=== PATIENT | male | born 1950 | race Caucasian/White ===

== ENCOUNTER → 2017-08-23 09:01 | Outpatient (CLI) | payer OTHER, SELFPAY ==
[2017-08-23 11:31] LABS: Absolute Lymphocyte Count 3.19 X10^3/ul (0.83-4.51); Absolute Neutrophil Count 4.1 X10^3/uL (2.0-7.7); Basophil# 0.03 X10^3/uL; Basophil% 0.4 % (0-1); Eosinophil# 0.15 X10^3/uL; Eosinophils% 1.8 % (0-5); Hematocrit 46.3 % (40-54); Hemoglobin 15.5 g/dl (13.0-16.5); Lymphocyte # 3.19 X10^3/ul (4.0); Lymphocyte % 37.7 % (19-41); Mean Corp Hgb Conc 33.5 g/gl (32-36); Mean Corpuscular Hgb 32.4 pg (27.0-32.0); Mean Corpuscular Volume 96.7 fL (80-94); Mean Platelet Vol. 9.8 fl (6.2-12.0); Monocyte# 1.01 X10^3/uL; Monocyte% 11.9 % (0-10); Neutrophil # 4.07 X10^3/uL (2.7-7.7); Platelet Count 387 K/mm3 (150-450); RBC Distribution Width CV 14.4 % (11.6-14.6); RBC Distribution Width SD 49.4 fl (35.1-43.9); Red Blood Count 4.79 M/mm3 (4.6-6.2); White Blood Count 8.5 K/mm3 (4.4-11.0)
[2017-08-23 11:33] LABS: POSITIVE COUNT NO; POSITIVE DIFFERENTIAL NO; POSITIVE MORPHOLOGY NO
[2017-08-23 12:03] LABS: AST(SGOT) 24 U/L (15-37); Alanine Aminotransfer ALT/SGPT 32 U/L (16-61); Albumin, Serum 3.8 g/dL (3.2-5.0); Alkaline Phosphatase 117 U/L (45-117); Anion Gap 9 (5-15); BUN 25 mg/dL (7-18); BUN/Creat Ratio 27.6 RATIO (10-20); Calcium,Total 8.6 mg/dL (8.5-10.1); Chloride 100 mmol/L (98-107); Creatinine, Serum 0.91 mg/dL (0.70-1.30); EST Glomerular Filtration Rate 89 mL/min (>60); Est Glom Filt Rate - Afr Amer 108 mL/min (>60); Globulin 3.7 g/dL (2.2-4.2); Glucose 111 mg/dL (74-106); Potassium 4.4 mmol/L (3.5-5.1); Protein, Total 7.5 g/dL (6.4-8.2); Sodium Level 138 mmol/L (136-145); Thyroid Stim Hormone (TSH) 1.63 uIU/mL (0.358-3.74)
== END ==
PROVIDERS: Family Provider Family Medicine Geriatric Medicine; PCP Family Medicine Geriatric Medicine; Visit Provider Family Medicine Geriatric Medicine
DX: I10 Essential (primary) hypertension (principal)
CPT/HCPCS: 36415; 80053; 84443; 85025

== ENCOUNTER → 2017-08-30 09:00 | Outpatient (CLI) | payer OTHER, SELFPAY | PROVIDERS: Family Provider Family Medicine Geriatric Medicine; PCP Family Medicine Geriatric Medicine; Visit Provider Internal Medicine Critical Care Medicine | DX: G47.33 Obstructive sleep apnea (adult) (pediatric) (principal) | CPT/HCPCS: 98960; G0463 ==

== ENCOUNTER → 2018-03-07 09:07 | Outpatient (CLI) | payer OTHER, SELFPAY ==
[2018-03-07 12:38] LABS: Absolute Lymphocyte Count 2.58 X10^3/ul (0.83-4.51); Absolute Neutrophil Count 4.9 X10^3/uL (2.0-7.7); Basophil# 0.04 X10^3/uL; Basophil% 0.5 % (0-1); Eosinophil# 0.14 X10^3/uL; Eosinophils% 1.6 % (0-5); Hematocrit 48.7 % (40-54); Hemoglobin 16.1 g/dl (13.0-16.5); Lymphocyte # 2.58 X10^3/ul (4.0); Lymphocyte % 29.7 % (19-41); Mean Corp Hgb Conc 33.1 g/gl (32-36); Mean Corpuscular Hgb 31.9 pg (27.0-32.0); Mean Corpuscular Volume 96.6 fL (80-94); Mean Platelet Vol. 9.8 fl (6.2-12.0); Monocyte# 0.99 X10^3/uL; Monocyte% 11.4 % (0-10); Neutrophil # 4.91 X10^3/uL (2.7-7.7); Neutrophil % 56.6 % (47-70); Platelet Count 336 K/mm3 (150-450); RBC Distribution Width CV 13.7 % (11.6-14.6); RBC Distribution Width SD 48.1 fl (35.1-43.9); Red Blood Count 5.04 M/mm3 (4.6-6.2); White Blood Count 8.7 K/mm3 (4.4-11.0)
[2018-03-07 12:39] LABS: POSITIVE COUNT NO; POSITIVE DIFFERENTIAL NO; POSITIVE MORPHOLOGY NO
[2018-03-07 12:52] LABS: Vitamin D,25 Hydroxy 7.7 ng/mL (29.95-100.01)
[2018-03-07 12:59] LABS: ALB/GLOB Ratio 0.9 RATIO (0.9-2.4); AST(SGOT) 23 U/L (15-37); Alanine Aminotransfer ALT/SGPT 34 U/L (16-61); Albumin, Serum 3.6 g/dL (3.2-5.0); Alkaline Phosphatase 114 U/L (45-117); Anion Gap 7 (5-15); BUN 19 mg/dL (7-18); BUN/Creat Ratio 21.8 RATIO (10-20); Calcium,Total 8.7 mg/dL (8.5-10.1); Chloride 100 mmol/L (98-107); Creatinine, Serum 0.87 mg/dL (0.70-1.30); EST Glomerular Filtration Rate 93 mL/min (>60); Est Glom Filt Rate - Afr Amer 113 mL/min (>60); Globulin 3.8 g/dL (2.2-4.2); Glucose 115 mg/dL (74-106); PSA,Total - Annual Screen 0.95 ng/mL (0.00-4.00); Potassium 4.7 mmol/L (3.5-5.1); Protein, Total 7.4 g/dL (6.4-8.2); Sodium Level 139 mmol/L (136-145); Thyroid Stim Hormone (TSH) 1.31 uIU/mL (0.358-3.74)
[2018-03-10 13:13] LABS: Hep C Antibodies 0.1 s/co ratio (0.0-0.9)
== END ==
PROVIDERS: Family Provider Family Medicine Geriatric Medicine; PCP Family Medicine Geriatric Medicine; Visit Provider Family Medicine Geriatric Medicine
DX: I10 Essential (primary) hypertension (principal); E55.9 Vitamin D deficiency, unspecified; Z12.5 Encounter for screening for malignant neoplasm of prostate; Z13.89 Encounter for screening for other disorder
CPT/HCPCS: 36415; 80053; 82306; 84153; 84443; 85025; 86803; G0103

== ENCOUNTER → 2019-04-17 08:36 | Outpatient (CLI) | payer OTHER, SELFPAY ==
[2018-08-29 09:01] VITALS: BMI 39.6
[2019-04-17 12:00] LABS: Absolute Lymphocyte Count 3.57 X10^3/uL (0.83-4.51); Absolute Neutrophil Count 5.5 X10^3/uL (2.0-7.7); Basophil# 0.05 X10^3/uL; Basophil% 0.5 % (0-1); Eosinophil# 0.13 X10^3/uL; Eosinophils% 1.3 % (0-5); Hematocrit 53.9 % (40-54); Hemoglobin 17.1 g/dL (13.0-16.5); Lymphocyte # 3.57 X10^3/ul (4.0); Lymphocyte % 34.6 % (19-41); Mean Corp Hgb Conc 31.7 g/dL (32-36); Mean Corpuscular Hgb 31.7 pg (27.0-32.0); Mean Corpuscular Volume 99.8 fL (80-94); Mean Platelet Vol. 10.2 fl (6.2-12.0); Monocyte# 1.03 X10^3/uL; NRBC Flagged by Analyzer 0 % (0-5); Neutrophil # 5.47 X10^3/uL (2.7-7.7); Neutrophil % 52.8 % (47-70); Platelet Count 309 K/mm3 (150-450); RBC Distribution Width CV 13.5 % (11.6-14.6); RBC Distribution Width SD 49.2 fl (35.1-43.9); White Blood Count 10.3 K/mm3 (4.4-11.0)
[2019-04-17 12:18] LABS: Vitamin D,25 Hydroxy 27.2 ng/mL (29.95-100.01)
[2019-04-17 12:22] LABS: ALB/GLOB Ratio 0.9 RATIO (0.9-2.4); AST(SGOT) 22 U/L (15-37); Alanine Aminotransfer ALT/SGPT 36 U/L (16-61); Albumin, Serum 3.7 g/dL (3.2-5.0); Alkaline Phosphatase 111 U/L (45-117); Anion Gap 4 (5-15); BUN 27 mg/dL (7-18); BUN/Creat Ratio 30.8 RATIO (10-20); Calcium,Total 8.7 mg/dL (8.5-10.1); Chloride 101 mmol/L (98-107); Creatinine, Serum 0.88 mg/dL (0.70-1.30); EST Glomerular Filtration Rate 92 mL/min (>60); Est Glom Filt Rate - Afr Amer 111 mL/min (>60); Globulin 3.9 g/dL (2.2-4.2); Glucose 124 mg/dL (74-106); PSA,Total - Annual Screen 0.89 ng/mL (0.00-4.00); Potassium 4.5 mmol/L (3.5-5.1); Protein, Total 7.6 g/dL (6.4-8.2); Sodium Level 138 mmol/L (136-145); Thyroid Stim Hormone (TSH) 1.54 uIU/mL (0.358-3.74)
== END ==
PROVIDERS: Family Provider Family Medicine Geriatric Medicine; PCP Family Medicine Geriatric Medicine; Visit Provider Family Medicine Geriatric Medicine
DX: I10 Essential (primary) hypertension (principal); E55.9 Vitamin D deficiency, unspecified; Z12.5 Encounter for screening for malignant neoplasm of prostate
CPT/HCPCS: 36415; 80053; 82306; 84153; 84443; 85025; G0103

== ENCOUNTER → 2019-10-09 11:30 | Outpatient (CLI) | payer OTHER, SELFPAY ==
[2019-08-14 07:33] VITALS: BMI 39.6
[2019-10-09 12:23] LABS: Absolute Lymphocyte Count 2.81 X10^3/uL (0.83-4.51); Absolute Neutrophil Count 5.8 X10^3/uL (2.0-7.7); Basophil# 0.06 X10^3/uL; Basophil% 0.6 % (0-1); Eosinophil# 0.22 X10^3/uL; Eosinophils% 2.2 % (0-5); Hemoglobin 15.9 g/dL (13.0-16.5); Lymphocyte # 2.81 X10^3/ul (4.0); Lymphocyte % 28.6 % (19-41); Mean Corp Hgb Conc 32.4 g/dL (32-36); Mean Corpuscular Hgb 32.3 pg (27.0-32.0); Mean Corpuscular Volume 99.6 fL (80-94); Monocyte# 0.94 X10^3/uL; Monocyte% 9.6 % (0-10); NRBC Flagged by Analyzer 0 % (0-5); Neutrophil # 5.75 X10^3/uL (2.7-7.7); Neutrophil % 58.7 % (47-70); Platelet Count 344 K/mm3 (150-450); RBC Distribution Width CV 13.6 % (11.6-14.6); RBC Distribution Width SD 49.7 fl (35.1-43.9); Red Blood Count 4.92 M/mm3 (4.6-6.2); White Blood Count 9.8 K/mm3 (4.4-11.0)
[2019-10-09 12:45] LABS: Vitamin D,25 Hydroxy 27.5 ng/mL
[2019-10-09 12:59] LABS: AST(SGOT) 23 U/L (15-37); Alanine Aminotransfer ALT/SGPT 33 U/L (16-61); Albumin, Serum 3.5 g/dL (3.2-5.0); Alkaline Phosphatase 115 U/L (45-117); Anion Gap 3 (5-15); BUN 27 mg/dL (7-18); BUN/Creat Ratio 27.1 RATIO (10-20); Calcium,Total 8.8 mg/dL (8.5-10.1); Chloride 103 mmol/L (98-107); EST Glomerular Filtration Rate 79 mL/min (>60); Est Glom Filt Rate - Afr Amer 96 mL/min (>60); Globulin 3.5 g/dL (2.2-4.2); Glucose 151 mg/dL (74-106); Potassium 4.3 mmol/L (3.5-5.1); Sodium Level 139 mmol/L (136-145); Thyroid Stim Hormone (TSH) 1.22 uIU/mL (0.358-3.74)
[2019-10-12 10:18] LABS: Hemoglobin A1c 7.5 % (4.2-6.3)
== END ==
PROVIDERS: PCP Family Medicine Geriatric Medicine; Visit Provider Family Medicine Geriatric Medicine
DX: E11.9 Type 2 diabetes mellitus without complications (principal); I10 Essential (primary) hypertension; E55.9 Vitamin D deficiency, unspecified
CPT/HCPCS: 36415; 80053; 82306; 83036; 84443; 85025

== ENCOUNTER 2019-11-16 08:45 | Outpatient (RCR) | payer OTHER, SELFPAY ==
[2019-08-14 07:33] VITALS: BMI 39.6
== END 2019-11-16 23:59 | disposition home or self-care (01) ==
LOC: DC 08:45
PROVIDERS: PCP Family Medicine Geriatric Medicine; Visit Provider Family Medicine Geriatric Medicine
DX: Z71.3 Dietary counseling and surveillance (principal); E11.9 Type 2 diabetes mellitus without complications
CPT/HCPCS: 97802

== ENCOUNTER → 2020-02-10 11:14 | Outpatient (CLI) | payer OTHER, SELFPAY ==
[2019-08-14 07:33] VITALS: BMI 39.6
[2020-02-10 12:19] LABS: Absolute Lymphocyte Count 3.49 X10^3/uL (0.83-4.51); Absolute Neutrophil Count 5.5 X10^3/uL (2.0-7.7); Basophil# 0.06 X10^3/uL; Basophil% 0.6 % (0-1); Eosinophil# 0.13 X10^3/uL; Eosinophils% 1.3 % (0-5); Hematocrit 48.5 % (40-54); Lymphocyte # 3.49 X10^3/ul (4.0); Lymphocyte % 34.4 % (19-41); Mean Corpuscular Hgb 32.3 pg (27.0-32.0); Mean Platelet Vol. 9.7 fl (6.2-12.0); Monocyte# 0.96 X10^3/uL; Monocyte% 9.4 % (0-10); NRBC Flagged by Analyzer 0 % (0-5); Neutrophil % 54.1 % (47-70); Platelet Count 376 K/mm3 (150-450); RBC Distribution Width CV 13.9 % (11.6-14.6); RBC Distribution Width SD 50.2 fl (35.1-43.9); Red Blood Count 4.95 M/mm3 (4.6-6.2); White Blood Count 10.2 K/mm3 (4.4-11.0)
[2020-02-10 12:43] LABS: AST(SGOT) 21 U/L (15-37); Alanine Aminotransfer ALT/SGPT 31 U/L (16-61); Albumin, Serum 3.8 g/dL (3.2-5.0); Alkaline Phosphatase 102 U/L (45-117); Anion Gap 2 (5-15); BUN 23 mg/dL (7-18); BUN/Creat Ratio 28.7 RATIO (10-20); Calcium,Total 9.1 mg/dL (8.5-10.1); Chloride 102 mmol/L (98-107); EST Glomerular Filtration Rate 102 mL/min (>60); Est Glom Filt Rate - Afr Amer 123 mL/min (>60); Globulin 3.9 g/dL (2.2-4.2); Glucose 116 mg/dL (74-106); Potassium 5.4 mmol/L (3.5-5.1); Protein, Total 7.7 g/dL (6.4-8.2); Sodium Level 137 mmol/L (136-145); Thyroid Stim Hormone (TSH) 1.61 uIU/mL (0.358-3.74)
== END ==
PROVIDERS: PCP Family Medicine Geriatric Medicine; Visit Provider Family Medicine Geriatric Medicine
DX: E11.65 Type 2 diabetes mellitus with hyperglycemia (principal); I10 Essential (primary) hypertension; E55.9 Vitamin D deficiency, unspecified
CPT/HCPCS: 36415; 80053; 82306; 84443; 85025

== ENCOUNTER → 2020-02-20 15:05 | Outpatient (CLI) | payer OTHER, SELFPAY ==
[2019-08-14 07:33] VITALS: BMI 39.6
[2020-02-20 15:59] LABS: Anion Gap 5 (5-15); BUN 21 mg/dL (7-18); BUN/Creat Ratio 27.4 RATIO (10-20); Calcium,Total 8.7 mg/dL (8.5-10.1); Chloride 105 mmol/L (98-107); Creatinine, Serum 0.77 mg/dL (0.70-1.30); EST Glomerular Filtration Rate 107 mL/min (>60); Est Glom Filt Rate - Afr Amer 130 mL/min (>60); Glucose 89 mg/dL (74-106); Sodium Level 139 mmol/L (136-145)
== END ==
LOC: LAB.FUTURE 15:09 → LAB 15:18
PROVIDERS: PCP Family Medicine Geriatric Medicine; Visit Provider Family Medicine Geriatric Medicine
DX: E87.5 Hyperkalemia (principal)
CPT/HCPCS: 36415; 80048

== ENCOUNTER → 2020-04-11 12:42 | Outpatient (CLI) | payer OTHER, SELFPAY ==
[2020-04-06 15:11] VITALS: BMI 35.9
--- NOTE | 2020-04-11 12:45 | ECHOCS_ITS ---
Reason For Study: CAD Procedure This was a 2D Doppler, Color Flow transthoracic echocardiogram. The study was technically difficult. Contrast injection was performed. Exam performed in department. Left Ventricle Normal LV size. Mild concentric left ventricular hypertrophy. Left ventricular systolic function is normal. The estimated ejection fraction is 55 %. Stage 2 diastolic dysfunction. Infero-Basal: Severely Hypokinetic. Posterior-Basal: Hypokinetic. Mid-Inferior: Hypokinetic. There are regional wall motion abnormalities as specified. Right Ventricle Normal RV size. Normal systolic function. Atria The left atrium is moderately enlarged. The right atrium is mildly enlarged. Tricuspid Valve Normal tricuspid valve. Mild (1+) tricuspid valve insufficiency. Pulmonary artery systolic pressure is 34 mmHg. Aortic Valve The aortic valve is not well visualized. Pulmonic Valve The pulmonic valve is not well visualized. Great Vessels Normal aortic root. The pulmonary artery is normal size. Normal inferior vena cava. Pericardium/Pleural No pericardial effusion. Medication 22 gauge I.V. with prn adaptor inserted into right arm. Diluted definity 4.0ml given slow IV push to enhance endocardial definition. MMode/2D Measurements & Calculations LVIDd: 4.9 cm IVSd: 1.2 cm Ao root diam: 3.9 cm LVIDs: 3.4 cm LVPWd: 1.4 cm RVDd: 4.1 cm FS: 30.9 % LAV(MOD-bp): 81.5 ml LVAd ap4: 40.8 cm2 SV(MOD-sp4): 106.1 ml LAV(MOD-bp) Indexed: 35.1 ml/m2 EDV(MOD-sp4): 166.3 ml LAV(MOD-sp2): 64.0 ml EDV(sp4-el): 172.0 ml LAV(MOD-sp4): 92.1 ml LVAs ap4: 22.4 cm2 ESV(MOD-sp4): 60.1 ml ESV(sp4-el): 61.2 ml EF(MOD-sp4): 63.8 % EF(sp4-el): 64.4 % SV(sp4-el): 110.8 ml LA A4 area: 27.6 cm2 LA dimension(2D): 5.3 cm RA A4 area: 22.3 cm2 Time Measurements MV dec time: 0.21 sec Doppler Measurements & Calculations MV E max scott: 61.7 cm/sec Lat Peak E' Scott: 8.7 cm/sec Med Peak E' Scott: 3.8 cm/sec MV A max scott: 39.9 cm/sec E/E' lat: 7.1 E/E' med: 16.2 MV E/A: 1.5 Ao V2 max: 122.8 cm/sec LV V1 max: 94.5 cm/sec TR max scott: 273.7 cm/sec Ao max P.0 mmHg LV V1 max P.6 mmHg TR max P.0 mmHg Interpretation Summary Normal LV size. Mild concentric left ventricular hypertrophy. Left ventricular systolic function is normal. The estimated ejection fraction is 55 %. Stage 2 diastolic dysfunction. The left atrium is moderately enlarged. Contrast injection was performed. Ordering Physician: Marvin Elliott Referring Physician: HILDA KO Performed By: Loyda Mercado RDCS, RVT
== END ==
PROVIDERS: PCP Family Medicine Geriatric Medicine; Referring Provider Internal Medicine Cardiovascular Disease; Visit Provider Internal Medicine Cardiovascular Disease
DX: I25.10 Atherosclerotic heart disease of native coronary artery without angina pectoris (principal); I10 Essential (primary) hypertension
CPT/HCPCS: 93306; Q9957; A4216; C8929

== ENCOUNTER → 2020-04-14 05:20 | Outpatient (CLI) | payer OTHER, SELFPAY ==
[2020-04-06 15:11] VITALS: BMI 35.9
--- NOTE | 2020-04-14 16:58 | STRESSREP ---
Stress Test Report Pharmacologic myocardial perfusion stress test. 69-year-old man with a history of chest pain. Stress protocol: Resting EKG demonstrates sinus bradycardia with a rate of 50 bpm normal intervals are noted resting blood pressure is 120/72 mmHg. 0.4 mg of regadenoson was infused per usual protocol followed by rapid intravenous saline flush injection continuous EKG monitoring was performed. The maximum heart rate attained was 88 bpm which was sinus rhythm. There were no ST or T wave changes noted to suggest ischemia. The resting blood pressure was 120/72 final blood pressure was 112/70. Myocardial perfusion protocol. 15.0 mCi of technetium 99m sestamibi was injected at rest. 0.4 mg of regadenoson was infused per usual protocol. At peak infusion 45.0 mCi of technetium 99m sestamibi was injected stress images were obtained stress and rest images were reconstructed and compared in the short axis vertical long horizontal long axis. Gated images were also obtained Perfusion SPECT analysis: Review of the stress images demonstrate normal uptake of tracer noted in all areas of the myocardium. There is a very small portion of the inferior and inferior basal wall which demonstrates reduced perfusion. This is present on the stress and rest images to a similar extent. No reversibility is noted suggest ischemia the above is suggestive of a previous inferior infarct. Gated SPECT analysis: The gated ejection fraction is 55%. Conclusion: Myocardial perfusion stress test with evidence of previous inferior infarct. Preserved ejection fraction.
== END ==
PROVIDERS: PCP Family Medicine Geriatric Medicine; Referring Provider Internal Medicine Cardiovascular Disease; Visit Provider Internal Medicine Cardiovascular Disease
DX: I10 Essential (primary) hypertension (principal); I25.10 Atherosclerotic heart disease of native coronary artery without angina pectoris
CPT/HCPCS: 78452; 93017; A9500; A4216; J2785

== ENCOUNTER → 2020-10-21 11:03 | Outpatient (CLI) | payer OTHER, SELFPAY ==
[2020-08-26 12:45] VITALS: BMI 39.0
[2020-10-21 12:54] LABS: Absolute Lymphocyte Count 3.97 X10^3/uL (0.83-4.51); Absolute Neutrophil Count 4.8 X10^3/uL (2.0-7.7); Basophil# 0.07 X10^3/uL; Basophil% 0.7 % (0-1); Hematocrit 47.3 % (40-54); Hemoglobin 15.2 g/dL (13.0-16.5); Lymphocyte # 3.97 X10^3/ul (0.83-4.51); Lymphocyte % 39.6 % (19-41); Mean Corp Hgb Conc 32.1 g/dL (32-36); Mean Corpuscular Hgb 31.8 pg (27.0-32.0); Monocyte# 0.95 X10^3/uL; Monocyte% 9.5 % (0-10); NRBC Flagged by Analyzer 0 % (0-5); Neutrophil # 4.81 X10^3/uL (2.7-7.7); Neutrophil % 47.9 % (47-70); Platelet Count 353 K/mm3 (150-450); RBC Distribution Width CV 13.7 % (11.6-14.6); RBC Distribution Width SD 50.3 fl (35.1-43.9); Red Blood Count 4.78 M/mm3 (4.6-6.2)
[2020-10-21 13:21] LABS: AST(SGOT) 27 U/L (15-37); Alanine Aminotransfer ALT/SGPT 41 U/L (16-61); Albumin, Serum 3.8 g/dL (3.2-5.0); Alkaline Phosphatase 97 U/L (45-117); Anion Gap 3 (5-15); BUN 27 mg/dL (7-18); BUN/Creat Ratio 31.6 RATIO (10-20); Chloride 103 mmol/L (98-107); Creatinine, Serum 0.85 mg/dL (0.70-1.30); EST Glomerular Filtration Rate 95 mL/min (>60); Est Glom Filt Rate - Afr Amer 114 mL/min (>60); Globulin 3.9 g/dL (2.2-4.2); Glucose 106 mg/dL (74-106); Potassium 4.3 mmol/L (3.5-5.1); Protein, Total 7.7 g/dL (6.4-8.2); Sodium Level 135 mmol/L (136-145); Thyroid Stim Hormone (TSH) 1.84 uIU/mL (0.358-3.74)
== END ==
PROVIDERS: PCP Family Medicine Geriatric Medicine; Visit Provider Family Medicine Geriatric Medicine
DX: E11.65 Type 2 diabetes mellitus with hyperglycemia (principal); I10 Essential (primary) hypertension; E55.9 Vitamin D deficiency, unspecified
CPT/HCPCS: 36415; 80053; 82306; 84443; 85025

== ENCOUNTER → 2021-07-05 12:55 | Outpatient (CLI) | payer OTHER, SELFPAY ==
--- NOTE | 2021-07-05 13:10 | RAD_ITS ---
INDICATION: COUGH EXAMINATION/TECHNIQUE: X-RAY - XR Chest 2 Views COMPARISON: 01/12/2016. FINDINGS: LINES/DEVICES: None. LUNGS: Peribronchial cuffing bilateral hilar prominence is seen, prominence of the bronchovascular interstitial lung markings is visualized bilaterally. Linear subsegmental atelectatic streaks are visualized in the lower lung vera more prominent in the lateral aspect of the left lower lung field, no evidence of focal consolidation or infiltrate is seen. Biapical prominence is seen. No evidence of pleural effusion, no evidence of pneumothorax. MEDIASTINUM AND CARDIOVASCULAR STRUCTURES: Cardiac silhouette not enlarged. BONES AND SOFT TISSUES: Degenerative bone changes are seen. RAD/Chest PA and Lateral IMPRESSION: Peribronchial cuffing bilateral hilar prominence, recommend clinical correlation for acute bronchitis or airway disease Electronically Signed: Yang Lunsford MD at 16:38 EST Tel , Service support ,
== END ==
PROVIDERS: PCP Family Medicine Geriatric Medicine; Visit Provider Family Medicine Geriatric Medicine
DX: R68.83 Chills (without fever) (principal); R05.9 Cough, unspecified
CPT/HCPCS: 71046; 87635; 87804; 87807; U0005; U0003

== ENCOUNTER → 2021-07-05 13:33 | Outpatient (CLI) | payer OTHER, SELFPAY ==
[2021-07-05 15:03] LABS: Absolute Lymphocyte Count 1.77 X10^3/uL (0.83-4.51); Absolute Neutrophil Count 5.7 X10^3/uL (2.0-7.7); Basophil# 0.04 X10^3/uL; Basophil% 0.5 % (0-1); Eosinophil# 0.15 X10^3/uL; Eosinophils% 1.8 % (0-5); Hematocrit 50.6 % (40-54); Hemoglobin 16.7 g/dL (13.0-16.5); Lymphocyte # 1.77 X10^3/ul (0.83-4.51); Lymphocyte % 20.7 % (19-41); Mean Corpuscular Hgb 31.8 pg (27.0-32.0); Mean Corpuscular Volume 96.4 fL (80-94); Mean Platelet Vol. 9.7 fl (6.2-12.0); Monocyte# 0.84 X10^3/uL; Monocyte% 9.8 % (0-10); NRBC Flagged by Analyzer 0 % (0-5); Neutrophil # 5.73 X10^3/uL (2.7-7.7); Platelet Count 355 K/mm3 (150-450); RBC Distribution Width CV 13.3 % (11.6-14.6); RBC Distribution Width SD 47.5 fl (35.1-43.9); Red Blood Count 5.25 M/mm3 (4.6-6.2); White Blood Count 8.6 K/mm3 (4.4-11.0)
[2021-07-05 15:21] LABS: Anion Gap 7 (5-15); BUN 24 mg/dL (7-18); BUN/Creat Ratio 31.4 RATIO (10-20); Calcium,Total 8.5 mg/dL (8.5-10.1); Chloride 95 mmol/L (98-107); Creatinine, Serum 0.76 mg/dL (0.70-1.30); EST Glomerular Filtration Rate 107 mL/min (>60); Est Glom Filt Rate - Afr Amer 130 mL/min (>60); Glucose 157 mg/dL (74-106); Potassium 3.9 mmol/L (3.5-5.1); Sodium Level 135 mmol/L (136-145)
== END ==
PROVIDERS: PCP Family Medicine Geriatric Medicine; Visit Provider Family Medicine Geriatric Medicine
DX: J18.9 Pneumonia, unspecified organism (principal); E11.65 Type 2 diabetes mellitus with hyperglycemia; I10 Essential (primary) hypertension; E55.9 Vitamin D deficiency, unspecified; Z12.5 Encounter for screening for malignant neoplasm of prostate
CPT/HCPCS: 36415; 80048; 85025

== ENCOUNTER 2021-07-09 06:11 | Inpatient (IN) | payer OTHER, MEDICARE, SELFPAY ==
[2021-07-09] VITALS (15 sets, daily range): BP systolic 150–196; BP diastolic 71–115; PULSE 68–102; RESP 20–28; TEMP 36.3–36.8; O2SAT 78–97; BMI 40.6; BMI 40.1
--- NOTE | 2021-07-09 06:36 | EKG12_ITS ---
Test Reason : SOB Blood Pressure : / mmHG Vent. Rate : 079 BPM Atrial Rate : 079 BPM P-R Int : 130 ms QRS Dur : 106 ms QT Int : 404 ms P-R-T Axes : 055 -08 062 degrees QTc Int : 463 ms Sinus rhythm with Premature supraventricular complexes Otherwise normal ECG Low voltage QRS (LIMB LEADS) Confirmed by PORTIA BARBOSA, TREVOR ([id number]), health editor FRANCISCO EDWARDS ([id number]) on 07/12/2021 10:21:27 AM Referred By: ASHOK Confirmed By:TREVOR PEARCE MD
--- NOTE | 2021-07-09 06:36 | CT_ITS ---
STUDY: CTA CHEST REASON FOR EXAM: Male, 70 years old. hypoxia RADIATION DOSAGE (If Supplied By Facility): CTDIvol = ( 15.04 ) mGy, DLP = ( 464.16 ) mGycm TECHNIQUE: The examination was performed with the intravenous administration of IV 100mL Isovue-370. Post-processing of the angiographic images was performed, with multiplanar reformation and 3D reconstruction. Individualized dose optimization techniques were used for this CT. COMPARISON: 03/06/2016, FINDINGS: Normal enhancement of the main pulmonary artery and right and left pulmonary arteries. Normal enhancement of the bilateral peripheral pulmonary arteries. There is no demonstrated pulmonary embolism. Normal thoracic aorta and visualized great vessels. There is no demonstrated aortic dissection. Normal heart and pericardium. Normal mediastinum. Normal hilar regions. Normal visualized trachea and bronchi. The lungs are well expanded. Normal pulmonary parenchyma. Normal pleura. Normal chest wall structures. Normal osseous structures. Normal visualized upper abdomen. CT/CTA Chest W/WO Contrast IMPRESSION: Normal CTA chest examination, without a demonstrated pulmonary embolism or arterial dissection. Electronically Signed: Deshawn Faust MD at 8:31 EST Tel , Service support ,
--- NOTE | 2021-07-09 06:53 | EDS_ITS ---
HPI History of Present Illness Chief Complaint: Dizziness Informant: patient and spouse/S.O. Narrative Narrative: Patient reports feeling ill with URI symptoms for the past week or so. He was seen by his PCP on July 06. Lab work, chest x-ray, Covid PCR test obtained and negative. Patient reportedly was 87% on room air when he arrived to the office. He was given breathing treatments and discharged with prescriptions for cefdinir, azithromycin, and prednisone. Patient woke this morning feeling lightheaded and dizzy. On arrival to the emergency room his O2 sat is 78% on room air. The time of my exam O2 sat is in the high 90s on 4 L nasal cannula. He denies having fever. He denies chest pain. [facility] Medical History (Updated 07/09/21 @ 08:[address] Lisandra Hamm MD) Allergic rhinitis Arthritis Atherosclerotic heart disease of [place] coronary artery without angina pectoris Body mass index (BMI) of 37.0-37.9 in adult Essential (primary) hypertension History of left heart catheterization (01/23/16) Hyperlipidemia Nicotine abuse Obesity Obstructive sleep apnea Tobacco dependence in remission Home Medications atenolol 25 mg PO DAILY 01/18/16 [History Last Taken 01/23/16] triamterene-hydrochlorothiazid 0.5 tab PO DAILY 01/18/16 [History Last Taken 01/23/16] aspirin 81 mg tablet,delayed release 81 mg PO QDAY 07/11/17 [History Last Taken Unknown] atorvastatin 10 mg tablet 40 mg PO QHS tab 04/06/20 [History Last Taken Unknown] metformin 500 mg tablet 500 mg PO BID tab 04/06/20 [History Last Taken Unknown] albuterol 2 mcg INHALATION Q4H PRN PRN 07/09/21 [History Last Taken Unknown] azithromycin [Zithromax] 250 mg PO DAILY 07/09/21 [History Last Taken Unknown] cefdinir 300 mg PO BID 07/09/21 [History Last Taken Unknown] lisinopril 2.5 mg PO DAILY 07/09/21 [History Last Taken Unknown] prednisone 10 mg PO DAILY 07/09/21 [History Last Taken Unknown] Allergy/AdvReac Type Severity Reaction Status Date / Time adhesive tape AdvReac Mild red/itchy Verified 07/09/21 06:15 Family History Unknown No problems noted. Surgical History H/O resection of rib History of appendectomy History of arthroplasty of right knee History of cataract extraction History of partial splenectomy History of splenectomy History of tonsillectomy History of tracheostomy Social History Smoking Status: Former smoker quit date: 07/08/16 pack-years: 50 second hand exposure: No alcohol intake: never substance use type: does not use caffeine: Yes Type: coffee Number of servings: 8 what type of physical activity do you participate in: none ROS ROS ED Constitutional Constitutional ED: Denies chills or fever(s) Eyes Eyes: Denies change in vision ENT ENT ED: Denies sore throat Cardiovascular Cardiovascular: Denies chest pain Respiratory/Chest Respiratory/Chest: Reports cough and dyspnea Gastrointestinal Gastrointestinal: Denies abdominal pain, diarrhea, nausea or vomiting Genitourinary Genitourinary ED: Denies dysuria Musculoskeletal Musculoskeletal: Denies back pain Integumentary Denies rash Neurologic Neurologic: Denies headache(s) or weakness Allergic/Immunologic Allergic/Immunologic ED: Denies urticaria EXAM Physical Exam Const Vital Signs: 07/09/21 06:12 07/09/21 06:15 07/09/21 06:18 Temperature 97.6 F L 97.6 F L Temperature Source Temporal Temporal Pulse Rate 82 82 Respiratory Rate 24 H 24 H Respiratory Pattern Normal Blood Pressure 186/102 H 186/102 H Blood Pressure Mean 130 130 Pulse Ox 78 78 Oxygen Delivery Method Room Air Room Air Oxygen Flow Rate (L/min) 07/09/21 07:12 Temperature Temperature Source Pulse Rate 86 Respiratory Rate 25 H Respiratory Pattern Blood Pressure 186/106 H Blood Pressure Mean 132 Pulse Ox 96 Oxygen Delivery Method Nasal Cannula Oxygen Flow Rate (L/min) 4 Positive well nourished and well developed General Appearance ED: well developed HEENT Reports normocephalic and head/scalp atraumatic Eyes PERRL and EOMs intact bilaterally Neck supple Chest Wall inspection of chest normal and palpation of chest normal Resp normal respiratory effort and clear to auscultation bilaterally Cardio regular rate and regular rhythm GI normal to inspection, nondistended, normoactive bowel sounds Palpation: soft Back/Spine no CVA tenderness Extremity normal to inspection Neuro oriented x3 and no sensory deficits noted Sensorium / Orientation: alert Motor Exam: strength 5/5 throughout Psych mental status grossly normal Skin no rashes or lesions noted MDM MDM MDM Narrative Medical decision making narrative: Patient's prior work-up was reviewed and did confirm negative Covid PCR the . Repeat lab work and CTA of the chest was obtained. Lab Data Attestation: I reviewed the patient's lab results. Labs: Laboratory Results - last 24 hr 07/09/21 07/09/21 07/09/21 07:09 07:09 07:09 WBC 16.2 H RBC 5.19 Hgb 16.3 Hct 51.4 MCV 99.0 H MCH 31.4 MCHC 31.7 L RDW Std Deviation 51.6 H RDW Coeff of Tate 13.9 Plt Count 341 MPV 9.7 Immature Gran % (Auto) 0.500 Neut % (Auto) 76.9 H Lymph % (Auto) 14.[address] [place] % (Auto) 7.5 Eos % (Auto) 0.1 Baso % (Auto) 0.2 Absolute Neuts (auto) 12.5 H Absolute Lymphs (auto) 2.40 Nucleated RBC % 0.1 Sodium 139 Potassium 4.6 Chloride 102 Carbon Dioxide 33.0 H Anion Gap 4 L BUN 27 H Creatinine 0.86 Estim Creat Clear Calc 86.34 Est GFR (MDRD) Af Amer 113 Est GFR (MDRD) Non-Af 93 BUN/Creatinine Ratio 31.2 H Glucose 222 H Calcium 8.6 Troponin I High Sens 62 B-Natriuretic Peptide 55.2 Radiography Diagnostic Testing: Clinical Impression(s) from Imaging Studies Chest CTA 07/09/21 06:36 IMPRESSION: Normal CTA chest examination, without a demonstrated pulmonary embolism or arterial dissection. Electronically Signed: Deshawn Faust MD at 8:31 EST Tel , Service support , EKG Initial EKG: Attestation: I personally reviewed and interpreted this EKG as follows: Interpretation: Sinus Rhythm (Sinus at 79 with no acute ischemia.) Treatment and Re-Evaluation Comments:: Repeat evaluation patient resting comfortably. O2 sat is 95% on 4 L nasal cannula. Test results discussed with patient and at bedside. White count is elevated at 16.2, however patient has been on prednisone. Chemistry studies largely unremarkable. Troponin 62 and BNP 55. CTA of the chest reveals no acute abnormalities. With patient requiring oxygen at this time he will be admitted for further treatment. Discharge Plan Triage Chief Complaint: Dizziness ED Provider: Lisandra Hamm Dx/Rx/DC Orders Clinical Impression: URI (upper respiratory infection), Hypoxia Prescriptions: No Action aspirin [Adult Aspirin Regimen] 81 mg tablet,delayed release (DR/EC) 81 mg PO QDAY RF: 0 metformin 500 mg tablet 500 mg PO BID RF: 0 atorvastatin 10 mg tablet 40 mg PO QHS RF: 0 triamterene-hydrochlorothiazid 1 TABLET tablet 0.5 tab PO DAILY RF: 0 atenolol 50 MG tablet 25 mg PO DAILY RF: 0 prednisone 10 mg Tablet 10 mg PO DAILY RF: 0 azithromycin [Zithromax] 250 mg Tablet 250 mg PO DAILY RF: 0 albuterol 90 mcg/actuation Aerosol 2 mcg INHALATION Q4H PRN PRN (Reason: SOB) RF: 0 cefdinir 300 mg Capsule 300 mg PO BID RF: 0 lisinopril 2.5 mg Tablet 2.5 mg PO DAILY RF: 0 Primary Care Provider: Massimo Epperson Chi Referrals: Massimo Epperson Chi, MD [Primary Care Provider] - Disposition Disposition: Acute Care Hospital [facility]
[2021-07-09 07:26] LABS: Absolute Neutrophil Count 12.5 X10^3/uL (2.0-7.7); Basophil# 0.03 X10^3/uL; Basophil% 0.2 % (0-1); Eosinophil# 0.01 X10^3/uL; Eosinophils% 0.1 % (0-5); Hematocrit 51.4 % (40-54); Hemoglobin 16.3 g/dL (13.0-16.5); Lymphocyte % 14.8 % (19-41); Mean Corp Hgb Conc 31.7 g/dL (32-36); Mean Corpuscular Hgb 31.4 pg (27.0-32.0); Mean Platelet Vol. 9.7 fl (6.2-12.0); Monocyte# 1.21 X10^3/uL; Monocyte% 7.5 % (0-10); NRBC Flagged by Analyzer 0.1 % (0-5); Neutrophil # 12.45 X10^3/uL (2.7-7.7); Neutrophil % 76.9 % (47-70); Platelet Count 341 K/mm3 (150-450); RBC Distribution Width CV 13.9 % (11.6-14.6); RBC Distribution Width SD 51.6 fl (35.1-43.9); Red Blood Count 5.19 M/mm3 (4.6-6.2); White Blood Count 16.2 K/mm3 (4.4-11.0)
[2021-07-09 07:38] LABS: Anion Gap 4 (5-15); BUN 27 mg/dL (7-18); BUN/Creat Ratio 31.2 RATIO (10-20); Calcium,Total 8.6 mg/dL (8.5-10.1); Chloride 102 mmol/L (98-107); Creatinine, Serum 0.86 mg/dL (0.70-1.30); EST Glomerular Filtration Rate 93 mL/min (>60); Est Glom Filt Rate - Afr Amer 113 mL/min (>60); Estimated Creatinine Clearance 86.34 ml/min; Glucose 222 mg/dL (74-106); Potassium 4.6 mmol/L (3.5-5.1); Sodium Level 139 mmol/L (136-145); Troponin-I HS 62 pg/mL (3.0-78.0)
[2021-07-09 07:56] LABS: BNP,B-Type NATRIURETIC PEPTIDE 55.2 pg/mL (0-100)
--- NOTE | 2021-07-09 09:16 | PCM.HP.STD ---
HPI - General General Date of Admission: 07/09/21 HPI Narrative VICKI MAST, is a 70 M with multiple comorbidities as listed below came to ER for shortness of breath, cough and URI symptoms since 07/02. Patient had PCI done on past July 05 and was negative. As per , he was given parenteral antibiotic as an outpatient and patient is on cefdinir and azithromycin since then. Patient denies having fever or chills but has cough. History of smoking since teenage and recently quit about 1/2 years ago. He also has obstructive sleep apnea on CPAP Chest CTA done in the ED is negative for pneumonia or PE and reported normal parenchyma, hilar and mediastinal lesion. In ED patient tachypneic, pulse ox 88% on room air, required 4 to 5 L of oxygen therefore admitted [facility] Medical History Allergic rhinitis Arthritis Atherosclerotic heart disease of [place] coronary artery without angina pectoris Body mass index (BMI) of 37.0-37.9 in adult COPD (chronic obstructive pulmonary disease) CPAP (continuous positive airway pressure) dependence Essential (primary) hypertension History of left heart catheterization (01/23/16) Hyperlipidemia Nicotine abuse Obesity Obstructive sleep apnea Tobacco dependence in remission Home Medications atenolol 25 mg PO DAILY 01/18/16 [History Last Taken 01/23/16] aspirin 81 mg tablet,delayed release 81 mg PO QDAY 07/11/17 [History Last Taken Unknown] atorvastatin 10 mg tablet 40 mg PO QHS tab 04/06/20 [History Last Taken Unknown] metformin 500 mg tablet 500 mg PO BID tab 04/06/20 [History Last Taken Unknown] albuterol 2 mcg INHALATION Q4H PRN PRN 07/09/21 [History Last Taken Unknown] azithromycin [Zithromax] 250 mg PO DAILY 07/09/21 [History Last Taken Unknown] cefdinir 300 mg PO BID 07/09/21 [History Last Taken Unknown] lisinopril 2.5 mg PO DAILY 07/09/21 [History Last Taken Unknown] prednisone 10 mg PO DAILY 07/09/21 [History Last Taken Unknown] triamterene-hydrochlorothiazid 0.5 tab PO DAILY 07/09/21 [History Last Taken Unknown] Allergy/AdvReac Type Severity Reaction Status Date / Time adhesive tape AdvReac Mild red/itchy Verified 07/09/21 06:15 Family History Unknown No problems noted. Surgical History H/O resection of rib History of appendectomy History of arthroplasty of right knee History of cataract extraction History of partial splenectomy History of splenectomy History of tonsillectomy History of tracheostomy Social History Smoking Status: Former smoker quit date: 07/08/16 pack-years: 50 second hand exposure: No alcohol intake: never substance use type: does not use caffeine: Yes Type: coffee Number of servings: 8 what type of physical activity do you participate in: none ROS ROS Narrative Constitutional: Reports fatigue and weakness HEENT: Reports systems reviewed and no addt'l complaints, except as documented Respiratory/Chest: Cough mainly dry. Denies chest pain/tightness or congestion Gastrointestinal: Moved bowel in the morning. Denies coffee ground emesis, hematemesis or vomiting Genitourinary: Denies burning urination or new urinary tract symptoms Musculoskeletal: Mild chronic pedal edema reports joint pain and limited range of motion Neurologic: Denies seizure-like activity skin: No ulcer. No rash Endocrinology: Reports systems reviewed and no addt'l complaints, except as documented Hematologic/Lymphatic: Reports systems reviewed and no addt'l complaints, except as documented Rest 12 ROS are negative except as mentioned in HPI Vital Signs Vital Signs Vital Signs: 07/09/21 06:12 07/09/21 06:15 07/09/21 06:18 Temperature 97.6 F L 97.6 F L Temperature Source Temporal Temporal Pulse Rate 82 82 Respiratory Rate 24 H 24 H Respiratory Pattern Normal Blood Pressure 186/102 H 186/102 H Blood Pressure Mean 130 130 Pulse Ox 78 78 Oxygen Delivery Method Room Air Room Air Oxygen Flow Rate (L/min) 07/09/21 07:12 Temperature Temperature Source Pulse Rate 86 Respiratory Rate 25 H Respiratory Pattern Blood Pressure 186/106 H Blood Pressure Mean 132 Pulse Ox 96 Oxygen Delivery Method Nasal Cannula Oxygen Flow Rate (L/min) 4 Weight Weight: 291 lb 10.745 oz Body Mass Index (BMI) 40.6 Physical Exam Narrative General: Alert, Oriented x3, Cooperative, morbid obese BMI 40.2 kg/m? HEENT: Atraumatic, PERRLA, EOMI, Normocephalic Oral: No Gingival or Mucosal Lesions/ Ulcerations Neck: Supple, No JVD, Negative Carotid Bruits Lungs: Air entry diminished in bilateral lungs. Bilateral expiratory rhonchi and wheezing. Cardiovascular: Regular rate, Regular Rhythm, Normal S1, Normal S2, No murmurs Abdomen: Soft, mild abdominal gassiness distention. Nontender bowel Sounds Present. : No renal angle tenderness. No suprapubic tenderness. Extremities: Chronic nonpitting ankle edema, Capillary Refill Less than 3 Seconds Skin: Stasis dermatitis, chronic varicose vein/venous hypertension Musculoskeletal: No Tenderness to Palpation of Joints or Extremities Neurological: Cranial nerves II-XII grossly intact, DTR 2+/4 and Symmetrical, Neuro grossly intact Psych/Mental Status: Normal Affect, Appropriate. Results Lab / Micro Data Result Diagrams: 07/09/21 07:09 07/09/21 07:09 Labs: Laboratory Results - last 24 hr 07/09/21 07:09: WBC 16.2 H, RBC 5.19, Hgb 16.3, Hct 51.4, MCV 99.0 H, MCH 31.4, MCHC 31.7 L, RDW Std Deviation 51.6 H, RDW Coeff of [place] 13.9, Plt Count 341, MPV 9.7, Immature Gran % (Auto) 0.500, Neut % (Auto) 76.9 H, Lymph % (Auto) 14.8 L, [place] % (Auto) 7.5, Eos % (Auto) 0.1, Baso % (Auto) 0.2, Absolute Neuts (auto) 12.5 H, Absolute Lymphs (auto) 2.40, Nucleated RBC % 0.1 07/09/21 07:09: Sodium 139, Potassium 4.6, Chloride 102, Carbon Dioxide 33.0 H, Anion Gap 4 L, BUN 27 H, Creatinine 0.86, Estim Creat Clear Calc 86.34, Est GFR (MDRD) Af Amer 113, Est GFR (MDRD) Non-Af 93, BUN/Creatinine Ratio 31.2 H, Glucose 222 H, Calcium 8.6, Troponin I High Sens 62 07/09/21 07:09: B-Natriuretic Peptide 55.2 Radiology Impression Chest CTA 07/09/21 06:36 IMPRESSION: Normal CTA chest examination, without a demonstrated pulmonary embolism or arterial dissection. Electronically Signed: Deshawn Faust MD at 8:31 EST Tel , Service support , Assessment & Plan Assessment/Plan (1) Hypoxia: PLAN: VT prophylaxis: Lovenox 40 mils subcu daily1. Acute hypoxic respiratory failure probably due to COPD exacerbation with chronic [place] on BiPAP: Patient is being admitted on MedSurg floor. Scheduled DuoNeb, IV Solu-Medrol, incentive spirometry, Mucinex ordered. BiPAP at night. Mild leukocytosis probably from prednisone recently started. Patient follows Dr. Schmitt. As per last pulmonary visit on 08/14/2019 patient is on BiPAP 18/12 cm of water. 2. Mild prerenal azotemia, BUN 27, bicarb 33 possible chronic CO2 retainer with a history of COPD: ABG ordered. 1 L normal saline. May be from volume contraction/hypovolemia. 3. Atherosclerotic heart disease without angina: Patient had cardiac catheter as an preop evaluation for knee replacement. Cardiac cath in 2015 showed 50% mid LAD, RCA which is chronically totally occluded. Denies any recent anginal symptoms. Last echo in April 2020 shows EF 55%, stage II diastolic dysfunction LA moderately enlarged history of chronic diastolic heart failure. Last stress in April 2019 shows evidence of previous inferior infarct. On baseline baby aspirin continued 4. Hypertension: Blood pressure is high 189/115. Home blood pressure medications regimen. Patient on HCTZ, triamterene and lisinopril and atenolol. Lisinopril dose increased. Hydralazine 10 mg IV every 4 hours as needed. Blood pressure more than 180 mmHg. 5. Diabetes mellitus type 2 with hyperglycemia, uncontrolled: Glucose is 222 in BMP. Started on glargine insulin 8 units subcutaneous daily. Accu-Cheks before meals and at bedtime and coverage Humalog sliding scale. Dyslipidemia, morbid obesity: On atorvastatin 40 mg daily VTE prophylaxis: Enoxaparin 40 mg daily Living will/advanced directive/end of life care: Patient does have living will or advanced directive. After discussion of benefits/risks procedures involved with full code, DNR CC arrest and DNR CC, the patient opted for DNRCC arrest with no intubation Patient doesn't want artificial life support including intubation, tube feed, ventilator and/chest compression, central venous catheter, vasopressor and DC shock if needed Total time spent in [id number] encounter in discussion of advanced directive 16 minutes. Charges/Coding Visit Charges Inpatient E&M: 49933 Init Hosp L3 Procedures Hospitalists Procedures: 17189 Advncd Care Plan 30 Min
[2021-07-09 10:44] LABS: Magnesium 2.3 mg/dL (1.6-2.6)
[2021-07-09] MEDS: Lisinopril 5 MG Tablet PO (11:21)
[2021-07-09] MEDS: Insulin Lispro 100 UNIT/ML INSULN.PEN SC ×2 (11:21→23:28)
[2021-07-09] MEDS: 0.9% Normal Saline 1,000 ML 100 ML IV (11:25)
[2021-07-09] MEDS: Aspirin E.C. 81 MG Tablet PO (11:25)
[2021-07-09 11:35] LABS: Bedside Glucose 233 mg/dL (70-110)
[2021-07-09] MEDS: Triamterene 37.5MG/Hctz 25MG Capsule 1 CAP PO (11:36)
--- NOTE | 2021-07-09 13:40 | NURSING ---
Pt was attempting to stand at bedside to void in urinal and fell. Pt with laceration to nose and forehead and bloody nose. Small skin tear noted to left hand. Patient assisted back to bed x3 assist. Pt insisted on standing at bedside to void in urinal. Was inct of urine and stool. Dr. Jacobs notified.
--- NOTE | 2021-07-09 13:48 | CT_ITS ---
STUDY: CT FACIAL BONES WITHOUT CONTRAST REASON FOR EXAM: Male, 70 years old. fall with laceration of nose RADIATION DOSAGE (If Supplied By Facility): CTDIvol = ( 29.38 ) mGy, DLP = ( 664.99 ) mGycm TECHNIQUE: The patient was scanned in a multi detector CT scanner. Sagittal and coronal images were reconstructed. Individualized dose optimization techniques were used for this CT. COMPARISON: None. FINDINGS: Normal soft tissue structures. Normal orbital bosch and orbital contents. Normal nasal bones and anterior nasal spine. Normal facial bones. There is no demonstrated fracture. Normal visualized paranasal sinuses. CT/Sinus/Facial Bone IMPRESSION: Normal unenhanced CT of the facial bones. Electronically Signed: Deshawn Faust MD at 16:14 EST Tel , Service support ,
--- NOTE | 2021-07-09 14:22 | RAD_ITS ---
STUDY: X-RAY - ABDOMEN/PELVIS REASON FOR EXAM: Male, 70 years old. abdomen upper distension,stool TECHNIQUE: AP supine and decubitus views of the abdomen and pelvis. COMPARISON: None. FINDINGS: Normal visualized lung bases. There is an unremarkable bowel gas pattern. There is no demonstrated free abdominal air. The visualized liver, spleen and kidneys are grossly normal in size and morphology. Excreted contrast in the bladder. Dextroscoliosis lumbar spine with degenerative disc disease. RAD/Abd Decub and/or Erect(Portabl IMPRESSION: No bowel obstruction or pneumoperitoneum. Electronically Signed: Deshawn Faust MD at 16:06 EST Tel , Service support ,
[2021-07-09] MEDS: guaiFENesin 1,200 MG Tablet 1200 MG PO (15:49)
[2021-07-09] MEDS: Azithromycin 250 MG Tablet 500 MG PO (15:49)
[2021-07-09] MEDS: Atenolol 25 MG Tablet PO (15:50)
[2021-07-09] MEDS: 0.9% Saline Lock 10 ML Syringe IV (15:50)
[2021-07-09 17:41] LABS: Bedside Glucose 200 mg/dL (70-110)
[2021-07-09] MEDS: Ipratropium/Albuterol Sulfate 3 ML AMPUL.NEB INHALATION (19:46)
[2021-07-10] VITALS (19 sets, daily range): BP systolic 113–153; BP diastolic 69–98; PULSE 62–89; RESP 20–28; TEMP 36.3–37.1; O2SAT 85–98
--- NOTE | 2021-07-10 00:14 | RAD_ITS ---
HISTORY: Shortness of breath EXAMINATION/TECHNIQUE: XR Chest 1 View AP view COMPARISON: CTA chest from one day prior FINDINGS: LINES/DEVICES: None. LUNGS: No overt pulmonary edema. Left greater than right bibasilar linear opacities again noted. Stable pleural based prominence right lower thorax compatible with pleural fatty hypertrophy demonstrated on CT. Mildly elevated right hemidiaphragm. No sizable pleural effusion. No pneumothorax detected. MEDIASTINUM AND CARDIOVASCULAR STRUCTURES: Heart size within normal limits for imaging technique. Slightly prominent main pulmonary artery shadow. Atherosclerotic calcifications along the aorta. BONES AND SOFT TISSUES: Skeletal degenerative changes. Chronic right rib cage deformities. RAD/Chest 1 View (Portable) IMPRESSION: 1. Bibasilar linear scarring and/or atelectasis. 2. Prominent pulmonary artery shadow compatible with pulmonary arterial hypertension. at 0133 Reported and signed by: Ganesh Lyons MD Electronically Signed: Ganesh Lyons MD at 1:32 EST Tel , Service support ,
[2021-07-10 00:26] LABS: Bedside Glucose 252 mg/dL (70-110)
[2021-07-10 00:40] LABS: Absolute Lymphocyte Count 1.35 X10^3/uL (0.83-4.51); Absolute Neutrophil Count 11.8 X10^3/uL (2.0-7.7); Basophil# 0.01 X10^3/uL; Basophil% 0.1 % (0-1); Eosinophil# 0.01 X10^3/uL; Eosinophils% 0.1 % (0-5); Hemoglobin 15.7 g/dL (13.0-16.5); Lymphocyte # 1.35 X10^3/ul (0.83-4.51); Lymphocyte % 9.8 % (19-41); Mean Corp Hgb Conc 31.4 g/dL (32-36); Mean Corpuscular Hgb 31.4 pg (27.0-32.0); Mean Platelet Vol. 9.4 fl (6.2-12.0); Monocyte# 0.53 X10^3/uL; Monocyte% 3.9 % (0-10); NRBC Flagged by Analyzer 0 % (0-5); Neutrophil # 11.79 X10^3/uL (2.7-7.7); Neutrophil % 85.7 % (47-70); Platelet Count 348 K/mm3 (150-450); RBC Distribution Width CV 13.8 % (11.6-14.6); RBC Distribution Width SD 50.9 fl (35.1-43.9); White Blood Count 13.8 K/mm3 (4.4-11.0)
--- NOTE | 2021-07-10 00:50 | NURSING ---
Pt tried to get out of bed to void, did not make it, confused, voided all over, pt coughed up a large amt of phlegm/vomitus when he was coughing harshly, lungs sounding worse, pt with increased confusion. not alert enough to take pills. lac to the head/nose washed and dressing applied. pt abd remains large and distended with bruised noted. pt deep suctioned per respiratory of a large amt of pink thick phlegm and possible food product. call placed to dr guerra, chest xray to r/o aspiration pneumonia and other labs ordered
[2021-07-10 01:00] LABS: Anion Gap 4 (5-15); BUN 25 mg/dL (7-18); BUN/Creat Ratio 32.1 RATIO (10-20); Calcium,Total 8.5 mg/dL (8.5-10.1); Chloride 96 mmol/L (98-107); Creatinine, Serum 0.78 mg/dL (0.70-1.30); EST Glomerular Filtration Rate 105 mL/min (>60); Est Glom Filt Rate - Afr Amer 127 mL/min (>60); Estimated Creatinine Clearance 74.25 ml/min; Glucose 278 mg/dL (74-106); Potassium 4.7 mmol/L (3.5-5.1); Sodium Level 136 mmol/L (136-145)
[2021-07-10] MEDS: Ipratropium/Albuterol Sulfate 3 ML AMPUL.NEB INHALATION ×6 (01:10→22:45)
[2021-07-10 05:55] LABS: Absolute Lymphocyte Count 0.99 X10^3/uL (0.83-4.51); Absolute Neutrophil Count 11.9 X10^3/uL (2.0-7.7); Basophil# 0.02 X10^3/uL; Basophil% 0.1 % (0-1); Hematocrit 51.3 % (40-54); Lymphocyte # 0.99 X10^3/ul (0.83-4.51); Lymphocyte % 7.4 % (19-41); Mean Corp Hgb Conc 31.2 g/dL (32-36); Mean Corpuscular Hgb 31.7 pg (27.0-32.0); Mean Corpuscular Volume 101.6 fL (80-94); Mean Platelet Vol. 9.4 fl (6.2-12.0); Monocyte# 0.46 X10^3/uL; Monocyte% 3.4 % (0-10); NRBC Flagged by Analyzer 0 % (0-5); Neutrophil # 11.91 X10^3/uL (2.7-7.7); Neutrophil % 88.5 % (47-70); Platelet Count 338 K/mm3 (150-450); RBC Distribution Width CV 13.7 % (11.6-14.6); RBC Distribution Width SD 51.9 fl (35.1-43.9); Red Blood Count 5.05 M/mm3 (4.6-6.2); White Blood Count 13.5 K/mm3 (4.4-11.0)
[2021-07-10 06:21] LABS: Anion Gap 2 (5-15); BUN 28 mg/dL (7-18); BUN/Creat Ratio 32.3 RATIO (10-20); Calcium,Total 8.6 mg/dL (8.5-10.1); Chloride 96 mmol/L (98-107); Creatinine, Serum 0.87 mg/dL (0.70-1.30); EST Glomerular Filtration Rate 93 mL/min (>60); Est Glom Filt Rate - Afr Amer 112 mL/min (>60); Estimated Creatinine Clearance 85.35 ml/min; Glucose 255 mg/dL (74-106); Potassium 5.2 mmol/L (3.5-5.1); Sodium Level 135 mmol/L (136-145)
[2021-07-10] MEDS: Insulin Lispro 100 UNIT/ML INSULN.PEN SC ×4 (07:17→21:01)
[2021-07-10 07:20] LABS: Bedside Glucose 260 mg/dL (70-110)
--- NOTE | 2021-07-10 08:01 | PCM.PN.HOSP ---
Subjective Subjective Mild leukocytosis. K5.2. Bicarb 37. Glucose in the 260s. H&H is stable. No fever Patient had fall probably tripped over the wires into while going to bathroom. Fell forward and hit her nose is mild epistaxis. No drop in H&H. Objective Data Objective Data Vital Signs: Vital Signs Temp Pulse Resp BP Pulse Ox 97.7 F L 76 24 H 128/72 H 94 07/10/21 06:00 07/10/21 06:53 07/10/21 06:53 07/10/21 06:00 07/10/21 07:38 Oxygen Flow Rate (L/min) 3 Oxygen Delivery Method Nasal Cannula Weight: 287 lb 14.779 oz Body Mass Index (BMI) 40.1 Intake & Output: Intake and Output for Last 24 Hours 07/08/21 07/09/21 07/10/21 23:59 23:59 23:59 Intake Total 1500 / 1500 1000 / 1000 Output Total 600 / 800 200 / 200 Balance 900 / 700 800 / 800 Lab / Micro Data Result Diagrams: 07/10/21 05:20 07/10/21 05:20 Labs: Laboratory Results - last 24 hr 07/09/21 07:09: Phosphorus 4.0, Magnesium 2.3 07/09/21 11:16: POC Glucose 233 H 07/09/21 17:13: POC Glucose 200 H 07/09/21 23:27: POC Glucose 252 H 07/10/21 00:30: WBC 13.8 H, RBC 5.00, Hgb 15.7, Hct 50.0, MCV 100.0 H, MCH 31.4, MCHC 31.4 L, RDW Std Deviation 50.9 H, RDW Coeff of Tate 13.8, Plt Count 348, MPV 9.4, Immature Gran % (Auto) 0.400, Neut % (Auto) 85.7 H, Lymph % (Auto) 9.8 L, Atlantic % (Auto) 3.9, Eos % (Auto) 0.1, Baso % (Auto) 0.1, Absolute Neuts (auto) 11.8 H, Absolute Lymphs (auto) 1.35, Nucleated RBC % 0 07/10/21 00:30: Sodium 136, Potassium 4.7, Chloride 96 L, Carbon Dioxide 36.0 H, Anion Gap 4 L, BUN 25 H, Creatinine 0.78, Estim Creat Clear Calc 74.25, Est GFR (MDRD) Af Amer 127, Est GFR (MDRD) Non-Af 105, BUN/Creatinine Ratio 32.1 H, Glucose 278 H, Calcium 8.5 07/10/21 05:20: WBC 13.5 H, RBC 5.05, Hgb 16.0, Hct 51.3, MCV 101.6 H, MCH 31.7, MCHC 31.2 L, RDW Std Deviation 51.9 H, RDW Coeff of Tate 13.7, Plt Count 338, MPV 9.4, Immature Gran % (Auto) 0.600, Neut % (Auto) 88.5 H, Lymph % (Auto) 7.4 L, Atlantic % (Auto) 3.4, Eos % (Auto) 0.0, Baso % (Auto) 0.1, Absolute Neuts (auto) 11.9 H, Absolute Lymphs (auto) 0.99, Nucleated RBC % 0 07/10/21 05:20: Sodium 135 L, Potassium 5.2 H, Chloride 96 L, Carbon Dioxide 37.0 H, Anion Gap 2 L, BUN 28 H, Creatinine 0.87, Estim Creat Clear Calc 85.35, Est GFR (MDRD) Af Amer 112, Est GFR (MDRD) Non-Af 93, BUN/Creatinine Ratio 32.3 H, Glucose 255 H, Calcium 8.6 07/10/21 07:16: POC Glucose 260 H Micro: Microbiology 07/09/21 13:00 Nasal Secretion SARS-CoV-2 Antigen (Rapid) - Final 07/09/21 09:50 Mucosa - Nose Influenza Types A,B Direct FA (LEONIDAS) - Final Radiography Diagnostic Testing: Radiology Impression Chest CTA 07/09/21 06:36 IMPRESSION: Normal CTA chest examination, without a demonstrated pulmonary embolism or arterial dissection. Electronically Signed: Deshawn Faust MD at 8:31 EST Tel , Service support , Facial/Sinus 07/09/21 13:48 IMPRESSION: Normal unenhanced CT of the facial bones. Electronically Signed: Deshawn Faust MD at 16:14 EST Tel , Service support , Abdomen X-Ray 07/09/21 14:22 IMPRESSION: No bowel obstruction or pneumoperitoneum. Electronically Signed: Deshawn Faust MD at 16:06 EST Tel , Service support , Chest X-Ray 07/10/21 00:14 IMPRESSION: 1. Bibasilar linear scarring and/or atelectasis. 2. Prominent pulmonary artery shadow compatible with pulmonary arterial hypertension. at 0133 Reported and signed by: Ganesh Lyons MD Electronically Signed: Ganesh Lyons MD at 1:32 EST Tel , Service support , Physical Exam Narrative General: Alert, Oriented x3, Cooperative, morbid obese BMI 40.2 kg/m? HEENT: Mild abrasion/bruise over nasal bridge. Does not require suture. Hemostasis controlled. PERRLA, EOMI Oral: No Gingival or Mucosal Lesions/ Ulcerations Neck: Supple, No JVD, Negative Carotid Bruits Lungs: Air entry diminished in bilateral lungs. Bilateral expiratory rhonchi and wheezing. Cardiovascular: Regular rate, Regular Rhythm, Normal S1, Normal S2, No murmurs Abdomen: Soft, mild abdominal gassiness distention. Nontender bowel Sounds Present. : No renal angle tenderness. No suprapubic tenderness. Extremities: Chronic nonpitting ankle edema, Capillary Refill Less than 3 Seconds Skin: Stasis dermatitis, chronic varicose vein/venous hypertension Musculoskeletal: No Tenderness to Palpation of Joints or Extremities Neurological: Cranial nerves II-XII grossly intact, DTR 2+/4 and Symmetrical, Neuro grossly intact Psych/Mental Status: Normal Affect, Appropriate. Assessment & Plan Assessment/Plan (1) Hypoxia: PLAN: 1. Acute hypoxic respiratory failure probably due to COPD exacerbation with chronic [place] on BiPAP: Patient is being admitted on MedSur floor. Scheduled DuoNeb, IV Solu-Medrol, incentive spirometry, Mucinex ordered. BiPAP at night. Mild leukocytosis probably from prednisone recently started. Patient follows Dr. Schmitt. As per last pulmonary visit on 08/14/2019 patient is on BiPAP 18/12 cm of water. 07/10: Continue on DuoNeb, IV Solu-Medrol. Continue incentive spirometry and BiPAP. Patient had fall probably accidental after tripping over the tubes and fell in a small bruise and bleeding over nasal bridge. Hemostasis achieved. CT facial sinus did not show any fracture. 2. Mild prerenal azotemia, BUN 27, bicarb 33 possible chronic CO2 retainer with a history of COPD: 1 L normal saline. May be from volume contraction/hypovolemia. 07/10: Patient has mild hyperkalemia, K5.2. Hold lisinopril and triamterene. Discussed with patient's . Abdominal x-ray does not show bowel obstruction but not is passing gas. 3. Atherosclerotic heart disease without angina: Patient had cardiac catheter as an preop evaluation for knee replacement. Cardiac cath in 2015 showed 50% mid LAD, RCA which is chronically totally occluded. Denies any recent anginal symptoms. Last echo in April 2020 shows EF 55%, stage II diastolic dysfunction LA moderately enlarged history of chronic diastolic heart failure. Last stress in April 2019 shows evidence of previous inferior infarct. On baseline baby aspirin continued 4. Hypertension: Blood pressure is high 189/115. Home blood pressure medications regimen. Patient on HCTZ, triamterene and lisinopril and atenolol. Lisinopril dose increased. Hydralazine 10 mg IV every 4 hours as needed. Blood pressure more than 180 mmHg. 07/10: Blood pressure is controlled 5. Diabetes mellitus type 2 with hyperglycemia, uncontrolled: Glucose is 222 in BMP. Started on glargine insulin 8 units subcutaneous daily. Accu-Cheks before meals and at bedtime and coverage Humalog sliding scale. Dyslipidemia, morbid obesity: On atorvastatin 40 mg daily VTE prophylaxis: Enoxaparin 40 mg daily. Lovenox was held because of the fall and small bleed. Resume Lovenox Living will/advanced directive/end of life care: Patient does have living will or advanced directive. After discussion of benefits/risks procedures involved with full code, DNR CC arrest and DNR CC, the patient opted for DNRCC arrest with no intubation Patient doesn't want artificial life support including intubation, tube feed, ventilator and/chest compression, central venous catheter, vasopressor and DC shock if needed Total time spent in [id number] encounter in discussion of advanced directive 16 minutes. Charges/Coding Visit Charges Inpatient E&M: 49587 Subs Hosp L2
--- NOTE | 2021-07-10 08:54 | NURSING ---
pt refuses all am meds i am not taking that shit educated on risks/ramifications/rationales/health maintenance and continues to refuse .
--- NOTE | 2021-07-10 10:02 | CASEMGMT ---
OLMAN HILL Assessment: Face to Face with pt for initial transition planning/care coordination assessment. OLMAN HILL introduced self and role at [facility], pt voices understanding and consents to assessment. Pt is A/O x4 and answers all questions appropriately at this time. Pt sitting up in chair with O2 on and at bedside. Care providers, pharmacy, and demographics verified/updated. Admitting Dx: Dizziness, URI PCP:Zhou Specialists:Oskar, pulmerlyn; Earl, cardio; Juliana, uro Preferred Pharmacy: [facility] [place] Insurance: SAYRA Gee A Prescription Benefit: yes LW/HPOA: Pt presented copies of LW/DPOA for patient, filed in chart. Pt DPOA is , Clary Echavarria. LNOK: Clary Echavarria, Living Arrangements: Pt lives with in a 1.5 story house with 2 steps to enter. Pt reports he is I in ADL's and denies concerns at home. Transportation: Pt drives self and denies concerns with transportation. DME/HHC/SNF: Pt has a BGM with strips and lancets, but states he does not check his blood sugar. He states he gets his Hgb A1C checked every 6 mos and his physician has not told him to check them. Pt also has a CPAP. 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 He does not plan on bringing it into the house. He gets his supplies through [employer]. Should pt need home O2, he prefers to use [employer]. Pt has had HHC through [employer] in the past, denies SNF facility stays. Pt states no concerns with going home at time of dc. Pt states no further concerns/needs. CM to follow. Advised pt to ask CM if any further question/concerns/needs arise, voices understanding. Pt Goal: Home Plan: Home Pt reports he fell at the hospital and now is using a FWW. States he came in with dizziness but normally does not have issues with ambulating indep. Pt states he does not feel he needs a FWW at dc. OLMAN HILL to follow.
[2021-07-10] MEDS: Sodium Polystyrene Sulfonate 15 GM/60 ML UDC PO (11:15)
[2021-07-10 11:30] LABS: Bedside Glucose 303 mg/dL (70-110)
--- NOTE | 2021-07-10 11:45 | CPS ---
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 He does not want to wear on of our machines, his & RN are in the room and are aware.
[2021-07-10] MEDS: 0.9% Saline Lock 10 ML Syringe IV (13:29)
[2021-07-10 16:36] LABS: Bedside Glucose 279 mg/dL (70-110)
[2021-07-10 21:40] LABS: Bacteria 0 SEEN /hpf (None Seen); Mucous, Urine 0 SEEN /hpf (<or=2+); Red Blood Cells-Urine 0 SEEN /hpf (0-5); Squamous Epithelial Cells - UA 0 SEEN /hpf (0-5)
[2021-07-10 21:52] LABS: Color, Urine Yellow (Yellow); Glucose, Dipstick 1000 mg/dl (Normal); Ketone-Dipstick Negative (Negative); Leukocyte Esterase-Dipstick Negative /ul (Negative); Nitrite-Dipstick Negative (Negative); Occult Blood-Urine 25 /ul (Negative); Protein-Dipstick 30 mg/dl (Negative); Urine Bilirubin Dipstick Negative (Negative); Urine Clarity Clear (Clear); Urine Urobilinogen Normal (Normal)
[2021-07-10 22:00] LABS: Bedside Glucose 313 mg/dL (70-110)
[2021-07-10 22:13] LABS: White Blood Cells 0-5 SEEN /hpf (0-5)
[2021-07-11] VITALS (8 sets, daily range): BP systolic 133–164; BP diastolic 84–116; PULSE 64–86; RESP 20–22; TEMP 36.6–36.7; O2SAT 83–97
[2021-07-11] MEDS: 0.9% Saline Lock 10 ML Syringe IV (03:49)
[2021-07-11] MEDS: guaiFENesin 1,200 MG Tablet 1200 MG PO (03:50)
[2021-07-11] MEDS: hydroCHLOROthiazide 25 MG Tablet PO (03:50)
[2021-07-11] MEDS: Atenolol 25 MG Tablet PO (03:50)
--- NOTE | 2021-07-11 06:46 | NURSING ---
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 attempted to explain how steriods affect glucose pt continued to refuse.
--- NOTE | 2021-07-11 08:11 | PCM.DC ---
Discharge Instructions Diet Discharge Diet: Low fat / Low cholesterol, 1800 Calorie Control Diet and 2000 mg Sodium Diet Activity Discharge Activity: Return to Normal Activity Weight Bearing Status: Weight bearing as tolerated Dressing / Incision Call your doctor if you observe: Fever of 101 or Higher, Coldness, Increased Pain, Numbness or Tingling, Change in Color, Inability to urinate, Inability to have a bowel movement, Shortness of breath, Dizziness, Fainting spells, Swelling in the ankles, Chest pain, Prolonged hiccupping, Increased palpitations (irregular heartbeat), Calf discomfort and Uncontrolled pain Follow Up Care Test Results: Test results from this visit will be discussed in further detail at your follow-up appointment, if applicable. Discharge Plan Admission Admit Date/Time: 07/09/21 09:06 Primary Reason for Your Visit: COPD exacerbation Attending Provider: Jorge Jacobs Primary Care Provider: Massimo Epperson Chi Discharge Orders/Prescriptions Prescriptions: New prednisone 10 mg tablet 10 mg PO DAILY Qty: 30 RF: 0 glipizide 5 mg tablet 5 mg PO BID Qty: 60 RF: 0 pseudoephedrine-guaifenesin [Mucinex D Maximum Strength] 120-1,200 mg tablet extended release 12 hr 1 tab PO Q12H Qty: 14 RF: 0 Continued aspirin [Adult Aspirin Regimen] 81 mg tablet,delayed release (DR/EC) 81 mg PO QDAY RF: 0 metformin 500 mg tablet 500 mg PO BID RF: 0 atorvastatin 10 mg tablet 40 mg PO QHS RF: 0 atenolol 50 MG tablet 25 mg PO DAILY RF: 0 albuterol 90 mcg/actuation Aerosol 2 mcg INHALATION Q4H PRN PRN (Reason: SOB) RF: 0 lisinopril 2.5 mg Tablet 2.5 mg PO DAILY RF: 0 azithromycin [Zithromax] 250 mg Tablet 250 mg PO DAILY Qty: 0 RF: 0 triamterene-hydrochlorothiazid 75-50 mg Tablet 0.5 tab PO DAILY Qty: 0 RF: 0 Discontinued prednisone 10 mg Tablet 10 mg PO DAILY RF: 0 cefdinir 300 mg Capsule 300 mg PO BID RF: 0 Referrals / Follow Up: Juan Manuel Schmitt DO [STAFF PHYSICIAN] - Within 1 Month (For COPD exacerbation, obstructive sleep apnea) Massimo Epperson Chi, MD [Primary Care Provider] - Within 2 Weeks Disposition Disposition (needs filled in before D/C Order can be placed): Home, Self Care
--- NOTE | 2021-07-11 08:11 | PCM.DC.SUM ---
Providers Date of Admission: 07/09/21 Primary Care Physician: Dr. Massimo Epperson MD Reason For Visit: DIZZINESS, URI Diagnosis Discharge Diagnosis (1) Hypoxia: Status: Acute Code(s): R09.02 - Hypoxemia Medications at Discharge Home Medications atenolol 25 mg PO DAILY 01/18/16 aspirin 81 mg tablet,delayed release 81 mg PO QDAY 07/11/17 atorvastatin 10 mg tablet 40 mg PO QHS tab 04/06/20 metformin 500 mg tablet 500 mg PO BID tab 04/06/20 albuterol 2 mcg INHALATION Q4H PRN PRN 07/09/21 lisinopril 2.5 mg PO DAILY 07/09/21 azithromycin [Zithromax] 250 mg PO DAILY #0 tab 07/11/21 glipizide 5 mg PO BID #60 tab 07/11/21 prednisone 10 mg PO DAILY #30 tab 07/11/21 pseudoephedrine-guaifenesin [Mucinex D Maximum Strength] 1 tab PO Q12H #14 tab 07/11/21 triamterene-hydrochlorothiazid 0.5 tab PO DAILY #0 tab 07/11/21 Hospital Course Summary of Care Provided Hospital Course: The patient was admitted with shortness of breath, cough and URI symptoms since 07/02. Patient had outpatient antibiotic by Dr. Epperson cefdinir and azithromycin since then. CTPA did not show pneumonia or PE reported normal parenchymal. [facility]. Acute hypoxic respiratory failure probably due to COPD exacerbation with chronic [place] on BiPAP: Patient is being admitted on MedSurg floor. Scheduled DuoNeb, IV Solu-Medrol, incentive spirometry, Mucinex ordered. BiPAP at night. Mild leukocytosis probably from prednisone recently started. Patient follows Dr. Schmitt. As per last pulmonary visit on 08/14/2019 patient is on BiPAP 18/12 cm of water. 07/10:Patient had fall probably accidental after tripping over the tubes and fell in a small bruise and bleeding over nasal bridge. Hemostasis achieved. CT facial sinus did not show any fracture. Dressing dry. 2. Mild prerenal azotemia, BUN 27, bicarb 33 possible chronic CO2 retainer with a history of COPD: 1 L normal saline. May be from volume contraction/hypovolemia. Patient has mild hyperkalemia, K5.2. Hold lisinopril and triamterene. Discussed with patient's . Abdominal x-ray does not show bowel obstruction but nonspecific bowel gas pattern. BUN improved. 3. Atherosclerotic heart disease without angina: Patient had cardiac catheter as an preop evaluation for knee replacement. Cardiac cath in 2015 showed 50% mid LAD, RCA which is chronically totally occluded. Denies any recent anginal symptoms. Last echo in April 2020 shows EF 55%, stage II diastolic dysfunction LA moderately enlarged history of chronic diastolic heart failure. Last stress in April 2019 shows evidence of previous inferior infarct. On baseline baby aspirin continued 4. Hypertension: Blood pressure is high 189/115. Home blood pressure medications regimen. Patient on HCTZ, triamterene and lisinopril and atenolol. Lisinopril dose increased. Hydralazine 10 mg IV every 4 hours as needed. Blood pressure more than 180 mmHg. Blood pressure was controlled 5. Diabetes mellitus type 2 with hyperglycemia, uncontrolled: Glucose is 222 in BMP. Started on glargine insulin 8 units subcutaneous daily. Accu-Cheks before meals and at bedtime and coverage Humalog sliding scale. Hyperglycemia, glucose in 350s Patient given a prescription for glipizide 5 mg twice daily. Patient already on Metformin. 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 Follow-up PCP Dyslipidemia, morbid obesity: On atorvastatin 40 mg daily VTE prophylaxis: Enoxaparin 40 mg daily. Lovenox was held because of the fall and small bleed. Resume Lovenox Discharge medication reconciliation done. Discharge follow-up instructions completed. Discharge process discussed with the patient and all questions were answered to patient's satisfaction. Discharged home. Prescription sent for Mucinex D, glipizide and tapering dose of prednisone. Patient advised to complete the Zithromax left over at home. Use BiPAP. Incentive spirometry and Pep advised to continue. Follow Dr. Schmitt in a month Total time spent, exact 35 minutes on discharge meds reconciliation, examination, coordination of care with nurses and ancillary staff, review of imaging and blood test and discussion with the patient on follow-up instructions Physical Exam Narrative Seen and examined. Patient 88% on room air., 91% on 3 L of oxygen at rest, 90% on 6 L of oxygen with ambulation. Shortness of breath improved blood pressure is controlled. Afebrile since admission. Physical exam General: Alert, Oriented x3, Cooperative, morbid obese BMI 40.2 kg/m? HEENT: Mild abrasion/bruise over nasal bridge. Dressing is dry. Does not require suture. Hemostasis controlled. PERRLA, EOMI Oral: No Gingival or Mucosal Lesions/ Ulcerations Neck: Supple, No JVD, Negative Carotid Bruits Lungs: Air entry diminished in bilateral lungs. Mild bilateral expiratory rhonchi. Cardiovascular: Regular rate, Regular Rhythm, Normal S1, Normal S2, No murmurs Abdomen: Soft, mild abdominal gassiness distention. Nontender bowel Sounds Present. : No renal angle tenderness. No suprapubic tenderness. Extremities: Chronic nonpitting ankle edema, Capillary Refill Less than 3 Seconds Skin: Stasis dermatitis, chronic varicose vein/venous hypertension Musculoskeletal: No Tenderness to Palpation of Joints or Extremities Neurological: Cranial nerves II-XII grossly intact, DTR 2+/4 and Symmetrical, Neuro grossly intact Psych/Mental Status: Normal Affect, Appropriate. Weight / BMI Weight Weight: 287 lb 14.779 oz Body Mass Index (BMI) 40.1 ABG / Lab / Microbiology Data Result Diagrams: 07/11/21 08:50 07/11/21 08:50 Laboratory: Laboratory Results - last 24 hr 07/10/21 11:13: POC Glucose 303 H 07/10/21 16:26: POC Glucose 279 H 07/10/21 21:00: POC Glucose 313 H 07/10/21 21:05: Urine Color Yellow, Urine Clarity Clear, Urine pH 6.0, Ur Specific [place] 1.020, Urine Protein 30 H, Urine Glucose (UA) 1000 H, Urine Ketones Negative, Urine Occult Blood 25 H, Urine Nitrite Negative, Urine Bilirubin Negative, Urine Urobilinogen Normal, Ur Leukocyte Esterase Negative, Urine RBC 0 SEEN, Urine WBC 0-5 SEEN, Ur Squamous Epith Cells 0 SEEN, Urine Bacteria 0 SEEN, Urine Mucus 0 SEEN Microbiology: Microbiology 07/09/21 13:00 Nasal Secretion SARS-CoV-2 Antigen (Rapid) - Final 07/09/21 09:50 Mucosa - Nose Influenza Types A,B Direct FA (LEONIDAS) - Final Meaningful Use Info Meaningful Use Diagnoses (Choose all that apply): None applicable Discharge Plan Admission Admit Date/Time: 07/09/21 09:06 Primary Reason for Your Visit: COPD exacerbation Attending Provider: Jorge Jacobs Primary Care Provider: Massimo Epperson Chi Discharge Orders/Prescriptions Prescriptions: New prednisone 10 mg tablet 10 mg PO DAILY Qty: 30 RF: 0 glipizide 5 mg tablet 5 mg PO BID Qty: 60 RF: 0 pseudoephedrine-guaifenesin [Mucinex D Maximum Strength] 120-1,200 mg tablet extended release 12 hr 1 tab PO Q12H Qty: 14 RF: 0 Continued aspirin [Adult Aspirin Regimen] 81 mg tablet,delayed release (DR/EC) 81 mg PO QDAY RF: 0 metformin 500 mg tablet 500 mg PO BID RF: 0 atorvastatin 10 mg tablet 40 mg PO QHS RF: 0 atenolol 50 MG tablet 25 mg PO DAILY RF: 0 albuterol 90 mcg/actuation Aerosol 2 mcg INHALATION Q4H PRN PRN (Reason: SOB) RF: 0 lisinopril 2.5 mg Tablet 2.5 mg PO DAILY RF: 0 azithromycin [Zithromax] 250 mg Tablet 250 mg PO DAILY Qty: 0 RF: 0 triamterene-hydrochlorothiazid 75-50 mg Tablet 0.5 tab PO DAILY Qty: 0 RF: 0 Discontinued prednisone 10 mg Tablet 10 mg PO DAILY RF: 0 cefdinir 300 mg Capsule 300 mg PO BID RF: 0 Referrals / Follow Up: Juan Manuel Schmitt DO [STAFF PHYSICIAN] - Within 1 Month (For COPD exacerbation, obstructive sleep apnea) Massimo Epperson Chi, MD [Primary Care Provider] - Within 2 Weeks Disposition Disposition (needs filled in before D/C Order can be placed): Home, Self Care Charges/Coding Visit Charges Inpatient E&M: 08159 Disch Hosp
[2021-07-11 09:17] LABS: Absolute Lymphocyte Count 1.07 X10^3/uL (0.83-4.51); Absolute Neutrophil Count 14.5 X10^3/uL (2.0-7.7); Basophil# 0.02 X10^3/uL; Basophil% 0.1 % (0-1); Hematocrit 49.2 % (40-54); Hemoglobin 15.6 g/dL (13.0-16.5); Lymphocyte # 1.07 X10^3/ul (0.83-4.51); Lymphocyte % 6.6 % (19-41); Mean Corp Hgb Conc 31.7 g/dL (32-36); Mean Corpuscular Hgb 31.6 pg (27.0-32.0); Mean Corpuscular Volume 99.8 fL (80-94); Mean Platelet Vol. 9.4 fl (6.2-12.0); Monocyte# 0.59 X10^3/uL; Monocyte% 3.6 % (0-10); NRBC Flagged by Analyzer 0 % (0-5); Neutrophil # 14.49 X10^3/uL (2.7-7.7); Neutrophil % 89.1 % (47-70); Platelet Count 328 K/mm3 (150-450); RBC Distribution Width CV 13.5 % (11.6-14.6); RBC Distribution Width SD 49.8 fl (35.1-43.9); Red Blood Count 4.93 M/mm3 (4.6-6.2); White Blood Count 16.3 K/mm3 (4.4-11.0)
--- NOTE | 2021-07-11 09:23 | NURSING ---
chair alarming ringing. CLINICAL LABORATORY AIDE Tara to room- pt in bathroom. Tara notified said nurse. pt in bathroom, adamantly refuses to wear any oxygen at all, spo2 83%. pt educated on risks/ramifications/rights and pt states i am not going to fall and if i do, then it's my time. you know everyone dies. i am set in my ways and i am not wearing any oxygen when i walk to the bathroom. pt agrees to have oxygen level checked for walking and that is documented. pt states well i can tell you that i am not going to wear oxygen at home either. informed pt that is his right if he chooses as long as has been educated on risks/ramifications/recommendations which he has been.
[2021-07-11 09:47] LABS: Anion Gap 4 (5-15); BUN 30 mg/dL (7-18); BUN/Creat Ratio 32.2 RATIO (10-20); Calcium,Total 8.5 mg/dL (8.5-10.1); Chloride 91 mmol/L (98-107); Creatinine, Serum 0.93 mg/dL (0.70-1.30); EST Glomerular Filtration Rate 85 mL/min (>60); Est Glom Filt Rate - Afr Amer 103 mL/min (>60); Estimated Creatinine Clearance 79.84 ml/min; Glucose 350 mg/dL (74-106); Potassium 4.6 mmol/L (3.5-5.1); Sodium Level 136 mmol/L (136-145)
--- NOTE | 2021-07-11 11:11 | CASEMGMT ---
Addendum entered by Jennifer Black 07/11/21 13:01: Referral faxed to [facility] [place] at this time and notified Julieth of referral. Addendum entered by Jennifer Black 07/11/21 12:53: OLMAN HILL in to pt room with pt nurse as pt is now present. Discussed that pt qualifies for home O2 and provided them with local in network DME companies. Pt has [employer] for his CPAP and is agreeable with using them for oxygen as well. Pt adamantly declines the need for home therapy. Pt again states he will not be bringing his CPAP into the home, will not add O2 to be bled in. Portable concentrator added to order should pt need shelter and when working. Discussed with pt and procedure to call [facility] [place] once home for concentrator to be delivered. They deny further needs. Original Note: OLMAN HILL in to pt room to discuss home O2 and therapy. Pt nurse at bedside. Pt states he doesn't know. He would like this OLMAN HILL to come back when his is here to discuss. OLMAN HILL to check back.
[2021-07-11] MEDS: Insulin Lispro 100 UNIT/ML INSULN.PEN SC (11:18)
[2021-07-11 11:26] LABS: Bedside Glucose 308 mg/dL (70-110)
== END 2021-07-11 15:04 | disposition home or self-care (01) | DRG 190 ==
LOC: ED 09:41 → MS3 10:32
PROVIDERS: Hospitalist; Admitting Provider Internal Medicine; Emergency Provider Emergency Medicine; PCP Family Medicine Geriatric Medicine; Visit Provider Internal Medicine
DX: J44.1 Chronic obstructive pulmonary disease with (acute) exacerbation (principal); J96.01 Acute respiratory failure with hypoxia; Z68.41 Body mass index [BMI] 40.0-44.9, adult; I50.32 Chronic diastolic (congestive) heart failure; E87.5 Hyperkalemia; I11.0 Hypertensive heart disease with heart failure; E11.65 Type 2 diabetes mellitus with hyperglycemia; R79.89 Other specified abnormal findings of blood chemistry; S00.33XA Contusion of nose, initial encounter; R04.0 Epistaxis; W01.0XXA Fall on same level from slipping, tripping and stumbling without subsequent striking against object, initial encounter; W01.10XA Fall on same level from slipping, tripping and stumbling with subsequent striking against unspecified object, initial encounter; Y93.9 Activity, unspecified; Y92.239 Unspecified place in hospital as the place of occurrence of the external cause; Y99.9 Unspecified external cause status; Z20.822 Contact with and (suspected) exposure to COVID-19; I25.10 Atherosclerotic heart disease of native coronary artery without angina pectoris; E78.5 Hyperlipidemia, unspecified; M19.90 Unspecified osteoarthritis, unspecified site; G47.33 Obstructive sleep apnea (adult) (pediatric); E66.01 Morbid (severe) obesity due to excess calories; Z79.82 Long term (current) use of aspirin; Z79.84 Long term (current) use of oral hypoglycemic drugs; Z79.899 Other long term (current) drug therapy; Z87.891 Personal history of nicotine dependence; Z90.81 Acquired absence of spleen
CPT/HCPCS: 36415; 70486; 71045; 71275; 74019; 80048; 81001; 82962; 83735; 83880; 84100; 84484; 85025; 87040; 87086; 87426; 87804; 93005; 94640; 94667; 94668; 94762; 97162; 99251; 99285; J7030; Q9967; A4216; G0463

== ENCOUNTER 2021-08-04 08:34 | Outpatient (CLI) | payer OTHER, SELFPAY ==
--- NOTE | 2021-08-04 11:50 | PFT ---
INTRODUCTION: The patient is a 70-year-old male that presents for pulmonary function studies secondary to a diagnosis of shortness of breath. Respiratory therapy reported good patient effort. Bronchodilators were used during testing. INTERPRETATION: Forced expiration spirometry demonstrates no evidence of a large airways obstructive ventilatory defect. There was no significant response to aerosolized bronchodilators. Spirograms are of good quality and plateau normally. Body plethysmography was performed and revealed a decreased TLC to 5.6 L, 83% of predicted, indicative of a mild restrictive ventilatory impairment. Diffusing capacity by single breath CO is within normal limits. IMPRESSION: Isolated mild restrictive ventilatory impairment, likely secondary to body habitus.
== END 2021-08-04 23:59 | disposition short-term general hospital (02) ==
LOC: PSN 08:37
PROVIDERS: PCP Family Medicine Geriatric Medicine; Referring Provider Family Medicine Geriatric Medicine; Visit Provider Family Medicine Geriatric Medicine
DX: R06.89 Other abnormalities of breathing (principal)
CPT/HCPCS: 94060; 94726; 94729

== ENCOUNTER 2021-10-04 06:20 | Outpatient (CLI) | payer OTHER, SELFPAY ==
--- NOTE | 2021-10-04 15:12 | STRESSREP_ITS ---
Stress Test Report Pharmacologic myocardial perfusion stress test. 70-year-old man with a history of coronary artery disease and a totally occluded right coronary artery. Stress protocol: Resting EKG demonstrates normal sinus rhythm with a rate of 56 bpm normal intervals are noted resting blood pressure is 138/84 mmHg. 0.4 mg of regadenoson was infused per usual protocol followed by rapid venous and flush injection continuous EKG monitoring was performed. The maximum heart rate attained was 72 bpm which was 47% of max impact at heart rate the maximum wo rkload was 1 metabolic equivalent. At rest there were no ST or T wave changes noted to suggest abnormal flow reserve and at peak infusion nonspecific ST changes were noted with did not meet the criteria for ischemia. No clinical angina was noted. Myocardial perfusion protocol. 14.8 mCi of technetium 99m sestamibi was injected at rest. 0.4 mg of regadenoson was infused per usual protocol. At peak infusion 44.4 mCi of technetium 99m sestamibi was injected stress images were obtained stress and rest images were reconstructed and compared in the short axis vertical long and horizontal long axis. Gated images were also obtained Perfusion SPECT analysis: Review of the stress images demonstrate normal uptake of tracer noted in all areas of the myocardium. The resting images similarly demonstrate normal uptake of tracer noted in all areas of the myocardium. No areas of reversibility are noted suggest ischemia and no previous infarct is noted. Gated SPECT analysis: The gated ejection fraction is 57%. Conclusion: Normal pharmacologic myocardial perfusion stress test. Preserved ejection fraction.
== END 2021-10-04 23:59 | disposition home or self-care (01) ==
LOC: CVS 06:21
PROVIDERS: PCP Family Medicine Geriatric Medicine; Visit Provider Nurse Practitioner Family
DX: Z01.810 Encounter for preprocedural cardiovascular examination (principal); R07.9 Chest pain, unspecified
CPT/HCPCS: 78452; 93017; A9500; A4216; J2785

== ENCOUNTER 2021-10-20 10:03 | Outpatient (CLI) | payer MEDICARE, OTHER, SELFPAY ==
[2021-10-20 10:23] LABS: Absolute Lymphocyte Count 2.37 X10^3/uL (0.83-4.51); Absolute Neutrophil Count 6.8 X10^3/uL (2.0-7.7); Basophil# 0.05 X10^3/uL; Basophil% 0.5 % (0-1); Eosinophil# 0.06 X10^3/uL; Eosinophils% 0.6 % (0-5); Hematocrit 49.6 % (40-54); Hemoglobin 16.4 g/dL (13.0-16.5); Lymphocyte # 2.37 X10^3/ul (0.83-4.51); Lymphocyte % 23.2 % (19-41); Mean Corp Hgb Conc 33.1 g/dL (32-36); Mean Corpuscular Hgb 32.3 pg (27.0-32.0); Mean Corpuscular Volume 97.8 fL (80-94); Mean Platelet Vol. 8.9 fl (6.2-12.0); Monocyte% 8.8 % (0-10); NRBC Flagged by Analyzer 0 % (0-5); Neutrophil # 6.81 X10^3/uL (2.7-7.7); Neutrophil % 66.7 % (47-70); Platelet Count 359 K/mm3 (150-450); RBC Distribution Width CV 13.5 % (11.6-14.6); RBC Distribution Width SD 49.3 fl (35.1-43.9); Red Blood Count 5.07 M/mm3 (4.6-6.2); White Blood Count 10.2 K/mm3 (4.4-11.0)
--- NOTE | 2021-10-20 12:15 | CT_ITS ---
STUDY: CT ABDOMEN AND PELVIS WITH CONTRAST REASON FOR EXAM: Male, 71 years old. ABD PAIN RADIATION DOSAGE (If Supplied By Facility): CTDIvol = ( 25.37 ) mGy, DLP = ( 1349.32 ) mGycm TECHNIQUE: Transaxial images were obtained from the dome of the diaphragm to the symphysis pubis with oral contrast. Oral and amp; IV Gastrografin and amp; 100mL Isovue-300 was administered. Sagittal and coronal images were reconstructed. Individualized dose optimization techniques were used for this CT. COMPARISON: None. FINDINGS: Calcified right hilar and subcarinal lymph nodes. Calcified coronary arteries. Mild increased markings at the lung bases suggesting mild linear atelectatic and/or scarring. Fatty infiltration of the liver. There is a 1.2 cm cyst in the dome of the right lobe of the liver posteriorly. Small gallstones are seen in the dependent portion of the gallbladder lumen. Normal spleen. Normal pancreas. Normal bilateral adrenal glands. Right renal cysts. The largest is in the posterior aspect of the kidney and measures 3.3 cm x 2 cm. Normal left kidney. Normal visualized stomach. Normal small intestine. Normal colon. The appendix is visualized and appears normal. There is scattered atherosclerotic calcification of the abdominal aorta, without a demonstrated aneurysm. Normal inferior vena cava. Normal retroperitoneum. Mildly distended urinary bladder. 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 Normal abdominal wall. There are diffuse degenerative changes of the visualized lumbar spine. CT/Abdomen/Pelvis WITH Contrast IMPRESSION: Fatty infiltration of the liver. Small gallstones. Small cyst in the dome of the right lobe of the liver. Small right renal cysts. Electronically Signed: Crispin Morgan MD at 13:33 EDT ,
[2021-10-20 12:49] LABS: ALB/GLOB Ratio 0.9 RATIO (0.9-2.4); AST(SGOT) 20 U/L (15-37); Alanine Aminotransfer ALT/SGPT 38 U/L (16-61); Albumin, Serum 3.4 g/dL (3.2-5.0); Alkaline Phosphatase 97 U/L (45-117); Amylase 54 U/L (25-115); Anion Gap 2 (5-15); BUN 20 mg/dL (7-18); BUN/Creat Ratio 26.4 RATIO (10-20); Calcium,Total 8.4 mg/dL (8.5-10.1); Chloride 94 mmol/L (98-107); Creatinine, Serum 0.76 mg/dL (0.70-1.30); EST Glomerular Filtration Rate 108 mL/min (>60); Est Glom Filt Rate - Afr Amer 131 mL/min (>60); Globulin 3.6 g/dL (2.2-4.2); Glucose 156 mg/dL (74-106); Lipase 62 U/L (73-393); Potassium 4.3 mmol/L (3.5-5.1); Sodium Level 132 mmol/L (136-145)
[2021-10-20 13:25] LABS: CREATININE FINGERSTICK 0.7 mg/dL (0.70-1.30); EGFR FINGERSTICK > 60.0000 mL/min (>60)
== END 2021-10-20 23:59 | disposition home or self-care (01) ==
PROVIDERS: PCP Family Medicine Geriatric Medicine; Visit Provider Family Medicine Geriatric Medicine
DX: R10.9 Unspecified abdominal pain (principal); R06.02 Shortness of breath; N39.0 Urinary tract infection, site not specified
CPT/HCPCS: 36415; 74177; 80053; 82150; 83690; 85025; 87086; Q9967; A4216

== ENCOUNTER → 2021-11-10 | Outpatient (CLI) | payer MEDICARE, OTHER, SELFPAY ==
[2021-11-10 10:47] LABS: Absolute Lymphocyte Count 2.49 X10^3/uL (0.83-4.51); Absolute Neutrophil Count 5.4 X10^3/uL (2.0-7.7); Basophil# 0.04 X10^3/uL; Basophil% 0.4 % (0-1); Eosinophil# 0.09 X10^3/uL; Hematocrit 50.6 % (40-54); Hemoglobin 16.4 g/dL (13.0-16.5); Lymphocyte # 2.49 X10^3/ul (0.83-4.51); Lymphocyte % 27.8 % (19-41); Mean Corp Hgb Conc 32.4 g/dL (32-36); Mean Corpuscular Hgb 31.8 pg (27.0-32.0); Mean Corpuscular Volume 98.1 fL (80-94); Mean Platelet Vol. 9.6 fl (6.2-12.0); NRBC Flagged by Analyzer 0 % (0-5); Neutrophil # 5.43 X10^3/uL (2.7-7.7); Neutrophil % 60.6 % (47-70); Platelet Count 339 K/mm3 (150-450); RBC Distribution Width CV 13.2 % (11.6-14.6); RBC Distribution Width SD 47.6 fl (35.1-43.9); Red Blood Count 5.16 M/mm3 (4.6-6.2)
[2021-11-10 10:59] LABS: Vitamin D,25 Hydroxy 16.3 ng/mL
[2021-11-10 11:06] LABS: AST(SGOT) 25 U/L (15-37); Alanine Aminotransfer ALT/SGPT 41 U/L (16-61); Albumin, Serum 3.7 g/dL (3.2-5.0); Alkaline Phosphatase 98 U/L (45-117); Anion Gap 2 (5-15); BUN 18 mg/dL (7-18); BUN/Creat Ratio 19.9 RATIO (10-20); Calcium,Total 8.6 mg/dL (8.5-10.1); Chloride 97 mmol/L (98-107); Creatinine, Serum 0.91 mg/dL (0.70-1.30); EST Glomerular Filtration Rate 88 mL/min (>60); Est Glom Filt Rate - Afr Amer 106 mL/min (>60); Globulin 3.7 g/dL (2.2-4.2); Glucose 130 mg/dL (74-106); Potassium 4.6 mmol/L (3.5-5.1); Protein, Total 7.4 g/dL (6.4-8.2); Sodium Level 135 mmol/L (136-145); Thyroid Stim Hormone (TSH) 0.89 uIU/mL (0.358-3.74)
== END | disposition home or self-care (01) ==
LOC: POLAB3 08:50
PROVIDERS: PCP Family Medicine Geriatric Medicine; Visit Provider Family Medicine Geriatric Medicine
DX: E11.65 Type 2 diabetes mellitus with hyperglycemia (principal); E55.9 Vitamin D deficiency, unspecified; I10 Essential (primary) hypertension
CPT/HCPCS: 36415; 80053; 82306; 84443; 85025

== ENCOUNTER → 2021-11-13 | Outpatient (CLI) | payer MEDICARE, OTHER, SELFPAY ==
--- NOTE | 2021-11-13 07:44 | US_ITS ---
STUDY: ABDOMINAL ULTRASOUND - RIGHT UPPER QUADRANT REASON FOR VISIT: Male, 71 years old FATTY LIVER TECHNIQUE: Ultrasound evaluation of the right upper quadrant was performed with real-time and static dinero-scale imaging. TECHNICAL QUALITY: Adequate. COMPARISON: Comparison is made with prior CT scan of the abdomen and pelvis dated 10/20/2021. FINDINGS: Liver: The liver is mildly enlarged and measures 18.7 cm. There is increased echogenicity consistent with fatty infiltration. The bile ducts are within normal limits. There is hepatic color flow. The direction of portal flow is hepatopetal. There is no demonstrated mass lesion. Gallbladder: Normal distended gallbladder. The gallbladder wall measures 5 mm. There is a negative sonographic Gleason''s sign. There is no pericholecystic fluid. There are multiple echogenic structures within the gallbladder, consistent with multiple gallstones. Common Bile Duct (C.B.D.): The common bile duct measures 6 mm. Pancreas: There is nonvisualization of the pancreas due to overlying bowel gas. Right Kidney: Normal size of the right kidney. The right kidney measures 13.4 cm x 6.7 cm x 6.2 cm. Normal renal cortex. The right cortex measures 2.2 cm. Multiple small cysts are seen. The largest cyst measures 5.4 cm x 2.8 cm x 2.6 cm. There is no right hydronephrosis. US/Abdomen Limited IMPRESSION: Mildly enlarged liver with fatty infiltration. Multiple gallstones. Right renal cysts. Electronically Signed: Crispin Morgan MD at 10:38 EDT ,
--- NOTE | 2021-11-13 07:44 | US_ITS ---
STUDY: ABDOMINAL ULTRASOUND - ELASTOGRAPHY REASON FOR VISIT: Male, 71 years old. Fatty infiltration of the liver. TECHNIQUE: Liver stiffness measurements were obtained on a kompany RS 85 ultrasound machine using a CA 1-7 probe following the SRU guidelines. 3 measurements were obtained using a 2-D-SWE method. The IQR/M was 24% suggesting a quality data set. TECHNICAL QUALITY: Limited. Examination limited by bowel gas. COMPARISON: None. FINDINGS: Liver: Mild hepatomegaly and fatty infiltration of the liver. Median liver stiffness measured 12 kPa. US/Elastography Parenchyma/Organ IMPRESSION: Liver stiffness measures 12 kPa compatible with F2-F3 (Mild to moderate liver fibrosis) Metavir score. Electronically Signed: Crispin Morgan MD at 10:40 EDT ,
== END | disposition home or self-care (01) ==
LOC: US 07:42
PROVIDERS: PCP Family Medicine Geriatric Medicine; Referring Provider Family Medicine Geriatric Medicine; Visit Provider Family Medicine Geriatric Medicine
DX: K76.0 Fatty (change of) liver, not elsewhere classified (principal)
CPT/HCPCS: 76705; 76981

== ENCOUNTER → 2021-11-22 | Outpatient (CLI) | payer MEDICARE, OTHER, SELFPAY ==
--- NOTE | 2021-11-22 09:23 | NM_ITS ---
STUDY: HEPATOBILARY SCINTGRAPHY REASON FOR EXAM: Male, 71 years old. Abdominal pain COMPARISON STUDIES : NM - None. CR - Not available for review at this time. CT - Not available for review at this time. MR - Not available for review at this time. Ultrasound 11/13/2021 Technique: After the administration of 5.7 mCi of technetium 99m Choletec intravenously, multiple scintigraphic images of the abdomen were obtained. After the administration of energy drink orally, a gallbladder ejection fraction was calculated. Findings: Homogeneous uptake of radiopharmaceutical throughout the hepatic parenchyma. Prompt excretion into the biliary tree first seen on the 10 minute image. Prompt visualization of the gallbladder first seen on the 30 minute image. Passage of radiopharmaceutical from the biliary tree into the small bowel ensuring patency of the common bile duct. After the administration of energy drink orally, gallbladder ejection fraction is calculated. The gallbladder ejection fraction is 28% which is decreased consistent with chronic cholecystitis. NM/Hepatobilliary Img w/Pharm Int IMPRESSION: Chronic cholecystitis with a gallbladder ejection fraction of 28%. Electronically Signed: Deshawn Faust MD at 9:15 EDT ,
== END | disposition home or self-care (01) ==
LOC: NM 09:16
PROVIDERS: PCP Family Medicine Geriatric Medicine; Visit Provider Family Medicine Geriatric Medicine
DX: K80.20 Calculus of gallbladder without cholecystitis without obstruction (principal)
CPT/HCPCS: 78227; A9537

== ENCOUNTER 2021-11-30 05:19 | Inpatient (IN) | payer MEDICARE, OTHER, SELFPAY ==
[2021-11-30] VITALS (14 sets, daily range): BP systolic 139–165; BP diastolic 84–101; PULSE 59–83; RESP 16–23; TEMP 36.4–36.9; O2SAT 79–97; BMI 39.7
--- NOTE | 2021-11-30 05:32 | EKG12_ITS ---
Test Reason : DYSRHYTHMIA Blood Pressure : / mmHG Vent. Rate : 061 BPM Atrial Rate : 061 BPM P-R Int : 146 ms QRS Dur : 108 ms QT Int : 450 ms P-R-T Axes : 059 -01 054 degrees QTc Int : 453 ms Normal sinus rhythm Normal ECG Confirmed by FUNMI BARBOSA, SENTHIL ([id number]), web editor FRANCISCO EDWARDS ([id number]) on 12/01/2021 10:11:08 AM Referred By: PATRICIA Confirmed By:SENTHIL CHOUDHARY MD
--- NOTE | 2021-11-30 05:33 | EDS_ITS ---
HPI History of Present Illness Chief Complaint: Shortness of Breath Detail of Chief Complaint: Shortness of breath since this morning at 4 AM. Informant: patient Narrative Narrative: Patient states that he woke around 4 AM feeling short of breath. Patient checked his O2 saturation at home and it was 78%. He does not wear home O2. Patient states he is actually been short of breath since July of this year and he has been seeing pulmonology as well as cardiology and his primary care physician. Patient's had pulmonary function test and was told he does not have COPD. Patient also had a stress test and an echo apparently. Patient denies recent illness such as fever or cough. He denies chest pain. He denies weight gain. He does have history of sleep apnea however in July he stopped using his CPAP machine and feels like he is better without it. [facility] Medical History Allergic rhinitis Arthritis Atherosclerotic heart disease of [place] coronary artery without angina pectoris Body mass index (BMI) of 37.0-37.9 in adult CPAP (continuous positive airway pressure) dependence Essential (primary) hypertension History of left heart catheterization (01/23/16) Hyperlipidemia Hypoxia Nicotine abuse Obesity Obstructive sleep apnea Tobacco dependence in remission Home Medications atenolol 25 mg PO DAILY 01/18/16 [History Last Taken 01/23/16] atorvastatin 40 mg tablet 40 mg PO DAILY 09/25/21 [History Last Taken Unknown] triamterene 75 mg-hydrochlorothiazide 50 mg tablet 0.5 tab PO DAILY #45 tab 09/25/21 [Rx Last Taken Unknown] aspirin 81 mg tablet,delayed release 81 mg PO DAILY 11/29/21 [History Last Taken Unknown] linaclotide 72 mcg capsule 72 mcg PO DAILY 11/29/21 [History Last Taken Unknown] metformin 500 mg tablet 500 mg PO BID 11/29/21 [History Last Taken Unknown] Allergy/AdvReac Type Severity Reaction Status Date / Time adhesive tape AdvReac Mild red/itchy Verified 11/30/21 05:25 Family History Unknown No problems noted. Surgical History H/O resection of rib History of appendectomy History of arthroplasty of right knee History of cataract extraction History of partial splenectomy History of splenectomy History of tonsillectomy History of tracheostomy Social History Smoking Status: Former smoker quit date: 07/08/16 pack-years: 50 second hand exposure: No alcohol intake: never substance use type: does not use caffeine: Yes Type: coffee Number of servings: 8 what type of physical activity do you participate in: none ROS ROS ED Constitutional Constitutional ED: Reports systems reviewed and no addt'l complaints, except as documented; Denies body ache(s), change in weight or chills Eyes Eyes: Denies acute decrease in peripheral vision, change in vision, double vision or loss of vision ENT ENT ED: Reports none; Denies ear pain, lip swelling, loss taste/smell, neck pain, otalgia or sore throat Cardiovascular Cardiovascular: Reports none; Denies abdominal pain, chest pain with activity, leg edema, lightheadedness, palpitations, rapid heart rate or syncope Respiratory/Chest Respiratory/Chest: Reports none and dyspnea; Denies change in mental status, dry cough, hemoptysis, shortness of breath at rest or shortness of breath with exertion Gastrointestinal Gastrointestinal: Reports none; Denies abdominal pain, change in stool character, diarrhea, hematemesis, hematochezia, melena, rectal bleeding or vomiting Genitourinary Genitourinary ED: Reports none; Denies abdominal discomfort, anuria, dysuria, genital pain or polyuria Musculoskeletal Musculoskeletal: Reports none; Denies arthralgias, back pain, difficulty walking, extremity pain, muscle weakness or myalgias Integumentary Reports none; Denies abscess or rash Neurologic Neurologic: Reports none; Denies abnormal gait, confusion, focal weakness, frequent falls, headache(s), loss of vision, numbness, paresthesias, radicular pain, vertigo or weakness Psychiatric Psychiatric: Reports systems reviewed and no addt'l complaints, except as documented and none; Denies behavioral changes, confusion, difficulty concentrating, hallucinations, suicidal ideation, tactile hallucinations or visual hallucinations Endocrine Endocrinology: Denies none, cold intolerance, excessive sweating, fatigue or heat intolerance Hematologic/Lymphatic Hematologic/Lymphatic: Reports none; Denies anemia, easy bleeding or easy bruising Allergic/Immunologic Allergic/Immunologic ED: Denies as per HPI, none, lip swelling, mouth swelling, throat swelling, tongue swelling or hives EXAM Physical Exam Const Vital Signs: 11/30/21 05:20 11/30/21 05:24 11/30/21 05:27 Temperature 97.5 F L Temperature Source Temporal Pulse Rate 83 Respiratory Rate 18 Respiratory Effort Normal Blood Pressure 165/96 H 165/96 H Blood Pressure Mean 119 119 Pulse Ox 90 Oxygen Delivery Method Room Air Oxygen Flow Rate (L/min) 11/30/21 05:34 11/30/21 06:16 Temperature Temperature Source Pulse Rate 62 Respiratory Rate 23 H Respiratory Effort Blood Pressure 149/93 H Blood Pressure Mean 111 Pulse Ox 97 Oxygen Delivery Method Nasal Cannula Nasal Cannula Oxygen Flow Rate (L/min) 2 2 Positive well nourished and well developed General Appearance ED: well developed and NAD HEENT Reports TM's clear and moist mucous membranes normocephalic and atraumatic; Negative for trauma or tenderness Tympanic Membrane ED: Yes TM's clear Eyes PERRL and EOMs intact bilaterally General Eye ED: Negative for pale conjunctiva or scleral icterus Neck no lymphadenopathy, supple and no JVD General: Negative for tenderness Chest Wall inspection of chest normal and palpation of chest normal Chest: Negative for tenderness Resp normal respiratory effort and clear to auscultation bilaterally Resp Narrative: Patient with Rales in the left base custodial up left lung. Mild tachypnea. Mild conversational dyspnea. Effort and Inspection: Negative for respiratory distress or pain with movement Auscultation: Negative for rhonchi, wheezes or diminished lung sounds Cardio regular rate, regular rhythm, S1 normal heart sound, S2 normal heart sound and no murmurs Peripheral Pulses: pulses 2+ throughout GI normal to inspection, nondistended, normoactive bowel sounds, soft to palpation, non-tender, non-distended and no masses Back/Spine no CVA tenderness and no thoracic nor lumbar tenderness Extremity normal to inspection General Extremety ED: Negative for edema General Extremity: Negative for edema Neuro oriented x3, CN's II-XII intact bilaterally, no sensory deficits noted and gait normal Sensorium / Orientation: awake, alert, oriented to person, oriented to place and oriented to time Motor Exam: strength 5/5 throughout and strength abnormal Psych mental status grossly normal Skin no rashes or lesions noted and no wounds MDM MDM MDM Narrative Medical decision making narrative: IV line established on arrival. Lab work-up significant for COVID-19 in an elevated D-dimer. CTA obtained to rule out PE this was negative for PE but did show some bronchial wall thickening which could be indicative of acute or chronic bronchitis. Case will be discussed with hospitalist evaluate for admission for COVID-19 with hypoxemia Lab Data Attestation: I reviewed the patient's lab results. Labs: Laboratory Results - last 24 hr 11/30/21 11/30/21 11/30/21 05:25 05:25 05:25 WBC 9.8 RBC 5.21 Hgb 16.9 H Hct 51.4 MCV 98.7 H MCH 32.4 H MCHC 32.9 RDW Std Deviation 47.8 H RDW Coeff of Tate 13.1 Plt Count 345 MPV 9.3 Immature Gran % (Auto) 0.300 Neut % (Auto) 58.6 Lymph % (Auto) 30.2 Frederick % (Auto) 9.4 Eos % (Auto) 1.0 Baso % (Auto) 0.5 Absolute Neuts (auto) 5.7 Absolute Lymphs (auto) 2.95 Nucleated RBC % 0 D-Dimer Quant (PE/DVT) 1.15 H* Sodium 137 Potassium 4.8 Chloride 100 Carbon Dioxide 36.0 H Anion Gap 1 L BUN 21 H Creatinine 0.87 Estim Creat Clear Calc 84.15 Est GFR (MDRD) Af Amer 112 Est GFR (MDRD) Non-Af 93 BUN/Creatinine Ratio 24.2 H Glucose 160 H Calcium 8.9 Troponin I High Sens 20 B-Natriuretic Peptide 11/30/21 05:25 WBC RBC Hgb Hct MCV MCH MCHC RDW Std Deviation RDW Coeff of Tate Plt Count MPV Immature Gran % (Auto) Neut % (Auto) Lymph % (Auto) Frederick % (Auto) Eos % (Auto) Baso % (Auto) Absolute Neuts (auto) Absolute Lymphs (auto) Nucleated RBC % D-Dimer Quant (PE/DVT) Sodium Potassium Chloride Carbon Dioxide Anion Gap BUN Creatinine Estim Creat Clear Calc Est GFR (MDRD) Af Amer Est GFR (MDRD) Non-Af BUN/Creatinine Ratio Glucose Calcium Troponin I High Sens B-Natriuretic Peptide 55.8 Radiography Diagnostic Testing: Clinical Impression(s) from Imaging Studies Chest X-Ray 11/30/21 05:50 IMPRESSION: No evidence of active intrathoracic disease. Electronically Signed: Loyda Montero MD at 6:20 EDT , Chest CTA 11/30/21 06:05 IMPRESSION: No evidence of pulmonary emboli. No consolidation. Bronchial wall thickening may be acute bronchitis or chronic.. Electronically Signed: Loyda Montero MD at 7:12 EDT , 1 view chest x-ray obtained interpreted by myself as no acute disease process. Radiology in agreement. EKG Initial EKG: Attestation: I personally reviewed and interpreted this EKG as follows: Comments: Sinus rhythm with a rate of 61 bpm with no acute ST segment changes Discharge Plan Triage Chief Complaint: Shortness of Breath ED Provider: Ritesh Koehler Dx/Rx/DC Orders Clinical Impression: COVID-19, Hypoxemia Prescriptions: No Action atorvastatin 40 mg tablet 40 mg PO DAILY RF: 0 triamterene-hydrochlorothiazid 75-50 mg tablet 0.5 tab PO DAILY Qty: 45 RF: 3 Linzess 72 mcg capsule 72 mcg PO DAILY RF: 0 metformin 500 mg tablet 500 mg PO BID RF: 0 aspirin [Adult Aspirin Regimen] 81 mg tablet,delayed release (DR/EC) 81 mg PO DAILY RF: 0 atenolol 50 MG tablet 25 mg PO DAILY RF: 0 Primary Care Provider: Massimo Epperson Chi Referrals: Massimo Epperson Chi, MD [Primary Care Provider] - Disposition Disposition: Acute Care [facility]
[2021-11-30 05:42] LABS: Absolute Lymphocyte Count 2.95 X10^3/uL (0.83-4.51); Absolute Neutrophil Count 5.7 X10^3/uL (2.0-7.7); Basophil# 0.05 X10^3/uL; Basophil% 0.5 % (0-1); Hematocrit 51.4 % (40-54); Hemoglobin 16.9 g/dL (13.0-16.5); Lymphocyte # 2.95 X10^3/ul (0.83-4.51); Lymphocyte % 30.2 % (19-41); Mean Corp Hgb Conc 32.9 g/dL (32-36); Mean Corpuscular Hgb 32.4 pg (27.0-32.0); Mean Corpuscular Volume 98.7 fL (80-94); Mean Platelet Vol. 9.3 fl (6.2-12.0); Monocyte# 0.92 X10^3/uL; Monocyte% 9.4 % (0-10); NRBC Flagged by Analyzer 0 % (0-5); Neutrophil # 5.72 X10^3/uL (2.7-7.7); Neutrophil % 58.6 % (47-70); Platelet Count 345 K/mm3 (150-450); RBC Distribution Width CV 13.1 % (11.6-14.6); RBC Distribution Width SD 47.8 fl (35.1-43.9); Red Blood Count 5.21 M/mm3 (4.6-6.2); White Blood Count 9.8 K/mm3 (4.4-11.0)
--- NOTE | 2021-11-30 05:50 | RAD_ITS ---
STUDY: X-RAY CHEST REASON FOR EXAM: Male, 71 years old. dyspnea TECHNIQUE: AP portable. 5:47 AM. COMPARISON: 07/10/2021. FINDINGS: LUNGS: No consolidation. Reticular opacities in the left mid and lower lung unchanged likely scarring. No pneumothorax. MEDIASTINUM: Unremarkable. CARDIAC SILHOUETTE: Not enlarged. BONES AND SOFT TISSUES: No acute abnormalities. RAD/Chest 1 View (Portable) IMPRESSION: No evidence of active intrathoracic disease. Electronically Signed: Loyda Montero MD at 6:20 EDT ,
[2021-11-30 06:02] LABS: Anion Gap 1 (5-15); BUN 21 mg/dL (7-18); BUN/Creat Ratio 24.2 RATIO (10-20); Calcium,Total 8.9 mg/dL (8.5-10.1); Chloride 100 mmol/L (98-107); Creatinine, Serum 0.87 mg/dL (0.70-1.30); EST Glomerular Filtration Rate 93 mL/min (>60); Est Glom Filt Rate - Afr Amer 112 mL/min (>60); Estimated Creatinine Clearance 84.15 ml/min; Glucose 160 mg/dL (74-106); Potassium 4.8 mmol/L (3.5-5.1); Sodium Level 137 mmol/L (136-145); Troponin-I HS 20 pg/mL (3.0-78.0)
[2021-11-30 06:05] LABS: D-Dimer Quantitative (DVT/PE) 1.15 FEU/ug/m (0.27-0.49)
--- NOTE | 2021-11-30 06:05 | CT_ITS ---
STUDY: CTA CHEST REASON FOR EXAM: Male, 71 years old. elevated d-dimer RADIATION DOSAGE (If Supplied By Facility): CTDIvol = ( 15.04 ) mGy, DLP = ( 474.05 ) mGycm TECHNIQUE: The examination was performed with the intravenous administration of IV 100mL Isovue-370. Post-processing of the angiographic images was performed, with multiplanar reformation and 3D reconstruction. Individualized dose optimization techniques were used for this CT. COMPARISON: CT chest 07/09/2021.. FINDINGS: LUNGS: Dependent atelectasis. No consolidation. Calcified granuloma right upper lobe. Reticular opacities in the lower lungs likely scarring. Mild bronchial wall thickening bilaterally similar to prior study. PLEURA: No pleural effusion. No pneumothorax. PULMONARY VESSELS: No pulmonary emboli identified. MEDIASTINUM: Calcified lymph nodes throughout the mediastinum and right hilum. Other prominent lymph nodes in the mediastinum and hilar regions. Not significantly changed. HEART: Not enlarged. AORTA/GREAT VESSELS: Thoracic aorta is normal caliber. No aneurysm or dissection. ESOPHAGUS: Small hiatal hernia. UPPER ABDOMEN: No acute findings. BONES/SOFT TISSUES: No acute findings. OTHER: Left upper posterolateral ventral hernia adjacent to the hypoplastic or irregular rib, containing fat, possible incisional hernia or lumbar hernia. CT/CTA Chest W/WO Contrast IMPRESSION: No evidence of pulmonary emboli. No consolidation. Bronchial wall thickening may be acute bronchitis or chronic.. Electronically Signed: Loyda Montero MD at 7:12 EDT ,
[2021-11-30 06:06] LABS: BNP,B-Type NATRIURETIC PEPTIDE 55.8 pg/mL (0-100)
[2021-11-30] MEDS: dexAMETHasone 4 MG Tablet 6 MG PO (06:31)
--- NOTE | 2021-11-30 07:51 | PCM.HP.STD ---
HPI - General General Date of Admission: 11/30/21 Date of Service: 11/30/21 Chief Complaint: Shortness of breath HPI Narrative VICKI MSAT, is a 71 M who presents presents with shortness of breath. Symptoms began at 1:00 this morning. He checked his pulse ox is noted to be around 78%. Presented to the emergency room. Patient underwent a CT angiogram of the chest that was negative for PE did show some small area of concern for bronchitis. Patient's COVID-19 rapid antigen came back positive. Patient received dexamethasone. Patient was not short of breath yesterday but has had chronic shortness of breath for several months. Patient was admitted in July with acute hypoxic respiratory failure felt to be due to COPD exacerbation with chronic sleep apnea on BiPAP. Patient states that he has not been using a CPAP or BiPAP. Has had pulmonary function test that was negative for obstructive pulmonary disease. Patient did have a recent stress test in September that was negative. 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 Body mass index (BMI) of 37.0-37.9 in adult CPAP (continuous positive airway pressure) dependence Essential (primary) hypertension History of left heart catheterization (01/23/16) Hyperlipidemia Hypoxia Nicotine abuse Obesity Obstructive sleep apnea Tobacco dependence in remission Home Medications atenolol 25 mg PO DAILY 01/18/16 [History Last Taken 01/23/16] atorvastatin 40 mg tablet 40 mg PO DAILY 09/25/21 [History Last Taken Unknown] triamterene 75 mg-hydrochlorothiazide 50 mg tablet 0.5 tab PO DAILY #45 tab 09/25/21 [Rx Last Taken Unknown] aspirin 81 mg tablet,delayed release 81 mg PO DAILY 11/29/21 [History Last Taken Unknown] linaclotide 72 mcg capsule 72 mcg PO DAILY 11/29/21 [History Last Taken Unknown] metformin 500 mg tablet 500 mg PO BID 11/29/21 [History Last Taken Unknown] Allergy/AdvReac Type Severity Reaction Status Date / Time adhesive tape AdvReac Mild red/itchy Verified 11/30/21 05:25 Family History (Updated 11/30/21 @ 07:[address] Jose Angel Gold DO) Unknown No problems noted. Surgical History H/O resection of rib History of appendectomy History of arthroplasty of right knee History of cataract extraction History of partial splenectomy History of splenectomy History of tonsillectomy History of tracheostomy Social History Smoking Status: Former smoker quit date: 07/08/16 pack-years: 50 second hand exposure: No alcohol intake: never substance use type: does not use caffeine: Yes Type: coffee Number of servings: 8 what type of physical activity do you participate in: none ROS ROS Narrative Chronic cough. All review of systems were negative except as mentioned above in the history of present illness and the other review of systems. Vital Signs Vital Signs Vital Signs: 11/30/21 05:20 11/30/21 05:24 11/30/21 05:27 Temperature 36.4 C L Temperature Source Temporal Pulse Rate 83 Respiratory Rate 18 Respiratory Effort Normal Blood Pressure 165/96 H 165/96 H Blood Pressure Mean 119 119 Pulse Ox 90 Oxygen Delivery Method Room Air Oxygen Flow Rate (L/min) 11/30/21 05:34 11/30/21 06:16 11/30/21 07:43 Temperature 36.9 C Temperature Source Oral Pulse Rate 62 59 L Respiratory Rate 23 H 17 Respiratory Effort Blood Pressure 149/93 H 143/84 H Blood Pressure Mean 111 103 Pulse Ox 97 97 Oxygen Delivery Method Nasal Cannula Nasal Cannula Nasal Cannula Oxygen Flow Rate (L/min) 2 2 3 Weight Weight: 129.274 kg Body Mass Index (BMI) 39.7 Physical Exam Const alert General Appearance: cooperative HEENT normocephalic and head/scalp atraumatic Resp normal respiratory effort, no retractions, no use of accessory muscles and clear to auscultation bilaterally Cardio regular rate, regular rhythm, S1 normal heart sound and S2 normal heart sound GI normal to inspection, nondistended, normoactive bowel sounds, soft to palpation, non-tender and non-distended Extremity normal to inspection Peripheral Pulses: Yes pulses 2+ throughout and brachial pulses present Skin no rashes or lesions noted Neuro Sensorium / Orientation: awake and alert Psych affect normal Results Lab / Micro Data Result Diagrams: 11/30/21 05:25 11/30/21 05:25 Labs: Laboratory Results - last 24 hr 11/30/21 05:25: WBC 9.8, RBC 5.21, Hgb 16.9 H, Hct 51.4, MCV 98.7 H, MCH 32.4 H, MCHC 32.9, RDW Std Deviation 47.8 H, RDW Coeff of Tate 13.1, Plt Count 345, MPV 9.3, Immature Gran % (Auto) 0.300, Neut % (Auto) 58.6, Lymph % (Auto) 30.2, [place] % (Auto) 9.4, Eos % (Auto) 1.0, Baso % (Auto) 0.5, Absolute Neuts (auto) 5.7, Absolute Lymphs (auto) 2.95, Nucleated RBC % 0 11/30/21 05:25: D-Dimer Quant (PE/DVT) 1.15 H* 11/30/21 05:25: Sodium 137, Potassium 4.8, Chloride 100, Carbon Dioxide 36.0 H, Anion Gap 1 L, BUN 21 H, Creatinine 0.87, Estim Creat Clear Calc 84.15, Est GFR (MDRD) Af Amer 112, Est GFR (MDRD) Non-Af 93, BUN/Creatinine Ratio 24.2 H, Glucose 160 H, Calcium 8.9, Troponin I High Sens 20 11/30/21 05:25: B-Natriuretic Peptide 55.8 Micro: Microbiology 11/30/21 05:35 Nasal Secretion SARS-CoV-2 & FLU Antigen (Rapid) - Final SARS-CoV-2 (COVID 19) Radiology Impression Chest X-Ray 11/30/21 05:50 IMPRESSION: No evidence of active intrathoracic disease. Electronically Signed: Loyda Montero MD at 6:20 EDT , Chest CTA 11/30/21 06:05 IMPRESSION: No evidence of pulmonary emboli. No consolidation. Bronchial wall thickening may be acute bronchitis or chronic.. Electronically Signed: Loyda Montero MD at 7:12 EDT , Assessment & Plan Assessment/Plan (1) COVID-19: (2) Acute and chronic respiratory failure with hypoxia: PLAN: 1. Acute COVID-19 Patient has been vaccinated and boosted x2 CAT scan was unremarkable for significant inflammation likely due to his prior vaccination history but also the fact that the new strain may be less virulent. Dexamethasone and remdesivir 2. Acute on chronic hypoxic respiratory failure Certainly due to COVID but patient underlying lung disease. Patient does have known sleep apnea but does not use a CPAP or BiPAP. Wean oxygen as tolerated 3. Sleep apnea Patient since stopped using CPAP/BiPAP Recommend follow-up with pulmonology to see what other modalities could be available for him such as UPP or others. 4. Diabetes mellitus type 2 Sign scale insulin Hold metformin given the contrast exposure for now Expressed blood sugar to go up given the steroids 5. VTE prophylaxis with low molecular heparin 6. CODE STATUS: Addressed with the patient. Patient wishes to be DNR Comfort Care arrest no intubation. Patient advised that he can change his mind at any point. 7. Disposition: Anticipate hospitalization of 1 to 2 days. Charges/Coding Visit Charges Inpatient E&M: 87817 Init Hosp L3
[2021-11-30 08:48] LABS: Alkaline Phosphatase 98 U/L (45-117)
[2021-11-30] MEDS: 0.9% Saline Lock 10 ML Syringe IV (09:03)
[2021-11-30] MEDS: Enoxaparin 40 MG/0.4 ML Syringe SC (09:06)
[2021-11-30] MEDS: Insulin Lispro 100 UNIT/ML INSULN.PEN SC ×2 (11:28→16:01)
[2021-11-30 11:41] LABS: Bedside Glucose 252 mg/dL (74-106)
[2021-11-30 16:21] LABS: Bedside Glucose 213 mg/dL (74-106)
--- NOTE | 2021-11-30 18:47 | NURSING ---
pt insist on taking his own home medications. told pt that the hospital supplies mediations to insure that the medications are correct. he said he did not care, his meds are correct.
--- NOTE | 2021-11-30 22:16 | NURSING ---
Addendum entered by Candy Garcia 11/30/21 22:35: Correction to previous note. Patient was 79% on RA when he was up to the bathroom, not 71% This RN contacted Respiratory to see if they could educate him further about keeping his oxygen on when being up the bathroom. Zhao from respiratory said he would stop by and talk to the patient. Original Note: This RN noticed when patient was up to the bathroom he his oxygen saturation dipped to 71%. This RN asked him if he kept his oxygen in his nose when he was up to the bathroom. He said he did not and would not keep it on when he was up to the bathroom. This RN educated him that he was damaging his lungs and if he wants to recover from this he needs to keep his oxygen on. Patient still refused. When I need to go, I need to go. I am taking at this stuff off. I guess I will just damage my lungs. This RN asked him to put on his call light when he needed to use the bathroom. Then we would come in to help him with the oxygen tubing. Patient refused. I've been through that before with you guys. No one ever comes. This RN offered a urinal for patient to use. Patient refused and said he was going to get up to the toilet without his oxygen and would put it on when he got back into bed.
[2021-11-30 22:26] LABS: Bedside Glucose 209 mg/dL (74-106)
[2021-12-01] VITALS (7 sets, daily range): BP systolic 116–159; BP diastolic 74–108; PULSE 61–77; RESP 18–20; TEMP 36.6–36.7; O2SAT 77–96
[2021-12-01] MEDS: 0.9% Saline Lock 10 ML Syringe IV (03:06)
[2021-12-01 06:23] LABS: Basophil# 0.01 X10^3/uL; Basophil% 0.1 % (0-1); Eosinophil# 0.01 X10^3/uL; Eosinophils% 0.1 % (0-5); Hematocrit 48.7 % (40-54); Hemoglobin 15.6 g/dL (13.0-16.5); Lymphocyte % 26.2 % (19-41); Mean Corpuscular Hgb 32.4 pg (27.0-32.0); Mean Corpuscular Volume 101.2 fL (80-94); Monocyte# 1.22 X10^3/uL; Monocyte% 9.7 % (0-10); NRBC Flagged by Analyzer 0 % (0-5); Neutrophil # 7.99 X10^3/uL (2.7-7.7); Neutrophil % 63.5 % (47-70); Platelet Count 323 K/mm3 (150-450); RBC Distribution Width CV 12.9 % (11.6-14.6); RBC Distribution Width SD 48.7 fl (35.1-43.9); Red Blood Count 4.81 M/mm3 (4.6-6.2); White Blood Count 12.6 K/mm3 (4.4-11.0)
[2021-12-01 06:49] LABS: ALB/GLOB Ratio 0.9 RATIO (0.9-2.4); AST(SGOT) 25 U/L (15-37); Alanine Aminotransfer ALT/SGPT 37 U/L (16-61); Albumin, Serum 3.4 g/dL (3.2-5.0); Alkaline Phosphatase 83 U/L (45-117); Anion Gap 4 (5-15); BUN 18 mg/dL (7-18); BUN/Creat Ratio 20.6 RATIO (10-20); Calcium,Total 8.7 mg/dL (8.5-10.1); Chloride 97 mmol/L (98-107); Creatinine, Serum 0.87 mg/dL (0.70-1.30); EST Glomerular Filtration Rate 92 mL/min (>60); Est Glom Filt Rate - Afr Amer 111 mL/min (>60); Estimated Creatinine Clearance 84.15 ml/min; Globulin 3.6 g/dL (2.2-4.2); Glucose 125 mg/dL (74-106); Potassium 4.9 mmol/L (3.5-5.1); Sodium Level 136 mmol/L (136-145)
[2021-12-01 06:50] LABS: Bedside Glucose 115 mg/dL (74-106)
--- NOTE | 2021-12-01 07:13 | PN.HOSP_ITS ---
Subjective Subjective Breathing well. Wants to go home. Requesting 1 of those portable condenser's. Patient complains of issues in regards to congestion and states that it feels better if he takes a shot of Santino Martinez or has some Vicks vapor rub. Objective Data Objective Data Vital Signs: Vital Signs Temp Pulse Resp BP Pulse Ox 36.6 C 77 20 H 159/108 H 95 12/01/21 02:56 12/01/21 02:56 12/01/21 02:56 12/01/21 02:56 12/01/21 02:56 Oxygen Flow Rate (L/min) 2 Oxygen Delivery Method Nasal Cannula Weight: 129.274 kg Body Mass Index (BMI) 39.7 Intake & Output: Intake and Output for Last 24 Hours 11/29/21 11/30/21 12/01/21 23:59 23:59 23:59 Intake Total 940.50 / 940.50 200 / 200 Output Total 200 / 200 Balance 740.50 / 740.50 200 / 200 Lab / Micro Data Result Diagrams: 12/01/21 06:15 12/01/21 06:15 Labs: Laboratory Results - last 24 hr 11/30/21 05:38: Alkaline Phosphatase 98 11/30/21 11:18: POC Glucose 252 H 11/30/21 15:59: POC Glucose 213 H 11/30/21 22:04: POC Glucose 209 H 12/01/21 06:15: WBC 12.6 H, RBC 4.81, Hgb 15.6, Hct 48.7, MCV 101.2 H, MCH 32.4 H, MCHC 32.0, RDW Std Deviation 48.7 H, RDW Coeff of Tate 12.9, Plt Count 323, MPV 9.0, Immature Gran % (Auto) 0.400, Neut % (Auto) 63.5, Lymph % (Auto) 26.2, [place] % (Auto) 9.7, Eos % (Auto) 0.1, Baso % (Auto) 0.1, Absolute Neuts (auto) 8.0 H, Absolute Lymphs (auto) 3.30, Nucleated RBC % 0 12/01/21 06:15: Sodium 136, Potassium 4.9, Chloride 97 L, Carbon Dioxide 35.0 H, Anion Gap 4 L, BUN 18, Creatinine 0.87, Estim Creat Clear Calc 84.15, Est GFR (MDRD) Af Amer 111, Est GFR (MDRD) Non-Af 92, BUN/Creatinine Ratio 20.6 H, Glucose 125 H, Calcium 8.7, Total Bilirubin 0.30, AST 25, ALT 37, Alkaline Phosphatase 83, Total Protein 7.0, Albumin 3.4, Globulin 3.6, Albumin/Globulin Ratio 0.9 12/01/21 06:41: POC Glucose 115 H Micro: Microbiology 11/30/21 05:35 Nasal Secretion SARS-CoV-2 & FLU Antigen (Rapid) - Final SARS-CoV-2 (COVID 19) Radiography Diagnostic Testing: Radiology Impression Chest CTA 11/30/21 06:05 IMPRESSION: No evidence of pulmonary emboli. No consolidation. Bronchial wall thickening may be acute bronchitis or chronic.. Electronically Signed: Loyda Montero MD at 7:12 EDT Reading Location ID and State: [facility] [place] / [place] Tel , Service support , Physical Exam Const alert and no apparent distress Resp normal respiratory effort, no retractions, no use of accessory muscles and clear to auscultation bilaterally Cardio regular rate, regular rhythm, S1 normal heart sound and S2 normal heart sound GI normal to inspection, nondistended, normoactive bowel sounds, soft to palpation, non-tender and non-distended Assessment & Plan Assessment/Plan (1) COVID-19: (2) Acute and chronic respiratory failure with hypoxia: PLAN: 1. Acute COVID-19 * Patient has been vaccinated and boosted x2 * CAT scan was unremarkable for significant inflammation likely due to his prior vaccination history but also the fact that the new strain may be less virulent. * Dexamethasone for total of 10 days 2. Acute on chronic hypoxic respiratory failure * Certainly due to COVID but patient underlying lung disease. Patient does have known sleep apnea but does not use a CPAP or BiPAP. * Wean oxygen as tolerated * 88% on RA with activity. 3. Sleep apnea * Patient since stopped using CPAP/BiPAP * Recommend follow-up with pulmonology to see what other modalities could be available for him such as UPP or others. 4. Diabetes mellitus type 2 * Sign scale insulin * Hold metformin given the contrast exposure for now * Expressed blood sugar to go up given the steroids 5. VTE prophylaxis with low molecular heparin 6. CODE STATUS: Addressed with the patient. Patient wishes to be DNR Comfort Care arrest no intubation. Patient advised that he can change his mind at any point. 7. Disposition: Home today. Patient improved much better than initially anticipated.
[2021-12-01] MEDS: dexAMETHasone 4 MG Tablet 6 MG PO (09:37)
[2021-12-01] MEDS: Enoxaparin 40 MG/0.4 ML Syringe SC (09:38)
--- NOTE | 2021-12-01 10:23 | CASEMGMT ---
Addendum entered by Jennifer Black 12/01/21 10:47: Pt qualifies for home O2, emailed and faxed [employer] orders and notified pt plans to dc at approx 1pm. Portable tank taken from [employer]. Original Note: OLMAN HILL Assessment: Face to Face with pt for initial transition planning/care coordination assessment. OLMAN HILL introduced self and role at [facility], pt voices understanding and consents to assessment. Pt is A/O x4 and answers all questions appropriately at this time. Pt sitting up in chair in no distress. Care providers, pharmacy, and demographics verified/updated. Admitting Dx: hypoxemia, COVID 19 PCP:Zhou Specialists: Oskar, pulmerlyn; Earl, cardio; nephro, pt cannot remember name Preferred Pharmacy: [facility] Insurance: [facility] Prescription Benefit: yes LW/HPOA: Pt has a LW/DPOA on file at [facility]. His DPOA is his , Clary Echavarria. LNOK: Clary Echavarria, Living Arrangements: Pt lives with in a two story house with 1 step to enter with a rail. Pt reports he is I in ADL's and denies concerns at home. Transportation: Pt drives self and denies concerns with transportation. DME/HHC/SNF: Pt states he has a cane at home, but does not use. Pt states he threw away his CPAP when it was not working properly. He states pulm is aware. 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 Pt does have a pox at home. Pt reports he has had HHC in the past but is unsure of the name of the agency. Denies SNF stays. Pt states no concerns with going home at time of dc. Pt states no further concerns/needs. CM to follow. Advised pt to ask CM if any further question/concerns/needs arise, voices understanding. Pt first tested positive for COVID at [facility]. Pt has family who can provide groceries and supplies while in quarantine. Provided pt with a local in network list of DME companies, pt chose [employer]. He is aware of the oxygen process and to call once home to get concentrator set up. Pt Goal: Home Plan:Home
--- NOTE | 2021-12-01 10:23 | PCM.DC ---
Discharge Instructions Diet Discharge Diet: 2000 Calorie Control Diet Dressing / Incision Call your doctor if you observe: Shortness of breath Follow Up Care Test Results: Test results from this visit will be discussed in further detail at your follow-up appointment, if applicable. Discharge Plan Admission Admit Date/Time: 11/30/21 07:45 Primary Reason for Your Visit: COVID 19 Attending Provider: Jose Angel Gold Primary Care Provider: Massimo Epperson Chi Instructions Additional Instructions / Restrictions: Self isolate for at least 10 days since symptoms began or the first positive COVID-19 test AND at least one day (24 hours) have passed since resolution of fever without the use of fever-reducing agents AND improvement of symptoms (e.g., cough, shortness of breath) When around people in the same room, wear a face mask. Individuals also in the room should wear a mask. If possible, use a different bathroom and bedroom. Perform adequate hand hygiene. Avoid sharing dishes, glasses, etc. Discharge Orders/Prescriptions Prescriptions: New dexamethasone 4 mg Tablet 6 mg PO DAILY@0800 8 Days Qty: 12 RF: 0 Continued atorvastatin 40 mg tablet 40 mg PO DAILY RF: 0 triamterene-hydrochlorothiazid 75-50 mg tablet 0.5 tab PO DAILY Qty: 45 RF: 3 Linzess 72 mcg capsule 72 mcg PO DAILY RF: 0 aspirin [Adult Aspirin Regimen] 81 mg tablet,delayed release (DR/EC) 81 mg PO DAILY RF: 0 atenolol 50 MG tablet 25 mg PO DAILY RF: 0 Held metformin 500 mg tablet 500 mg PO BID RF: 0 Hold Instructions: Resume on 12/05/21. Referrals / Follow Up: Massimo Epperson Chi, MD [Primary Care Provider] - Disposition Disposition (needs filled in before D/C Order can be placed): Home, Self Care
--- NOTE | 2021-12-01 10:30 | PCM.DC.SUM ---
Providers Date of Admission: 11/30/21 Primary Care Physician: Dr. Massimo Epperson MD Reason For Visit: HYPOXEMIA, COVID-19 Diagnosis Discharge Diagnosis (1) COVID-19: Status: Acute Code(s): U07.1 - COVID-19 (2) Acute and chronic respiratory failure with hypoxia: Status: Chronic Code(s): J96.21 - Acute and chronic respiratory failure with hypoxia Medications at Discharge Home Medications atenolol 25 mg PO DAILY 01/18/16 atorvastatin 40 mg tablet 40 mg PO DAILY 09/25/21 triamterene 75 mg-hydrochlorothiazide 50 mg tablet 0.5 tab PO DAILY #45 tab 09/25/21 aspirin 81 mg tablet,delayed release 81 mg PO DAILY 11/29/21 linaclotide 72 mcg capsule 72 mcg PO DAILY 11/29/21 metformin 500 mg tablet 500 mg PO BID 11/29/21 dexamethasone 6 mg PO DAILY@0800 8 Days #12 tab 12/01/21 Hospital Course Operations None Procedures None Summary of Care Provided Minutes Spent on Discharge: 32 Hospital Course: 71-year-old male presents with a 1 day history of shortness of breath. Patient was diagnosed with COVID-19. Patient has been vaccinated and boosted. Patient has have a history of chronic shortness of breath that work-up has been unremarkable. Patient does have known sleep apnea and has voluntarily stopped using BiPAP or CPAP. Patient started on dexamethasone and remdesivir. Overnight, patient did well. Amatory pulse ox was attempted and patient dropped down to 80% on room air with activity. Patient required 2 L of oxygen with exertion. Anticipate continued improvement. Patient will need to follow-up with pulmonology. Patient advised to confer with pulmonology to see if there is other modalities to treat his sleep apnea as patient does not tolerate the BiPAP or CPAP. Weight / BMI Weight Weight: 129.274 kg Body Mass Index (BMI) 39.7 ABG / Lab / Microbiology Data Result Diagrams: 12/01/21 06:15 12/01/21 06:15 Laboratory: Laboratory Results - last 24 hr 11/30/21 11:18: POC Glucose 252 H 11/30/21 15:59: POC Glucose 213 H 11/30/21 22:04: POC Glucose 209 H 12/01/21 06:15: WBC 12.6 H, RBC 4.81, Hgb 15.6, Hct 48.7, MCV 101.2 H, MCH 32.4 H, MCHC 32.0, RDW Std Deviation 48.7 H, RDW Coeff of Tate 12.9, Plt Count 323, MPV 9.0, Immature Gran % (Auto) 0.400, Neut % (Auto) 63.5, Lymph % (Auto) 26.2, [place] % (Auto) 9.7, Eos % (Auto) 0.1, Baso % (Auto) 0.1, Absolute Neuts (auto) 8.0 H, Absolute Lymphs (auto) 3.30, Nucleated RBC % 0 12/01/21 06:15: Sodium 136, Potassium 4.9, Chloride 97 L, Carbon Dioxide 35.0 H, Anion Gap 4 L, BUN 18, Creatinine 0.87, Estim Creat Clear Calc 84.15, Est GFR (MDRD) Af Amer 111, Est GFR (MDRD) Non-Af 92, BUN/Creatinine Ratio 20.6 H, Glucose 125 H, Calcium 8.7, Total Bilirubin 0.30, AST 25, ALT 37, Alkaline Phosphatase 83, Total Protein 7.0, Albumin 3.4, Globulin 3.6, Albumin/Globulin Ratio 0.9 12/01/21 06:41: POC Glucose 115 H Microbiology: Microbiology 11/30/21 05:35 Nasal Secretion SARS-CoV-2 & FLU Antigen (Rapid) - Final SARS-CoV-2 (COVID 19) D/C Instructions Discharge Diet: 2000 Calorie Control Diet Call your doctor if you observe: Shortness of breath Meaningful Use Info Meaningful Use Diagnoses (Choose all that apply): None applicable Discharge Plan Admission Admit Date/Time: 11/30/21 07:45 Primary Reason for Your Visit: COVID 19 Attending Provider: Jose Angel Gold Primary Care Provider: Massimo Epperson Chi Instructions Additional Instructions / Restrictions: Self isolate for at least 10 days since symptoms began or the first positive COVID-19 test AND at least one day (24 hours) have passed since resolution of fever without the use of fever-reducing agents AND improvement of symptoms (e.g., cough, shortness of breath) When around people in the same room, wear a face mask. Individuals also in the room should wear a mask. If possible, use a different bathroom and bedroom. Perform adequate hand hygiene. Avoid sharing dishes, glasses, etc. Discharge Orders/Prescriptions Prescriptions: New dexamethasone 4 mg Tablet 6 mg PO DAILY@0800 8 Days Qty: 12 RF: 0 Continued atorvastatin 40 mg tablet 40 mg PO DAILY RF: 0 triamterene-hydrochlorothiazid 75-50 mg tablet 0.5 tab PO DAILY Qty: 45 RF: 3 Linzess 72 mcg capsule 72 mcg PO DAILY RF: 0 aspirin [Adult Aspirin Regimen] 81 mg tablet,delayed release (DR/EC) 81 mg PO DAILY RF: 0 atenolol 50 MG tablet 25 mg PO DAILY RF: 0 Held metformin 500 mg tablet 500 mg PO BID RF: 0 Hold Instructions: Resume on 12/05/21. Referrals / Follow Up: Massimo Epperson Chi, MD [Primary Care Provider] - Disposition Disposition (needs filled in before D/C Order can be placed): Home, Self Care Charges/Coding Visit Charges Inpatient E&M: 16323 Disch Hosp
--- NOTE | 2021-12-01 10:58 | NURSING ---
attempted to make follow up appointment for patient with , office is closed today 12/01 and will reopen tuesday 12/05 let primary rn know
[2021-12-01 11:35] LABS: Bedside Glucose 144 mg/dL (74-106)
== END 2021-12-01 12:52 | disposition home or self-care (01) | DRG 177 ==
LOC: ED 07:26 → MS3 08:48
PROVIDERS: Emergency Provider Emergency Medicine; PCP Family Medicine Geriatric Medicine
DX: U07.1 COVID-19 (principal); J96.01 Acute respiratory failure with hypoxia; E11.9 Type 2 diabetes mellitus without complications; E78.5 Hyperlipidemia, unspecified; I25.10 Atherosclerotic heart disease of native coronary artery without angina pectoris; I10 Essential (primary) hypertension; G47.33 Obstructive sleep apnea (adult) (pediatric); E66.9 Obesity, unspecified; Z68.39 Body mass index [BMI] 39.0-39.9, adult; Z66 Do not resuscitate; Z79.82 Long term (current) use of aspirin; Z79.84 Long term (current) use of oral hypoglycemic drugs; Z87.891 Personal history of nicotine dependence; Z90.81 Acquired absence of spleen
CPT/HCPCS: 36415; 71045; 71275; 80048; 80053; 82962; 83880; 84075; 84484; 85025; 85379; 87428; 93005; 94667; 94762; 99251; 99285; J7050; Q9967; A4216; G0463; J0248

== ENCOUNTER 2022-01-03 09:47 | Day surgery (SDC) | payer MEDICARE, OTHER, SELFPAY ==
[2022-01-03 10:13] VITALS: BP 131/95; PULSE 67; RESP 18; TEMP 36.2; O2SAT 95; BMI 38.0
[2022-01-03] MEDS: Lactated Ringers 1,000 ML 15 ML IV (10:16)
[2022-01-03 10:20] LABS: Bedside Glucose 175 mg/dL (74-106)
--- NOTE | 2022-01-03 11:00 | COLBX_PTH ---
PATIENT: VICKI MAST LOC: [facility] U#:[id number] AGE/SX: 71/M ROOM: RE01/03/[address]: Dr. Kip Bell DO : 1950 BED: DIS: 01/03/2022 SPEC #: [id number] RECD: 01/03/22 13:27 STATUS: SANCHO ALONSO #: [id number] JAMES: 01/03/22 11:[address]: Kip Bell DEPT: SURGICAL PATHOLOGY RECD BY: Nii Hernandez ENTERED: 01/03/22 14:05 SP TYPE: COLON BX OTHR DR: Dr. Massimo Epperson MD Tissues: A - COLON BIOPSY B - Cecum, NOS C - Transverse colon D - Sigmoid colon biopsy E - Rectum, NOS Procedures: Surgery Specimen Level IV HEADER OPERATION: Colonoscopy, biopsies, gold probe cautery and snare PRE-OP DIAGNOSIS: Screening colonoscopy TISSUE SUBMITTED: A ? Hepatic flexure polyp, B ? Cecum polyp, C ? Transverse colon polyp, D ? Sigmoid colon polyp, E ? Rectal polyp MICROSCOPIC DIAGNOSIS A. Hepatic flexure polyp, biopsy: Tubular adenoma. B. Cecum polyp, biopsy: A fragment of colonic mucosa, no pathologic diagnosis. C. Transverse colon polyp, biopsy: Tubular adenoma. D. Sigmoid colon polyp, biopsy: Fragments of tubular adenoma. E. Rectal polyp, biopsy: Fragments of hyperplastic polyp. SJ:adrian 01/04/2022 MICROSCOPIC DESCRIPTION Slides are reviewed. GROSS DESCRIPTION A - Received in fixative is one container labeled with the patient's name and designated hepatic flexure polyp. The specimen consists of two irregular fragments of light holloway soft tissue that in aggregate measure 0.6 x 0.3 x 0.1 cm. The specimen is totally submitted in one cassette. B - Received in fixative is one container labeled with the patient's name and designated cecum polyp. The specimen consists of one irregular fragment of light holloway soft tissue that measures 0.4 x 0.3 x 0.1 cm. The specimen is totally submitted in one cassette. C - Received in fixative is one container labeled with the patient's name and designated transverse colon polyp. The specimen consists of one irregular fragment of light holloway soft tissue that measures 0.3 x 0.1 x 0.1 cm. The specimen is totally submitted in one cassette. D - Received in fixative is one container labeled with the patient's name and designated sigmoid colon polyp. The specimen consists of two irregular fragments of light holloway soft tissue that in aggregate measure 0.6 x 0.3 x 0.1 cm. The specimen is totally submitted in one cassette. E. Received in fixative is one container labeled with the patient's name and designated rectal polyp. The specimen consists of two irregular fragments of light holloway soft tissue that in aggregate measure 0.5 x 0.2 x 0.1 cm. The specimen is totally submitted in one cassette. / SJ:rg 01/03/2022 TC:3 CPT: 84159 x5
--- NOTE | 2022-01-03 11:16 | HP.PCM_ITS ---
HPI - General General Date of Admission: 01/03/22 Date of Service: 01/03/22 HPI Narrative VICKI MAST, 71-year-old man with a history of known atherosclerotic cardiovascular disease.? 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 He had preserved left ventricular systolic function.? He was diagnosed with COVID-19 in November 2021. He also has a past medical history of diabetes, hypertension, hyperlipidemia, previous tobacco abuse, and obstructive sleep apnea. He arrives here today for screening colonoscopy. He is not have any abdominal pain. He denies any chest pain. He does not have any shortness of breath. [facility] Medical History (Updated 01/03/22 @ 11:[address] Shin Friend, DO) Allergic rhinitis Arthritis Arthritis Atherosclerotic heart disease of [place] coronary artery without angina pectoris BMI 39.0-39.9,adult Body mass index (BMI) of 37.0-37.9 in adult Cholelithiasis with chronic cholecystitis CPAP (continuous positive airway pressure) dependence CPAP (continuous positive airway pressure) dependence Diabetes Essential (primary) hypertension Fatty liver History of edema Hoarseness Hx of transfusion of whole blood Hyperlipidemia Hypoxia Leg edema Nicotine abuse Obesity Obstructive sleep apnea On home oxygen therapy Preop cardiovascular exam Smoking greater than 40 pack years Tobacco dependence in remission Home Medications atenolol 50 mg tablet 25 mg PO DAILY heart 01/18/16 [History Last Taken 01/03/22] atorvastatin 40 mg tablet 40 mg PO DAILY cholesterol 09/25/21 [History Last Taken 11/30/21] aspirin 81 mg tablet,delayed release (Adult Aspirin Regimen) 81 mg PO DAILY heart 11/29/21 [History Last Taken 12/29/21] linaclotide 72 mcg capsule (Linzess) 72 mcg PO DAILY bowels 11/29/21 [History Last Taken 11/30/21] metformin 500 mg tablet 500 mg PO BID dm 11/29/21 [History Last Taken 11/30/21] dexamethasone 4 mg tablet 6 mg PO DAILY@0800 8 days #12 tabs 12/22/21 [Rx Last Taken Unknown] doxycycline hyclate 100 mg capsule 100 mg PO BID 12/28/21 [History Last Taken Unknown] levocetirizine 5 mg tablet (Xyzal) 5 mg PO DAILY 12/28/21 [History Last Taken Unknown] triamterene 75 mg-hydrochlorothiazide 50 mg tablet (Maxzide) 0.5 tab PO DAILY 12/28/21 [History Last Taken Unknown] Allergy/AdvReac Type Severity Reaction Status Date / Time adhesive tape AdvReac Mild red/itchy Verified 01/03/22 10:12 Family History Unknown No problems noted. Surgical History (Updated 12/28/21 @ 15:27 by Dory Diaz) H/O resection of rib History of appendectomy History of arthroplasty of right knee History of cataract extraction History of left heart catheterization (01/23/16) History of partial splenectomy History of splenectomy History of tonsillectomy History of tracheostomy S/P emergency tracheotomy for assistance in breathing Social History Smoking Status: Former smoker quit date: 07/08/16 pack-years: 50 second hand exposure: No alcohol intake: never substance use type: does not use caffeine: Yes Type: coffee Number of servings: 8 what type of physical activity do you participate in: none ROS Review of Systems ROS Unobtainable: other Constitutional Constitutional: Denies fatigue, fever(s), poor appetite, weight gain or weight loss ENT HEENT: Denies mouth lesions Cardiovascular Cardiovascular: Denies abdominal bloating, abdominal edema or abdominal pain Respiratory/Chest Respiratory/Chest: Denies change in mental status, change in phlegm color, chest congestion or chest tightness Gastrointestinal Gastrointestinal: Denies belching, bloating, change in bowel habits, change in stool character, chewing difficulty, coffee ground emesis, constipation, cramp ing, diarrhea, dyspepsia, dysphagia, early satiety, excessive flatus, fecal incontinence, heartburn, hematemesis, hematochezia, hemorrhoids, loose stools, melena, nausea, odynophagia, rectal bleeding, tenesmus, vomiting or weight changes Genitourinary Genitourinary: Denies abdominal discomfort, burning urination or itching Musculoskeletal Musculoskeletal: Reports as per HPI; Denies muscle weakness or myalgias Integumentary Integumentary: Denies jaundice Neurologic Neurologic: Denies lack of coordination or weakness Psychiatric Psychiatric: Denies confusion, depression, memory loss, mood swings, paranoia or suicidal ideation Endocrine Endocrinology: Denies systems reviewed and no addt'l complaints, except as documented Hematologic/Lymphatic Hematologic/Lymphatic: Denies anemia, easy bleeding, easy bruising or lymphadenopathy Allergic/Immunologic Allergic/Immunologic: Denies systems reviewed and no addt'l complaints, except as documented Vital Signs Vital Signs Vital Signs: 01/03/22 10:13 01/03/22 10:13 Temperature 97.1 F L Temperature Source Temporal Pulse Rate 67 Respiratory Rate 18 Respiratory Pattern Normal Blood Pressure 131/95 H Blood Pressure Mean 107 Blood Pressure Source Monitor Blood Pressure Position Semi-Fowlers Blood Pressure Location Right Arm Pulse Ox 95 Oxygen Delivery Method Room Air Weight Weight: 273 lb Body Mass Index (BMI) 38.0 Physical Exam Const alert General Appearance: cooperative Orientation / Consciousness: oriented to person HEENT hearing grossly normal bilaterally Head and Scalp: normal to inspection Face and Sinus: face symmetric Nose: external nose normal Mouth: oral and palatal mucosa normal Eyes conjunctivae normal General Eye: normal appearance of both eyes Neck full ROM General: normal visual inspection Lymph Lymphatic: no lymphadenopathy noted Chest inspection of chest normal and palpation of chest normal Chest: symmetrical chest wall rise Resp normal respiratory effort Effort and Inspection: able to speak in complete sentences Cardio regular rate GI non-distended Percussion: normal to percussion Rectal Exam: deferred Neuro Speech: speech normal Gait (Neuro): normal gait Results Lab / Micro Data Labs: Laboratory Results - last 24 hr 01/03/22 10:11: POC Glucose 175 H Assessment & Plan Assessment/Plan (1) Encounter for screening colonoscopy: PLAN: He was explained alternatives, risk, benefits including not withstanding bleeding, infection, sepsis, perforation, need for emergent . Have an ASA of 3.
[2022-01-03 12:06] VITALS: BP 120/75; BP 131/95; PULSE 77; RESP 14; TEMP 37.1; O2SAT 94
[2022-01-03 12:10] VITALS: BP 124/83; BP 131/95; PULSE 78; RESP 16; O2SAT 93
--- NOTE | 2022-01-03 12:10 | OP.COLON_ITS ---
Patient Name: Celestine Echavarria Procedure Date: 01/03/2022 11:16 AM Date of : 1950 Age: 71 Procedure: Colonoscopy Indications: Screening for colorectal malignant neoplasm Providers: Kip Bell DO Referring MD: Kip Bell DO Medicines: Monitored Anesthesia Care Patient Profile: Last Colonoscopy: more than 10 years ago. Complications: No immediate complications. Procedure: Pre-Anesthesia Assessment: - Prior to the procedure, a History and Physical was performed, and patient medications and allergies were reviewed. The patient is competent. The risks and benefits of the procedure and the sedation options and risks were discussed with the patient. All questions were answered and informed consent was obtained. Patient identification and proposed procedure were verified by the physician in the pre-procedure area. Mental Status Examination: alert and oriented. Airway Examination: normal oropharyngeal airway and neck mobility. Respiratory Examination: clear to auscultation. CV Examination: normal. Prophylactic Antibiotics: The patient does not require prophylactic antibiotics. Prior Anticoagulants: The patient has taken no previous anticoagulant or antiplatelet agents. ASA Grade Assessment: II - A patient with mild systemic disease. After reviewing the risks and benefits, the patient was deemed in satisfactory condition to undergo the procedure. The anesthesia plan was to use moderate sedation / analgesia (conscious sedation). Immediately prior to administration of medications, the patient was re-assessed for adequacy to receive sedatives. The heart rate, respiratory rate, oxygen saturations, blood pressure, adequacy of pulmonary ventilation, and response to care were monitored throughout the procedure. The physical status of the patient was re-assessed after the procedure. After I obtained informed consent, the scope was passed under direct vision. Throughout the procedure, the patient's blood pressure, pulse, and oxygen saturations were monitored continuously. The pediatric colonoscope was introduced through the anus and advanced to the cecum, identified by appendiceal orifice and ileocecal valve. The colonoscopy was performed without difficulty. The patient tolerated the procedure well. The quality of the bowel preparation was fair. Scope In: 11:27:36 AM Scope Withdrawal Time 0 hours 25 minutes 33 seconds Scope Out: 12:00:08 PM Total Procedure Duration Time 0 hours 32 minutes 32 seconds Findings: The perianal and digital rectal examinations were normal. A few small-mouthed diverticula were found in the recto-sigmoid colon and sigmoid colon. Six sessile polyps were found in the rectum, sigmoid colon, transverse colon, ascending colon and cecum. The polyps were 1 to 2 mm in size. These polyps were removed with a hot snare. Resection and retrieval were complete. Verification of patient identification for the specimen was done. Estimated blood loss was minimal. Three medium-sized angiodysplastic lesions with bleeding were found in the cecum. Coagulation for hemostasis using heater probe was successful. Estimated blood loss was minimal. A moderate amount of stool was found in the rectum, in the recto-sigmoid colon, in the sigmoid colon and in the cecum. Lavage of the area was performed using greater than 500 mL of sterile water, resulting in incomplete clearance with fair visualization. Impression: - Preparation of the colon was fair. - Diverticulosis in the recto-sigmoid colon and in the sigmoid colon. - Six 1 to 2 mm polyps in the rectum, in the sigmoid colon, in the transverse colon, in the ascending colon and in the cecum, removed with a hot snare. Resected and retrieved. - Three bleeding colonic angiodysplastic lesions. Treated with a heater probe. - Stool in the rectum, in the recto-sigmoid colon, in the sigmoid colon and in the cecum. Recommendation: - Discharge patient to home. - Resume previous diet. - Continue present medications. - Await pathology results. - Repeat colonoscopy in 3 years for surveillance of multiple polyps. Procedure Code(s): --- Professional --- 87915, 59, Colonoscopy, flexible; with control of bleeding, any method 05128, Colonoscopy, flexible; with removal of tumor(s), polyp(s), or other lesion(s) by snare technique CPT copyright 2017 [employer]. All rights reserved. The codes documented in this report are preliminary and upon dairy truck driver review may be revised to meet current compliance requirements. Kip Bell DO 01/03/2022 12:10:12 PM This report has been signed electronically. Number of Addenda: 1 Note Initiated On: 01/03/2022 11:16 AM Addendum Number: 1 Addendum Date: 04/10/2022 6:01:44 AM MAC was used as sedation for this procedure. Kip Bell DO 04/10/2022 6:01:48 AM This report has been signed electronically.
--- NOTE | 2022-01-03 12:11 | OP.CCLET_ITS ---
04/10/2022 Massimo Epperson MD [id number] [place] [address] Re : Colonoscopy procedure for Celestine Echavarria Dear Dr. Epperson This procedure was performed on Monday, January 03, 2022. My impressions and recommendations are as follows: Impressions : - Preparation of the colon was fair. - Diverticulosis in the recto-sigmoid colon and in the sigmoid colon. - Six 1 to 2 mm polyps in the rectum, in the sigmoid colon, in the transverse colon, in the ascending colon and in the cecum, removed with a hot snare. Resected and retrieved. - Three bleeding colonic angiodysplastic lesions. Treated with a heater probe. - Stool in the rectum, in the recto-sigmoid colon, in the sigmoid colon and in the cecum. Recommendations : - Discharge patient to home. - Resume previous diet. - Continue present medications. - Await pathology results. - Repeat colonoscopy in 3 years for surveillance of multiple polyps. My findings are described in the full procedure note, which is enclosed. If I can be of further assistance, please feel free to contact me at . Sincerely, Kip Bell DO 01/03/2022 12:10:12 PM This report has been signed electronically.
[2022-01-03 12:15] VITALS: BP 131/95; BP 142/67; PULSE 76; RESP 16; O2SAT 96
[2022-01-03 12:23] VITALS: BP 116/88; BP 131/95; PULSE 69; RESP 16; TEMP 37.6; O2SAT 94
[2022-01-03 12:33] VITALS: BP 131/95
== END 2022-01-03 12:46 | disposition home or self-care (01) ==
LOC: EN 09:48 → AC 09:50
PROVIDERS: PCP Family Medicine Geriatric Medicine; Referring Provider Internal Medicine Gastroenterology; Visit Provider Internal Medicine Gastroenterology
PROC: 0DJD8ZZ Inspection of Lower Intestinal Tract, Via Natural or Artificial Opening Endoscopic (ICD-10-PCS; CPT 45378; principal; 2022-01-03 10:55)
DX: Z12.11 Encounter for screening for malignant neoplasm of colon (principal); K55.21 Angiodysplasia of colon with hemorrhage; K57.33 Diverticulitis of large intestine without perforation or abscess with bleeding; D12.3 Benign neoplasm of transverse colon; D12.5 Benign neoplasm of sigmoid colon; K62.1 Rectal polyp; I25.10 Atherosclerotic heart disease of native coronary artery without angina pectoris; E11.9 Type 2 diabetes mellitus without complications; I10 Essential (primary) hypertension; E78.5 Hyperlipidemia, unspecified; G47.33 Obstructive sleep apnea (adult) (pediatric); E66.9 Obesity, unspecified; Z68.38 Body mass index [BMI] 38.0-38.9, adult; Z99.81 Dependence on supplemental oxygen; Z79.82 Long term (current) use of aspirin; Z79.84 Long term (current) use of oral hypoglycemic drugs; Z79.899 Other long term (current) drug therapy; Z90.81 Acquired absence of spleen; Z87.891 Personal history of nicotine dependence
CPT/HCPCS: 45385; 45382; 82962; 88305; J7120; J2405

== ENCOUNTER 2022-01-24 05:58 | Day surgery (SDC) | payer MEDICARE, OTHER, SELFPAY ==
[2022-01-18 10:14] LABS: Hematocrit 47.8 % (40-54); Hemoglobin 15.8 g/dL (13.0-16.5); Mean Corp Hgb Conc 33.1 g/dL (32-36); Mean Platelet Vol. 9.9 fl (6.2-12.0); Platelet Count 315 K/mm3 (150-450); RBC Distribution Width CV 13.2 % (11.6-14.6); RBC Distribution Width SD 47.4 fl (35.1-43.9); Red Blood Count 4.93 M/mm3 (4.6-6.2); White Blood Count 7.6 K/mm3 (4.4-11.0)
[2022-01-18 10:52] LABS: Anion Gap 2 (5-15); BUN 20 mg/dL (7-18); BUN/Creat Ratio 24.2 RATIO (10-20); Calcium,Total 9.2 mg/dL (8.5-10.1); Chloride 100 mmol/L (98-107); Creatinine, Serum 0.83 mg/dL (0.70-1.30); EST Glomerular Filtration Rate 98 mL/min (>60); Est Glom Filt Rate - Afr Amer 118 mL/min (>60); Glucose 136 mg/dL (74-106); Potassium 4.5 mmol/L (3.5-5.1); Sodium Level 135 mmol/L (136-145)
[2022-01-24] VITALS (7 sets, daily range): BP systolic 112–144; BP diastolic 70–85; PULSE 55–64; RESP 16–18; TEMP 36.4–36.9; O2SAT 92–96
[2022-01-24] MEDS: Lactated Ringers 1,000 ML 15 ML IV (07:05)
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
--- NOTE | 2022-01-24 07:08 | DCINST_ITS ---
Discharge Instructions Procedure General Surgery Diet Discharge Diet: Light diet - advance as tolerated (if you have questions about your diet instructions, please talk to you doctor.) Activity Discharge Activity: May Not Drive (for 3-5 days or while taking narcotic pain medicine.) May shower in (days): 1 Lifting Restrictions: 10 pounds Dressing / Incision Call your doctor if your incision/area has: Continuous Slow Oozing, Sudden Increased Bleeding, Increased Pain/ Swelling, Increased Redness and Foul Smelling Discharge Call your doctor if you observe: Fever of 101 or Higher Suture Line Care: Avoid Pulling/Pushing and Avoid Pinching/Bending Additional Dressing/Incision Instructions:: Change or remove dressing in 4 days. Leave steri-strips in place for 1 week. Follow Up Care Please Follow Up With: Jose Amezquita MD When: Call [phone] to make an appointment to be seen in about 10 days. Test Results: Test results from this visit will be discussed in further detail at your follow- up appointment, if applicable. Discharge Plan Admission Attending Provider: Jose Amezquita Primary Care Provider: Massimo Epperson Chi Discharge Orders/Prescriptions Prescriptions: No Action atorvastatin 40 mg tablet 10 mg PO DAILY Linzess 72 mcg capsule 72 mcg PO DAILY metformin 500 mg tablet 500 mg PO BID Hold Instructions: Resume on 12/05/21. aspirin [Adult Aspirin Regimen] 81 mg tablet,delayed release (DR/EC) 81 mg PO DAILY atenolol 50 MG tablet 25 mg PO DAILY levocetirizine [Xyzal] 5 mg Tablet 5 mg PO DAILY triamterene-hydrochlorothiazid [Maxzide] 75-50 mg tablet 0.5 tab PO DAILY ipratropium bromide 42 mcg (0.06 %) spray,non-aerosol 1 spray INTRANASAL BID Label Comments: USE 1 SPRAY(S) IN EACH NOSTRIL TWICE DAILY lisinopril 2.5 mg tablet 1 tab PO DAILY Referrals / Follow Up: Massimo Epperson Chi, MD [Primary Care Provider] - Disposition Disposition (needs filled in before D/C Order can be placed): Home, Self Care
[2022-01-24] MEDS: Ipratropium/Albuterol Sulfate 3 ML AMPUL.NEB INHALATION (07:17)
--- NOTE | 2022-01-24 07:30 | GALL_PTH ---
PATIENT: VICKI MAST LOC: [facility] [place] U#:[id number] AGE/SX: 71/M ROOM: RE01/24/[address]: Dr. Jose Amezquita MD : 1950 BED: DIS: 01/24/2022 SPEC #: [id number] RECD: 01/24/22 10:45 STATUS: SANCHO RERoman #: [id number] JAMES: 01/24/22 07:[address]: Jose Amezquita DEPT: SURGICAL PATHOLOGY RECD BY: Rebeca Pedraza ENTERED: 01/24/22 11:55 SP TYPE: CELESTINA RUSSO DR: Dr. Massimo Epperson MD Tissues: Gallbladder, NOS Procedures: Surgery Specimen Level III HEADER OPERATION: Laparoscopic cholecystectomy with IOC PRE-OP DIAGNOSIS: Cholelithiasis with chronic cholecystitis TISSUE SUBMITTED: Gallbladder MICROSCOPIC DIAGNOSIS Gallbladder, cholecystectomy: Chronic cholecystitis and cholelithiasis. AM:adrian 01/25/2022 MICROSCOPIC DESCRIPTION Slides are reviewed. GROSS DESCRIPTION Received is one container labeled with the patient's name and designated gallbladder. The specimen consists of a gallbladder measuring 8.5 x 4 x 2 cm. The external surface is smooth and glistening. Focally, it is granular, hemorrhagic and contains cautery artifact. The lumen of the gallbladder contains yellow-green mucoid bile and three black calculi ranging in size from 0.5 to 1.3 cm in greatest dimension. The mucosa is bile-stained and without any mass lesions. The gallbladder wall averages 0.2 cm in thickness and is free of mass lesions. Sound Recordist sections of the gallbladder and the cystic duct at margin of resection are submitted in one cassette. / AM:adrian 01/24/2022 TC:3 CPT: 89924
[2022-01-24] MEDS: Bupivacaine 0.25% 30 ML Vial (07:51)
--- NOTE | 2022-01-24 07:51 | RAD_ITS ---
STUDY: INTRAOPERATIVE CHOLANGIOGRAM. REASON FOR EXAM: Male, 71 years old. LAP SHAHNAZ WITH IOC FLUOROSCOPY TIME (if supplied): ( 23.4 seconds ) minutes/seconds. A cine loop of 23 images was obtained. TECHNIQUE: An intraoperative Cholangiogram was performed by the surgeon. Imaging was submitted. COMPARISON: None. FINDINGS: The common bile duct is not dilated. No intraluminal filling defect is seen. RAD/Cholangiogram/ O R,Initial IMPRESSION: Unremarkable intraoperative cholangiogram. Electronically Signed: Crispin Morgan MD at 11:04 EDT ,
--- NOTE | 2022-01-24 08:51 | OP.PCM_ITS ---
Report of Operation Date of Procedure: 01/24/22 Pre-Operative Diagnosis: Chronic cholecystitis cholelithiasis Post-Operative Diagnosis: Same Surgery/Procedure Performed:: Laparoscopic cholecystectomy with cholangiograms Description of Surgical Findings:: Timeout and informed consent was obtained. 71-year-old gentleman was taken to the operating placed upon the table underwent general endotracheal intubation esthesia. Ancef 3 g were given intravenously. The abdomen was sterilely prepped and draped. The patient has a right chest incision and a long midline incision. In the right mid subcostal space I instilled 0.25% Marcaine. Thro ughout the procedure I utilized a total of 30 cc. Made a 5 mm incision using a Visiport technique got clean access into the right upper quadrant. The abdomen was insufflated with CO2 to a pressure of 12 mmHg pressure. There were adhesions of omentum to the anterior abdominal wall medially and so I added the lateral subcostal 5 mm port under direct visualization and utilized electrified scissor dissection to transect the adhesions of omentum to the anterior abdominal wall medially to allow for placement of a 5 mm epigastric port under direct visualization. There were further omental adhesions in the lower right mid abdomen dissected those free with blunt dissection and sharp scissor dissection this allowed them for placement of a 10 mm port under direct visualization and the lower mid right abdomen. The gallbladder had a omental adhesions these had to be sharply and bluntly dissected free. The infundibular area there was an identified as the gallbladder was distracted and tedious blunt dissection was used and the infundibular area complicated by the patient's body habitus. However I was able to achieve the critical view identified the cystic duct cystic artery. A Hem-o-marya clip was placed on the cystic duct incision made in the cystic duct and through a 14-gauge Angiocath cholangiogram catheter was inserted. Fluoroscopically controlled cholangiograms were obtained demon strating normal ductal anatomy and free flow into the small bowel. 2 Hem-o-marya clips were placed on the cystic duct stump prior to transecting it. The cystic artery was clipped twice proximally and once distally prior to transecting it. The gallbladder was tediously dissected free from the liver bed with electrocautery. Liver bed was hypertensive and bled easily. This was treated with electrocautery with success. Gallbladder was completely released. Very minimal amount of bile spillage was switched aspirated immediately. No stone spillage. Gallbladder was placed in retrieval bag. The right upper quadrant was irrigated and aspirated free of excess fluid. To further assure hemostasis a piece of fibrillar was placed in the liver bed. The gallbladder was then exited at the right lower mid abdominal 10 mm port site. No fascial extension was required. A grainy needle and 0 Vicryl in a [id number] suture was used to repair that incision. The liver bed area again inspected and was again hemostatic. Scope was removed and the abdomen was allowed to deflate through an antiviral valve. Trochars were removed. Skin edges were approximated with interrupted 4 Monocryl subdermal stitches. Steri-Strips Telfa OpSite dressings applied. Sponge and instrument and needle counts were reported to the surgeon to be correct. Specimens gallbladder. Drains none. Blood loss minimal. The patient was taken to the recovery room in satisfactory addition without apparent complication Jose Amezquita M.D., F.A.C.S. Surgeon: Jose Amezquita Type of Anesthesia: General Anesthesiologist: Gurvinder Jha
[2022-01-24] MEDS: Sugammadex Sodium 200 MG/2 ML VIAL IV (08:58)
== END 2022-01-24 11:11 | disposition home or self-care (01) ==
LOC: SDC 05:58 → AC 05:59
PROVIDERS: PCP Family Medicine Geriatric Medicine; Referring Provider Surgery; Visit Provider Surgery
PROC: (CPT 47610; principal; 2022-01-24 07:10)
DX: K80.10 Calculus of gallbladder with chronic cholecystitis without obstruction (principal); E66.01 Morbid (severe) obesity due to excess calories; E11.9 Type 2 diabetes mellitus without complications; K76.0 Fatty (change of) liver, not elsewhere classified; E78.5 Hyperlipidemia, unspecified; G47.33 Obstructive sleep apnea (adult) (pediatric); I25.10 Atherosclerotic heart disease of native coronary artery without angina pectoris; M19.90 Unspecified osteoarthritis, unspecified site; I10 Essential (primary) hypertension; Z79.82 Long term (current) use of aspirin; Z79.899 Other long term (current) drug therapy; Z79.84 Long term (current) use of oral hypoglycemic drugs; Z99.81 Dependence on supplemental oxygen; Z87.891 Personal history of nicotine dependence; Z68.38 Body mass index [BMI] 38.0-38.9, adult
CPT/HCPCS: 47563; 00790; 36415; 74300; 76000; 80048; 83036; 85027; 88304; 94640; J7120; J2405

== ENCOUNTER → 2022-02-16 | Outpatient (CLI) | payer MEDICARE, OTHER, SELFPAY ==
[2022-02-16 10:07] LABS: Absolute Lymphocyte Count 2.59 X10^3/uL (0.83-4.51); Absolute Neutrophil Count 7.9 X10^3/uL (2.0-7.7); Basophil# 0.04 X10^3/uL; Basophil% 0.3 % (0-1); Eosinophil# 0.09 X10^3/uL; Eosinophils% 0.8 % (0-5); Hematocrit 45.1 % (40-54); Hemoglobin 15.1 g/dL (13.0-16.5); Lymphocyte # 2.59 X10^3/ul (0.83-4.51); Lymphocyte % 21.8 % (19-41); Mean Corp Hgb Conc 33.5 g/dL (32-36); Mean Corpuscular Hgb 32.6 pg (27.0-32.0); Mean Corpuscular Volume 97.4 fL (80-94); Mean Platelet Vol. 9.6 fl (6.2-12.0); Monocyte# 1.22 X10^3/uL; Monocyte% 10.3 % (0-10); NRBC Flagged by Analyzer 0 % (0-5); Neutrophil # 7.92 X10^3/uL (2.7-7.7); Neutrophil % 66.6 % (47-70); Platelet Count 385 K/mm3 (150-450); RBC Distribution Width CV 13.3 % (11.6-14.6); RBC Distribution Width SD 47.9 fl (35.1-43.9); Red Blood Count 4.63 M/mm3 (4.6-6.2); White Blood Count 11.9 K/mm3 (4.4-11.0)
[2022-02-16 10:39] LABS: Vitamin D,25 Hydroxy 27.4 ng/mL
[2022-02-16 11:00] LABS: ALB/GLOB Ratio 0.9 RATIO (0.9-2.4); AST(SGOT) 42 U/L (15-37); Alanine Aminotransfer ALT/SGPT 50 U/L (16-61); Albumin, Serum 3.7 g/dL (3.2-5.0); Alkaline Phosphatase 85 U/L (45-117); Anion Gap 4 (5-15); BUN 27 mg/dL (7-18); BUN/Creat Ratio 27.1 RATIO (10-20); Calcium,Total 9.1 mg/dL (8.5-10.1); Chloride 98 mmol/L (98-107); EST Glomerular Filtration Rate 79 mL/min (>60); Est Glom Filt Rate - Afr Amer 95 mL/min (>60); Glucose 143 mg/dL (74-106); Potassium 4.5 mmol/L (3.5-5.1); Protein, Total 7.7 g/dL (6.4-8.2); Sodium Level 134 mmol/L (136-145); Thyroid Stim Hormone (TSH) 1.55 uIU/mL (0.358-3.74)
== END | disposition home or self-care (01) ==
LOC: LAB 09:27
PROVIDERS: PCP Family Medicine Geriatric Medicine; Visit Provider Family Medicine Geriatric Medicine
DX: I10 Essential (primary) hypertension (principal); E11.65 Type 2 diabetes mellitus with hyperglycemia; E55.9 Vitamin D deficiency, unspecified
CPT/HCPCS: 36415; 80053; 82306; 84443; 85025

== ENCOUNTER → 2022-05-18 | Outpatient (CLI) | payer MEDICARE, OTHER, SELFPAY ==
[2022-05-18 10:43] LABS: Absolute Lymphocyte Count 3.96 X10^3/uL (0.83-4.51); Absolute Neutrophil Count 6.2 X10^3/uL (2.0-7.7); Basophil# 0.05 X10^3/uL; Basophil% 0.4 % (0-1); Eosinophils% 0.9 % (0-5); Hematocrit 46.3 % (40-54); Lymphocyte # 3.96 X10^3/ul (0.83-4.51); Lymphocyte % 34.8 % (19-41); Mean Corp Hgb Conc 32.4 g/dL (32-36); Mean Corpuscular Hgb 31.9 pg (27.0-32.0); Mean Corpuscular Volume 98.5 fL (80-94); Mean Platelet Vol. 9.2 fl (6.2-12.0); Monocyte# 1.04 X10^3/uL; Monocyte% 9.1 % (0-10); NRBC Flagged by Analyzer 0 % (0-5); Neutrophil # 6.19 X10^3/uL (2.7-7.7); Neutrophil % 54.5 % (47-70); Platelet Count 381 K/mm3 (150-450); RBC Distribution Width CV 13.4 % (11.6-14.6); RBC Distribution Width SD 48.8 fl (35.1-43.9); White Blood Count 11.4 K/mm3 (4.4-11.0)
[2022-05-18 11:20] LABS: Vitamin D,25 Hydroxy 14.5 ng/mL
[2022-05-18 11:27] LABS: AST(SGOT) 25 U/L (15-37); Alanine Aminotransfer ALT/SGPT 34 U/L (16-61); Albumin, Serum 3.8 g/dL (3.2-5.0); Alkaline Phosphatase 96 U/L (45-117); Anion Gap 5 (5-15); BUN 20 mg/dL (7-18); Calcium,Total 9.5 mg/dL (8.5-10.1); Chloride 98 mmol/L (98-107); Creatinine, Serum 0.83 mg/dL (0.70-1.30); EST Glomerular Filtration Rate 97 mL/min (>60); Est Glom Filt Rate - Afr Amer 117 mL/min (>60); Globulin 3.9 g/dL (2.2-4.2); Glucose 123 mg/dL (74-106); PSA,Total - Annual Screen 1.76 ng/mL (0.00-4.00); Potassium 4.3 mmol/L (3.5-5.1); Protein, Total 7.7 g/dL (6.4-8.2); Sodium Level 136 mmol/L (136-145); Thyroid Stim Hormone (TSH) 2.21 uIU/mL (0.358-3.74)
== END | disposition home or self-care (01) ==
LOC: LAB 10:03
PROVIDERS: PCP Family Medicine Geriatric Medicine; Referring Provider Family Medicine Geriatric Medicine; Visit Provider Family Medicine Geriatric Medicine
DX: E11.65 Type 2 diabetes mellitus with hyperglycemia (principal); I10 Essential (primary) hypertension; E55.9 Vitamin D deficiency, unspecified; Z12.5 Encounter for screening for malignant neoplasm of prostate
CPT/HCPCS: 36415; 80053; 82306; 84153; 84443; 85025; G0103

== ENCOUNTER → 2022-06-28 | Outpatient (CLI) | payer MEDICARE, OTHER, SELFPAY | END | disposition home or self-care (01) | LOC: PSN 12:19 | PROVIDERS: PCP Family Medicine Geriatric Medicine; Visit Provider Family Medicine Geriatric Medicine | DX: U07.1 COVID-19 (principal); R68.83 Chills (without fever) | CPT/HCPCS: 87635; 87804; 87807; C9803; U0003; U0005 ==

== ENCOUNTER → 2022-08-30 | Outpatient (CLI) | payer MEDICARE, OTHER, SELFPAY ==
--- NOTE | 2022-08-30 14:47 | RAD_ITS ---
INDICATION: R SHOULDER PAIN EXAMINATION/TECHNIQUE: X-RAY - RIGHT XR Shoulder Min 2 Views 4 VIEWS COMPARISON: None. FINDINGS: No acute fracture or dislocation. Postsurgical deformity of the right sixth rib consistent with prior thoracotomy. Osteoarthrosis of the glenohumeral joint with joint space narrowing, mild sclerosis and moderate spurring. Joint spaces are otherwise well-maintained. Normal alignment. Soft tissues are unremarkable. No radiopaque foreign body or soft tissue gas. RAD/Shoulder min 2 Views IMPRESSION: No acute findings. Osteoarthrosis of the shoulder. Electronically Signed: Lindsay Garcia MD at 16:52 EST Reading Location ID and State: [id number] / Tel , Service support ,
== END | disposition home or self-care (01) ==
PROVIDERS: PCP Family Medicine Geriatric Medicine; Referring Provider Family Medicine Geriatric Medicine; Visit Provider Family Medicine Geriatric Medicine
DX: M75.101 Unspecified rotator cuff tear or rupture of right shoulder, not specified as traumatic (principal); M25.511 Pain in right shoulder
CPT/HCPCS: 73030

== ENCOUNTER → 2022-10-04 | Outpatient (CLI) | payer MEDICARE, OTHER, SELFPAY ==
[2022-10-04 11:14] LABS: AST(SGOT) 29 U/L (15-37); Alanine Aminotransfer ALT/SGPT 50 U/L (16-61); Albumin, Serum 3.9 g/dL (3.2-5.0); Alkaline Phosphatase 89 U/L (45-117); Bilirubin, Direct 0.14 mg/dL (0.00-0.30); Cholesterol 105 mg/dL (200); Globulin 3.7 g/dL (2.2-4.2); High Density Lipoprotein 36 mg/dL; Protein, Total 7.6 g/dL (6.4-8.2); Triglycerides 70 mg/dL; Very Low Density Lipoprotein 14 mg/dL (5-40)
== END | disposition home or self-care (01) ==
LOC: LAB 09:45
PROVIDERS: PCP Family Medicine Geriatric Medicine; Referring Provider Internal Medicine Cardiovascular Disease; Visit Provider Internal Medicine Cardiovascular Disease
DX: I25.10 Atherosclerotic heart disease of native coronary artery without angina pectoris (principal); I10 Essential (primary) hypertension; E78.5 Hyperlipidemia, unspecified
CPT/HCPCS: 36415; 80061; 80076

== ENCOUNTER → 2022-11-16 | Outpatient (CLI) | payer MEDICARE, OTHER, SELFPAY ==
[2022-11-16 12:04] LABS: Absolute Lymphocyte Count 3.23 X10^3/uL (0.83-4.51); Absolute Neutrophil Count 5.6 X10^3/uL (2.0-7.7); Basophil# 0.05 X10^3/uL; Basophil% 0.5 % (0-1); Eosinophil# 0.11 X10^3/uL; Eosinophils% 1.1 % (0-5); Hematocrit 45.1 % (40-54); Hemoglobin 14.6 g/dL (13.0-16.5); Lymphocyte # 3.23 X10^3/ul (0.83-4.51); Lymphocyte % 32.4 % (19-41); Mean Corp Hgb Conc 32.4 g/dL (32-36); Mean Corpuscular Hgb 31.9 pg (27.0-32.0); Mean Corpuscular Volume 98.5 fL (80-94); Mean Platelet Vol. 10.2 fl (6.2-12.0); Monocyte# 0.91 X10^3/uL; Monocyte% 9.1 % (0-10); NRBC Flagged by Analyzer 0 % (0-5); Neutrophil # 5.63 X10^3/uL (2.7-7.7); Neutrophil % 56.6 % (47-70); Platelet Count 328 K/mm3 (150-450); RBC Distribution Width SD 50.8 fl (35.1-43.9); Red Blood Count 4.58 M/mm3 (4.6-6.2)
[2022-11-16 12:13] LABS: Vitamin D,25 Hydroxy 27.7 ng/mL
[2022-11-16 12:23] LABS: ALB/GLOB Ratio 1.1 RATIO (0.9-2.4); AST(SGOT) 26 U/L (15-37); Alanine Aminotransfer ALT/SGPT 38 U/L (16-61); Albumin, Serum 3.8 g/dL (3.2-5.0); Alkaline Phosphatase 91 U/L (45-117); Anion Gap 7 (5-15); BUN 25 mg/dL (7-18); BUN/Creat Ratio 32.2 RATIO (10-20); Calcium,Total 9.4 mg/dL (8.5-10.1); Chloride 102 mmol/L (98-107); Creatinine, Serum 0.78 mg/dL (0.70-1.30); EST Glomerular Filtration Rate 105 mL/min (>60); Est Glom Filt Rate - Afr Amer 127 mL/min (>60); Globulin 3.6 g/dL (2.2-4.2); Glucose 108 mg/dL (74-106); Potassium 4.5 mmol/L (3.5-5.1); Protein, Total 7.4 g/dL (6.4-8.2); Sodium Level 138 mmol/L (136-145); Thyroid Stim Hormone (TSH) 1.97 uIU/mL (0.358-3.74)
== END | disposition home or self-care (01) ==
LOC: POLAB3 09:30
PROVIDERS: PCP Family Medicine Geriatric Medicine; Visit Provider Family Medicine Geriatric Medicine
DX: E11.65 Type 2 diabetes mellitus with hyperglycemia (principal); I10 Essential (primary) hypertension; E55.9 Vitamin D deficiency, unspecified
CPT/HCPCS: 36415; 80053; 82306; 84443; 85025

== ENCOUNTER 2023-03-08 07:58 | Observation (INO) | payer MEDICARE, OTHER, SELFPAY ==
[2023-03-08] VITALS (15 sets, daily range): BP systolic 141–178; BP diastolic 71–117; PULSE 73–96; RESP 16–22; TEMP 36.2–37; O2SAT 91–97; BMI 55.0; BMI 39.7
--- NOTE | 2023-03-08 08:23 | EKG12_ITS ---
Test Reason : SOB Blood Pressure : / mmHG Vent. Rate : 094 BPM Atrial Rate : 094 BPM P-R Int : 142 ms QRS Dur : 106 ms QT Int : 378 ms P-R-T Axes : 087 -09 047 degrees QTc Int : 472 ms Sinus rhythm with Premature supraventricular complexes Nonspecific T wave abnormality Abnormal ECG Confirmed by EDWARD BARBOSA, FAMILIA ([id number]), production editor FRANCISCO EDWARDS ([id number]) on 03/25/2023 2:20:52 PM Referred By: Confirmed By:JANES LEON MD
[2023-03-08] MEDS: Albuterol 2.5 MG/3 ML VIAL.NEB. INHALATION ×3 (08:31→23:08)
--- NOTE | 2023-03-08 08:41 | EDS_ITS ---
HPI History of Present Illness Chief Complaint: Shortness of Breath Informant: patient and spouse/S.O. Narrative Narrative: 72-year-old male with a history of coronary artery disease hypertension hyperlipidemia and [place] on CPAP. Patient states that he was in [place] on a cruise. He returned home on Saturday. Saturday evening began did not feel well. Last night noted shortness of breath and cough. Today he became noticeably dyspneic coming down the stairs. EMS was called he was found to be acutely hypoxic in the 80s. He received 3 DuoNebs and Solu-Medrol in route to the hospital. He is a former smoker but does not carry a diagnosis of COPD/emphysema. He does not wear supplemental oxygen at home. He denies fever. No myalgias. He denies vomiting or diarrhea. [facility] Medical History Acute and chronic respiratory failure with hypoxia Allergic rhinitis Arthritis Atherosclerotic heart disease of [place] coronary artery without angina pectoris BiPAP (biphasic positive airway pressure) dependence BMI 39.0-39.9,adult Cholelithiasis with chronic cholecystitis COVID-19 (11/30/21) Diabetes Encounter for screening colonoscopy Essential (primary) hypertension Fatty liver History of edema Hoarseness Hx of transfusion of whole blood Hyperlipidemia Hypoxia Leg edema Nicotine abuse Obstructive sleep apnea On home oxygen therapy Preop cardiovascular exam Smoking greater than 40 pack years Tobacco dependence in remission Home Medications atenolol 50 mg tablet 25 mg PO DAILY heart 01/18/16 [History Last Taken 01/24/22] atorvastatin 40 mg tablet 10 mg PO DAILY cholesterol 09/25/21 [History Last Taken 11/30/21] metformin 500 mg tablet 500 mg PO BID dm 11/29/21 [History Last Taken 11/30/21] levocetirizine 5 mg tablet (Xyzal) 5 mg PO DAILY 12/28/21 [History Last Taken Unknown] triamterene 75 mg-hydrochlorothiazide 50 mg tablet (Maxzide) 0.5 tab PO DAILY 12/28/21 [History Last Taken Unknown] lisinopril 2.5 mg tablet 2.5 mg PO DAILY 05/25/22 [History Last Taken Unknown] acetaminophen 650 mg tablet,extended release (Tylenol Arthritis Pain) 650 mg PO Q8H 10/04/22 [History Last Taken Unknown] Allergy/AdvReac Type Severity Reaction Status Date / Time adhesive tape AdvReac Mild red/itchy Verified 03/08/23 08:04 Family History Unknown No problems noted. Surgical History H/O resection of rib History of appendectomy History of arthroplasty of right knee History of cataract extraction History of left heart catheterization (01/23/16) History of partial splenectomy History of splenectomy History of tonsillectomy History of tracheostomy Hx of colonoscopy S/P cholecystectomy S/P emergency tracheotomy for assistance in breathing Social History Smoking Status: Former smoker quit date: 07/08/16 pack-years: 50 second hand exposure: No alcohol intake: never substance use type: does not use caffeine: Yes Type: coffee Number of servings: 8 what type of physical activity do you participate in: none ROS ROS ED Constitutional Constitutional ED: Denies chills, fever(s) or weight loss Eyes Eyes: Denies change in vision or diplopia ENT ENT ED: Denies ear pain, rhinorrhea or sore throat Cardiovascular Cardiovascular: Denies chest pain, orthopnea, palpitations or racing heartbeat Respiratory/Chest Respiratory/Chest: Reports cough, dyspnea and dyspnea on exertion; Denies orthopnea Gastrointestinal Gastrointestinal: Denies abdominal pain, diarrhea, nausea or vomiting Genitourinary Genitourinary ED: Denies dysuria, hematuria or urinary frequency Musculoskeletal Musculoskeletal: Denies arthralgias or myalgias Integumentary Denies abscess or rash Neurologic Neurologic: Denies headache(s) or weakness Psychiatric Psychiatric: Denies anxiety, depression, suicidal ideation or suicidal thoughts Endocrine Endocrinology: Denies polydipsia, polyphagia or polyuria Allergic/Immunologic Allergic/Immunologic ED: Denies mouth swelling, tongue swelling or urticaria EXAM Physical Exam Const Vital Signs: 03/08/23 07:59 03/08/23 08:04 03/08/23 08:08 Temperature 98.6 F 98.6 F Temperature Source Axillary Axillary Pulse Rate 96 94 Respiratory Rate 20 H 20 H Respiratory Effort Labored Respiratory Depth Normal Respiratory Pattern Normal Blood Pressure 141/117 H 141/117 H Blood Pressure Mean 125 125 Pulse Ox 92 94 Oxygen Delivery Method Room Air Room Air Room Air 03/08/23 08:34 03/08/23 11:00 Temperature 98 F Temperature Source Oral Pulse Rate 90 87 Respiratory Rate 18 18 Respiratory Effort Respiratory Depth Respiratory Pattern Blood Pressure 178/107 H Blood Pressure Mean 130 Pulse Ox Oxygen Delivery Method Room Air Positive well nourished, well developed and obese General Appearance ED: well developed Nutritional Appearance: obese HEENT Reports normocephalic, head/scalp atraumatic and moist mucous membranes Eyes PERRL and EOMs intact bilaterally Neck no lymphadenopathy, supple and no JVD Resp Resp Narrative: Patient is tachypneic. He has rhonchi bilaterally R>L. I do not appreciate expiratory or inspiratory wheezes. Cardio regular rate, regular rhythm and no murmurs GI normal to inspection, nondistended, normoactive bowel sounds and non-tender Palpation: soft Back/Spine no CVA tenderness and normal ROM Extremity normal to inspection General Extremety ED: Yes edema General Extremity: edema bilateral lower extremity Neuro oriented x3 and CN's II-XII intact bilaterally Sensorium / Orientation: alert Motor Exam: strength 5/5 throughout Psych mental status grossly normal Mood & Affect: Negative for depressed or tearful Skin no rashes or lesions noted and no wounds MDM MDM MDM Narrative Medical decision making narrative: I interpretation of the chest x-ray is right lower lobe infiltrate. Radiology concurs. White count 15.3. Lactic normal at 1.7 COVID and influenza were negative. Blood cultures were obtained. Patient had previously received 3 DuoNebs by EMS as well as Solu-Medrol. I also administered 1 DuoNeb as well as Rocephin and azithromycin. At rest he continues to be 89 to 90% with a good waveform. He still is slightly tachypneic at rest. Patient was ambulated and decreases to 87%. He does not have home oxygen or home nebulizer. I think it would be prudent given his oxygen status to admit to the hospital History & Record Review Discussion w/independent historian: EMS personnel and Significant other Lab Data Attestation: I reviewed the patient's lab results. Labs: Laboratory Results - last 24 hr 03/08/23 08:41 WBC 15.3 H RBC 4.47 L Hgb 14.0 Hct 43.7 MCV 97.8 H MCH 31.3 MCHC 32.0 RDW Std Deviation 47.2 H RDW Coeff of [place] 13.2 Plt Count 401 MPV 9.1 Immature Gran % (Auto) 0.500 Neut % (Auto) 74.0 H Lymph % (Auto) 18.5 L [place] % (Auto) 6.1 Eos % (Auto) 0.5 Baso % (Auto) 0.4 Absolute Neuts (auto) 11.4 H Absolute Lymphs (auto) 2.84 Nucleated RBC % 0 Sodium 137 Potassium 4.2 Chloride 100 Carbon Dioxide 31.0 Anion Gap 6 BUN 25 H Creatinine 0.73 Estim Creat Clear Calc 72.16 Est GFR (MDRD) Af Amer 136 Est GFR (MDRD) Non-Af 113 BUN/Creatinine Ratio 34.3 H Glucose 168 H Lactic Acid 1.7 Calcium 8.9 Total Bilirubin 0.60 Direct Bilirubin 0.17 AST 25 ALT 37 Alkaline Phosphatase 91 Troponin I High Sens 15 Total Protein 7.3 Albumin 3.4 Globulin 3.9 Radiography Diagnostic Testing: Clinical Impression(s) from Imaging Studies Chest X-Ray 03/08/23 08:55 IMPRESSION: Focal right lower lobe infiltrate with small left pleural effusion and underlying atelectasis and/or left basilar infiltrate as well. Follow-up recommended. Electronically Signed: Crispin Morgan MD at 9:37 EDT , EKG Initial EKG: Attestation: I personally reviewed and interpreted this EKG as follows: Comments: Sinus rhythm with a ventricular rate of 94 bpm. No acute injury pattern noted. Differential Diagnosis Chest pain/SOB: pulmonary embolism, ACS, pneumothorax, pneumonia, aortic dissection, CHF and COPD Management Discussion w/another healthcare provider: Hospitalist Discharge Plan Dx/Rx/DC Orders Clinical Impression: Acute respiratory failure with hypoxia, Pneumonia Disposition Disposition: Acute Care [facility]
--- NOTE | 2023-03-08 08:55 | RAD_ITS ---
STUDY: X-RAY CHEST REASON FOR EXAM: Male, 72 years old. Dyspnea TECHNIQUE: Single AP portable view of the chest. COMPARISON: Comparison is made with prior study dated November 30, 2021. FINDINGS: EKG electrodes are seen. Patchy right lower lobe infiltrate. There is blunting of the left cosmetic angle with increased markings at the left lung base suggestive of either infiltrate and/or atelectasis. Normal size heart. Normal mediastinum and any. Normal visualized pulmonary arteries. There is atherosclerotic calcification of the aortic arch with tortuosity. There are diffuse degenerative changes of the visualized thoracic spine. Normal visualized ribs, clavicles, and shoulders. There is no demonstrated abnormality of the visualized soft tissue structures of the upper abdomen. RAD/Chest 1 View (Portable) IMPRESSION: Focal right lower lobe infiltrate with small left pleural effusion and underlying atelectasis and/or left basilar infiltrate as well. Follow-up recommended. Electronically Signed: Crispin Morgan MD at 9:37 EDT ,
[2023-03-08 08:58] LABS: Absolute Lymphocyte Count 2.84 X10^3/uL (0.83-4.51); Absolute Neutrophil Count 11.4 X10^3/uL (2.0-7.7); Basophil# 0.06 X10^3/uL; Basophil% 0.4 % (0-1); Eosinophil# 0.07 X10^3/uL; Eosinophils% 0.5 % (0-5); Hematocrit 43.7 % (40-54); Lymphocyte # 2.84 X10^3/ul (0.83-4.51); Lymphocyte % 18.5 % (19-41); Mean Corpuscular Hgb 31.3 pg (27.0-32.0); Mean Corpuscular Volume 97.8 fL (80-94); Mean Platelet Vol. 9.1 fl (6.2-12.0); Monocyte# 0.93 X10^3/uL; Monocyte% 6.1 % (0-10); NRBC Flagged by Analyzer 0 % (0-5); Neutrophil # 11.35 X10^3/uL (2.7-7.7); Platelet Count 401 K/mm3 (150-450); RBC Distribution Width CV 13.2 % (11.6-14.6); RBC Distribution Width SD 47.2 fl (35.1-43.9); Red Blood Count 4.47 M/mm3 (4.6-6.2); White Blood Count 15.3 K/mm3 (4.4-11.0)
--- NOTE | 2023-03-08 09:02 | ED.RN ---
Miralax ordered on wrong patient. Not given.
[2023-03-08 09:15] LABS: Anion Gap 6 (5-15); BUN 25 mg/dL (7-18); BUN/Creat Ratio 34.3 RATIO (10-20); Calcium,Total 8.9 mg/dL (8.5-10.1); Chloride 100 mmol/L (98-107); Creatinine, Serum 0.73 mg/dL (0.70-1.30); EST Glomerular Filtration Rate 113 mL/min (>60); Est Glom Filt Rate - Afr Amer 136 mL/min (>60); Estimated Creatinine Clearance 72.16 ml/min; Glucose 168 mg/dL (74-106); Potassium 4.2 mmol/L (3.5-5.1); Sodium Level 137 mmol/L (136-145); Troponin-I HS 15 pg/mL (3.0-78.0)
[2023-03-08 09:21] LABS: AST(SGOT) 25 U/L (15-37); Alanine Aminotransfer ALT/SGPT 37 U/L (16-61); Albumin, Serum 3.4 g/dL (3.2-5.0); Alkaline Phosphatase 91 U/L (45-117); Bilirubin, Direct 0.17 mg/dL (0.00-0.30); Globulin 3.9 g/dL (2.2-4.2); Protein, Total 7.3 g/dL (6.4-8.2)
[2023-03-08 09:22] LABS: Lactic Acid 1.7 mmol/L (0.4-1.9)
--- NOTE | 2023-03-08 10:17 | CM.ED ---
Social Work SW performed chart review; patient's LW and HCPOA documents on file as of 2021. Patient's HCPOA is patient's , Clary, and alternate is patient's daughter, Odilia. No special instructions listed on either document. Danuta Dickson MSW, NAMAN
--- NOTE | 2023-03-08 10:21 | ED.RN ---
Ambulatory into hallway, gait steady. Pulse ox varied from 89-91%. C/O dizziness when walking. States has chronic dizziness due to taking lisinopril.
[2023-03-08] MEDS: Ceftriaxone 1 GM/50 ML BAG IV (10:33)
[2023-03-08 12:46] LABS: D-Dimer Quantitative (DVT/PE) 1.13 FEU/ug/m (0.27-0.49)
--- NOTE | 2023-03-08 14:37 | CT_ITS ---
STUDY: CTA CHEST REASON FOR EXAM: Male, 72 years old. dyspnea. Recent flight RADIATION DOSAGE (If Supplied By Facility): CTDIvol = ( 13.61 ) mGy, DLP = ( 524.60 ) mGycm TECHNIQUE: The examination was performed with the intravenous administration of 100ML OF ISOVUE 370. Post-processing of the angiographic images was performed, with multiplanar reformation and 3D reconstruction. Individualized dose optimization techniques were used for this CT. COMPARISON: Comparison is made with prior chest radiograph done earlier today as well as prior CT of the chest dated November 30, 2021. FINDINGS: Normal enhancement of the main pulmonary artery and right and left pulmonary arteries. Normal enhancement of the bilateral peripheral pulmonary arteries. There is no demonstrated pulmonary embolism. Normal thoracic aorta and visualized great vessels. There is no demonstrated aortic dissection. Normal heart and pericardium. Calcified subcarinal lymph nodes as well as right hilar lymph nodes. Normal visualized trachea and bronchi. The lungs are well expanded. Patchy atelectasis and/or infiltrate in the posterior segment of the right lower lobe. Bronchiectasis in the posterior medial segment of the left lower lobe with mild atelectasis. Normal pleura. Normal chest wall structures. Normal osseous structures. 1 cm hypodensity in the dome of the right lobe of the liver suggestive of possible tiny cyst. CT/CTA Chest W/WO Contrast IMPRESSION: Patchy atelectasis versus infiltrate in the posterior aspect of the right lower lobe as well as in the left lower lobe. Bronchiectasis in the left lower lobe. No evidence of pulmonary embolism. Electronically Signed: Crispin Morgan MD at 15:00 EDT ,
--- NOTE | 2023-03-08 14:58 | PCM.HP.STD ---
HPI - General General Date of Admission: 03/08/23 Date of Service: 03/08/23 Chief Complaint: shortness of breath. HPI Narrative VICKI MAST, is a 72 M who presents with shortness of breath. Symptoms began today. Associated with coughing. Patient just got back from a 12-day cruise around the [email or web address] [facility]. Flew out to [place], took a cruise and then took a flight back from [place]. Patient got back this past Saturday. Was doing well up until today. Patient was not looking well and short of breath. Presented to the emergency room had chest x-ray is concerning for pneumonia and received ceftriaxone and azithromycin. [facility] Medical History (Updated 03/08/23 @ 15:[address] Jose Angel Gold, DO) Acute and chronic respiratory failure with hypoxia Allergic rhinitis Arthritis Atherosclerotic heart disease of [place] coronary artery without angina pectoris BiPAP (biphasic positive airway pressure) dependence BMI 39.0-39.9,adult Cholelithiasis with chronic cholecystitis COVID-19 (11/30/21) Diabetes Encounter for screening colonoscopy Essential (primary) hypertension Fatty liver History of edema Hoarseness Hx of transfusion of whole blood Hyperlipidemia Hypoxia Leg edema Nicotine abuse Obstructive sleep apnea On home oxygen therapy Preop cardiovascular exam Smoking greater than 40 pack years Tobacco dependence in remission Home Medications atenolol 50 mg tablet 25 mg PO DAILY heart 01/18/16 [History Last Taken 01/24/22] atorvastatin 40 mg tablet 10 mg PO DAILY cholesterol 09/25/21 [History Last Taken 11/30/21] metformin 500 mg tablet 1,000 mg PO BID dm 11/29/21 [History Last Taken 11/30/21] levocetirizine 5 mg tablet (Xyzal) 5 mg PO DAILY 12/28/21 [History Last Taken Unknown] triamterene 75 mg-hydrochlorothiazide 50 mg tablet (Maxzide) 0.5 tab PO DAILY 12/28/21 [History Last Taken Unknown] lisinopril 2.5 mg tablet 2.5 mg PO DAILY 05/25/22 [History Last Taken Unknown] acetaminophen 650 mg tablet,extended release (Tylenol Arthritis Pain) 650 mg PO Q8H 10/04/22 [History Last Taken Unknown] Allergy/AdvReac Type Severity Reaction Status Date / Time adhesive tape AdvReac Mild red/itchy Verified 03/08/23 08:04 Family History Unknown No problems noted. Surgical History H/O resection of rib History of appendectomy History of arthroplasty of right knee History of cataract extraction History of left heart catheterization (01/23/16) History of partial splenectomy History of splenectomy History of tonsillectomy History of tracheostomy Hx of colonoscopy S/P cholecystectomy S/P emergency tracheotomy for assistance in breathing Social History Smoking Status: Former smoker quit date: 07/08/16 pack-years: 50 second hand exposure: No alcohol intake: never substance use type: does not use caffeine: Yes Type: coffee Number of servings: 8 what type of physical activity do you participate in: none ROS ROS Narrative Chronic rhinitis. No sore throat. All review of systems were negative except as mentioned above in the history of present illness and the other review of systems. Vital Signs Vital Signs Vital Signs: 03/08/23 07:59 03/08/23 08:04 03/08/23 08:08 Temperature 37.0 C 37.0 C Temperature Source Axillary Axillary Pulse Rate 96 94 Respiratory Rate 20 H 20 H Respiratory Effort Labored Respiratory Depth Normal Respiratory Pattern Normal Blood Pressure 141/117 H 141/117 H Blood Pressure Mean 125 125 Pulse Ox 92 94 Oxygen Delivery Method Room Air Room Air Room Air Oxygen Flow Rate (L/min) 03/08/23 08:34 03/08/23 11:00 03/08/23 12:16 Temperature 36.6 C 36.2 C L Temperature Source Oral Temporal Pulse Rate 90 87 90 Respiratory Rate 18 18 18 Respiratory Effort Respiratory Depth Respiratory Pattern Blood Pressure 178/107 H 152/71 H Blood Pressure Mean 130 98 Pulse Ox 94 Oxygen Delivery Method Room Air Nasal Cannula Oxygen Flow Rate (L/min) 2 03/08/23 12:18 03/08/23 13:37 Temperature Temperature Source Pulse Rate 92 77 Respiratory Rate 16 Respiratory Effort Respiratory Depth Respiratory Pattern Blood Pressure 164/97 H Blood Pressure Mean 119 Pulse Ox 94 Oxygen Delivery Method Nasal Cannula Oxygen Flow Rate (L/min) 2 Weight Weight: 179 kg Body Mass Index (BMI) 55.0 Physical Exam Const alert and no apparent distress HEENT normocephalic and head/scalp atraumatic Neck no lymphadenopathy Resp Resp Narrative: RLL crackles. Diminished BS bilaterally. Cardio regular rate, regular rhythm, S1 normal heart sound and S2 normal heart sound GI normal to inspection, nondistended, normoactive bowel sounds and soft to palpation Neuro oriented x3 and moves all extremities Sensorium / Orientation: awake and alert Psych affect normal Results Lab / Micro Data Attestation: I reviewed the patient's lab results. Lab results narrative: Elevated greater than 1. CTA of the chest reviewed and showed right lower lobe infiltrate. Also bronchiectasis. 03/08/23 08:41 03/08/23 08:41 Labs: Laboratory Results - last 24 hr 03/08/23 08:41: WBC 15.3 H, RBC 4.47 L, Hgb 14.0, Hct 43.7, MCV 97.8 H, MCH 31.3, MCHC 32.0, RDW Std Deviation 47.2 H, RDW Coeff of [place] 13.2, Plt Count 401, MPV 9.1, Immature Gran % (Auto) 0.500, Neut % (Auto) 74.0 H, Lymph % (Auto) 18.5 L, [place] % (Auto) 6.1, Eos % (Auto) 0.5, Baso % (Auto) 0.4, Absolute Neuts (auto) 11.4 H, Absolute Lymphs (auto) 2.84, Nucleated RBC % 0, D-Dimer Quant (PE/DVT) 1.13 H*, Sodium 137, Potassium 4.2, Chloride 100, Carbon Dioxide 31.0, Anion Gap 6, BUN 25 H, Creatinine 0.73, Estim Creat Clear Calc 72.16, Est GFR (MDRD) Af Amer 136, Est GFR (MDRD) Non-Af 113, BUN/Creatinine Ratio 34.3 H, Glucose 168 H, Lactic Acid 1.7, Calcium 8.9, Total Bilirubin 0.60, Direct Bilirubin 0.17, AST 25, ALT 37, Alkaline Phosphatase 91, Troponin I High Sens 15, Total Protein 7.3, Albumin 3.4, Globulin 3.9 Micro: Microbiology 03/08/23 08:41 Nasal Secretion SARS-CoV-2 & FLU Antigen (Rapid) - Final Radiology Impression Chest X-Ray 09/01/23 08:55 IMPRESSION: Focal right lower lobe infiltrate with small left pleural effusion and underlying atelectasis and/or left basilar infiltrate as well. Follow-up recommended. Electronically Signed: Crispin Morgan MD at 9:37 EDT , Assessment & Plan Assessment/Plan (1) Pneumonia: QUALIFIERS: Pneumonia type: due to Pneumococcus Laterality: right Lung location: lower lobe of lung Qualified Code(s): J13 - Pneumonia due to Streptococcus pneumoniae PLAN: Continue with ceftriaxone azithromycin Pulmonary toilet Check sputum culture. Check urinary antigens for Streptococcus and Legionella (2) Bronchiectasis: QUALIFIERS: Bronchiectasis type: uncomplicated Qualified Code(s): J47.9 - Bronchiectasis, uncomplicated PLAN: May be chronic. Patient established with pulmonology. Recommend follow-up as outpatient. (3) Hypoxia: PLAN: Patient has reported history of acute on chronic respiratory failure. Patient has been told to utilize oxygen with exertion dating back to pulmonary visit back in December 2021. Likely pneumonia just exacerbated his chronic respiratory failure. Prior to discharge, will check an ambulatory pulse ox. Likely complicated by underlying sleep apnea, obesity Patient is diminished we will start him on prednisone. CTA of the chest showed right lower lobe infiltrate. No evidence of pulmonary embolism given the patient's recent travels. PLAN: Plan Chronic condition [place]: May use home CPAP. Hypertension: Continue with atenolol and lisinopril, triamterene/hydrochlorothiazide Diabetes mellitus type 2: Hold metformin in light of the contrast he received. VTE prophylaxis with low medical weight heparin Disposition: Patient was not in any respiratory distress when he arrived though he was symptomatic. Top of patient's chronic hypoxic respiratory failure patient appears to be more or less at his baseline. Patient is under observation status and if remains fairly stable, would anticipate the patient be potentially ready for discharge on the second. Charges/Coding Visit Charges Inpatient E&M: 30156 Init Hosp L3
[2023-03-08] MEDS: predniSONE 20 MG Tablet 40 MG PO (15:43)
[2023-03-08] MEDS: Insulin Lispro 100 UNIT/ML INSULN.PEN SC (15:51)
[2023-03-08 17:01] LABS: Bedside Glucose 231 mg/dL (74-106)
[2023-03-08] MEDS: guaiFENesin 1,200 MG Tablet 1200 MG PO (20:45)
--- NOTE | 2023-03-08 22:38 | NURSING ---
Pt was very argumentive. Pt po at rest 91% on 3lnc. Pt is demanding to take a shower. Told pt with him wearing 02 that we was not allowing him to shower. Pt became nasty but he did agree to bath at the bedside sink.
--- NOTE | 2023-03-08 23:53 | CPS ---
Pt refuses PAP at this time
[2023-03-09] VITALS (10 sets, daily range): BP systolic 135–167; BP diastolic 83–93; PULSE 60–78; RESP 18–22; TEMP 36.4–37; O2SAT 87–98
[2023-03-09] MEDS: Albuterol 2.5 MG/3 ML VIAL.NEB. INHALATION ×4 (02:21→15:42)
[2023-03-09 04:48] LABS: Absolute Lymphocyte Count 2.57 X10^3/uL (0.83-4.51); Absolute Neutrophil Count 10.8 X10^3/uL (2.0-7.7); Basophil# 0.01 X10^3/uL; Basophil% 0.1 % (0-1); Eosinophil# 0.01 X10^3/uL; Eosinophils% 0.1 % (0-5); Hematocrit 41.2 % (40-54); Hemoglobin 13.2 g/dL (13.0-16.5); Lymphocyte # 2.57 X10^3/ul (0.83-4.51); Lymphocyte % 17.1 % (19-41); Mean Corpuscular Hgb 31.3 pg (27.0-32.0); Mean Corpuscular Volume 97.6 fL (80-94); Mean Platelet Vol. 8.8 fl (6.2-12.0); Monocyte# 1.54 X10^3/uL; Monocyte% 10.3 % (0-10); NRBC Flagged by Analyzer 0 % (0-5); Neutrophil # 10.84 X10^3/uL (2.7-7.7); Neutrophil % 72.1 % (47-70); POSITIVE DIFFERENTIAL YES; Platelet Count 377 K/mm3 (150-450); RBC Distribution Width CV 13.3 % (11.6-14.6); Red Blood Count 4.22 M/mm3 (4.6-6.2)
[2023-03-09 04:50] LABS: Differential Indicated SCAN CRITERIA MET
[2023-03-09 05:13] LABS: Anion Gap 4 (5-15); BUN 25 mg/dL (7-18); BUN/Creat Ratio 34.2 RATIO (10-20); Calcium,Total 8.5 mg/dL (8.5-10.1); Chloride 104 mmol/L (98-107); Creatinine, Serum 0.73 mg/dL (0.70-1.30); EST Glomerular Filtration Rate 112 mL/min (>60); Est Glom Filt Rate - Afr Amer 136 mL/min (>60); Estimated Creatinine Clearance 72.16 ml/min; Glucose 219 mg/dL (74-106); Potassium 4.3 mmol/L (3.5-5.1); Sodium Level 139 mmol/L (136-145)
[2023-03-09 05:16] LABS: Differential Comment SCANNED
[2023-03-09] MEDS: Insulin Lispro 100 UNIT/ML INSULN.PEN SC ×2 (06:43→12:00)
[2023-03-09 07:03] LABS: Bedside Glucose 198 mg/dL (74-106)
--- NOTE | 2023-03-09 07:09 | PN.HOSP_ITS ---
Reason for Visit Reason for Visit: Diagnoses Pneumonia due to Streptococcus pneumoniae (03/08/23) Bronchiectasis, uncomplicated (03/08/23) Hypoxemia (03/08/23) Subjective Subjective No new events. Objective Data Objective Data Vital Signs: Vital Signs Temp Pulse Resp BP Pulse Ox O2 Del Method O2 Flow Rate 36.4 C L 68 18 148/83 H 98 Nasal Cannula 2 03/09/23 05:00 03/09/23 05:00 03/09/23 05:00 03/09/23 05:00 03/09/23 05:00 03/09/23 05:00 03/09/23 05:00 Oxygen Flow Rate (L/min) 2 Oxygen Delivery Method Nasal Cannula Weight: 129.319 kg Body Mass Index (BMI) 39.7 Intake & Output: Intake and Output for Last 24 Hours 03/07/23 03/08/23 03/09/23 23:59 23:59 23:59 Intake Total 545 / 545 Output Total 300 / 300 500 / 500 Balance 245 / 245 -500 / -500 Lab / Micro Data 03/09/23 04:05 03/09/23 04:05 Labs: Laboratory Results - last 24 hr 03/08/23 08:41: WBC 15.3 H, RBC 4.47 L, Hgb 14.0, Hct 43.7, MCV 97.8 H, MCH 31.3, MCHC 32.0, RDW Std Deviation 47.2 H, RDW Coeff of [place] 13.2, Plt Count 401, MPV 9.1, Immature Gran % (Auto) 0.500, Neut % (Auto) 74.0 H, Lymph % (Auto) 18.5 L, [place] % (Auto) 6.1, Eos % (Auto) 0.5, Baso % (Auto) 0.4, Absolute Neuts (auto) 11.4 H, Absolute Lymphs (auto) 2.84, Nucleated RBC % 0, D-Dimer Quant (PE/DVT) 1.13 H*, Sodium 137, Potassium 4.2, Chloride 100, Carbon Dioxide 31.0, Anion Gap 6, BUN 25 H, Creatinine 0.73, Estim Creat Clear Calc 72.16, Est GFR (MDRD) Af Amer 136, Est GFR (MDRD) Non-Af 113, BUN/Creatinine Ratio 34.3 H, Glucose 168 H, Lactic Acid 1.7, Calcium 8.9, Total Bilirubin 0.60, Direct Bilirubin 0.17, AST 25, ALT 37, Alkaline Phosphatase 91, Troponin I High Sens 15, Total Protein 7.3, Albumin 3.4, Globulin 3.9 03/08/23 15:48: POC Glucose 231 H 03/09/23 04:05: WBC 15.0 H, RBC 4.22 L, Hgb 13.2, Hct 41.2, MCV 97.6 H, MCH 31.3, MCHC 32.0, RDW Std Deviation 48.0 H, RDW Coeff of [place] 13.3, Plt Count 377, MPV 8.8, Immature Gran % (Auto) 0.300, Neut % (Auto) 72.1 H, Lymph % (Auto) 17.1 L, [place] % (Auto) 10.3 H, Eos % (Auto) 0.1, Baso % (Auto) 0.1, Absolute Neuts (auto) 10.8 H, Absolute Lymphs (auto) 2.57, Nucleated RBC % 0, Differential Comment SCANNED, Diff Path Review November, Sodium 139, Potassium 4.3, Chloride 104, Carbon Dioxide 31.0, Anion Gap 4 L, BUN 25 H, Creatinine 0.73, Estim Creat Clear Calc 72.16, Est GFR (MDRD) Af Amer 136, Est GFR (MDRD) Non-Af 112, BUN/Creatinine Ratio 34.2 H, Glucose 219 H, Calcium 8.5 03/09/23 06:42: POC Glucose 198 H Micro: Microbiology 03/08/23 15:35 Urine, Clean Catch Legionella Antigen - Final 03/08/23 15:35 Urine, Clean Catch Streptococcus pneumoniae Antigen (M - Final 03/08/23 08:41 Nasal Secretion SARS-CoV-2 & FLU Antigen (Rapid) - Final Radiography Diagnostic Testing: Radiology Impression Chest X-Ray 03/08/23 08:55 IMPRESSION: Focal right lower lobe infiltrate with small left pleural effusion and underlying atelectasis and/or left basilar infiltrate as well. Follow-up recommended. Electronically Signed: Crispin Morgan MD at 9:37 EDT , Chest CTA 03/08/23 14:37 IMPRESSION: Patchy atelectasis versus infiltrate in the posterior aspect of the right lower lobe as well as in the left lower lobe. Bronchiectasis in the left lower lobe. No evidence of pulmonary embolism. Electronically Signed: Crispin Morgan MD at 15:00 EDT , Physical Exam Const alert and no apparent distress Resp normal respiratory effort and no retractions Resp Narrative: bibasilar crackles. Cardio regular rate, regular rhythm, S1 normal heart sound and S2 normal heart sound GI normal to inspection, nondistended, normoactive bowel sounds and soft to palpation Assessment & Plan Assessment/Plan (1) Pneumonia: QUALIFIERS: Laterality: right Lung location: lower lobe of lung Pneumonia type: due to Pneumococcus Qualified Code(s): J13 - Pneumonia due to Streptococcus pneumoniae PLAN: Received ceftriaxone and azithromycin in ED. Pulmonary toilet Check sputum culture. Check urinary antigens for Streptococcus and Legionella (2) Bronchiectasis: QUALIFIERS: Bronchiectasis type: uncomplicated Qualified Code(s): J47.9 - Bronchiectasis, uncomplicated PLAN: May be chronic. Patient established with pulmonology. Recommend follow-up as outpatient. (3) Hypoxia: PLAN: Patient has reported history of acute on chronic respiratory failure. Patient has been told to utilize oxygen with exertion dating back to pulmonary visit back in December 2021. Likely pneumonia just exacerbated his chronic respiratory failure. Prior to discharge, will check an ambulatory pulse ox. Likely complicated by underlying sleep apnea, obesity Patient is diminished we will start him on prednisone. CTA of the chest showed right lower lobe infiltrate. No evidence of pulmonary embolism given the patient's recent travels. PLAN: Plan Chronic condition * [place]: May use home CPAP. * Hypertension: Continue with atenolol and lisinopril, triamterene/hydrochlorothiazide * Diabetes mellitus type 2: Hold metformin in light of the contrast he received. VTE prophylaxis with low medical weight heparin Disposition: Patient was not in any respiratory distress when he arrived though he was symptomatic. Top of patient's chronic hypoxic respiratory failure patient appears to be more or less at his baseline. Patient is under observation status and if remains fairly stable, would anticipate the patient be potentially ready for discharge on the second. Home oxygen eval. Charges/Coding Visit Charges Inpatient E&M: 85471 Subs Hosp L2
[2023-03-09] MEDS: predniSONE 20 MG Tablet 40 MG PO (08:44)
[2023-03-09] MEDS: guaiFENesin 1,200 MG Tablet 1200 MG PO (08:45)
[2023-03-09] MEDS: Triamterene 75MG/Hctz 50MG Tablet 0.5 TABLET PO (08:45)
[2023-03-09] MEDS: Atenolol 50 MG Tablet 25 MG PO (08:45)
[2023-03-09] MEDS: Loratadine 10 MG Tablet PO (08:45)
[2023-03-09] MEDS: Lisinopril 2.5 MG Tablet PO (08:46)
[2023-03-09] MEDS: Enoxaparin 40 MG/0.4 ML Syringe SC (08:46)
[2023-03-09] MEDS: Atorvastatin Calcium 10 MG Tablet PO (11:29)
--- NOTE | 2023-03-09 12:09 | DS.PCM_ITS ---
Providers Date of Admission: 03/08/23 Primary Care Physician: Dr. Massimo Epperson MD Reason For Visit: PNEUMONIA Diagnosis Discharge Diagnosis (1) Pneumonia: Status: Acute Code(s): J18.9 - Pneumonia, unspecified organism Qualifiers: Pneumonia type: due to Pneumococcus Laterality: right Lung location: lower lobe of lung Qualified Code(s): J13 - Pneumonia due to Streptococcus pneumoniae Plan: Received ceftriaxone and azithromycin in ED. Pulmonary toilet Check sputum culture. Check urinary antigens for Streptococcus and Legionella (2) Bronchiectasis: Status: Acute Code(s): J47.9 - Bronchiectasis, uncomplicated Qualifiers: Bronchiectasis type: uncomplicated Qualified Code(s): J47.9 - Bronchiectasis, uncomplicated Plan: May be chronic. Patient established with pulmonology. Recommend follow-up as outpatient. (3) Hypoxia: Status: Acute Code(s): R09.02 - Hypoxemia Plan: Patient has reported history of acute on chronic respiratory failure. Patient has been told to utilize oxygen with exertion dating back to pulmonary visit back in December 2021. Likely pneumonia just exacerbated his chronic respiratory failure. Prior to discharge, will check an ambulatory pulse ox. Likely complicated by underlying sleep apnea, obesity Patient is diminished we will start him on prednisone. CTA of the chest showed right lower lobe infiltrate. No evidence of pulmonary embolism given the patient's recent travels. Plan Chronic condition * [place]: May use home CPAP. * Hypertension: Continue with atenolol and lisinopril, triamterene/hydrochlorothiazide * Diabetes mellitus type 2: Hold metformin in light of the contrast he received. VTE prophylaxis with low medical weight heparin Disposition: Patient was not in any respiratory distress when he arrived though he was symptomatic. Top of patient's chronic hypoxic respiratory failure patient appears to be more or less at his baseline. Patient is under observation status and if remains fairly stable, would anticipate the patient be potentially ready for discharge on the second. Home oxygen eval. Medications at Discharge Home Medications atenolol 50 mg tablet 25 mg PO DAILY heart 01/18/16 atorvastatin 40 mg tablet 10 mg PO DAILY cholesterol 09/25/21 metformin 500 mg tablet 1,000 mg PO BID dm 11/29/21 levocetirizine 5 mg tablet (Xyzal) 5 mg PO DAILY 12/28/21 triamterene 75 mg-hydrochlorothiazide 50 mg tablet (Maxzide) 0.5 tab PO DAILY 12/28/21 lisinopril 2.5 mg tablet 2.5 mg PO DAILY 05/25/22 acetaminophen 650 mg tablet,extended release (Tylenol Arthritis Pain) 650 mg PO Q8H 10/04/22 guaifenesin 600 mg tablet, extended release 12 hr (Mucinex) 600 mg PO Q12H #10 tabs 03/09/23 levofloxacin 750 mg tablet 750 mg PO DAILY #5 tabs 03/09/23 prednisone 20 mg tablet 40 mg (2 x 20 mg) PO BREAKFAST 4 days #8 tabs 03/09/23 Hospital Course Operations None Procedures None Summary of Care Provided Minutes Spent on Discharge: 32 Hospital Course: Patient presents with shortness of breath and was hypoxic. Patient was found to have a right lower lobe infiltrate. Patient recently came back from [place] and did undergo a CT angiogram as his D-dimer was elevated and that was negative for PE but did show his infiltrate. Patient has history of chronic respiratory failure and has had documentation that he requires oxygen more continuously. Patient was treated with ceftriaxone and azithromycin in the emergency room and overall improved. Patient be discharged with levofloxacin. Patient advised to follow-up with pulmonology as outpatient. Weight / BMI Weight Weight: 129.319 kg Body Mass Index (BMI) 39.7 ABG / Lab / Microbiology Data 03/09/23 04:05 03/09/23 04:05 Laboratory: Laboratory Results - last 24 hr 03/08/23 08:41: D-Dimer Quant (PE/DVT) 1.13 H* 03/08/23 15:48: POC Glucose 231 H 03/09/23 04:05: WBC 15.0 H, RBC 4.22 L, Hgb 13.2, Hct 41.2, MCV 97.6 H, MCH 31.3, MCHC 32.0, RDW Std Deviation 48.0 H, RDW Coeff of [place] 13.3, Plt Count 377, MPV 8.8, Immature Gran % (Auto) 0.300, Neut % (Auto) 72.1 H, Lymph % (Auto) 17.1 L, [place] % (Auto) 10.3 H, Eos % (Auto) 0.1, Baso % (Auto) 0.1, Absolute Neuts (auto) 10.8 H, Absolute Lymphs (auto) 2.57, Nucleated RBC % 0, Differential Comment SCANNED, Diff Path Review May foll, Sodium 139, Potassium 4.3, Chloride 104, Carbon Dioxide 31.0, Anion Gap 4 L, BUN 25 H, Creatinine 0.73, Estim Creat Clear Calc 72.16, Est GFR (MDRD) Af Amer 136, Est GFR (MDRD) Non-Af 112, BUN/Creatinine Ratio 34.2 H, Glucose 219 H, Calcium 8.5 03/09/23 06:42: POC Glucose 198 H Microbiology: Microbiology 03/08/23 15:35 Urine, Clean Catch Legionella Antigen - Final 03/08/23 15:35 Urine, Clean Catch Streptococcus pneumoniae Antigen (M - Final 03/08/23 08:41 Nasal Secretion SARS-CoV-2 & FLU Antigen (Rapid) - Final Radiography Diagnostic Testing: Radiology Impression Chest CTA 03/08/23 14:37 IMPRESSION: Patchy atelectasis versus infiltrate in the posterior aspect of the right lower lobe as well as in the left lower lobe. Bronchiectasis in the left lower lobe. No evidence of pulmonary embolism. Electronically Signed: Crispin Morgan MD at 15:00 EDT , D/C Instructions Discharge Diet: No restrictions Meaningful Use Info Meaningful Use Diagnoses (Choose all that apply): None applicable Discharge Plan Admission Admit Date/Time: 03/08/23 12:12 Primary Reason for Your Visit: pneumonia Attending Provider: Jose Angel Gold Primary Care Provider: Massimo Epperson Chi Instructions Additional Instructions / Restrictions: You have pneumonia. Please take antibiotics until completed. Return if you are worse. You received IV contrast for your CT scan and you will need to hold your metformin through the . Discharge Orders/Prescriptions Prescriptions: New prednisone 20 mg Tablet 40 mg PO BREAKFAST 4 Days Qty: 8 0RF levofloxacin 750 mg tablet 750 mg PO DAILY Qty: 5 0RF Rx Instructions: start 02/07 guaifenesin [Mucinex] 600 mg tablet extended release 12hr 600 mg PO Q12H Qty: 10 0RF Continued atorvastatin 40 mg tablet 10 mg PO DAILY lisinopril 2.5 mg tablet 2.5 mg PO DAILY acetaminophen [Tylenol Arthritis Pain] 650 mg tablet extended release 650 mg PO Q8H atenolol 50 MG tablet 25 mg PO DAILY levocetirizine [Xyzal] 5 mg Tablet 5 mg PO DAILY triamterene-hydrochlorothiazid [Maxzide] 75-50 mg tablet 0.5 tab PO DAILY Held metformin 500 mg tablet 1,000 mg PO BID Hold Instructions: Resume on 03/13/23. Referrals / Follow Up: [facility] [Provider Group] - 03/15/23 1:45 pm Massimo Epperson Chi, MD [Primary Care Provider] - Within 2 Weeks Disposition Disposition (needs filled in before D/C Order can be placed): Home, Self Care Charges/Coding Visit Charges Inpatient E&M: 41716 Disch Hosp >30min
[2023-03-09 12:22] LABS: Bedside Glucose 249 mg/dL (74-106)
[2023-03-13 12:54] LABS: Pathologist Review Reviewed
== END 2023-03-09 16:45 | disposition home or self-care (01) ==
LOC: ED 11:05 → MS3 12:25
PROVIDERS: Emergency Provider Emergency Medicine; PCP Family Medicine Geriatric Medicine
DX: J13 Pneumonia due to Streptococcus pneumoniae (principal); J96.01 Acute respiratory failure with hypoxia; E11.9 Type 2 diabetes mellitus without complications; I10 Essential (primary) hypertension; E78.5 Hyperlipidemia, unspecified; I25.10 Atherosclerotic heart disease of native coronary artery without angina pectoris; Z87.891 Personal history of nicotine dependence; Z86.16 Personal history of COVID-19; Z79.84 Long term (current) use of oral hypoglycemic drugs; Z79.899 Other long term (current) drug therapy; G47.33 Obstructive sleep apnea (adult) (pediatric); Z99.81 Dependence on supplemental oxygen
CPT/HCPCS: 36415; 71045; 71275; 80048; 80076; 82962; 83605; 84484; 85025; 85379; 87040; 87070; 87205; 87428; 87449; 93005; 94640; 94667; 94668; 96365; 96366; 96367; 96368; 96372; 99221; 99285; Q9967; G0378; J0696

== ENCOUNTER → 2023-06-11 | Outpatient (CLI) | payer MEDICARE, OTHER, SELFPAY ==
[2023-06-11 11:10] LABS: Absolute Lymphocyte Count 2.97 X10^3/uL (0.83-4.51); Absolute Neutrophil Count 5.9 X10^3/uL (2.0-7.7); Basophil# 0.05 X10^3/uL; Basophil% 0.5 % (0-1); Eosinophil# 0.12 X10^3/uL; Eosinophils% 1.2 % (0-5); Hemoglobin 13.7 g/dL (13.0-16.5); Lymphocyte # 2.97 X10^3/ul (0.83-4.51); Lymphocyte % 29.9 % (19-41); Mean Corp Hgb Conc 31.9 g/dL (32-36); Mean Corpuscular Hgb 31.3 pg (27.0-32.0); Mean Corpuscular Volume 98.2 fL (80-94); Mean Platelet Vol. 9.1 fl (6.2-12.0); Monocyte% 9.1 % (0-10); NRBC Flagged by Analyzer 0 % (0-5); Neutrophil # 5.86 X10^3/uL (2.7-7.7); Platelet Count 378 K/mm3 (150-450); RBC Distribution Width CV 14.1 % (11.6-14.6); RBC Distribution Width SD 51.5 fl (35.1-43.9); Red Blood Count 4.38 M/mm3 (4.6-6.2); White Blood Count 9.9 K/mm3 (4.4-11.0)
[2023-06-11 11:24] LABS: Vitamin D,25 Hydroxy 14.7 ng/mL
[2023-06-11 11:32] LABS: ALB/GLOB Ratio 0.9 RATIO (0.9-2.4); AST(SGOT) 22 U/L (15-37); Alanine Aminotransfer ALT/SGPT 30 U/L (16-61); Albumin, Serum 3.5 g/dL (3.2-5.0); Alkaline Phosphatase 93 U/L (45-117); Anion Gap 1 (5-15); BUN 25 mg/dL (7-18); Calcium,Total 8.8 mg/dL (8.5-10.1); Chloride 101 mmol/L (98-107); Creatinine, Serum 0.89 mg/dL (0.70-1.30); EST Glomerular Filtration Rate 89 mL/min (>60); Est Glom Filt Rate - Afr Amer 108 mL/min (>60); Globulin 3.7 g/dL (2.2-4.2); Glucose 127 mg/dL (74-106); Potassium 4.6 mmol/L (3.5-5.1); Protein, Total 7.2 g/dL (6.4-8.2); Sodium Level 137 mmol/L (136-145); Thyroid Stim Hormone (TSH) 1.78 uIU/mL (0.358-3.74)
== END | disposition home or self-care (01) ==
LOC: POLAB3 10:04
PROVIDERS: PCP Family Medicine Geriatric Medicine; Visit Provider Family Medicine Geriatric Medicine
DX: I10 Essential (primary) hypertension (principal); E11.65 Type 2 diabetes mellitus with hyperglycemia; E55.9 Vitamin D deficiency, unspecified
CPT/HCPCS: 36415; 80053; 82306; 84443; 85025

== ENCOUNTER → 2023-06-12 | Outpatient (CLI) | payer MEDICARE, OTHER, SELFPAY ==
--- NOTE | 2023-06-12 13:35 | RAD_ITS ---
INDICATION: [id number] EXAMINATION/TECHNIQUE: X-RAY - XR Spine Lumbar 2 or 3 Views COMPARISON: No relevant prior comparison study available FINDINGS: VERTEBRAE: Preserved vertebral body height. No fracture. There is grade 1 anterolisthesis of L5 over S1, possibly related L5 spondylolysis.. Preservation of the normal lumbar lordosis. Moderate dextro convex lumbar scoliosis. Facet arthropathy throughout the lumbar spine. DISCS: Near-complete obliteration of the disc space along the left lateral interspace at L2-3, L3-4 and along the right lateral interspace of L4-5 and L5-S1 disc space, with accompanying prominent endplate osteophytes. INCLUDED ABDOMEN: Included bowel gas pattern is non-obstructive. RAD/Lumbar Spine 2 or 3 Views IMPRESSION: * No fractures. * Severe lumbar spondylosis with accompanying scoliosis. * Grade 1 anterolisthesis of L5 over S1 Electronically Signed: James Mckeon MD at 18:03 EST ,
== END | disposition home or self-care (01) ==
LOC: RAD 13:28
PROVIDERS: PCP Family Medicine Geriatric Medicine; Referring Provider Anesthesiology Pain Medicine; Visit Provider Anesthesiology Pain Medicine
DX: M51.36 Other intervertebral disc degeneration, lumbar region (principal); M47.816 Spondylosis without myelopathy or radiculopathy, lumbar region
CPT/HCPCS: 72100

== ENCOUNTER → 2023-07-02 | Outpatient (CLI) | payer MEDICARE, OTHER, SELFPAY ==
[2023-07-02 08:09] VITALS: PULSE 72; PULSE 73; PULSE 80; PULSE 83; PULSE 87; PULSE 89; PULSE 93; PULSE 94; O2SAT 93; O2SAT 94; O2SAT 96; O2SAT 97; O2SAT 98
--- NOTE | 2023-07-02 08:12 | CPS ---
PATIENT HAS O2 THROUGH [facility] CURRENTLY AT HOME. HE HAS BEEN BLEEDING INTO HIS HOME CPAP UNIT HOWEVER UNSURE IF TESTED WITH THIS OR DONE POST HOSPITALIZATION. HE HAS NOT USED FOR DAYTIME ACTIVITIES IN SEVERAL WEEKS. 6 MINUTE WALK TEST COMPLETED ENTIRELY ON ROOM AIR. HE TOOK 2 SHORT REST BREAKS FOR KNEE PAIN AND INCREASED WOB, AND WAS ABLE TO WALK A TOTAL OF 804FT FOR TESTING. HE IS INQUIRING ABOUT HAVING THE OXYGEN DISCONTINUED AND PICKED UP BY [facility]. HE IS AWARE THIS ORDER WILL COME FROM THE PULMONARY MEDICINE OFFICE IF ALL PARAMETERS MET.
--- OUTSIDE RECORDS SUMMARY | 2023-07-03 19:25 | XMS RPT_ITS | CCD ---
Author Name Unknown Address [address] [place] [address] Organization [facility] Care Team Providers Care Dumper Name Role Phone Kassidy Petersen Unavailable York, Swapna L Unavailable Unavailable York, Swapna L Unavailable Unavailable York, Swapna L Unavailable Unavailable VRABEC, SANTINO A Unavailable Unavailable VRABEC, SANTINO A Unavailable Unavailable NO REFERRING DR Unavailable Unavailable VRABEC, SANTINO A Unavailable Unavailable VRABEC, SANTINO A Unavailable Unavailable VRABEC, SANTINO A Unavailable Unavailable VRABEC, SANTINO A Unavailable Unavailable VRABEC, SANTINO A Unavailable Unavailable Milton Milton Primary Care Provider [phone] Milton Milton MD Primary Care Provider PITER VAZQUEZ Unavailable Allergies Allergy Classification Reported Allergen(s) Allergy Type Date of Onset Reaction(s) Facility (4 sources) ADHESIVE PAPER drug allergy 7 red/itchy [facility] Work Phone: (8 sources) NKDA; Translations: [NKDA] allergy to substance 6 [facility] Work Phone: (3 sources) Adhesive agent; Translations: [ADHESIVE] Propensity to adverse reactions (disorder) RED/ITCHY [facility] Repository (6 sources) Adhesive Tape Allergy to substance [address] [facility] Medications Current Medications Medication Drug Class(es) Dates Sig (Normalized) Sig (Original) levocetirizine (2 sources) Histamine-1 Receptor Antagonist Xyzal Active linaclotide 0.072 mg oral capsule (2 sources) Guanylate Cyclase-C Agonist Linzess 72 MCG 1 capsule at least 30 minutes before the first meal of the day on an empty stomach Orally Once a day for 30 day(s) Active metFORMIN hydrochloride 500 mg oral tablet (2 sources) Biguanide take 1 tablet by mouth every twelve hours metFORMIN HCl 500 MG 1 tablet with a meal Orally twice a day Active Completed/Discontinued Medications Medication Drug Class(es) Dates Sig (Normalized) Sig (Original) acetaminophen 325 mg / HYDROcodone bitartrate 5 mg oral tablet (5 sources) Opioid Agonist Start: 02-17-2016 HYDROcodone-acetam inophen (NORCO) 5-325 mg per tablet One to Two tablets every 6-8 hours as needed for pain 60 tablet 0 02/17/2016 Active Problems Active Problems Problem Classification Problem Date Documented Date Episodic/Chronic Biliary tract disease (3 sources) Biliary calculus; Translations: [Calculus of gallbladder without cholecystitis without obstruction] Onset: 11-17-2021 Resolved: 11-17-2021 Episodic Coronary atherosclerosis and other heart disease (7 sources) Atherosclerotic heart disease of [place] coronary artery without angina pectoris; Translations: [Coronary atherosclerosis] Onset: 01-25-2016 Resolved: 11-17-2021 01-25-2016 Chronic Diabetes mellitus without complication (3 sources) Type 2 diabetes mellitus without complication; Translations: [Type 2 diabetes mellitus without complications] Onset: 11-17-2021 Resolved: 11-17-2021 Chronic Disorders of lipid metabolism (5 sources) Hyperlipidemia; Translations: [Hyperlipidemia, unspecified] Onset: 06-25-2016 Resolved: 11-17-2021 06-25-2016 Chronic Essential hypertension (8 sources) Hypertensive disorder; Translations: [Essential (primary) hypertension] Onset: 01-12-2016 Resolved: 11-17-2021 01-12-2016 Chronic Hyperplasia of prostate (1 source) Benign prostatic hyperplasia without lower urinary tract symptoms; Translations: [BENIGN PROSTATIC HYPRPLA] Onset: 01-21-2017 Chronic Osteoarthritis (4 sources) Unilateral primary osteoarthritis, left knee; Translations: [Primary generalized (osteo)arthritis] Onset: 01-21-2017 Resolved: 11-17-2021 Chronic Other connective tissue disease (1 source) Presence of right artificial knee joint; Translations: [PRESENCE RT ARTIFICIAL K] Onset: 01-21-2017 Chronic Other connective tissue disease (6 sources) History of total knee arthroplasty; Translations: [Presence of unspecified artificial knee joint] Onset: 11-30-2016 11-30-2016 Chronic Other diseases of veins and lymphatics (6 sources) Disorder of vein of lower extremity; Translations: [Other specified disorders of veins] 11-11-2015 Episodic Other diseases of veins and lymphatics (2 sources) Stasis dermatitis; Translations: [Venous insufficiency (chronic) (peripheral)] Episodic Other nutritional; endocrine; and metabolic disorders (1 source) Obesity, unspecified; Translations: [OBESITY UNSPECIFIED] Onset: 01-21-2017 Chronic Other nutritional; endocrine; and metabolic disorders (6 sources) Obesity; Translations: [Obesity, unspecified] 11-11-2015 Chronic Other nutritional; endocrine; and metabolic disorders (2 sources) Morbid obesity; Translations: [Morbid (severe) obesity due to excess calories] Chronic Other nutritional; endocrine; and metabolic disorders (1 source) Morbid (severe) obesity due to excess calories Onset: 11-17-2021 Resolved: 11-17-2021 Chronic Residual codes; unclassified (2 sources) Obstructive sleep apnea syndrome; Translations: [Obstructive sleep apnea (adult) (pediatric)] Chronic Residual codes; unclassified (1 source) Obstructive sleep apnea (adult) (pediatric) Onset: 11-17-2021 Resolved: 11-17-2021 Chronic Substance-related disorders (4 sources) Nicotine dependence; Translations: [Nicotine dependence, unspecified, uncomplicated] Onset: 01-12-2016 01-12-2016 Chronic Unclassified (9 sources) Body mass index (BMI) 37.0-37.9, adult; Translations: [Obstructive sleep apnea syndrome] Onset: 01-12-2016 01-12-2016 Chronic Unclassified (4 sources) Long-term drug therapy; Translations: [Other watermelon harvesting supervisor (current) drug therapy] Onset: 06-25-2016 06-25-2016 Unclassified (1 source) Unknown / UNK(Unknown) Onset: 02-11-2017 Past or Other Problems Problem Classification Problem Date Documented Date Episodic/Chronic Fluid and electrolyte disorders (1 source) Hyperkalemia; Translations: [HYPERKALEMIA] Onset: 01-21-2017 Episodic Other diseases of veins and lymphatics (1 source) Venous insufficiency (chronic) (peripheral) Onset: 11-17-2021 Resolved: 11-17-2021 Episodic Screening or history of mental health and substance abuse (1 source) Personal history of nicotine dependence; Translations: [PERSONAL HISTORY OF KAREN] Onset: 01-21-2017 Episodic Unclassified (8 sources) Abnormal findings on diagnostic imaging of heart and coronary circulation; Translations: [Abnormal findings on diagnostic imaging of heart and coronary circulation] Onset: 01-11-2016 Resolved: 06-25-2016 01-11-2016 Episodic Unclassified (8 sources) Preoperative cardiovascular examination ; Translations: [Encounter for preprocedural cardiovascular examination] Onset: 01-12-2016 Resolved: 06-25-2016 01-12-2016 Unclassified (1 source) AFTERCARE FOLLOW JNT REP Onset: 02-11-2017 Results Test Name Value Interpretation Reference Range Facil ity Vital Signs Date Time Vital Sign Value Performing Clinician Chichi nguyễn 11-17-2021 10:30-0400 Body height 176.53 cm PITER MALIA-ARTURO Other [facility] [employer] Other 11-17-2021 10:30-0400 Body mass index (BMI) [Ratio] 41.33 kg/m2 PITER MALIA-ARTURO Other [facility] [employer] Other 11-17-2021 10:30-0400 Body weight 128.82 kg PITER MALIA-ARTURO Other [facility] [employer] Other 11-17-2021 10:30-0400 Diastolic blood pressure 82 mm[Hg] PITER MALIA-ARTURO Other [facility] [employer] Other 11-17-2021 10:30-0400 Heart rate 56 /min PITER MALIA-ARTURO Other [facility] [employer] Other 11-17-2021 10:30-0400 Systolic blood pressure 130 mm[Hg] PITER MALIA-ARTURO Other [facility] [employer] Other 05-27-2017 07:09-0500 BMI (Body Mass Index) 39.05 kg/m2 Swapna Newton [facility] Work Phone: 05-27-2017 07:09-0500 Body Temperature 97.4 [degF] Swapna York [facility] Work Phone: 05-27-2017 07:09-0500 BP Diastolic 78 mm[Hg] Swapna Newton [facility] Work Phone: 05-27-2017 07:09-0500 BP Systolic 132 mm[Hg] Swapna Newton [facility] Work Phone: 05-27-2017 07:09-0500 Height 180.34 cm Swapna Newton [facility] Work Phone: 05-27-2017 07:09-0500 Pulse (Heart Rate) 56 /min Swapna Newton [facility] Work Phone: 05-27-2017 07:09-0500 Respiratory Rate 18 /min Swapna Newton [facility] Work Phone: 05-27-2017 07:09-0500 Weight 127.01 kg Swapnajanice Glez [facility] Work Phone: 05-10-2017 08:00-0400 BMI (Body Mass Index) 39.33 kg/m2 Swapna Newton [facility] Work Phone: 05-10-2017 08:00-0400 Body Temperature 97.4 [degF] Swapnajanice Glez [facility] Work Phone: 05-10-2017 08:00-0400 BP Diastolic 97 mm[Hg] Swapna Newton [facility] Work Phone: 05-10-2017 08:00-0400 BP Systolic 158 mm[Hg] Swapna Newton [facility] Work Phone: 05-10-2017 08:00-0400 Height 180.34 cm [facility] Work Phone: 05-10-2017 08:00-0400 Pulse (Heart Rate) 77 /min [facility] Work Phone: 05-10-2017 08:00-0400 Respiratory Rate 18 /min [employer] [facility] Work Phone: 05-10-2017 08:00-0400 Weight 127.92 kg [facility] Work Phone: 07-10-2016 08:52-0500 BSA (Body Surface Area) 2.38 m2 [facility] Work Phone: Encounters Encounter Date Encounter Type Care Provider Facility Start: 12-06-2021 End: 12-06-2021 ambulatory PITER FINLEY-ARTURO Other [facility] Other Start: 12-06-2021 Telephone encounter PITER Dunaway [facility] Bariatric Surgery [employer] Start: 11-28-2021 Telephone encounter Joanne redmond MD Work Phone: [facility] BARIATRIC DEPARTMENT Procedures Date Procedure Procedure Detail Performing Clinician Start: 01-21-2017 CONVERTED SURGICAL PATHOLOGY Santino Linder Work Phone: Start: 01-21-2017 REPL L KNEE JOINT SYNTH PROVIDER UNKNOWN Start: 07-10-2016 End: 07-10-2016 *Hepatic Function Panel Anny High Start: 07-10-2016 End: 07-10-2016 DATABASE OPERATOR Marvin Elliott MD Start: 07-10-2016 End: 07-10-2016 Follow Up Appt 1 year Marvin Elliott MD Start: 07-10-2016 End: 07-10-2016 Lipid 1996 panel - Serum or Plasma Marvin Elloitt MD Start: 02-02-2016 CONVERTED SURGICAL PATHOLOGY Santino Decker Kailash Work Phone: Start: 01-12-2016 End: 01-12-2016 *BMP Marvin Elliott MD Start: 01-12-2016 End: 01-12-2016 CBC W Auto Differential panel - Blood Marvin Elliott MD Start: 01-12-2016 End: 01-13-2016 Chest x-ray Marvin Elliott MD Start: 01-12-2016 End: 01-12-2016 Ecg routine ecg w/least 12 lds w/i&r Marvin Elliott MD Start: 01-12-2016 End: 01-13-2016 INR in Platelet poor plasma by Coagulation assay Marvin Elliott MD Start: 01-12-2016 End: 01-25-2016 Left Heart Cath Marvin Elliott MD Plan of Treatment Date Care Activity Detail Author Start: 01-29-2023 DIABETES SCREEN DIABETES SCREEN [facility] Start: 03-08-2022 Influenza vaccination INFLUENZA (#1) [facility] Start: 09-04-2021 COVID-19 VACCINE (4 - Booster for Moderna series) COVID-19 VACCINE (4 - Booster for Moderna series) [facility] Start: 07-08-2021 ADVANCE DIRECTIVE DISCUSSION ADVANCE DIRECTIVE DISCUSSION [facility] Start: 03-08-2020 Influenza vaccination INFLUENZA (#1) [facility] Start: 01-24-2020 DIABETES SCREEN DIABETES SCREEN [facility] Start: 08-30-2017 End: 08-30-2017 Appointment Appointment [facility] Work Phone: Start: 07-11-2017 End: 07-11-2017 Appointment Appointment [facility] Work Phone: Start: 05-27-2017 End: 05-27-2017 DMB DMB [facility] Work Phone: Start: 05-27-2017 End: 05-27-2017 Follow Up Appt 3 months Follow Up Appt 3 months [facility] Phone: Start: 05-27-2017 End: 05-27-2017 Appointment Appointment [facility] Work Phone: Start: 05-10-2017 End: 05-10-2017 [facility] Work Phone: Start: 05-10-2017 End: 05-10-2017 Follow Up Appt 1 month Follow Up Appt 1 month [facility] Phone: Start: 05-10-2017 End: 05-10-2017 Appointment Appointment [facility] Phone: Start: 01-07-2017 End: 07-11-2016 *Hepatic Function Panel *Hepatic Function Panel [facility] Phone: Start: 01-07-2017 End: 07-11-2016 Lipid panel [AGGREGATE] *Lipid Profile CC PCP [facility] Phone: Start: 10-10-2016 ADVANCE DIRECTIVE DISCUSSION ADVANCE DIRECTIVE DISCUSSION [facility] Start: 10-10-2016 PNEUMOCOCCAL: 65+ (1 - PCV) PNEUMOCOCCAL: 65+ (1 - PCV) [facility] Start: 10-10-2016 PNEUMOVAX AGE 65 AND OVER WITH 5YR LOOKBACK (#1) PNEUMOVAX AGE 65 AND OVER WITH 5YR LOOKBACK (#1) [facility] Start: 07-10-2016 End: 07-10-2016 *Hepatic Function Panel *Hepatic Function Panel [facility] Phone: Start: 07-10-2016 End: 07[facility] Phone: Start: 07-10-2016 End: 07-10-2016 Follow Up Appt 1 year Follow Up Appt 1 year [facility] Phone: Start: 07-10-2016 End: 07-10-2016 Lipid panel [AGGREGATE] *Lipid Profile CC PCP [facility] Phone: Start: 01-12-2016 End: 01-12-2016 *BMP *BMP [facility] Phone: Start: 01-12-2016 End: 01-12-2016 CBC W Auto Differential panel - Blood *CBC without Diff [facility] Phone: Start: 01-12-2016 End: 01-13-2016 Chest x-ray X-Ray, Chest, PA & Lateral [facility] Phone: Start: 01-12-2016 End: 01-12-2016 DATABASE OPERATOR DATABASE OPERATOR [facility] Phone: Start: 01-12-2016 End: 01-12-2016 Ecg routine ecg w/least 12 lds w/i&r EKG (In office) [facility] Phone: Start: 01-12-2016 End: 01-12-2016 Follow Up Appt 6 months Follow Up Appt 6 months [facility] Phone: Start: 01-12-2016 End: 01-13-2016 INR Coag RelTime (PPP) *PT/INR [facility] Phone: Start: 01-12-2016 End: 01-12-2016 Left Heart Cath Left Heart Cath [facility] Phone: Start: 10-10-2006 PROSTATE CANCER SCREENING DISCUSSION PROSTATE CANCER SCREENING DISCUSSION [facility] Start: 10-10-2001 SHINGRIX VACCINE (1 of 2) SHINGRIX VACCINE (1 of 2) [facility] Start: 10-10-2001 Tuberculosis screening COLORECTAL CANCER SCREENING,SEE MODIFIER [facility] Start: 10-10-1996 COLOGUARD (FIT-DNA) COLOGUARD (FIT-DNA) [facility] Start: 10-10-1996 Colonoscopy COLONOSCOPY [facility] Start: 10-10-1996 COLORECTAL CANCER SCREENING COLORECTAL CANCER SCREENING [facility] Start: 10-10-[address] COLONOGRAPHY [facility] Start: 10-10-1996 FECAL OCCULT BLOOD FECAL OCCULT BLOOD [facility] Start: 10-10-1996 SIGMOIDOSCOPY SIGMOIDOSCOPY [facility] Start: 10-10-1986 LIPID SCREEN LIPID SCREEN [facility] Start: 10-10-1970 Urine microalbumin profile DTAP,TDAP,TD (1 - Tdap) [facility] Start: 10-10-1969 HEPATITIS C SCREENING HEPATITIS C SCREENING [facility] Start: 1962 Adult depression screening assessment DEPRESSION SCREENING [facility] Start: 1950 ABDOMINAL AORTIC ANEURYSM SCREENING ABDOMINAL AORTIC ANEURYSM SCREENING [facility] Patient Education LOW%20FAT%20DIET Pulmon [facility] Work Phone: Immunizations Immunization Date Immunization Notes Care Provider Fa cili 02-23-2016 diphtheria, tetanus toxoids and acellular pertussis vaccine, unspecified formulation Santino Linder [facility] 02-23-2016 pneumococcal vaccine , unspecified formulation Santino [facility] Payers Date Payer Category Payer Private Health Insurance AET[employer] A ETNA CHOICE POS II [id number] 2021-Present [phone] [address] [place] [address] POS [id number] 2016 Medicare MEDICARE MEDICAR E A AND B [id number] 2016-Present [phone] [address] [address] [place] [address] Medicare [id number] 2003 Unknown H[facility]IC [id number] 2003-Present Indemnity [id number] Medicare [id number] Private Health Insurance [id number] Social History Date Type Detail Facility Start: 02-17-2016 End: 11-30-2016 Tobacco smoking status NHIS Former smoker [facility] History of tobacco use Cigarette Smoker [facility] Start: 02-17-2016 End: 11-30-2016 Tobacco use and exposure Never used [facility] Start: 11-30-2016 End: 09-05-2021 Alcohol intake Current drinker of alcohol (finding) [facility] Start: 11-11-2015 Alcohol Comment Occassionally [facility] Start: 1950 Sex Assigned At Not on file [facility] Start: 11-11-2015 Tobacco smoking status NHIS Current some day smoker [facility] Sex Assigned At Sex Assigned At Bir th [facility] Other Note 11-28-2021 Telephone Encounter - Alix Caceres - 11/28/2021 10:44 AM EDT Note Date & Type Note Facility 11-28-2021 Miscellaneous Notes Insurance Verification Insurance Company: Medicare Best Benefit-Level From Date : 10/06/2016 Plan Date: 10/06/2021 Eligibility Date: 11/28/2021 Eligibility To Date: 11/28/2021 Status Date: 11/28/2021 PATHWAY: GEM Caceres November 28, 2021 10:44 AM documented in this encounter [facility] Note 11-20-2021 Telephone Encounter - Alix Caceres - 11/20/2021 10:55 AM EDT Note Date & Type Note Facility 11-20-2021 Miscellaneous Notes left message on his behalf about schedule new patient consult for gastric sleeve. He was seeing someone in [place] but its just too far. I returned the call no answer. Message left to let them know we would need records and for him to complete seminar. Alix Caceres Head Operator Bariatric Dept. P: [phone] Ext [phone] documented in this encounter [facility] Evaluation note 11-17-2021 Note Date & Type Note Facility [facility]. Other Note 11-15-2021 Telephone Encounter - Jeniffer Graham LPN - 11/15/2021 11:43 AM EDT Note Date & Type Note Facility 11-15-2021 Miscellaneous Notes Requested outside medical records from Dr. Milton has been received and scanned into [facility] under GI Outside Medical Records. documented in this encounter [facility] Note 10-06-2021 Telephone Encounter - Luz Maria Redmond - 10/06/2021 10:04 AM EDTTelephone Encounter - Jeniffer Graham LPN - 10/06/2021 8:41 AM EDTTelephone Encounter - Jeniffer Graham LPN - 09/18/2021 2:31 PM EDT Note Date & Type Note Facility 10-06-2021 Miscellaneous Notes Patient cancelled his colonoscopy for November. Stated he got a second opinion and declined to reschedule. Luz Maria Redmond PSS Medical clearance has been received from Dr. Elliott's office. See scanned documents. Medical clearance received from Dr. Schmitt pulmonary clearing patient for colonoscopy. See scanned documents. Still waiting on clearance from cardiology Dr. Elliott. documented in this encounter [facility] Progress note 09-05-2021 Note Date & Type Note Facility 09-05-2021 Note HNO ID: [id number] Author: Viki Bush APRN.FLAG CAR DRIVER Service: ? Author Type: Nurse Practitioner Type: Progress Notes Filed: 09/05/2021 6:13 PM Note Text: CHIEF COMPLAINT: Patient presents with: Outpatient Colonoscopy Constipation: small amounts of stool 2-3 times a day This consult was requested by Massimo Epperson Chi, MD for an opinion regarding colon cancer screening. My final recommendations will be communicated to the requesting health care provider by way of the shared medical record for internal providers or letter via the [place] Postal Service for external providers. Celestine Echavarria is a 70 year old male with a past medical history arthritis both knees, HTN, obesity, venous stasis of lower extremity. Denies family history of colon cancer. Who presents for colon cancer screening. Patient reports did his last colonoscopy many years ago 15 plus years ago. HPI: Constipation - having a BM 2-3 times daily in small amounts, denies black stool or blood in the stool. Patient reports when he bends over it feels like he is pushing on a Fence . Patient denies unintentional weight loss. Patient denies taking aspirin at this time - Patient reports advised him he could stop the aspirin. Reports SOB - patient reports he is not using the CPAP because he thinks this is not helping- Denies upper GI concerns at this time. Record Review: [facility] / Outside records reviewed. PAST MEDICAL HISTORY Diagnosis Date - Arthritis of both knees - HTN (hypertension) - Obesity - Venous stasis of lower extremity RIGHT PAST SURGICAL HISTORY Procedure Laterality Date - APPENDECTOMY - ARTHRP KNE CONDYLEANDPLATU MEDIALANDLAT COMPARTMENTS Right 02/02/2016 - ARTHRP KNE CONDYLEANDPLATU MEDIALANDLAT COMPARTMENTS Left 01/21/2017 - CHEST SURGERY HX rib removal (left side) - EMERGENCY TRACHEOTOMY - SPLENECTOMY TOTAL SEPARATE PROCEDURE Allergies: ALLERGIES Allergen Reactions - Adhesive Tape (Leesa* Itching Medications: atorvastatin (LIPITOR) 10 mg tablet triamterene-hydrochlorothiazide (MAXZIDE) 75-50 mg per tablet Take 1 tablet by mouth once daily. atenolol (TENORMIN) 25 mg tablet Take 25 mg by mouth once daily. peg 3350-Electrolytes (GOLYTELY) 236-22.74-6.74 -5.86 gram suspension Refer to printed prep instructions from your provider. ciprofloxacin HCl (CILOXAN) 0.3 % ophthalmic solution Ketorolac Tromethamine (ACLUAR LS) 0.4 % drop prednisoLONE acetate (PRED FORTE, ECONOPRED PLUS) 1 % ophthalmic suspension clotrimazole-betamethasone (LOTRISONE) cream PREVNAR 13, PF, 0.5 mL syrg ADACEL 2 Lf-(2.5-5-3-5 mcg)-5Lf/0.5 mL injection aspirin, enteric coated (ASPIRIN, ENTERIC COATED) 81 mg EC tablet enoxaparin (LOVENOX) 40 mg/0.4 mL syrg oxyCODONE immediate release (PERCOLONE) 5 mg immediate release tablet HYDROcodone-acetaminophen (NORCO) 5-325 mg per tablet One to Two tablets every 6-8 hours as needed for pain senna-docusate (SENNA WITH DOCUSATE SODIUM) 8.6-50 mg per tablet Take 1 tablet by mouth once daily. 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 Respiratory: Positive for shortness of breath. Gastrointestinal: Positive for constipation. All other systems reviewed and are negative. Are you taking any blood thinners? No Physical Examination: BP 140/84 Pulse 72 Ht 5' 10.079 (1.78m) Wt 285 lb (129.3kg) SpO2 95% BMI 40.80 kg/(m2). Physical Exam Constitutional: Appearance: Normal appearance. He is normal weight. HENT: Head: Normocephalic and atraumatic. Eyes: Extraocular Movements: Extraocular movements intact. Pupils: Pupils are equal, round, and reactive to light. Cardiovascular: Rate and Rhythm: Normal rate. Rhythm regularly irregular. Pulses: Normal pulses. Heart sounds: Normal heart sounds. Pulmonary: Effort: Pulmonary effort is normal. Breath sounds: Examination of the right-lower field reveals decreased breath sounds. Examination of the left-lower field reveals decreased breath sounds. Decreased breath sounds present. Abdominal: General: Abdomen is flat. Bowel sounds are normal. Palpations: Abdomen is soft. Musculoskeletal: General: Normal range of motion. Cervical back: Normal range of motion and neck supple. Skin: General: Skin is warm and dry. Neurological: General: No focal deficit present. Mental Status: He is alert and oriented to person, place, and time. Psychiatric: Mood and Affect: Mood normal. (more content not included)... [facility] Evaluation note Note Date & Type Note Facility Evaluation note No Information [facility] Other History general Narrative - Reported Note Date & Type Note Facility [facility] Other Summary Purpose Family History No Family History Records FoundNo Family History Records FoundNo Family History Records Found Advance Directives No Advanced Directives Records FoundNo Advanced Directives Records FoundNo Advanced Directives Records Found Additional Source Comments (unrecognized sect ion and content) No Status Records FoundNo Status Records FoundNo Status Records Found INFORMATION SOURCE (unrecogn ized section and content) DATE CREATED AUTHOR AUTHOR'S ORGANIZ ATION 11/29/2021 [facility] DATE CREATED AUTHOR AUTHOR'S ORGANIZ ATION 01/25/2022 [facility] Source Comments (unrecognize d section and content) In the event this informatio n is protected by the Federal Confidentiality of Alcohol and Drug Abuse Patient Records regulations: The Federal rules restrict any use of the information to criminally investigate or prosecute any alcohol or drug abuse patient.[facility] the event this information is protected by the Federal Confidentiality of Alcohol and Drug Abuse Patient Records regulations: The Federal rules restrict any use of the information to criminally investigate or prosecute any alcohol or drug abuse patient.[facility] the event this information is protected by the Federal Confidentiality of Alcohol and Drug Abuse Patient Records regulations: The Federal rules restrict any use of the information to criminally investigate or prosecute any alcohol or drug abuse patient.[facility] the event this information is protected by the Federal Confidentiality of Alcohol and Drug Abuse Patient Records regulations: The Federal rules restrict any use of the information to criminally investigate or prosecute any alcohol or drug abuse patient.[facility] the event this information is protected by the Federal Confidentiality of Alcohol and Drug Abuse Patient Records regulations: The Federal rules restrict any use of the information to criminally investigate or prosecute any alcohol or drug abuse patient.[facility] Reason for Visit (unrecogniz ed section and content) Reason Comments New Patient Reason Comments Benefits Investigation Reason Comments Outpatient Colonoscopy Care Teams (unrecognized sec tion and content) Dumper Relationship Specialty Start Date End Date Milton Milton MD [address], [place] [id number] PCP - General Family Practice 11/11/15 Dumper Relationship Specialty Start Date End Date Milton Milton MD [address] [facility] [place], [place] [address] PCP - General Family Practice 11/11/15 FOR RECORDS PERTAINING TO PATIENTS WHO ARE OR HAVE BEEN ENROLLED IN A CHEMICAL DEPENDENCY/SUBSTANCEABUSE PROGRAM, SOME INFORMATION MAY BE OMITTED. This clinical summary was aggregated from multiple sources. Caution should be exercised in using it in the provision of clinical care. This summary normalizes information from multiple sources, and as a consequence, information in this document may materially change the coding, format and clinical context of patient data. In addition, data may be omitted in some cases. CLINICAL DECISIONS SHOULD BE BASED ON THE PRIMARY CLINICAL RECORDS. [facility], [facility]. provides no warranty or guarantee of the accuracy or completeness of information in this document.
--- NOTE | 2023-07-04 06:31 | PCM.PSN.6M ---
PSN 6 Minute Walk Test 6 Minute Walk Test 6 Minute Walk Test: 6 Minute Walk Test PSN:6-Minute Walk Test Start: 07/02/23 08:09 Freq: Status: Active Protocol: RESP.6MINW Document 07/02/23 08:09 [facility] (Rec: 07/02/23 08:17 [facility] [id number]) 6 Minute Walk Test Date Performed 07/02/23 Time Performed 07:50 Height 5 ft 11 in Weight: 129.274 kg Weight in Pounds 285.[address]: Juan Manuel Schmitt Assistive device used: None Pre-test Oxygen Delivery Method Room Air Pulse Ox 96 Pulse Rate (60-100) 72 Dyspnea Lara Scale (0-10) 3 Reported Symptoms Increased Work of Breathing 1st minute Oxygen Delivery Method Room Air Pulse Ox 97 Pulse Rate (60-100) 80 Dyspnea Lara Scale (0-10) 3 Number of Rests Taken 0 Reported Symptoms Increased Work of Breathing 2nd minute Oxygen Delivery Method Room Air Pulse Ox 98 Pulse Rate (60-100) 83 Dyspnea Lara Scale (0-10) 4 Number of Rests Taken 1 Reported Symptoms Increased Work of Breathing 3rd minute Oxygen Delivery Method Room Air Pulse Ox 94 Pulse Rate (60-100) 87 Dyspnea Lara Scale (0-10) 4 Number of Rests Taken 0 Reported Symptoms Increased Work of Breathing 4th minute Oxygen Delivery Method Room Air Pulse Ox 94 Pulse Rate (60-100) 93 Dyspnea Lara Scale (0-10) 4 Number of Rests Taken 1 Reported Symptoms Increased Work of Breathing 5th minute Oxygen Delivery Method Room Air Pulse Ox 94 Pulse Rate (60-100) 94 Dyspnea Lara Scale (0-10) 4 Number of Rests Taken 0 Reported Symptoms Increased Work of Breathing 6th minute Oxygen Delivery Method Room Air Pulse Ox 93 Pulse Rate (60-100) 89 Dyspnea Lara Scale (0-10) 5 Number of Rests Taken 0 Reported Symptoms Increased Work of Breathing Post-test Oxygen Delivery Method Room Air Pulse Ox 96 Pulse Rate (60-100) 73 Dyspnea Lara Scale (0-10) 3 Reported Symptoms Increased Work of Breathing Full Laps Walked 13 Partial Lap, Number of Tiles Walked 37 Total Distance Walked (ft) 804 07/02/23 08:12 Cardiopulmonary Services by Zulma Russell PATIENT HAS O2 THROUGH [facility] CURRENTLY AT HOME. HE HAS BEEN BLEEDING INTO HIS HOME CPAP UNIT HOWEVER UNSURE IF TESTED WITH THIS OR DONE POST HOSPITALIZATION. HE HAS NOT USED FOR DAYTIME ACTIVITIES IN SEVERAL WEEKS. 6 MINUTE WALK TEST COMPLETED ENTIRELY ON ROOM AIR. HE TOOK 2 SHORT REST BREAKS FOR KNEE PAIN AND INCREASED WOB, AND WAS ABLE TO WALK A TOTAL OF 804FT FOR TESTING. HE IS INQUIRING ABOUT HAVING THE OXYGEN DISCONTINUED AND PICKED UP BY [employer]. HE IS AWARE THIS ORDER WILL COME FROM THE PULMONARY MEDICINE OFFICE IF ALL PARAMETERS MET. Initialized on 07/02/23 08:12 - END OF NOTE Interpretation Interpretation: The patient was able to ambulate 804 feet over the course of 6 minutes on room air with no assistive devices and 2 breaks secondary to knee pain. Patient experienced no significant desaturation or tachycardia during testing. These findings are consistent with a musculoskeletal limitation exercise tolerance. Recommendations Recommendations: No supplemental oxygen is indicated at this time.
== END | disposition home or self-care (01) ==
LOC: PSN 07:44
PROVIDERS: PCP Family Medicine Geriatric Medicine; Referring Provider Internal Medicine Critical Care Medicine; Visit Provider Internal Medicine Critical Care Medicine
DX: G47.33 Obstructive sleep apnea (adult) (pediatric) (principal)
CPT/HCPCS: 94618

== ENCOUNTER 2023-09-03 09:00 | Outpatient (RCR) | payer MEDICARE, OTHER, SELFPAY ==
--- NOTE | 2023-06-27 07:47 | HP.PTEVAL_ITS ---
Patient's Visit Information Visit Information Visit Information: VICKI MAST is a 72 year old M referred to Physical Therapy by Dr. Maddie Camacho MD with a diagnosis of Back pain. Date of Evaluation: 06/27/23 Physical Therapist: LYNNE Arceo Visit Plan Frequency: 2x /Week Duration: 2 Months Plan: 2X/ week for 8 weeks for AT for trunk ROM, stretching, core stability, gait training, general strength and mobility HEP: LTR and SKC Subjective Subjective: Pt reports that he has excessive back pain and it has been going on for years. It has progressively getting worse. He broke his back back in 1980 (L5/S1) and he had been in and out to the Dr. Back in 1980 he was in a chair back brace. I think they replaced that 2-3 times but gave up on that cause it was not helping. He has been going on and doing what he can but now that he is retired he needs it fixed or get relief from it. He did have some PT back in the day but it did not help. He will put up with PT as long as he can. Dr Camacho just did x-rays last week. He has no plan with Dr Camacho other than try PT first. If Pt is not helping then they can go forward with the next step. He has back pain all the time but he is worse when he is standing. He does have to change positions when he sits for awhile. He can not walk very far before he has to stop for a little bit. What stops him is weak legs and back pain. Pain back pain: Pain Intensity (Out of 10): 7 Objective Objective: Gait: walks with decreased stride length (B feet do not clear stance feet), decrease stance time on the R. When pt went to turn 180 degrees he lost his balance BW and corrected on his own Pt is able to heel and toe raise with UE support Trunk AROM: flex 25%, ext 10%, Sb B 50%, Rot B 50% (increase pain with flex and ext) LE MMT: R hip flex 13.1 and L hip flex 14.3 R knee ext 13.7 and L 14.3 R knee flex 12.2 and L 12.9 R hip abd in s/l 13.2 and L 13.8 SLUMP test + on the R compared to the L + SLR on the R for pain Tight B HS and piriformis B Pt struggles with going to sit to supine and some SOB when laying supine Pt has some pain with LTR and SKC Balance/Special Test Scores Oswestry Low Back Score: 23 Goals Goal 1:: I HEP Goal Time Frame: 6-8 Weeks Goal 2:: Decrease overall back pain from 7/10 to 5/10 on daily basis Goal Time Frame: 6-8 Weeks Goal 3:: Increase trunk AROM (at the time of the eval: Trunk AROM: flex 25%, ext 10%, Sb B 50%, Rot B 50% (increase pain with flex and ext) Goal Time Frame: 6-8 Weeks Goal 4:: Increase LE strength (at the time of the eval: LE MMT: R hip flex 13.1 and L hip flex 14.3 R knee ext 13.7 and L 14.3 R knee flex 12.2 and L 12.9 R hip abd in s/l 13.2 and L 13.8) Goal Time Frame: 6-8 Weeks Goal 6:: Be able to walk with more normal gait patter (increase stride length) Goal Time Frame: 6-8 Weeks Rehabilitation Potential Rehabilitation Potential: Good Anticipated Interventions Patient/Client Instruction: Educate patient on: Condition and Plan of Care For the Purpose of:: To decrease pain, To decrease swelling/inflammation, To improve nutrient delivery to tissue, To increase oxygenation perfusion, To improve muscle performance and motor function, To improve ability to perform ADL's, To increase tolerance to activity/condition/position, To improve performance and independence with ADL's, To decrease level of supervision to perform tasks, To improve ability of physical actions for home/community/work/leisure, To improve gait and locomotor functions, To decrease soft tissue restriction, To increase flexibility/ROM, To improve endurance, To improve balance and To improve safety with gait Therapeutic Exercise to Include: Strength training, Endurance training, Balance training, Body mechanics, Postural training, Flexibilty training, Gait and locomotor training, Neuromotor development, In an aquatic setting , Active ROM and Dynamic Lumbar Stabilization For the Purpose of:: To decrease pain, To increase ROM, To improve nutrient delivery to tissue, To improve muscle performance and motor function, To improve ability to perform ADL's, To increase tolerance to activity/condition/position, To improve performance and independence with ADL's, To decrease level of supervision to perform tasks, To improve ability of physical actions for home/community/work/leisure, To improve gait and locomotor functions, To improve health of tissue, To decrease soft tissue restriction, To increase flexibility/ROM, To improve endurance, To improve balance and To improve safety with gait Functional Training to Include: Gait training For the Purpose of:: To improve gait and locomotor functions Text: Thank you for the opportunity to evaluate your patient. For Medicare and Medicare HMO plans, please review the plan of care and approve it. It will need to be FAXED BACK to us at [phone] for Medicare purposes. For Medicare only, by signing this I certify the plan of care. Please let me know if there are questions or concerns regarding this plan of care. Physician Signature: Date:
--- NOTE | 2023-07-29 08:58 | HP.PTREVAL_ITS ---
Re-Evaluation Intro: Dr. Maddie Camacho MD, It has been my pleasure to treat VICKI MAST over the last 10 visits for Back pain. Please see the progress note below for an update on the physical therapy plan of care! Subjective Subjective: He likes the water and it relaxes his muscles and eases his pain. He is agreeable to 1X/ week AT and start working towards indep 1X/ week. He has pain today cause he ran his snowblower yesterday. Objective Objective/Function: Trunk AROM: flex 50%, ext 25%, Sb B 50%, Rot B 50% LE MMT: R hip flex 15.5 and L hip flex 15.6 R knee ext 15.9 and L 15.4 R knee flex 12.2 and L 13 R hip abd in s/l 13.2 and L 13.8) Plan Plan Plan: 1X/ week in AT for 4 weeks (pt will do one time per week on his own) for trunk ROM, stretching, core stability, gait training, general strength and mobility Balance/Gait/Functional tests Balance/Special Test Scores Oswestry Low Back Score: 21 Goals Goals Goal 1:: I HEP Goal Time Frame: 6-8 Weeks Goal Progress: Progressing Goal 2:: Decrease overall back pain from 7/10 to 5/10 on daily basis Goal Time Frame: 6-8 Weeks Goal Progress: Progressing Goal 3:: Increase trunk AROM (at the time of the eval: Trunk AROM: flex 25%, ext 10%, Sb B 50%, Rot B 50% (increase pain with flex and ext) Goal Time Frame: 6-8 Weeks Goal Progress: Progressing Goal 4:: Increase LE strength (at the time of the eval: LE MMT: R hip flex 13.1 and L hip flex 14.3 R knee ext 13.7 and L 14.3 R knee flex 12.2 and L 12.9 R hip abd in s/l 13.2 and L 13.8) Goal Progress: Progressing Goal Time Frame: 6-8 Weeks Goal 6:: Be able to walk with more normal gait patter (increase stride length) Goal Time Frame: 6-8 Weeks Anticipated Interventions Anticipated Interventions Patient/Client Instruction: Educate patient on: Condition and Plan of Care For the Purpose of:: To decrease pain, To decrease swelling/inflammation, To improve nutrient delivery to tissue, To increase oxygenation perfusion, To improve muscle performance and motor function, To improve ability to perform ADL's, To increase tolerance to activity/condition/position, To improve performance and independence with ADL's, To decrease level of supervision to per form tasks, To improve ability of physical actions for home/community/work/leisure, To improve gait and locomotor functions, To decrease soft tissue restriction, To increase flexibility/ROM, To improve endurance, To improve balance and To improve safety with gait Therapeutic Exercise to Include: Strength training, Endurance training, Balance training, Body mechanics, Postural training, Flexibilty training, Gait and locomotor training, Neuromotor development, In an aquatic setting , Active ROM and Dynamic Lumbar Stabilization For the Purpose of:: To decrease pain, To increase ROM, To improve nutrient delivery to tissue, To improve muscle performance and motor function, To improve ability to perform ADL's, To increase tolerance to activity/condition/position, To improve performance and independence with ADL's, To decrease level of supervision to perform tasks, To improve ability of physical actions for home/community/work/leisure, To improve gait and locomotor functions, To improve health of tissue, To decrease soft tissue restriction, To increase flexibility/ROM, To improve endurance, To improve balance and To improve safety with gait Functional Training to Include: Gait training For the Purpose of:: To improve gait and locomotor functions Re-Evaluation Ending Re-evaluation ending: Please do not hesitate to contact me at [phone] by phone or if you have questions or concerns regarding this new plan of care! Sincerely, LYNNE Arceo
--- NOTE | 2023-09-03 10:06 | HP.PTDCSUM ---
Discharge Summary D/C summary: It has been my pleasure to treat VICKI MAST referred by Dr. Maddie Camacho MD, with the diagnosis of Back pain for a total of 19 visit(s). Discharge Date: 09/03/23 Please see the following information for a summary of their discharge status. Subjective Subjective: Pt reports that the pool went well and that he will do it on his own cause he is indep. He just knows what exercises to do. The AT helped with his relaxation and the muscles tend to relax in the pool but then within the hour things tighten back up Pain back pain: Pain Intensity (Out of 10): 6 knee pain: Pain Intensity (Out of 10): Unrated Overall Improvement % Improvement: 10 Objective Objective/Function: Gait: walks with each step length clearing stance leg.. still decreased hip ext LE MMT: R hip flex 13.1 and L hip flex 14.3 R knee ext 13.8 and L 14.4 R knee flex 12.2 and L 12.8 R hip abd in s/l 13.2 and L 13.8 Trunk AROM: flex 50%, ext 10%, Sb B 50%, Rot B 50% Goals Goal 1:: I HEP Goal Progress: Goal Met Goal 2:: Decrease overall back pain from 7/10 to 5/10 on daily basis Goal Progress: Progressing Goal 3:: Increase trunk AROM (at the time of the eval: Trunk AROM: flex 25%, ext 10%, Sb B 50%, Rot B 50% (increase pain with flex and ext) Goal Progress: Progressing Goal 4:: Increase LE strength (at the time of the eval: LE MMT: R hip flex 13.1 and L hip flex 14.3 R knee ext 13.7 and L 14.3 R knee flex 12.2 and L 12.9 R hip abd in s/l 13.2 and L 13.8) Goal Progress: Progressing Goal 6:: Be able to walk with more normal gait patter (increase stride length) Goal Progress: Progressing Plan Plan: DC PT to indep pool D/C Information Discharge Comments: DC PT to Indep AT d/c sentence: If there are questions or concerns regarding this patient's physical therapy, please feel free to call me at [phone]. Thank you for the referral of this patient. Sincerely, Angelina Croft, MPT Balance/Gait/Functional tests Balance/Special Test Scores Oswestry Low Back Score: 21 Improvement % Improvement: 10
== END 2023-09-03 12:30 | disposition home or self-care (01) ==
LOC: PT 09:00
PROVIDERS: PCP Family Medicine Geriatric Medicine; Referring Provider Anesthesiology Pain Medicine; Visit Provider Anesthesiology Pain Medicine
DX: M54.9 Dorsalgia, unspecified (principal)
CPT/HCPCS: 97113; 97161; 97530

== ENCOUNTER → 2023-12-11 | Outpatient (CLI) | payer MEDICARE, OTHER, SELFPAY ==
--- NOTE | 2023-12-11 10:20 | RAD_ITS ---
INDICATION: PAIN RT knee pain. Pt states he feels like he may have popped the knee out of alignment. Hx of replacement 8-10 years ago EXAMINATION/TECHNIQUE: X-RAY - RIGHT XR Knee 3 Views 4 VIEWS COMPARISON: 08/18/2007 FINDINGS: SOFT TISSUES: No soft tissue swelling or gas. No radiopaque foreign body. BONES/JOINTS: Total knee arthroplasty is present. No evidence fracture or hardware failure.. Normal alignment. Preservation of the joint space.. No sclerotic or destructive changes observed. RAD/Knee 3 Views IMPRESSION: 1. Total knee arthroplasty placed in the interval. 2. There is normal alignment, no fracture or hardware failure. Electronically Signed: Deshawn Gallego MD at 21:34 EDT ,
[2023-12-11 10:52] LABS: Absolute Lymphocyte Count 2.89 X10^3/uL (0.83-4.51); Absolute Neutrophil Count 7.7 X10^3/uL (2.0-7.7); Basophil# 0.06 X10^3/uL; Basophil% 0.5 % (0-1); Eosinophil# 0.09 X10^3/uL; Eosinophils% 0.8 % (0-5); Hematocrit 45.4 % (40-54); Hemoglobin 14.3 g/dL (13.0-16.5); Lymphocyte # 2.89 X10^3/ul (0.83-4.51); Lymphocyte % 24.7 % (19-41); Mean Corp Hgb Conc 31.5 g/dL (32-36); Mean Corpuscular Hgb 31.7 pg (27.0-32.0); Mean Corpuscular Volume 100.7 fL (80-94); Mean Platelet Vol. 9.5 fl (6.2-12.0); Monocyte# 0.92 X10^3/uL; Monocyte% 7.9 % (0-10); NRBC Flagged by Analyzer 0 % (0-5); Neutrophil % 65.7 % (47-70); Platelet Count 344 K/mm3 (150-450); RBC Distribution Width CV 13.7 % (11.6-14.6); RBC Distribution Width SD 51.2 fl (35.1-43.9); Red Blood Count 4.51 M/mm3 (4.6-6.2); White Blood Count 11.7 K/mm3 (4.4-11.0)
[2023-12-11 11:39] LABS: ALB/GLOB Ratio 1.1 RATIO (0.9-2.4); AST(SGOT) 31 U/L (15-37); Alanine Aminotransfer ALT/SGPT 39 U/L (16-61); Albumin, Serum 3.8 g/dL (3.2-5.0); Alkaline Phosphatase 92 U/L (45-117); Anion Gap 4 (5-15); BUN 30 mg/dL (7-18); Calcium,Total 9.1 mg/dL (8.5-10.1); Chloride 102 mmol/L (98-107); Creatinine, Serum 0.86 mg/dL (0.70-1.30); EST Glomerular Filtration Rate 93 mL/min (>60); Est Glom Filt Rate - Afr Amer 113 mL/min (>60); Globulin 3.6 g/dL (2.2-4.2); Glucose 139 mg/dL (74-106); Potassium 4.7 mmol/L (3.5-5.1); Protein, Total 7.4 g/dL (6.4-8.2); Sodium Level 138 mmol/L (136-145); Thyroid Stim Hormone (TSH) 1.87 uIU/mL (0.358-3.74)
== END | disposition home or self-care (01) ==
LOC: RAD 10:14
PROVIDERS: PCP Family Medicine Geriatric Medicine; Referring Provider Family Medicine Geriatric Medicine; Visit Provider Family Medicine Geriatric Medicine
DX: I10 Essential (primary) hypertension (principal); E55.9 Vitamin D deficiency, unspecified; M25.561 Pain in right knee
CPT/HCPCS: 36415; 73562; 80053; 84443; 85025

== ENCOUNTER → 2023-12-31 | Outpatient (CLI) | payer MEDICARE, OTHER, SELFPAY ==
--- NOTE | 2023-12-31 07:07 | AAAS_ITS ---
Reason For Study: Lightheadedness Aorta Measurements Aorta Doppler Measurements Proximal aorta measures1.94 x 1.80cm. in cross- Peak systolic flow velocities within the proximal sectional axis. aorta measure 47.5 cm/sec. Proximal aorta measures1.89cm. in longitudinal Peak systolic flow velocities within the mid aorta axis. measure 86.7 cm/sec. Mid aorta measures1.86 x 1.99cm. in cross- Peak systolic flow velocities within the distal sectional axis. aorta measure 90.1 cm/sec. Mid aorta measures1.81cm. in longitudinal axis. Distal aorta measures1.97x 1.99cm. in cross- sectional axis. Distal aorta measures1.94cm. in longitudinal axis. Left Iliac Artery Left iliac artery measures 1.06 x 1.19 cm. in the cross-sectional axis. Left iliac artery measures 1.17 cm. in the longitudinal axis. Peak systolic velocity in the left iliac artery measures 138.5 cm/sec. Right Iliac Artery Right iliac artery measures 1.15 x1.32 cm. in the cross-sectional axis. Right iliac artery measures 1.31 cm. in the longitudinal axis. Peak systolic velocity in the right iliac artery measures 130.5 cm/sec. Procedure Aorta IVC Iliac vasculature or bypass grafts 18815. The exam was of poor technical quality due to body habitus, bowel gas, labored breathing. Exam performed in department. VL/AAA Screening Interpretation Summary Maximal aortic dimensions distally at 1.97 x 1.99 cm with no aneurysm identifie d. Normal aortic flow velocity. Normal left common iliac 1.06 x 1.19 cm in diameter Normal right common iliac artery at 1.15 x 1.32 cm in diameter This examination was noted to be of poor quality secondary to body habitus, bow el gas, labored breathing Ordering Physician: Bertram Dove Referring Physician: Massimo Epperson Chi Performed By: Shine Ramires RVT
--- NOTE | 2023-12-31 07:07 | CDU_ITS ---
Reason For Study: Dizziness Rt. Velocities/BP Lt. Velocities/BP Prox CCA 111.8/22.9 cm/sec. Prox CCA 117.7/16.7 cm/sec. Mid CCA 102.3/21.1 cm/sec. Mid CCA 86.4/18.9 cm/sec. Dist CCA 100.1/25.5 cm/sec. Dist CCA 115.5/27.7 cm/sec. Prox ICA 80.3/14.5 cm/sec. Prox ICA 62.9/26.1 cm/sec. Mid ICA 87.5/22.3 cm/sec. Mid ICA 62.0/12.8 cm/sec. Dist ICA 105.1/35.1 cm/sec. Dist ICA 54.4/20.4 cm/sec. Rt. ICA/CCA = 1.0. Lt. ICA/CCA = 0.7. Prox ECA 120.8/9.3 cm/sec. Prox ECA 48.6/9.3 cm/sec. Rt. Vert. 65.8/19.2 cm/sec. Lt. Vert. 47.8/13.8 cm/sec. Right Extracranial There is homogeneous, smooth atherosclerotic plaque noted in the right common carotid artery. The right internal carotid artery is not well visualized. There is homogeneous, smooth atherosclerotic plaque noted in the right external carotid artery. Antegrade flow is noted in the right vertebral artery. Left Extracranial There is homogeneous, smooth atherosclerotic plaque noted in the left common carotid artery. There is heterogeneous, irregular atherosclerotic plaque noted in the left internal carotid artery. The left external carotid artery is not well visualized. Antegrade flow is noted in the left vertebral artery. Procedure Carotid Duplex 01509. This is a Carotid Duplex examination using B-mode, color flow and specral Doppler. The exam was of poor technical quality due to Labored breathing, body habitus. Exam performed in department. VL/Carotid Duplex Ultrasound Interpretation Summary Smooth plaque noted within the right internal carotid artery with less than 50% stenosis. Poorly visualized. Less than 50% stenosis right external carotid artery Irregular plaque at the proximal left internal carotid artery with less than 50 % stenosis Less than 50% stenosis left external carotid artery Patent antegrade vertebral arteries bilaterally Ordering Physician: Bertram Dove Referring Physician: Massimo Epperson Chi Performed By: Sihne Ramires RVT
--- NOTE | 2023-12-31 09:33 | STRESSREP ---
Stress Test Report Date: 12/31/2023 Procedure: Pharmacologic stress nuclear imaging study Indications: 77 Consent: Per the patient Procedure: The patient underwent pharmacologic (Regadenoson 0.4mg ) evaluation with a peak heart rate of 52 beats per minute (52% predicted maximal heart rate) and a peak blood pressure of 142/91 mmHg. The baseline ECG demonstrated sinus rhythm. The peak pharmacologic ECG demonstrated no ischemic changes. There were no cardiac dysrhythmias pretest, during pharmacologic infusion, or recovery. There was no complaint of chest discomfort during pharmacologic infusion or recovery. The patient was injected with 14.7 millicuries of technetium 99m Cardiolite and subsequently rest SPECT Cardiolite nuclear imaging was obtained in the horizontal long, vertical long, and short axis views. The patient underwent pharmacologic (Regadenoson) evaluation. The patient was injected with 44.5 millicuries of technetium 99m Cardiolite and subsequently stress SPECT Cardiolite nuclear imaging was obtained in the horizontal long, vertical long, and short axis views. A gated Cardiolite study at peak stress was obtained. The examination was stopped secondary to completion of protocol. Rest and stress SPECT Cardiolite nuclear imaging status post realignment, normalization, and attenuation correction demonstrate mildly reduced perfusion of the inferior wall at rest which remains unchanged post pharmacological stress. There is end systolic thickening and brightening. The gated Cardiolite study demonstrates myocardial thickening and inward wall motion. The reported LVEF is 58%. Impression: 1. Pharmacologic (Regadenoson) evaluation 2. Peak pharmacologic ECG with no ischemic changes. 3. There were no cardiac dysrhythmias pretest, during pharmacologic infusion, or recovery. 5. Small fixed perfusion defect of the inferior wall of mild intensity. 6. The gated Cardiolite study reports an LVEF of 58%. This note was generated with MediVisionation software. It may contain incorrect words, spelling, and punctuation that were not noted in checking the note before signing.
== END | disposition home or self-care (01) ==
LOC: CVS 07:05
PROVIDERS: PCP Family Medicine Geriatric Medicine; Visit Provider Internal Medicine Cardiovascular Disease
DX: I25.10 Atherosclerotic heart disease of native coronary artery without angina pectoris (principal); R42 Dizziness and giddiness
CPT/HCPCS: 76706; 78452; 93017; 93880; A9500; J2785

== ENCOUNTER → 2024-01-27 | Outpatient (CLI) | payer MEDICARE, OTHER, SELFPAY ==
--- NOTE | 2024-01-27 13:45 | ECHOCS_ITS ---
Reason For Study: DYSPNEA/CAD Procedure This was a 2D Doppler, Color Flow transthoracic echocardiogram. The study was technically difficult. Contrast injection was performed. Exam performed in department. Left Ventricle Normal LV size. Left ventricular systolic function is normal. The left ventricular ejection fraction is 60 %. Stage 1 diastolic dysfunction. No regional wall motion abnormalities noted. Right Ventricle Normal RV size. Tricuspid Valve Normal tricuspid valve. Mild (1+) tricuspid valve insufficiency. Pulmonary artery systolic pressure is 32 mmHg. Pulmonic Valve Normal pulmonic valve. Great Vessels Normal aortic root. Pericardium/Pleural No pericardial effusion. Medication 22 gauge I.V. with prn adaptor inserted into right arm. Diluted definity 2.5ml given slow IV push to enhance endocardial definition. MMode/2D Measurements & Calculations LVIDd: 5.5 cm IVSd: 1.4 cm LVOT diam: 2.2 cm LVIDs: 3.6 cm LVPWd: 1.2 cm LVOT area: 3.8 cm2 RVDd: 4.9 cm FS: 36.0 % Ao root diam: 3.6 cm LAV(MOD-bp): 83.7 ml LVAd ap4: 33.8 cm2 LAV(MOD-bp) Indexed: 33.5 ml/m2 LVLd ap4: 8.4 cm LAV(MOD-sp2): 85.1 ml EDV(MOD-sp4): 114.4 ml LAV(MOD-sp4): 78.9 ml EDV(sp4-el): 115.7 ml LVAs ap4: 20.4 cm2 LVLs ap4: 7.5 cm ESV(MOD-sp4): 46.4 ml ESV(sp4-el): 47.2 ml EF(MOD-sp4): 59.5 % EF(sp4-el): 59.2 % SV(MOD-sp4): 68.0 ml SV(MOD-sp2): 71.8 ml LVAd ap2: 38.2 cm2 LVLd ap2: 8.8 cm EDV(MOD-sp2): 136.1 ml EDV(sp2-el): 141.1 ml LVAs ap2: 24.0 cm2 LVLs ap2: 7.5 cm ESV(MOD-sp2): 64.3 ml ESV(sp2-el): 64.9 ml EF(MOD-sp2): 52.8 % SV(sp4-el): 68.6 ml LA A4 area: 24.8 cm2 LA dimension(2D): 5.1 cm TAPSE: 1.5 cm RA A4 area: 17.9 cm2 Time Measurements MV dec time: 0.17 sec Doppler Measurements & Calculations MV E max scott: 71.9 cm/sec Lat Peak E' Scott: 10.0 cm/sec Med Peak E' Scott: 7.8 cm/sec MV A max scott: 73.3 cm/sec E/E' lat: 7.2 E/E' med: 9.2 MV E/A: 0.98 MV dec slope: 428.0 cm/sec2 Ao V2 max: 133.7 cm/sec LV V1 max: 102.9 cm/sec Ao max P.3 mmHg LV V1 max P.2 mmHg Ao V2 mean: 95.1 cm/sec LV V1 mean P.3 mmHg Ao mean P.2 mmHg LV V1 mean: 72.2 cm/sec Ao V2 VTI: 28.5 cm LV V1 VTI: 20.3 cm AV (velocity ratio): 0.71 ROBB(I,D): 2.7 cm2 ROBB(V,D): 2.9 cm2 SV(LVOT): 77.7 ml PA V2 max: 80.7 cm/sec TR max scott: 267.5 cm/sec PA max PG (full): 0.11 mmHg TR max P.6 mmHg ECHO/Echo Complete W/ Contrast Interpretation Summary Normal LV size. Left ventricular systolic function is normal. The left ventricular ejection fraction is 60 %. Stage 1 diastolic dysfunction. Pulmonary artery systolic pressure is 32 mmHg. Contrast injection was performed. Ordering Physician: Le Meyer Referring Physician: Massimo Epperson Chi Performed By: Audra Rivers RDCS
== END | disposition home or self-care (01) ==
LOC: CVS 13:42
PROVIDERS: PCP Family Medicine Geriatric Medicine; Referring Provider Physician Assistant Medical; Visit Provider Physician Assistant Medical
DX: I25.10 Atherosclerotic heart disease of native coronary artery without angina pectoris (principal); R06.09 Other forms of dyspnea
CPT/HCPCS: 93306; Q9957; A4216; C8929

== ENCOUNTER → 2024-02-28 | Outpatient (CLI) | payer MEDICARE, OTHER, SELFPAY ==
--- NOTE | 2024-02-28 16:35 | CT_ITS ---
EXAM: CT CHEST, LUNG CANCER SCREENING WITHOUT INTRAVENOUS CONTRAST CLINICAL INDICATION: smoker quit 2019 TECHNIQUE: Helically acquired images were obtained of the chest without intravenous contrast using low dose (LDCT) lung cancer screening protocol. This CT exam was performed using one or more of the following dose reduction techniques: automated exposure control, adjustment of the mA and/or kV according to patient size, and/or use of iterative reconstruction technique. COMPARISON: CTA chest, 03/08/[address] screening, 03/06/2016. FINDINGS: LUNGS AND PLEURAL SPACES: Right hilar granulomas. 5 mm right upper lobe pulmonary nodule which is decreased in size since prior examination, previously measuring 6 mm in average diameter. 4 mm unchanged right lower lobe pulmonary nodule. 3 mm unchanged left upper lobe pulmonary nodule. Fatty pleural thickening bilaterally, related to postoperative change. No pneumothorax. HEART: Coronary artery calcifications. Heart size is normal. No pericardial effusion. MEDIASTINUM: Mediastinal granulomas. Small hiatal hernia. Few mildly enlarged mediastinal lymph nodes without calcifications are present. Esophagus is unremarkable. THYROID: No significant abnormality. No thyroid lesions. BONES/JOINTS: Degenerative changes throughout the spine. Apparent postoperative changes in left lower ribs. Multiple chronic rib fractures and postoperative changes of multiple right-sided ribs. No suspicious lytic or blastic abnormality. VASCULATURE: Atherosclerosis. LYMPH NODES: See above. No axillary lymphadenopathy. STOMACH AND BOWEL: Colonic diverticulosis. CT/Low Dose CT Lung Screening IMPRESSION: 1. ACR Lung CT Screening Reporting And Data System (Lung-RADS) score: 2S - Benign Appearance or Behavior. Additional clinically significant or potentially clinically significant findings are described. Recommend continued annual screening with a low-dose CT (LDCT) in 12 months. 2. Few mildly enlarged mediastinal lymph nodes without calcifications are present. There is a nonspecific. Granulomatous changes are evident. Overall similar appearance of the mediastinum and hilum compared to 03/08/2023. 3. Colonic diverticulosis. Electronically Signed: Nathan Parikh DO at 16:59 EDT ,
== END | disposition home or self-care (01) ==
LOC: CT 16:34
PROVIDERS: PCP Family Medicine Geriatric Medicine; Referring Provider Nurse Practitioner Acute Care; Visit Provider Nurse Practitioner Acute Care
DX: Z87.891 Personal history of nicotine dependence (principal)
CPT/HCPCS: 71271

== ENCOUNTER → 2024-06-12 | Outpatient (CLI) | payer MEDICARE, OTHER, SELFPAY ==
[2024-06-12 10:32] LABS: Absolute Lymphocyte Count 2.91 X10^3/uL (0.83-4.51); Absolute Neutrophil Count 6.4 X10^3/uL (2.0-7.7); Basophil# 0.05 X10^3/uL; Basophil% 0.5 % (0-1); Eosinophil# 0.12 X10^3/uL; Eosinophils% 1.2 % (0-5); Hematocrit 44.9 % (40-54); Hemoglobin 14.2 g/dL (13.0-16.5); Lymphocyte # 2.91 X10^3/ul (0.83-4.51); Lymphocyte % 27.9 % (19-41); Mean Corp Hgb Conc 31.6 g/dL (32-36); Mean Platelet Vol. 9.2 fl (6.2-12.0); Monocyte% 8.6 % (0-10); NRBC Flagged by Analyzer 0 % (0-5); Neutrophil # 6.41 X10^3/uL (2.7-7.7); Neutrophil % 61.5 % (47-70); Platelet Count 377 K/mm3 (150-450); RBC Distribution Width CV 13.2 % (11.6-14.6); RBC Distribution Width SD 47.7 fl (35.1-43.9); Red Blood Count 4.58 M/mm3 (4.6-6.2); White Blood Count 10.4 K/mm3 (4.4-11.0)
[2024-06-12 11:37] LABS: AST(SGOT) 27 U/L (15-37); Alanine Aminotransfer ALT/SGPT 42 U/L (16-61); Albumin, Serum 3.8 g/dL (3.2-5.0); Alkaline Phosphatase 110 U/L (45-117); Anion Gap 4 (5-15); BUN 25 mg/dL (7-18); Calcium,Total 9.3 mg/dL (8.5-10.1); Chloride 99 mmol/L (98-107); Creatinine, Serum 0.81 mg/dL (0.70-1.30); EST Glomerular Filtration Rate 100 mL/min (>60); Est Glom Filt Rate - Afr Amer 121 mL/min (>60); Globulin 3.9 g/dL (2.2-4.2); Glucose 139 mg/dL (74-106); Potassium 4.2 mmol/L (3.5-5.1); Protein, Total 7.7 g/dL (6.4-8.2); Sodium Level 135 mmol/L (136-145)
[2024-06-12 14:22] LABS: Vitamin D,25 Hydroxy 11.8 ng/mL
== END | disposition home or self-care (01) ==
LOC: LAB 10:06
PROVIDERS: PCP Family Medicine Geriatric Medicine; Referring Provider Family Medicine Geriatric Medicine; Visit Provider Family Medicine Geriatric Medicine
DX: I10 Essential (primary) hypertension (principal); E11.65 Type 2 diabetes mellitus with hyperglycemia; E55.9 Vitamin D deficiency, unspecified
CPT/HCPCS: 36415; 80053; 82306; 84443; 85025

== ENCOUNTER 2024-07-14 12:57 | Emergency (ER) | payer MEDICARE, SELFPAY ==
[2024-07-14] VITALS (10 sets, daily range): BP systolic 150–176; BP diastolic 85–135; PULSE 66–89; RESP 18–27; TEMP 36.2–36.6; O2SAT 93–94; BMI 42.9
--- NOTE | 2024-07-14 13:12 | EKG12_ITS ---
Test Reason : SC Blood Pressure : */* mmHG Vent. Rate : 66 BPM Atrial Rate : 66 BPM P-R Int : 158 ms QRS Dur : 108 ms QT Int : 436 ms P-R-T Axes : 77 0 54 degrees QTcB Int : 457 ms Normal sinus rhythm with sinus arrhythmia Normal ECG Confirmed by Bertram Dove ([id number]), visual effects editor FRANCISCO EDWARDS ([id number]) on 07/15/2024 8:27:08 AM Referred By: AR/NENA Confirmed By: Bertram Dove
--- NOTE | 2024-07-14 13:12 | RAD_ITS ---
HISTORY: chest pain. TECHNIQUE: XR Chest 1 View. COMPARISON: 03/08/2023. FINDINGS: CARDIOMEDIASTINAL BORDERS: Cardiac silhouette upper limits of normal in size. Calcification of the aortic knob. LUNGS: Low lung volumes with mild pulmonary vascular congestion and linear bibasilar opacities. PLEURA: No pleural effusion or pneumothorax seen. OSSEOUS STRUCTURES: Old left clavicle fracture. Old right sixth rib fracture. RAD/Chest 1 View (Portable) IMPRESSION: Mild pulmonary vascular congestion and bibasilar atelectasis. Electronically Signed: Fely Patricia MD at 14:35 EST ,
[2024-07-14 13:43] LABS: Absolute Neutrophil Count 6.1 X10^3/uL (2.0-7.7); Basophil# 0.06 X10^3/uL; Basophil% 0.6 % (0-1); Eosinophil# 0.12 X10^3/uL; Eosinophils% 1.2 % (0-5); Hematocrit 41.6 % (40-54); Hemoglobin 13.2 g/dL (13.0-16.5); Lymphocyte % 30.7 % (19-41); Mean Corp Hgb Conc 31.7 g/dL (32-36); Mean Corpuscular Hgb 31.1 pg (27.0-32.0); Mean Corpuscular Volume 97.9 fL (80-94); Mean Platelet Vol. 9.3 fl (6.2-12.0); Monocyte# 0.94 X10^3/uL; NRBC Flagged by Analyzer 0 % (0-5); Neutrophil # 6.05 X10^3/uL (2.7-7.7); Neutrophil % 58.1 % (47-70); Platelet Count 348 K/mm3 (150-450); RBC Distribution Width CV 13.9 % (11.6-14.6); RBC Distribution Width SD 50.1 fl (35.1-43.9); Red Blood Count 4.25 M/mm3 (4.6-6.2); White Blood Count 10.4 K/mm3 (4.4-11.0)
--- NOTE | 2024-07-14 13:43 | EDS_ITS ---
HPI History of Present Illness Chief Complaint: Chest Pain Narrative Narrative: Chief complaint and HPI: Shortness of breath and chest pain. 73-year-old male with past medical history of CAD, HTN, HLD, DM presents for evaluation of shortness of breath and chest pain. Patient states at baseline he has shortness of breath and exertional dyspnea. He states that it is progressively worsened over the last couple days. He endorses congestion and mild cough. He endorses bilateral lower extremity at baseline that has progressively worsened over the past week per . states that patient used to be on triamterene/HCTZ 75 to 50 mcg 1/2 tablet daily but was taken off of this several weeks ago due to overactive bladder. Patient states around 10 AM he developed diffuse chest pain. Describes it more as a tightness. He denies any fever, chills, abdominal pain, nausea, vomiting, dysuria. Patient declined aspirin and nitro via EMS prior to arrival. states at baseline the patient wheezes. On chart review, patient had a cardiac catheterization in 2015. He had an echocardiogram in January 2024 that showed an EF of 60%. He had a pharmacologic stress test in December 2023 that was negative for ischemic changes. Review of systems: See HPI Medications: As listed on the chart Allergies: As listed on the chart PFSH: Per chart Vital signs: As listed on the chart. Reviewed. Physical exam: Gen: A&O x3, NAD Head: Normocephalic, atraumatic Eyes: No sclera icterus, conjunctiva clear, PERRL, EOMI ENT: Moist mucous membranes Neck: Trachea midline, No JVD CV: RRR, no murmurs, + bilateral pitting peripheral edema Resp: Lungs diminished in the bilateral bases, + expiratory wheezing diffusely GI: Abd soft, non-distended but protuberant, non-tender, no r/r/g Musc: Moves all extremities, no deformity Skin: Warm, dry Neuro: Alert, oriented, grossly intact, sensation intact Psych: Cooperative, appropriate mood and affect [facility] Medical History (Reviewed 04/27/24 @ 08:29 by Marissa Schroeder THERAPEUTIC SPECIALIST, THERAPEUTIC SPECIALIST-C) Bronchiectasis BiPAP (biphasic positive airway pressure) dependence Encounter for screening colonoscopy Hoarseness On home oxygen therapy Fatty liver Hx of transfusion of whole blood History of edema Diabetes Acute and chronic respiratory failure with hypoxia COVID-19 (11/30/21) Leg edema Cholelithiasis with chronic cholecystitis Preop cardiovascular exam Hypoxia BMI 39.0-39.9,adult Smoking greater than 40 pack years Allergic rhinitis Essential (primary) hypertension Tobacco dependence in remission Arthritis Nicotine abuse Obstructive sleep apnea Hyperlipidemia Atherosclerotic heart disease of [place] coronary artery without angina pectoris Home Medications ?Medication ?Instructions ?Recorded ?Last Taken ?Type atenolol 50 mg tablet 25 mg PO DAILY heart 01/18/16 01/24/22 History metformin 500 mg tablet 1,000 mg PO BID dm 11/29/21 11/30/21 History levocetirizine 5 mg tablet (Xyzal) 5 mg PO DAILY 12/28/21 Unknown History triamterene 75 0.5 tab PO DAILY 12/28/21 Unknown History mg-hydrochlorothiazide 50 mg tablet (Maxzide) albuterol sulfate 90 mcg/actuation 2 puff inhalation Q4H PRN 03/14/23 Unknown Rx aerosol inhaler (Ventolin HFA) shortness of breath or wheezing #18 grams atorvastatin 40 mg tablet 40 mg PO DAILY cholesterol 03/27/23 Unknown History finerenone 10 mg tablet (Kerendia) 10 mg PO QDAY 04/27/24 Unknown History Allergy/AdvReac Type Severity Reaction Status Date / Time adhesive tape AdvReac Mild red/itchy Verified 04/27/24 08:14 Family History (Reviewed 04/27/24 @ 08:29 by Marissa Schroeder THERAPEUTIC SPECIALIST, THERAPEUTIC SPECIALIST-C) Unknown No problems noted. Surgical History (Reviewed 04/27/24 @ 08:29 by Marissa Schroeder THERAPEUTIC SPECIALIST, THERAPEUTIC SPECIALIST-C) S/P cholecystectomy Hx of colonoscopy S/P emergency tracheotomy for assistance in breathing History of tracheostomy H/O resection of rib History of cataract extraction History of splenectomy History of arthroplasty of right knee History of tonsillectomy History of partial splenectomy History of appendectomy History of left heart catheterization (01/23/16) Social History Smoking Status: Former smoker quit date: 07/08/16 pack-years: 50 second hand exposure: No alcohol intake: never substance use type: does not use caffeine: Yes Type: coffee Number of servings: 8 what type of physical activity do you participate in: none EXAM Physical Exam Const Vital Signs: 07/14/24 13:04 07/14/24 13:09 07/14/24 13:36 Temperature 97.8 F Temperature Source Temporal Pulse Rate 71 Respiratory Rate 21 H Respiratory Effort Short of Breath Respiratory Pattern Blood Pressure 169/94 H Blood Pressure Mean 119 Pulse Ox 94 Oxygen Delivery Method Room Air Room Air 07/14/24 13:54 07/14/24 15:13 07/14/24 15:15 Temperature Temperature Source Pulse Rate 66 73 74 Respiratory Rate 22 H 20 H 18 Respiratory Effort Respiratory Pattern Tachypnea Blood Pressure 150/85 H Blood Pressure Mean 105 Pulse Ox 94 93 Oxygen Delivery Method 07/14/24 15:30 Temperature Temperature Source Pulse Rate 68 Respiratory Rate 22 H Respiratory Effort Respiratory Pattern Blood Pressure Blood Pressure Mean Pulse Ox 93 Oxygen Delivery Method MDM MDM MDM Narrative Medical decision making narrative: 73-year-old male with past medical history of CAD, HTN, HLD, DM presents for evaluation of shortness of breath and chest pain. History was obtained by p janelle, , medical record. Differential diagnosis includes but is not limited to CHF, COPD exacerbation, pneumonia, viral illness, ACS, electrolyte abnormality. Suspect less likely PE given patient is not tachycardic, hypoxic, or has risk factors for PE. Aspirin and DuoNebs ordered. Cardiac workup ordered. Patient refused aspirin and nitro for EMS and myself. EKG reviewed, see below. CBC without leukocytosis or anemia. Coagulation panel unremarkable. D-dimer elevated at 0.71 however given patient's age this is within normal limits. BMP without renal insufficiency. COVID, flu, RSV negative. Chest x- ray shows mild pulmonary congestion. IV Lasix ordered. BNP unremarkable. Troponin unremarkable x 2. Patient still endorsing some chest tightness however he refused any treatment for it. Patient is a moderate heart score however low suspicion for ACS. I think his symptoms are likely due to his mild CHF exacerbation. However patient has no history of CHF. May have HFpEF. Given these findings, Dr. Dove with cardiology was consulted and patient was discussed. He agrees, low suspicion for ACS, okay with discharge home. Agreed with IV Lasix that was given recommendations are for the patient to restart his hydrochlorothiazide combo pill and follow-up with PCP. Patient and are updated of all the results and the plan per cardiology. They confirmed understanding. Return precautions explained. Patient stable to discharge home. They state that they have plenty of pills left from his previous diuretic and do not need a new prescription. EKG: Interpreted by me/EM physician: EKG shows normal sinus rhythm with sinus arrhythmia. Heart rate 66. No acute ischemic changes. Diagnostic: Interpreted by me/EM physician: Chest x-ray shows mild pulmonary congestion with atelectasis in the bilateral bases. No pneumonia. Impression: 1. Peripheral edema 2. Mild pulmonary congestion 3. Suspect mild CHF exacerbation 4. Chest pain Lab Data Labs: Laboratory Results - last 24 hr 07/14/24 07/14/24 13:30 13:53 WBC 10.4 RBC 4.25 L Hgb 13.2 Hct 41.6 MCV 97.9 H MCH 31.1 MCHC 31.7 L RDW Std Deviation 50.1 H RDW Coeff of [place] 13.9 Plt Count 348 MPV 9.3 Immature Gran % (Auto) 0.400 Neut % (Auto) 58.1 Lymph % (Auto) 30.7 [place] % (Auto) 9.0 Eos % (Auto) 1.2 Baso % (Auto) 0.6 Absolute Neuts (auto) 6.1 Absolute Lymphs (auto) 3.20 Nucleated RBC % 0 PT 13.6 INR 1.0 APTT 29.1 D-Dimer Quant (PE/DVT) 0.71 H* Sodium 137 Potassium 4.3 Chloride 101 Carbon Dioxide 36.0 H Anion Gap 0 L BUN 20 H Creatinine 0.72 Estim Creat Clear Calc 119.21 Est GFR (MDRD) Af Amer 138 Est GFR (MDRD) Non-Af 114 BUN/Creatinine Ratio 27.7 H Glucose 141 H Calcium 9.2 Troponin I High Sens 12 B-Natriuretic Peptide 82.1 Radiography Diagnostic Testing: Clinical Impression(s) from Imaging Studies Chest X-Ray 07/14/24 13:12 IMPRESSION: Mild pulmonary vascular congestion and bibasilar atelectasis. Electronically Signed: Fely Patricia MD at 14:35 EST , Discharge Plan Triage Chief Complaint: Chest Pain ED Provider: Conner Lazaro Dx/Rx/DC Orders Prescriptions: No Action atorvastatin 40 mg tablet 40 mg PO DAILY metformin 500 mg tablet 1,000 mg PO BID albuterol sulfate [Ventolin HFA] 90 mcg/actuation HFA aerosol inhaler 2 puff inhalation Q4H PRN (Reason: shortness of breath or wheezing) Qty: 18 6RF Kerendia 10 mg tablet 10 mg PO QDAY atenolol 50 MG tablet 25 mg PO DAILY levocetirizine [Xyzal] 5 mg Tablet 5 mg PO DAILY triamterene-hydrochlorothiazid [Maxzide] 75-50 mg tablet 0.5 tab PO DAILY Primary Care Provider: Massimo Epperson Chi Referrals: Massimo Epperson Chi, MD [Primary Care Provider] - Print Language: Libyan
[2024-07-14] MEDS: Ipratropium/Albuterol Sulfate 3 ML AMPUL.NEB 9 ML INHALATION (13:53)
[2024-07-14 14:04] LABS: Anion Gap 0 (5-15); BUN 20 mg/dL (7-18); BUN/Creat Ratio 27.7 RATIO (10-20); Calcium,Total 9.2 mg/dL (8.5-10.1); Chloride 101 mmol/L (98-107); Creatinine, Serum 0.72 mg/dL (0.70-1.30); EST Glomerular Filtration Rate 114 mL/min (>60); Est Glom Filt Rate - Afr Amer 138 mL/min (>60); Estimated Creatinine Clearance 119.21 ml/min; Glucose 141 mg/dL (74-106); Potassium 4.3 mmol/L (3.5-5.1); Sodium Level 137 mmol/L (136-145); Troponin-I HS (w/2H Reflex) 12 pg/mL (3.0-78.0)
[2024-07-14 14:24] LABS: Prothrombin Time (Protime)PT. 13.6 SECONDS (11.7-14.9)
[2024-07-14 14:26] LABS: Partial Thromboplast Time 29.1 Seconds (24.1-36.2)
[2024-07-14 14:37] LABS: D-Dimer Quantitative (DVT/PE) 0.71 FEU/ug/m (0.27-0.49)
[2024-07-14 15:11] LABS: BNP,B-Type NATRIURETIC PEPTIDE 82.1 pg/mL (0-100)
[2024-07-14 15:35] LABS: Reflex Troponin-HS? (from REC) Y
[2024-07-14] MEDS: Furosemide 40 MG/4 ML Vial IV (15:43)
[2024-07-14 16:13] LABS: Troponin-I HS 12 pg/mL (3.0-78.0)
== END 2024-07-14 16:43 | disposition home or self-care (01) ==
PROVIDERS: Emergency Provider Surgery; PCP Family Medicine Geriatric Medicine; Visit Provider Surgery
DX: R07.89 Other chest pain (principal); E11.9 Type 2 diabetes mellitus without complications; R60.0 Localized edema; R09.89 Other specified symptoms and signs involving the circulatory and respiratory systems; R06.2 Wheezing; I25.10 Atherosclerotic heart disease of native coronary artery without angina pectoris; E78.5 Hyperlipidemia, unspecified; I10 Essential (primary) hypertension; Z79.84 Long term (current) use of oral hypoglycemic drugs; Z79.899 Other long term (current) drug therapy; Z86.16 Personal history of COVID-19; Z87.891 Personal history of nicotine dependence
CPT/HCPCS: 71045; 80048; 83880; 84484; 85025; 85379; 85610; 85730; 87631; 93005; 94640; 96374; 99285; A4216; J1940

== ENCOUNTER → 2024-07-28 | Outpatient (CLI) | payer MEDICARE, SELFPAY ==
[2024-07-28 13:30] VITALS: PULSE 105; PULSE 108; PULSE 110; PULSE 75; PULSE 76; PULSE 85; PULSE 94; PULSE 95; O2SAT 92; O2SAT 93; O2SAT 94; O2SAT 95
--- NOTE | 2024-08-04 09:57 | PCM.PSN.6M ---
PSN 6 Minute Walk Test 6 Minute Walk Test 6 Minute Walk Test: 6 Minute Walk Test PSN:6-Minute Walk Test Start: 07/28/24 13:39 Freq: Status: Active Protocol: [id number].6MINW Document 07/28/24 13:30 AEH (Rec: 07/28/24 13:44 AEH [id number]) 6 Minute Walk Test Date Performed 07/28/24 Time Performed 13:30 Height 5 ft 11 in Weight: 297 lb Weight in Pounds 297.[address]: Yin Assistive device used: Cane Pre-test Oxygen Delivery Method Room Air Pulse Ox (%) 93 Pulse Rate (60-100 beats/min) 76 Dyspnea Lara Scale (0-10) 0.5 Exertion Lara Scale (6-20) 6 1st minute Oxygen Delivery Method Room Air Pulse Ox (%) 94 Pulse Rate (60-100 beats/min) 94 2nd minute Oxygen Delivery Method Room Air Pulse Ox (%) 93 Pulse Rate (60-100 beats/min) 105 H 3rd minute Oxygen Delivery Method Room Air Pulse Ox (%) 92 Pulse Rate (60-100 beats/min) 108 H 4th minute Oxygen Delivery Method Room Air Pulse Ox (%) 92 Pulse Rate (60-100 beats/min) 110 H 5th minute Oxygen Delivery Method Room Air Pulse Ox (%) 92 Pulse Rate (60-100 beats/min) 95 6th minute Oxygen Delivery Method Room Air Pulse Ox (%) 92 Pulse Rate (60-100 beats/min) 85 Dyspnea Lara Scale (0-10) 0.5 Exertion Lara Scale (6-20) 11 Post-test Oxygen Delivery Method Room Air Pulse Ox (%) 95 Pulse Rate (60-100 beats/min) 75 Full Laps Walked 13 Partial Lap, Number of Tiles Walked 0 Total Distance Walked (ft) 767 Interpretation Interpretation: The patient ambulated 767 feet over the course of 6 minutes beginning on room air with use of a cane. Pretesting oxygen saturation was noted to be 93% on room air. With ambulation, the [place] oxygen saturation was 92%. Although there was evidence of impaired walk distance, there was no significant exertional oxygen desaturation. Recommendations Recommendations: There is no indication for the use of supplemental oxygen at this time.
== END | disposition home or self-care (01) ==
LOC: PSN 13:17
PROVIDERS: PCP Family Medicine Geriatric Medicine; Referring Provider Physician Assistant Medical; Visit Provider Physician Assistant Medical
DX: R06.09 Other forms of dyspnea (principal)
CPT/HCPCS: 94618

== ENCOUNTER → 2024-07-29 | Outpatient (CLI) | payer MEDICARE, SELFPAY | END | disposition home or self-care (01) | LOC: PSN 08:02 | PROVIDERS: PCP Family Medicine Geriatric Medicine; Referring Provider Physician Assistant Medical; Visit Provider Physician Assistant Medical | DX: R06.09 Other forms of dyspnea (principal) | CPT/HCPCS: 94060; 94726; 94729 ==

== ENCOUNTER 2024-09-28 07:16 | Day surgery (SDC) | payer MEDICARE, SELFPAY ==
--- NOTE | 2024-09-08 16:10 | PCM.HP.BLA ---
History and Physical Date of Admission: 09/28/24 He is a 73-year-old man with a history of known atherosclerotic cardiovascular disease. In 2016, he had a cardiac catheterization which demonstrated 50% mid left anterior descending artery stenosis, an ectatic circumflex artery, a right coronary artery which was totally occluded. He had preserved left ventricular systolic function. He also has a past medical history of diabetes, hypertension, hyperlipidemia, previous tobacco abuse, and obstructive sleep apnea. Patient was seen in the emergency room on July 14, 2024 for chest discomfort. Troponin was negative x 2. It was felt his discomfort was likely related to mild congestive heart failure. He was given IV Lasix. His BNP was 82. CXR did demonstrate mild congestion. He was asked to restart his hydrochlorothiazide at home. Pt notes that he is still having chest heaviness, it is constant. He does feel his swelling is better. He does have a chest congestion. He does use his CPAP at night with oxygen. He does have shortness of breath. Patient underwent a pulmonary function test which did demonstrate severe restrictive ventilatory impairment with preserved diffusing capacity. Since his cardiac workup was negative in 2023. His case was discussed with pulmonary. They felt that a right heart cath would help further assess. He is scheduled to undergo a diagnostic right heart catheterization today. Medical History Bronchiectasis BiPAP (biphasic positive airway pressure) dependence Encounter for screening colonoscopy Hoarseness On home oxygen therapy Fatty liver Hx of transfusion of whole blood History of edema Diabetes Acute and chronic respiratory failure with hypoxia COVID-19 (11/30/21) Leg edema Cholelithiasis with chronic cholecystitis Preop cardiovascular exam Hypoxia BMI 39.0-39.9,adult Smoking greater than 40 pack years Allergic rhinitis Essential (primary) hypertension Tobacco dependence in remission Arthritis Nicotine abuse Obstructive sleep apnea Hyperlipidemia Atherosclerotic heart disease of [place] coronary artery without angina pectoris Surgical History S/P cholecystectomy Hx of colonoscopy S/P emergency tracheotomy for assistance in breathing History of tracheostomy H/O resection of rib History of cataract extraction History of splenectomy History of arthroplasty of right knee History of tonsillectomy History of partial splenectomy History of appendectomy History of left heart catheterization (01/23/16) Family History Unknown No problems noted. Social History Smoking Status: Former smoker quit date: 07/08/16 pack-years: 50 second hand exposure: No alcohol intake: never substance use type: does not use caffeine: Yes Type: coffee Number of servings: 8 what type of physical activity do you participate in: none ROS Const Const: Positive for fatigue; Negative for weakness, body ache or headache(s) Eyes Eyes: Negative for change in vision ENT ENT: Positive for balance problems; Negative for headache(s), dizziness or hearing loss Cardio Chest Pain: Yes Palpitations: No Edema: None Muscle aches with walking: None Resp Respiratory: Positive for SOB with activity and Cough; Negative for SOB at rest or SOB orthopnea\SOB lying down GI GI: Negative nausea, vomiting or heartburn Musc Musc: Positive for muscle aches/ myalgia, muscle weakness, joint pain and balance problems Neuro Neuro: Negative for dizziness, lightheadedness, near syncope, syncope, headache(s) or weakness Endo Endo: Positive for fatigue Cardiology Exam Const Appearance: cooperative Nutritional Appearance: obese Head Head: normal to inspection Eyes General: appearance normal, both eyes and all related structures Neck Neck: no JVD Carotids: Negative bruit Chest Chest inspection: normal inspection of the chest Auscultation: Bilateral: Diminished Lung Sounds and Crackles (Posteriorly) Cardio Rate: regular rate Rhythm: regular rhythm Heart sounds: S1 normal and S2 normal; Negative rub, gallop or murmur Distant heart tones due to body this. GI GI: bowel sounds present and obese Neuro General: patient alert and patient oriented x3 Skin Hyperpigmentation noted on both lower extremities above the ankle and below the patella. Extremities Lower Extremity Edema: Trace: Bilateral (Dense skin over the lower extremities with hyperpigmentation) Psych Psychological: normal affect Assessment & Plan Assessment/Plan (1) MARCANO (dyspnea on exertion): (2) Pulmonary hypertension: (3) Obstructive sleep apnea: (4) Atherosclerotic heart disease of [place] coronary artery without angina pectoris: QUALIFIERS: [place] vs. transplanted heart: [place] heart Qualified Code(s): I25.10 - Atherosclerotic heart disease of [place] coronary artery without angina pectoris; I25.10 - Atherosclerotic heart disease of [place] coronary artery without angina pectoris; I25.10 - Atherosclerotic heart disease of [place] coronary artery without angina pectoris (5) Essential (primary) hypertension: (6) Hyperlipidemia: QUALIFIERS: Hyperlipidemia type: pure hypercholesterolemia Qualified Code(s): E78.00 - Pure hypercholesterolemia, unspecified; E78.00 - Pure hypercholesterolemia, unspecified; E78.00 - Pure hypercholesterolemia, unspecified; E78.0 - Pure hypercholesterolemia PLAN: Plan Pt will undergo a Right heart cath. Follow up will be based on findings.
[2024-09-15 10:32] LABS: Absolute Lymphocyte Count 2.94 X10^3/uL (0.83-4.51); Absolute Neutrophil Count 6.6 X10^3/uL (2.0-7.7); Basophil# 0.05 X10^3/uL; Basophil% 0.5 % (0-1); Eosinophil# 0.15 X10^3/uL; Eosinophils% 1.4 % (0-5); Hematocrit 43.3 % (40-54); Lymphocyte # 2.94 X10^3/ul (0.83-4.51); Lymphocyte % 27.5 % (19-41); Mean Corp Hgb Conc 32.3 g/dL (32-36); Mean Corpuscular Hgb 31.3 pg (27.0-32.0); Mean Corpuscular Volume 96.7 fL (80-94); Mean Platelet Vol. 9.4 fl (6.2-12.0); Monocyte# 0.93 X10^3/uL; Monocyte% 8.7 % (0-10); NRBC Flagged by Analyzer 0 % (0-5); Neutrophil # 6.57 X10^3/uL (2.7-7.7); Neutrophil % 61.5 % (47-70); Platelet Count 367 K/mm3 (150-450); RBC Distribution Width CV 13.6 % (11.6-14.6); RBC Distribution Width SD 48.6 fl (35.1-43.9); Red Blood Count 4.48 M/mm3 (4.6-6.2); White Blood Count 10.7 K/mm3 (4.4-11.0)
[2024-09-15 12:01] LABS: Anion Gap 11 (5-15); BUN 21 mg/dL (4-19); BUN/Creat Ratio 27.2 RATIO (10-20); Calcium,Total 9.3 mg/dL (7.6-11.0); Carbon Dioxide 28.6 mmol/L (21.0-32.0); Chloride 96 mmol/L (98-108); Creatinine, Serum 0.79 mg/dL (0.70-1.20); EST Glomerular Filtration Rate 94 (>60); Glucose 141 mg/dL (70-99); Potassium 4.9 mmol/L (3.3-5.1); Sodium Level 136 mmol/L (133-145)
[2024-09-25 09:41] VITALS: BMI 41.5
[2024-09-28 09:08] LABS: Base Excess 5 mmol/L (-2 to +2); Bicarbonate 30.7 mmol/L (22-26); Blood Gas Specimen Type ART; Mode Not entered; O2 Delivery Device Not entered; PO2 59 mmHG (75-100); SITE Not entered; SO2 88 % (95-99); Total Carbon Dioxide 32 mmol/L; pCO2 53.4 mmHg (35-45); pH 7.37 (7.35-7.45)
[2024-09-28 09:35] LABS: Blood Gas Specimen Type VEN; O2 Delivery Device Not entered; SITE Not entered; VBG BASE EXCESS 4 mmol/L (-1.0-3.5); VBG Bicarbonate 30 mmol/L (22-26); VBG PO2 33 mmHg (25-40); VBG SO2 58 % (50-70); VBG TCO2 32 mmol/L (23-33); VBG pCO2 56.8 mmHg (41-51); VBG pH 7.33 (7.32-7.42)
[2024-09-28 09:47] LABS: Blood Gas Specimen Type VEN; O2 Delivery Device Not entered; SITE Not entered; VBG BASE EXCESS 5 mmol/L (-1.0-3.5); VBG Bicarbonate 31 mmol/L (22-26); VBG PO2 33 mmHg (25-40); VBG SO2 59 % (50-70); VBG TCO2 33 mmol/L (23-33); VBG pCO2 57.4 mmHg (41-51); VBG pH 7.34 (7.32-7.42)
--- NOTE | 2024-09-28 09:50 | CL.D_ITS ---
Patient Name: VICKI MAST Study Date: 09/28/2024 Performing: Marvin Elliott MD Ht: 180.34 inches 458.0636 cm : 1950 Wt: 134.72 lbs 61.108 kg Age: 73 Gender: male BSA: 3.5 PROCEDURE(S) PERFORMED DC05-(14802)RHC/LHC/COR/LV CLINICAL PROFILE AND INDICATIONS Indications: Other Heart Failure: None Stress/Imaging Stress/Image Study Performed: No CAD Presentations: Other: SOB CONCLUSIONS Single-vessel disease with totally occluded right coronary artery and [id number] collaterals and preserved left ventricular ejection fraction. RECOMMENDATIONS Aggressive risk factor modification. Consider for precedent D trial. Weight loss recommended. DESCRIPTION OF PROCEDURE The patient arrived to the procedure lab. The risks and benefits of the procedure as well as a full description of our services here and current unavailability of surgical backup were fully explained to the patient and/or their significant other prior to the catheterization. The Timeout was completed, verifying the correct patient and procedure. The patient's procedural site was prepped and draped in the usual fashion. Local anesthetic was given subcutaneously to right brachial region with Lidocaine 2%. Local anesthetic was given subcutaneously to right radial region with Lidocaine 2%. Local anesthetic was given subcutaneously to right groin region with Lidocaine 2%. Using a modified Seldinger technique, arterial access was obtained via the right radial artery, a 6Fr sheath was inserted. Venous access was obtained via the right femoral vein, a 7Fr sheath was inserted. Left Coronary Artery selective angiography was performed in multiple views using a 5 Fr. 4.0 Vista catheter. Left Ventriculography was performed in MOSS projection using a 5 Fr. Pigtail catheter. LV to AO pullback pressures were then recorded. A 7Fr thermal dilution catheter was inserted and right heart pressures were recorded, it was then advanced to PA position for cardiac outputs. Thermal dilution cardiac outputs were then recorded. O2 saturations were then obtained. The Thermal dilution catheter was then removed.The arterial sheath was pulled and a TR Band was applied for hemostasis. 13cc of air. The venous sheath was then pulled and manual compression applied until hemostasis achieved CORONARY ANGIOGRAPHY DOMINANCE: Right Dominant LEFT HEART ASSESSMENT Left Ventricular Ejection Fraction: by LV Gram 60 % Normal LV wall motion Normal Left Ventricular systolic function RIGHT HEART ASSESSMENT Katty CO: 8.16 Katty CI: 2.33 PW: 34/35 29 PA: 62/40 50 RV: 72/18 26 RA: 31/29 27 Right Heart pressures - elevated LEFT MAIN: Mild calcification, Mild luminal irregularities less than 30% LEFT ANTERIOR DESCENDING ARTERY: Mild coronary disease noted in the midsegment approximately 30%. First diagonal vessel with minimal disease and a second casino gaming worker branch with no significant stenosis noted. [id number] collaterals noted. CIRCUMFLEX ARTERY: Mild luminal irregularities less than 30% RIGHT CORONARY ARTERY: PROX RCA: is occluded COLLATERAL FLOW: Collateral flow from Left to Right COMPLICATIONS No Complications PROCEDURE MEDICATIONS Versed 1 mg IV Fentanyl 50 mcg IV Baby Aspirin (81mg) 1 Tabs PO @ 09/28/2024 07:38:01 Heparin given IA 09/28/2024 09:02:23 Verapamil 2.5mg, Ntg 100mcgs, 3000 units of Heparin given IA 09/28/2024 09:02:23 SUMMARY OF HEMODYNAMIC DATA Time AIR REST ECG 08:35:39 AO 134/79 (103) SA 09:17:44 LV 148/22, 28 09:24:54 LV 146/22, 28 09:25:03 LV 144/-3, 25 09:25:51 LVp 152/15, 30 09:26:23 AOp 152/86 (112) 09:26:30 RA 31/29 (27) SV 09:31:29 RV 72/18, 26 09:31:55 PW 34/35 (29) PV 09:37:35 PA 62/40 (50) PA 09:37:48 RV 66/16, 26 09:39:13 RA 27/25 (22) 09:39:21 ECG 09:52:48 10:08:53 Type SV CO (l/m) CI (l/m/ HR Time AIR REST Katty 118.30 8.16 2.33 69 07:45:56 Label % O2 Pres/Loc Time AIR REST AO 88 PV 09:45:09 RA 58 SV 09:45:15 PA 58 PA 09:45:19 Signed By Marvin Elliott MD On 09/28/2024 10:50:24 Signed By Marvin Elliott MD On 09/28/2024 10:08:31 Signed By Marvin Elliott MD On 09/28/2024 09:49:17 Marvin Elliott MD
[2024-09-29 15:30] LABS: Hemoglobin A1c 7.9 % (<=5.6)
== END 2024-09-28 12:00 | disposition home or self-care (01) ==
PROVIDERS: Physician Assistant Medical; PCP Family Medicine Geriatric Medicine; Referring Provider Internal Medicine Cardiovascular Disease; Visit Provider Internal Medicine Cardiovascular Disease
DX: I25.10 Atherosclerotic heart disease of native coronary artery without angina pectoris (principal); I27.20 Pulmonary hypertension, unspecified; E11.9 Type 2 diabetes mellitus without complications; I25.82 Chronic total occlusion of coronary artery; I10 Essential (primary) hypertension; E78.00 Pure hypercholesterolemia, unspecified; G47.33 Obstructive sleep apnea (adult) (pediatric); Z79.899 Other long term (current) drug therapy; Z86.16 Personal history of COVID-19; Z87.891 Personal history of nicotine dependence
CPT/HCPCS: 36415; 80048; 82043; 82570; 82803; 83036; 85025; 93460; 99152; 99153; C1894; Q9967; C1751; C1769

== ENCOUNTER → 2024-12-10 | Outpatient (CLI) | payer MEDICARE, SELFPAY ==
[2024-12-10 10:39] LABS: Absolute Lymphocyte Count 3.42 X10^3/uL (0.83-4.51); Absolute Neutrophil Count 5.5 X10^3/uL (2.0-7.7); Basophil# 0.05 X10^3/uL; Basophil% 0.5 % (0-1); Eosinophil# 0.08 X10^3/uL; Eosinophils% 0.8 % (0-5); Hematocrit 43.8 % (40-54); Hemoglobin 14.4 g/dL (13.0-16.5); Lymphocyte # 3.42 X10^3/ul (0.83-4.51); Lymphocyte % 34.2 % (19-41); Mean Corp Hgb Conc 32.9 g/dL (32-36); Mean Corpuscular Hgb 31.7 pg (27.0-32.0); Mean Corpuscular Volume 96.5 fL (80-94); Mean Platelet Vol. 9.6 fl (6.2-12.0); Monocyte# 0.93 X10^3/uL; Monocyte% 9.3 % (0-10); NRBC Flagged by Analyzer 0 % (0-5); Neutrophil # 5.51 X10^3/uL (2.7-7.7); Platelet Count 371 K/mm3 (150-450); RBC Distribution Width CV 13.9 % (11.6-14.6); Red Blood Count 4.54 M/mm3 (4.6-6.2)
[2024-12-10 11:29] LABS: Microalbumin,Random Urine 73.5 mg/L (NO RANGE EST.)
[2024-12-10 11:44] LABS: ALB/GLOB Ratio 1.4 RATIO (0.9-2.4); AST(SGOT) 32 U/L (<=37); Alanine Aminotransfer ALT/SGPT 34 U/L (<=46); Albumin, Serum 4.3 g/dL (3.4-4.8); Alkaline Phosphatase 104 U/L (40-129); Anion Gap 12 (5-15); BUN 27 mg/dL (4-19); BUN/Creat Ratio 29.1 RATIO (10-20); Calcium,Total 9.6 mg/dL (7.6-11.0); Carbon Dioxide 28.2 mmol/L (21.0-32.0); Chloride 96 mmol/L (98-108); Cholesterol 109 mg/dL (<=200); Creatinine, Serum 0.94 mg/dL (0.70-1.20); EST Glomerular Filtration Rate 86 (>60); Globulin 3.1 g/dL (2.2-4.2); Glucose 149 mg/dL (70-99); High Density Lipoprotein 31 mg/dL; Low Density Lipoprotein Calc. 51 mg/dL; Protein, Total 7.4 g/dL (5.9-8.4); Sodium Level 137 mmol/L (133-145); Total Bilirubin 0.64 mg/dL (0.00-1.30); Triglycerides 133 mg/dL; Very Low Density Lipoprotein 27 mg/dL (5-40); Vitamin D,25 Hydroxy 17.7 ng/mL (30-100); cholesterol:hdl ratio screen 3.52
== END | disposition home or self-care (01) ==
LOC: LAB 09:40
PROVIDERS: PCP Family Medicine Geriatric Medicine; Referring Provider Family Medicine Geriatric Medicine; Visit Provider Family Medicine Geriatric Medicine
DX: I10 Essential (primary) hypertension (principal); E11.65 Type 2 diabetes mellitus with hyperglycemia; E55.9 Vitamin D deficiency, unspecified; E78.5 Hyperlipidemia, unspecified
CPT/HCPCS: 36415; 80053; 80061; 82043; 82306; 82570; 84443; 85025

== ENCOUNTER 2025-03-09 06:47 | Outpatient (CLI) | payer MEDICARE, SELFPAY ==
--- NOTE | 2025-03-09 06:53 | CT_ITS ---
PROCEDURE: LOW DOSE CT LUNG SCREENING 03/09/2025 REASON FOR EXAM: SMOKER QUIT 2021 Patient has smoked 1 pack per day for 53 years. COPD and hypertension. TECHNIQUE: Procedure Code: [id number] Modality: CT Procedure: LOW DOSE CT LUNG SCREENING Coronal and Sagittal reconstruction series were provided. One or more dose reduction techniques were used (e.g., Automated exposure control, adjustment of the mA and/or kV according to patient size, use of iterative reconstruction technique). REFERENCE LINK: [employer] Lung-RADS RADIATION DOSE SUMMARY: CTDlvol: 4.02 mGy DLP: 130.89 mGycm COMPARISON: Prior study dated February 28, 2024. FINDINGS: PULMONARY NODULES: (Only nodules >3mm are reported) Nodules described below are on series 1 unless otherwise specified. Pulmonary Nodules: Stable 5 mm noncalcified nodule in the right upper lobe as seen on axial image number 44. Stable 3 mm noncalcified nodule posterior left upper lobe. Stable 4 mm noncalcified nodule in the right lower lobe. Hardware:None Lymph Nodes:Calcified right hilar and right infrahilar lymph nodes. Heart and Vasculature:The heart is nonenlarged.Atherosclerotic plaque formation of the aortic arch and descending thoracic aorta. Coronary Artery Calcifications: Present Lungs and Airways: No focal consolidation. Pleura:Stable pleural thickening bilaterally. Upper Abdomen:Unremarkable Bones:Multiple healed right-sided rib fractures. CT/Low Dose CT Lung Screening IMPRESSION: Stable examination. Coronary artery calcification (CAC) is is present Lung-RADS Category: 2 BENIGN (BASED ON IMAGING FEATURES OR INDOLENT BEHAVIOR). RECOMMEND 12-MONTH SCREENING LDCT. Other Significant Findings: Reading Location: [facility]
--- OUTSIDE RECORDS SUMMARY | 2025-03-09 06:55 | XMS RPT_ITS | CCD ---
Author Organization [facility] Care Team Providers Care Employer Relations Representative Name Role Phone Kassidy Petersen Unavailable York, Swapna L Unavailable Unavailable York, Swapna L Unavailable Unavailable York, Swapna L Unavailable Unavailable VRABEC, AYAAN A Unavailable Unavailable VRABEC, AYAAN A Unavailable Unavailable NO REFERRING DR Unavailable Unavailable VRABEC, AYAAN A Unavailable Unavailable VRABEC, AYAAN A Unavailable Unavailable VRABEC, AYAAN A Unavailable Unavailable VRABEC, AYAAN A Unavailable Unavailable VRABEC, AYAAN A Unavailable Unavailable Milton Milton Primary Care Provider Milton Milton MD Primary Care Provider Dr. Massimo Epperson Chi Primary Care Provider 1([facility])[phone] Dr. Lisandra Hamm Emergency Provider Dr. Jorge Jacobs Admit Provider Dr. Jorge Jacobs Attending Provider Dr. Jorge Jacobs Other Provider 1([facility])[phone] Massimo Epperson Chi Referring Provider Dr. Massimo Epperson Chi Other Provider Dr. Juan Manuel Schmitt Attending Provider Roof MANAGER UTILIZATION MANAGEMENT, MANAGER UTILIZATION MANAGEMENT-C Jordon Uribe Attending Provider Roof MANAGER UTILIZATION MANAGEMENT, MANAGER UTILIZATION MANAGEMENT-C Jordon Uribe Other Provider 1([facility])[phone] Marvin Elliott Attending Provider Dr. Massimo Epperson Chi Primary Care Provider 1([facility])[phone] Dr. Jose Amezquita Attending Provider 1([facility])[phone] Dr. Ritesh Koehler Emergency Provider 1([facility])[phone] Jose Angel Gold Admit Provider Dr. Jose Angel Gold Attending Provider Alla, Dr. Walter Other Provider PITER VAZQUEZ Unavailable Zhou, Dr. Massimo Marie Primary Care Provider Zhou, Dr. Massimo Marie Referring Provider Schroeder MANAGER UTILIZATION MANAGEMENT, MANAGER UTILIZATION MANAGEMENT-C Marissa Attending Provider Friend, Dr. Shin Attending Provider Friend, Dr. Shin Referring Provider Friend, Dr. Shin Other Provider Zhou, Dr. Massimo Marie Primary Care Provider Nirali SMITH PAKirit Cody Attending Provider Dr. Jose Amezquita Referring Provider Hzou, Dr. Massimo Marie Referring Provider Dr. Juan Manuel Schmitt Attending Provider Roof MANAGER UTILIZATION MANAGEMENT, MANAGER UTILIZATION MANAGEMENT-Kristyn Uribe Attending Provider Zhou, Dr. Massimo Marie Primary Care Provider Zhou, Dr. Massimo Marie Referring Provider Zhou, Dr. Massimo Marie Primary Care Provider Zhou, Dr. Massimo Marie Referring Provider Dr. Marvin Elliott Attending Provider Zhou, Dr. Massimo Marie Primary Care Provider Dr. Jabier Babin Emergency Provider Dr. Jose Angel Gold Admit Provider Dr. Jose Angel Gold Attending Provider Dr. Jose Angel Gold Other Provider Zhou, Dr. Massimo Marie Primary Care Provider Zhou, Dr. Massimo Marie Referring Provider Alexandre MANAGER UTILIZATION MANAGEMENT, MANAGER UTILIZATION MANAGEMENT-C Marissa Attending Provider José Miguel MANAGER UTILIZATION MANAGEMENT, MANAGER UTILIZATION MANAGEMENT-C Jordon Uribe Attending Provider Dr. Juan Manuel Schmitt Attending Provider Dr. Juan Manuel Schmitt Referring Provider Dr. Juan Manuel Schmitt Other Provider Dr. Lavell Andre Attending Provider Zhou BARBOSA, Dr. Massimo Marie Primary Care Provider [phone] Zhou BARBOSA, Dr. Massimo Marie Attending Provider Zhou BARBOSA, Dr. Massimo Marie Referring Provider Dr. Conner Lazaro DO Attending Provider Tejas RAMIREZ, Dr. Prieto Emergency Provider Le Christensen Attending Provider Le Christensen Referring Provider Le Christensen Other Provider Dr. Juan Manuel Schmitt DO Attending Provider Earl BARBOSA, Dr. Wong Other Provider Earl BARBOSA, Dr. Wong Attending Provider Dr. Marvin Elliott MD Referring Provider Zhou BARBOSA, Dr. Massimo Marie Primary Care Provider [phone] Le Christensen Attending Provider Zhou BARBOSA, Dr. Massimo Marie Referring Provider Alexandre ZAPIEN-C, Marissa Attending Provider Zhou BARBOSA, Dr. Massimo Marie Attending Provider Zhou BARBOSA, Dr. Massimo Marie Primary Care Provider [phone] Dr. Bertram Dove MD Attending Provider Massimo Epperson Chi Primary Care [facility] Conner Lazaro Attending Unavailabl e Zhou, Massimo Chi Primary Care Unavailable Zhou, Massimo Chi Referring Unavailable Zhou, Massimo Chi Attending Unavailable Zhou, Massimo Chi Primary Care Unavailable Alexandre MANAGER UTILIZATION MANAGEMENT, Marissa Referring Unavailable Alexandre MANAGER UTILIZATION MANAGEMENT, Marissa Attending Unavailable Zhou, Massimo Chi Primary Care Unavailable Le Christensen Attending Unavail able Le Christensen Referring Unavail able Zhou, Massimo Chi Primary Care Unavailable Earl, Marvin Referring Unavailable [place] Attending Unavailable Zhou, Massimo Chi Primary Care Unavailable Le Christensen Consulting Unavail able Le Christensen Referring Unavail able Juan Manuel Schmitt Attending Unavailable Zhou, Massimo Chi Primary Care Unavailable Le Christensen Attending Unavail able Earl, [place] Consulting Unavailable Zhou, Massimo Chi Primary Care Unavailable Zhou, Massimo Chi Referring Unavailable Schroeder MANAGER UTILIZATION MANAGEMENT, Marissa Attending Unavailable Zhou, Massimo Chi Primary Care Unavailable Zhou, Massimo Chi Referring Unavailable Bertram Dove Attending Unavailable Zhou, Massimo Chi Primary Care Unavailable Zhou, Massimo Chi Referring Unavailable Le Christensen Attending Unavail able Zhou, Massimo Chi Primary Care Unavailable Zhou, Massimo Chi Referring Unavailable Schroeder MANAGER UTILIZATION MANAGEMENT, Marissa Attending Unavailable Zhou, Massimo Chi Primary Care Unavailable Le Christensen M Attending Unavail able Le Christensen Referring Unavail able Zhou, Massimo Chi Primary Care Unavailable Alexandre MANAGER UTILIZATION MANAGEMENT, Marissa Referring Unavailable Schroeder MANAGER UTILIZATION MANAGEMENT, Marissa Attending Unavailable Zhou, Massimo Chi Primary Care Unavailable Zhou, Massimo Chi Referring Unavailable Zhou, Massimo Chi Attending Unavailable Allergies Allergy Classification Reported Allergen(s) Allergy Type Date of Onset Reaction(s) Facility (4 sources) ADHESIVE PAPER drug allergy 7 red/itchy [facility] Work Phone: (8 sources) NKDA; Translations: [NKDA] allergy to substance 6 [facility] Work Phone: (3 sources) Adhesive agent; Translations: [ADHESIVE] Propensity to adverse reactions (disorder) RED/ITCHY [facility] Repository (6 sources) Adhesive Tape Allergy to substance 6 Itching [facility] (18 sources) Adhesive Tape; Translations: [adhesive tape] Propensity to adverse reactions 2 red/itchy [facility] Medications Current Medications Medication Drug Class(es) Dates Sig (Normalized) Sig (Original) [id number] actuat albuterol 0.09 mg/actuat metered dose inhaler (18 sources) beta2-Adrenergic Agonist Start: 03-14-2023 Albuterol Sulfate (Ventolin Hfa) 90 mcg/actuation HFA aerosol inhaler Active 2 NMA INHALATION Q4H as needed for shortness of breath or wheezing 23 12March 14, 2023 12:00am Start: 03-14-2023 take 1 puff(s) by in halation every four hours Albuterol Sulfate (Ventolin Hfa) 90 mcg/actuation HFA aerosol inhaler Active 2 PUFF INHALATION Q4H March 13, 2023 11:00pm Start: 07-09-2021 End: 08-25-2021 take 2 ug by inhalation every four hours as needed Albuterol Discontinued 2 MCG INHALATION EVERY 4 HOURS NEEDED July 09, 2021 7:20am August 25, 2021 11:07am Start: 07-09-2021 End: 08-25-2021 take 2 ug by inhalation every four hours as needed Albuterol Discontinued 2 MCG INHALATION EVERY 4 HOURS NEEDED July 09, 2021 12:00am August 25, 2021 10:07am Start: 07-09-2021 End: 08-25-2021 take 2 ug by inhalation every four hours as needed Albuterol Discontinued 2 MCG INHALATION EVERY 4 HOURS NEEDED July 09, 2021 1:00am August 25, 2021 11:07am aspirin 81 mg delayed release oral tablet (20 sources) Nonsteroidal Anti-inflammatory Drug Start: 07-16-2024 Aspirin (Adult Lo w Dose Aspirin) 81 mg tablet,delayed release (DR/EC) Active 81 mg PO daily July 16, 2024 1:00am Start: 11-29-2021 End: 05-25-2022 take 1 tablet by mouth once daily Aspirin (Adult Aspirin Regimen) 81 mg tablet,delayed release (DR/EC) Discontinued 81 mg PO DAILY November 29, 2021 12:00am May 25, 2022 9:29am heart Start: 01-23-2016 End: 08-25-2021 take 1 tablet by mouth once daily Aspirin (Adult Aspirin Regimen) 81 mg tablet,delayed release (DR/EC) Discontinued 81 mg PO daily July 11, 2017 1:00am August 25, 2021 11:08am Start: 01-23-2016 take 1 tablet by ramon th once daily ASPIRIN 81 MG TABS One tablet by mouth daily ASPIRIN [id number] Ashlee Fan RN take 1 tablet by ramon th every twenty-four hours Aspirin 81 MG 1 tablet Orally Once a day for 30 day(s) Active atenolol 50 mg oral tablet (20 sources) beta-Adrenergic Juan Start: 01-18-2016 Atenol ol 50 MG tablet Active 25 mg PO DAILY January 18, 2016 12:00am heart Start: 01-18-2016 take 25 mg by mouth once daily Atenolol Active 25 MG PO DAILY January 17, 2016 11:00pm Start: 01-12-2016 take 1 tablet by ramon th once daily ATENOLOL 50 MG TABS One tablet by mouth daily ATENOLOL [id number] Swapna Engle LPN take 1 tablet by ramon th once daily atenolol (TENORMIN) 25 mg tablet Take 25 mg by mouth once daily. 0 Active Comment on above: Take 25 mg by mouth once daily. atorvastatin 40 mg oral tablet (20 sources) HMG-CoA Reductase Inhibitor Start: 3 take 1 tablet by mouth once daily Atorvastatin 40 mg tablet Active 40 mg PO DAILY March 27, 2023 8:56am cholesterol Start: 09-25-2021 End: 03-27-2023 take 10 mg by mouth once daily Atorvastatin 40 mg tabl et Discontinued 10 mg PO DAILY September 25, 2021 12:00am March 27, 2023 8:57am cholesterol Start: 09-25-2021 End: 03-27-2023 take 10 mg by mouth once daily Atorvastatin Discontinu ed 10 MG PO DAILY September 24, 2021 11:00pm March 27, 2023 7:57am Start: 09-25-2021 take 40 mg by mouth once daily Atorvastatin Active 40 MG PO DAILY September 25, 2021 2:41pm Start: 04-06-2020 End: 09-25-2021 take 4 tablets by mouth at bedtime Atorvastatin 10 mg tablet Discontinued 40 mg PO AT BEDTIME April 06, 2020 12:00am September 25, 2021 2:41pm Start: 04-06-2020 End: 09-25-2021 take 40 mg by mouth at bedtime Atorvastatin Discontinu ed 40 MG PO AT BEDTIME April 05, 2020 11:00pm September 25, 2021 1:41pm Start: 01-23-2016 End: 05-10-2017 atorvastatin (LIPITOR) 10 mg tablet doxycycline hyclate 100 mg oral capsule (1 source) Tetracycline-class Drug Start: 12-28-2021 take 100 mg by mouth twice daily Doxycycline Hyclate Active 100 MG PO TWICE A DAY December 28, 2021 12:00am Finerenone (2 sources) Start: 10-26-2024 take 1 tablet by mouth once daily Finerenone (Kerendia) 20 mg tablet Active 20 mg PO daily October 26, 2024 12:00am levocetirizine dihydrochloride 5 mg oral tablet (13 sources) Histamine-1 Receptor Antagonist Start: 12-28-2021 take 1 tablet by mouth once daily Levocetirizine (Xyzal) 5 mg Tablet Active 5 mg PO DAILY December 28, 2021 12:00am Xyzal Active metFORMIN hydrochloride 500 mg oral tablet (20 sources) Biguanide Start: 11-29-2021 take 2 tablets by mouth twice daily Metformin 500 mg tablet Active 1000 mg PO TWICE A DAY November 29, 2021 12:00am dm Start: 11-29-2021 take 1000 mg by mout h twice daily Metformin Active 1000 MG PO TWICE A DAY November 28, 2021 11:00pm Start: 11-29-2021 take 500 mg by mouth twice daily Metformin Active 500 MG PO TWICE A DAY November 29, 2021 12:00am Start: 04-06-2020 End: 08-25-2021 take 1 tablet by mouth twice daily Metformin 500 mg tablet Discontinued 500 mg PO TWICE A DAY April 06, 2020 12:00am August 25, 2021 11:09am Semaglutide 2 mg/dose (8 mg/ 3 mL) pen injector (1 source) Start: 01-03-2025 Semaglutide 2 mg/dose (8 mg/3 mL) pen injector Active 2 mg SC EVERY WEEK 3 04 06January 03, 2025 9:13am Completed/Discontinued Medications Medication Drug Class(es) Dates Sig (Normalized) Sig (Original) 8 hr acetaminophen 650 mg extended release oral tablet (7 sources) Start: 10-04-2022 End: 12-03-2023 take 1 tablet by mouth every eight hours Acetaminophen (Tylenol Arthritis Pain) 650 mg tablet extended release Discontinued 650 mg PO Q8H October 04, 2022 12:00am December 03, 2023 9:41am acetaminophen 325 mg / HYDROcodone bitartrate 5 mg oral tablet (5 sources) Opioid Agonist Start: 02-17-2016 HYDROcodone-acetam inophen (NORCO) 5-325 mg per tablet One to Two tablets every 6-8 hours as needed for pain 60 tablet 0 02/17/2016 Active Comment on above: One to Two tablets e very 6-8 hours as needed for pain Albuterol 90 mcg/actuation Aerosol (3 sources) Start: 07-09-2021 End: 08-25-2021 take 2 ug by inhalation every four hours as needed Albuterol 90 mcg/actuation Aerosol Discontinued 2 ug INHALATION EVERY 4 HOURS NEEDED as needed for SOB July 09, 2021 1:00am August 25, 2021 11:07am azithromycin 250 mg oral tablet (20 sources) Macrolide Antimicrobial Start: 07-09-2021 End: 08-25-2021 take 1 tablet by mouth once daily Azithromycin (Zithromax) 250 mg Tablet Discontinued 250 mg PO DAILY 0 0 July 11, 2021 11:41am August 25, 2021 11:09am Complete medication duration. betamethasone 0.5 mg/ml / clotrimazole 10 mg/ml topical cream (5 sources) Azole Antifungal, Corticosteroid Start: 03-20-2016 clotrimazole-betam ethasone (LOTRISONE) cream cefdinir 300 mg oral capsule (17 sources) Cephalosporin Antibacterial Start: 07-09-2021 End: 07-11-2021 take 1 capsule by mouth twice daily Cefdinir 300 mg Capsule Discontinued 300 mg PO TWICE A DAY July 09, 2021 1:00am July 11, 2021 11:38am ciprofloxacin 3 mg/ml ophthalmic solution (4 sources) Quinolone Antimicrobial Start: 11-02-2016 ciprofloxacin HCl (CILOXAN) 0.3 % ophthalmic solution dexamethasone 4 mg oral tablet (13 sources) Corticosteroid Start: 12-01-2021 End: 12-22-2021 take 6 mg by mouth once daily Dexamethasone 4 mg Tablet Discontinued 6 mg PO DAILY@0800 12 8 0 December 01, 2021 12:00am December 22, 2021 9:01am Start: 12-01-2021 End: 12-22-2021 take 6 mg by mouth once daily Dexamethasone Discontinu ed 6 MG PO DAILY@0800 12 8 November 30, 2021 11:00pm December 22, 2021 8:01am docusate sodium 50 mg / sennosides, fci 8.6 mg oral tablet (5 sources) Start: 02-17-2016 take 1 tablet by mouth once daily as needed for constipation senna-docusate (SENNA WITH DOCUSATE SODIUM) 8.6-50 mg per tablet Take 1 tablet by mouth once daily. As needed for constipation 20 tablet 0 02/17/2016 Active Comment on above: Take 1 tablet by ramon th once daily. As needed for constipation 0.4 ml enoxaparin sodium 100 mg/ml prefilled syringe (5 sources) Low Molecular Weight Heparin Start: 02-03-2016 enoxaparin (LOVENOX) 40 mg/0.4 mL syrg Finerenone (3 sources) Start: 04-27-2024 End: 10-26-2024 take 1 tablet by mouth once daily Finerenone (Kerendia) 10 mg tablet Discontinued 10 mg PO daily April 27, 2024 12:00am October 26, 2024 12:54pm Start: 04-27-2024 take 1 tablet by ramon th once daily Finerenone (Kerendia) 10 mg tablet Active 10 mg PO daily April 27, 2024 12:00am glipiZIDE 5 mg oral tablet (17 sources) Sulfonylurea Start: 07-11-2021 End: 08-25-2021 take 1 tablet by mouth twice daily Glipizide 5 mg tablet Discontinued 5 mg PO TWICE A DAY 60 0 July 11, 2021 1:00am August 25, 2021 11:08am Hold if glucose less than 130 mg/dl 12 hr guaiFENesin 600 mg extended release oral tablet (9 sources) Start: 03-09-2023 End: 03-27-2023 take 1 tablet by mouth every twelve hours, then take 1 tablet by mouth every twelve hours Guaifenesin (Mucinex) 600 mg tablet extended release 12hr Discontinued 600 mg PO Q12H 60 11 March 14, 2023 11:31am March 27, 2023 8:57am 12 hr guaiFENesin 1200 mg / pseudoephedrine hydrochloride 120 mg extended release oral tablet (17 sources) alpha-Adrenergic Agonist Start: 07-11-2021 End: 08-25-2021 take 120-1200 mg by mouth every twelve hours Pseudoephedrine-G uaifenesin (Mucinex D Maximum Strength) 120-1,200 mg tablet extended release 12 hr Discontinued 1 {tbl} PO Q12H 14 0 July 11, 2021 1:00am August 25, 2021 11:08am cold symptoms hydroCHLOROthiazide 50 mg / triamterene 75 mg oral tablet (20 sources) Potassium-sparing Diuretic, Thiazide Diuretic Start: 09-25-2021 End: 12-28-2021 take 0.5 tablet by mouth once daily Triamterene-[place] chlorothiazid Discontinued 0.5 TABLET PO DAILY September 24, 2021 11:00pm December 28, 2021 2:18pm Start: 07-09-2021 End: 08-25-2021 take 0.5 tablet by mouth once daily Triamterene-Hydrochlorothiazid Discontin ued 0.5 TABLET PO DAILY 0 July 11, 2021 10:41am August 25, 2021 10:09am Hold for potassium more than 5.0 Start: 01-12-2016 End: 12-28-2021 take 5 tablets by mouth once daily Triamterene-Hydrochlorothiazid 75-50 mg Tablet Discontinued 0.5 {tbl} PO DAILY 0 0 July 11, 2021 11:41am August 25, 2021 11:09am Hold for potassium more than 5.0 Start: 01-12-2016 take 1 tablet by ramon once daily TRIAMTERENE-HCTZ 37.5-25 MG TABS One tab let by mouth daily TRIAMTERENE-HCTZ [id number] Marvin Elliott MD Comment on above: Take 1 tablet by ramon once daily. ipratropium bromide 0.042 mg/actuat metered dose nasal spray (10 sources) Anticholinergic Start: 01-17-2022 End: 05-25-2022 Ipratropium [place] 42 mcg (0.06 %) spray,non-aerosol Discontinued 1 NMA INTRANASAL TWICE A DAY January 17, 2022 12:00am May 25, 2022 9:30am Start: 01-17-2022 End: 05-25-2022 Ipratropium [place] Disconti nued 1 SPRAY INTRANASAL TWICE A DAY January 16, 2022 11:00pm May 25, 2022 8:30am ketorolac tromethamine 4 mg/ml ophthalmic solution (4 sources) Nonsteroidal Anti-inflammatory Drug, Cyclooxygenase Inhibitor Start: 11-04-2016 Ketorolac Tromethamine (ACLUAR LS) 0.4 % drop levoFLOXacin 750 mg oral tablet (9 sources) Quinolone Antimicrobial Start: 03-14-2023 End: 03-17-2023 take 1 tablet by mouth every twenty-four hours Levofloxacin 750 mg tablet Discontinued 750 mg PO Q24H 3 3 March 14, 2023 12:00am March 16, 2023 12:00am March 17, 2023 12:04am Start: 03-09-2023 End: 03-14-2023 take 1 tablet by mouth once daily Levofloxacin 750 mg tablet Discontinued 750 mg PO DAILY 5 0 March 09, 2023 12:00am March 14, 2023 11:04am start 02/07 linaclotide 0.072 mg oral capsule (14 sources) Guanylate Cyclase-C Agonist Start: 11-29-2021 End: 10-04-2022 take 1 capsule by mouth once daily Linaclotide (Linzess) 72 mcg capsule Discontinued 72 ug PO DAILY November 29, 2021 12:00am October 04, 2022 9:06am bowels Linzess 72 MCG 1 capsule at least 30 minutes before the first meal of the day on an empty stomach Orally Once a day for 30 day(s) Active lisinopril 2.5 mg oral tablet (20 sources) Angiotensin Converting Enzyme Inhibitor Start: 01-17-2022 End: 03-26-2023 take 1 tablet by mouth once daily Lisinopril 2.5 mg tablet Discontinued 2.5 mg PO DAILY May 25, 2022 9:44am March 26, 2023 9:09am Start: 01-17-2022 End: 05-25-2022 Lisinopril 2.5 mg tablet Discontinued 1 {tbl} PO DAILY January 17, 2022 12:00am May 25, 2022 9:44am Start: 07-09-2021 End: 08-25-2021 take 1 tablet by mouth once daily Lisinopril 2.5 mg Tablet Discontinued 2.5 mg PO DAILY July 09, 2021 1:00am August 25, 2021 11:09am oxyCODONE hydrochloride 5 mg oral tablet (5 sources) Opioid Agonist Start: 02-04-2016 oxyCODONE immediate release (PERCOLONE) 5 mg immediate release tablet polyethylene glycol 3350 446334 mg / potassium chloride 2970 mg / sodium bicarbonate 6740 mg / sodium chloride 5860 mg / sodium sulfate 91597 mg powder for oral solution (4 sources) Osmotic Laxative Start: 09-05-2021 peg 3350-Electrolytes (GOLYTELY) 236-22.74-6.74 -5.86 gram suspension Refer to printed prep instructions from your provider. 4000 mL 0 09/05/2021 Active Comment on above: Refer to printed pre p instructions from your provider. pravastatin sodium 20 mg oral tablet (20 sources) HMG-CoA Reductase Inhibitor Start: 07-07-2017 End: 04-06-2020 take 1 tablet by mouth at bedtime Pravastatin 20 mg tablet Discontinued 20 mg PO AT BEDTIME July 07, 2017 1:00am April 06, 2020 3:16pm Start: 05-10-2017 take 1 tablet by ramon once daily PRAVACHOL 20 MG TABS One tablet by mouth daily PRAVASTATIN SODIUM [id number] Swapna Engle LPN prednisoLONE acetate 10 mg/ml ophthalmic suspension (4 sources) Corticosteroid Start: 11-02-2016 prednisoLONE a cetate (PRED FORTE, ECONOPRED PLUS) 1 % ophthalmic suspension predniSONE 10 mg oral tablet (20 sources) Start: 03-14-2023 End: 03-27-2023 Prednisone 10 mg tablet Discontinued 10 mg PO daily 30 0 March 14, 2023 12:00am March 27, 2023 8:57am take 4 tabs for three days, then 3 tabs for three days, then 2 tabs for three days, then 1 tab for 3 days Start: 03-09-2023 End: 03-14-2023 take 2 tablets by mouth at breakfast Prednisone 20 mg Tablet Discontinued 40 mg PO WITH BREAKFAST 8 4 0 March 09, 2023 12:00am March 14, 2023 11:04am Start: 03-09-2023 End: 03-14-2023 take 40 mg by mouth at breakfast Prednisone Discontinu ed 40 MG PO WITH BREAKFAST 8 March 08, 2023 11:00pm March 14, 2023 10:04am Start: 07-11-2021 End: 08-25-2021 Prednisone 10 mg tablet Discontinued 10 mg PO DAILY 30 July 11, 2021 1:00am August 25, 2021 11:08am 40 mg daily for 3 days, 30 mg for 3 days, 20 mg for 3 days then 10 mg for 3 days Start: 07-11-2021 End: 08-25-2021 Prednisone Discontinued 10 M G PO DAILY July 11, 2021 12:00am August 25, 2021 10:08am 40 mg daily for 3 days, 30 mg for 3 days, 20 mg for 3 days then 10 mg for 3 days Start: 07-09-2021 End: 07-11-2021 take 1 tablet by mouth once daily Prednisone 10 mg Tablet Discontinued 10 mg PO DAILY July 09, 2021 1:00am July 11, 2021 11:39am Semaglutide (2 sources) Start: 12-07-2024 End: 01-03-2025 Semaglutide (Ozempic) 1 mg/d ose (4 mg/3 mL) pen injector Discontinued 1 mg SC EVERY WEEK 3 December 07, 2024 12:00am January 03, 2025 12:00am January 03, 2025 9:13am Start: 12-07-2024 Semaglutide (O zempic) 1 mg/dose (4 mg/3 mL) pen injector Active 1 mg SC EVERY WEEK 3 December 07, 2024 12:00am January 03, 2025 12:00am Semaglutide (4 sources) Start: 11-09-2024 End: 12-07-2024 Semaglutide (Ozempic) 0.25 m g or 0.5 mg (2 mg/3 mL) pen injector Discontinued 0.5 mg SC EVERY WEEK 3 November 09, 2024 2:34pm December 06, 2024 12:00am December 07, 2024 12:07am for 4 weeks Start: 11-09-2024 End: 12-07-2024 Semaglutide (Ozempic) 0.25 m g or 0.5 mg (2 mg/3 mL) pen injector Discontinued 0.5 mg SC EVERY WEEK 3 November 09, 2024 2:34pm December 06, 2024 12:00am December 07, 2024 12:07am for 4 weeks Start: 10-18-2024 End: 11-09-2024 Semaglutide (Ozempic) 0.25 m g or 0.5 mg (2 mg/3 mL) pen injector Discontinued 0.25 mg SC EVERY WEEK 3 October 18, 2024 12:00am November 14, 2024 12:00am November 09, 2024 2:35pm for 4 weeks Start: 10-18-2024 End: 11-09-2024 Semaglutide (Ozempic) 0.25 m g or 0.5 mg (2 mg/3 mL) pen injector Discontinued 0.25 mg SC EVERY WEEK 3 October 18, 2024 12:00am November 14, 2024 12:00am November 09, 2024 2:35pm for 4 weeks Problems Active Problems Problem Classification Problem Date Documented Date Episodic/Chronic Biliary tract disease (16 sources) Calculus of gallbladder with cholecystitis; Translations: [Calculus of gallbladder with chronic cholecystitis without obstruction] Onset: 11-17-2021 Resolved: 11-17-2021 Episodic Cardiac dysrhythmias (15 sources) Irregular heart beat; Translations: [Cardiac arrhythmia, unspecified] Chronic Chronic obstructive pulmonary disease and bronchiectasis (6 sources) Bronchiectasis; Translations: [Bronchiectasis, uncomplicated] 03-08-2023 Chronic Conditions associated with dizziness or vertigo (5 sources) Lightheadedness; Translations: [Dizziness and giddiness] 03-27-2023 Episodic Comment on above: The patient continue s to complain of lightheadedness he states it is now progressive and he is requesting ultrasound of the carotids. He does have known atherosclerotic disease I do not auscultate any bruits. Given the increasing dizziness will obtain carotid ultrasound Coronary atherosclerosis and other heart disease (20 sources) Atherosclerotic heart disease of [place] coronary artery without angina pectoris; Translations: [Coronary atherosclerosis] Onset: 01-25-2016 Resolved: 11-17-2021 01-25-2016 Chronic Comment on above: Patient has a histor y of an occluded right coronary cath in 2015. He had a 50% LAD lesion and ectatic circumflex vessel. LV function was normal. 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 The patient is now complaining of progressive dyspnea on exertion. He had a history of a normal stress test in 2021. Diabetes mellitus without complication (6 sources) Type 2 diabetes mellitus without complication; Translations: [Type 2 diabetes mellitus without complications] Onset: 11-17-2021 Resolved: 11-17-2021 Chronic Disorders of lipid metabolism (20 sources) Hyperlipidemia; Translations: [Hyperlipidemia, unspecified] Onset: 06-25-2016 Resolved: 11-17-2021 06-25-2016 Chronic Comment on above: We do not have lipid s since September 2022. The patient was adequately controlled at that time on his atorvastatin. Essential hypertension (20 sources) Hypertensive disorder; Translations: [Essential (primary) hypertension] Onset: 01-12-2016 Resolved: 11-17-2021 01-12-2016 Chronic Hyperplasia of prostate (1 source) Benign prostatic hyperplasia without lower urinary tract symptoms; Translations: [BENIGN PROSTATIC HYPRPLA] Onset: 01-21-2017 Chronic Osteoarthritis (4 sources) Unilateral primary osteoarthritis, left knee; Translations: [Primary generalized (osteo)arthritis] Onset: 01-21-2017 Resolved: 11-17-2021 Chronic Other circulatory disease (3 sources) Pulmonary congestion ; Translations: [Other specified symptoms and signs involving the circulatory and respiratory systems] 07-22-2024 Episodic Other connective tissue disease (1 source) Presence [...] Translations: [Venous insufficiency (chronic) (peripheral)] Episodic Other lower respiratory disease (12 sources) Hypoxemia; Translations: [Hypoxemia] 11-30-2021 Episodic Other lower respiratory disease (12 sources) Wheezing; Translations: [Wheezing] 12-07-2021 Episodic Other lower respiratory disease (2 sources) Wheezing; Translations: [Wheezing] Episodic Other lower respiratory disease (4 sources) Hypoxemia; Translations: [Hypoxemia] Episodic Other lower respiratory disease (5 sources) Hypoxia; Translations: [Hypoxemia] 03-08-2023 Episodic Other lower respiratory disease (7 sources) Dyspnea on exertion; Translations: [Other forms of dyspnea] 01-01-2024 Episodic Other nutritional; endocrine; and metabolic disorders (2 sources) Obesity, unspecified; Translations: [Obesity, unspecified] Onset: 01-21-2017 Chronic Other nutritional; endocrine; and metabolic disorders (15 sources) Obesity; Translations: [Obesity, unspecified] 11-11-2015 Chronic Other nutritional; endocrine; and metabolic disorders (6 sources) Body mass index 30+ - obesity; Translations: [Body mass index (BMI) 39.0-39.9, adult] Chronic Other nutritional; endocrine; and metabolic disorders (1 source) Body mass index (BMI) 39.0-39.9, adult; Translations: [Body Mass Index 39.0-39.9, adult] Chronic Other nutritional; endocrine; and metabolic disorders (2 sources) Morbid obesity; Translations: [Morbid (severe) obesity due to excess calories] Chronic Other nutritional; endocrine; and metabolic disorders (1 source) Morbid (severe) obesity due to excess calories Onset: 11-17-2021 Resolved: 11-17-2021 Chronic Other upper respiratory disease (6 sources) Allergic rhinitis; Translations: [Allergic rhinitis, unspecified] Chronic Other upper respiratory infections (19 sources) Upper respiratory infection; Translations: [Acute upper respiratory infection, unspecified] Episodic Pneumonia (except that caused by tuberculosis or sexually transmitted disease) (9 sources) Pneumonia; Translations: [Pneumonia, unspecified organism] 03-08-2023 Episodic Pulmonary heart disease (6 sources) Pulmonary hypertension; Translations: [Pulmonary hypertension, unspecified] 08-13-2024 Chronic Residual codes; unclassified (20 sources) Obstructive sleep apnea syndrome; Translations: [Obstructive sleep apnea (adult) (pediatric)] 03-06-2022 Chronic Comment on above: BiPAP 18/12 cmH2O Residual codes; unclassified (12 sources) Obstructive sleep apnea (adult) (pediatric); Translations: [Obstructive sleep apnea (adult)(pediatric)] Onset: 11-17-2021 Resolved: 11-17-2021 Chronic Residual codes; unclassified (1 source) Edema of lower extremity; Translations: [Localized edema] Episodic Residual codes; unclassified (1 source) Localized edema; Translations: [Edema] Episodic Residual codes; unclassified (3 sources) Peripheral edema; Translations: [Localized edema] 07-22-2024 Episodic Respiratory failure; insufficiency; arrest (adult) (15 sources) [id number]-rqoxsqz respiratory failure; Translations: [Acute and chronic respiratory failure with hypoxia] Chronic Respiratory failure; insufficiency; arrest (adult) (10 sources) Acute respiratory failure; Translations: [Acute respiratory failure with hypoxia] 03-08-2023 Episodic Substance-related disorders (20 sources) Nicotine dependence; Translations: [Cigarette smoker ] Onset: 01-12-2016 01-12-2016 Chronic Comment on above: quit in 2019 Unclassified (9 sources) Body mass index (BMI) 37.0-37.9, adult; Translations: [Obstructive sleep apnea syndrome] Onset: 01-12-2016 01-12-2016 Chronic Unclassified (20 sources) Abnormal findings on diagnostic imaging of heart and coronary circulation; Translations: [Patient encounter status] Onset: 01-11-2016 Resolved: 06-25-2016 01-11-2016 Episodic Unclassified (4 sources) Long-term drug therapy; Translations: [Other snf (current) drug therapy] Onset: 06-25-2016 06-25-2016 Unclassified (1 source) Unknown / UNK(Unknown) Onset: 02-11-2017 Past or Other Problems Problem Classification Problem Date Documented Date Episodic/Chronic Fluid and electrolyte disorders (1 source) Hyperkalemia; Translations: [HYPERKALEMIA] Onset: 01-21-2017 Episodic Nonspecific chest pain (20 sources) Chest pain; Translations: [Chest pain, unspecified] Onset: 08-07-2024 Episodic Other diseases of veins and lymphatics (1 source) Venous insufficiency (chronic) (peripheral) Onset: 11-17-2021 Resolved: 11-17-2021 Episodic Other lower respiratory disease (2 sources) Other forms of dyspnea; Translations: [Other forms of dyspnea] Onset: 08-17-2024 Episodic Screening or history of mental health and substance abuse (2 sources) Personal history of nicotine dependence; Translations: [PERSONAL HISTORY OF KAREN] Onset: 01-21-2017 Episodic Unclassified (8 sources) Preoperative cardiovascular examination ; Translations: [Encounter for preprocedural cardiovascular examination] Onset: 01-12-2016 Resolved: 06-25-2016 01-12-2016 Unclassified (1 source) AFTERCARE FOLLOW JNT REP Onset: 02-11-2017 Viral infection (14 sources) Disease caused by 2019-nCoV; Translations: [COVID-19] Onset: 11-30-2021 Episodic Results Test Name Value Interpretation Reference Range Facility Cardiology Visit Reporton Cardiology Visit Report [facility] [address] [place] [address] OFFICE VISIT Date of Service: 01/11/25 MR#: [id number] Acct: [id number] Name: CELESTINE ECHAVARRIA Rep #: [id number] 07 : 1950 Provider: Dr. Bertram richards MD Age/Sex: 74/M Location: [facility] Status: Signed HPI HPI History of Present Illness Details: Patient is 74-year-old white male who comes in today for monitoring of his cardiovascular status. Patient was cathed in September 2024. That revealed a left ventricular ejection fraction of 60% with normal LV wall motion. 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 He has been treated medically. In December his lipids were at goal his diabetes has been treated through Dr. Epperson's office last hemoglobin A1c September 2024 was 7.9. His hypertension is well-controlled. The patient also suffers from obstructive sleep apnea he is on BiPAP he had failed CPAP mask in the past. The patient also has a history of dyspnea on exertion which he actually describes his shortness of breath because he holds his breath because his knees hurt when he walks. Since starting Ozempic 2 weeks ago the patient has dropped 7 to 8 pounds. The patient was started on Ozempic by our office due to his cardiovascular status and an ER visit that questioned heart failure with preserved ejection fraction. The patient is also diabetic. He is on metformin. Currently the patient denies any chest pains. He has had episodes where he has been in the emergency department for chest pains of last time he was in the emergency room was July 2024 where he had negative enzymes and no EKG changes and a BNP that was normal. Intake Vital Signs 10/26/24 07:54 01/11/25 08:14 Height 5 ft 10.87 in 5 ft 10.87 in Weight: 292 lb 298 lb BMI 40.8 41.7 BP 129/82 H 129/79 H Blood Pressure Location Lt brachial Lt brachial Position Sitting Sitting Respiration 20 H 18 Pulse 72 63 Pulse Source Monitor Monitor Temp 97.4 F L Temperature Source Temporal Artery Pulse Oximetry (%) 98 92 Oxygen Delivery Method room air room air Intake Visit Reasons: 1 Y FU Diplomatic Interpreter/Translator Required: No Accompanied by: Self Is patient in pain?: No Allergies adhesive tape Adverse Reaction (Mild, Verified 01/11/25 08:14) red/itchy Medications ???Medication ???Instructions ???Recorded ???Confirmed ???Type atenolol 50 mg tablet 25 mg PO DAILY heart 01/18/16 0701/29 History metformin 500 mg tablet 1,000 mg PO BID dm 11/29/21 History levocetirizine 5 mg tablet (Xyzal) 5 mg PO DAILY 12/28/21 01/11/25 History triamterene 75 0.5 tab PO DAILY 12/28/21 01/11/25 History mg-hydrochlorothiazide 50 mg tablet (Maxzide) albuterol sulfate 90 mcg/actuation 2 puff inhalation Q4H PRN 01/11/25 Rx aerosol inhaler (Ventolin HFA) shortness of breath or wheezing #18 grams atorvastatin 40 mg tablet 40 mg PO DAILY cholesterol 3 01/11/25 History aspirin 81 mg tablet,delayed 81 mg PO QDAY 07/16/24 01/11/25 Hi story release (Adult Low Dose Aspirin) finerenone 20 mg tablet (Kerendia) 20 mg PO QDAY 10/26/24 01/11/25 History semaglutide 2 mg/dose (8 mg/3 mL) 2 mg (0.75 mL) subcut QWEEK 4 01/11/25 Rx subcutaneous pen injector weeks #3 mL Ejection fraction %: 60 Have you fallen in the past year?: No PFSH Medical History Chest pain Bronchiectasis BiPAP (biphasic positive airway pressure) dependence Encounter for screening colonoscopy Hoarseness On home oxygen therapy Fatty liver Hx of transfusion of whole blood History of edema Diabetes Acute and chronic respiratory failure with hypoxia COVID-19 (11/30/21) Leg edema Cholelithiasis with chronic cholecystitis Preop cardiovascular exam Hypoxia BMI 39.0-39.9,adult Smoking greater than 40 pack years Allergic rhinitis Essential (primary) hypertension Tobacco dependence in remission Arthritis Nicotine abuse Obstructive sleep apnea Hyperlipidemia Atherosclerotic heart disease of [place] coronary artery without angina pectoris Surgical History S/P cholecystectomy Hx of colonoscopy S/P emergency tracheotomy for assistance in breathing History of tracheostomy H/O resection of rib History of cataract extraction History of splenectomy History of arthroplasty of right knee History of tonsillectomy History of partial splenectomy History of appendectomy History of left heart catheterization (01/23/16) Family History Unknown No problems noted. Social History ... Normal [facility] Microalb:Creat Ratio,Random URon 12-24-2024 MALB:CREAT 52.5 mg/g CRE Normal [facility] Comment on above: Result Comment: AMENDED REPORT 12/24/24 0756 MALB:CREAT previously reported as: 525.0 mg/g CRE Performed By: #### L 501.9985, L502.0250 #### [facility] [address] [place], [place] [address], [address] Absolute lymphocyte countOrd ered By: Massimo Epperson on 12-10-2024 Lymphocytes Auto (Unsp spec) [#/Vol] 3.42 10*3/uL 0.83-4.51 [facility] Absolute neutrophil countOrd ered By: Massimo Epperson on 12-10-2024 Neutrophils (Bld) [#/Vol] 5.5 10*3/uL 2.0-7.7 [facility] Anion gap in Serum or Plasma Ordered By: Massimo Epperson on 12-10-2024 Anion gap [Moles/Vol] 12 mmol/L 5-15 [facility] Automated lymphocyte count a s percentage of total leukocytesOrdered By: Massimo Epperson on 12-10-2024 Lymphocytes/100 WBC Auto (Unsp spec) 34.2 % - [facility] BUN/creatinine ratioOrdered By: Massimo Epperson on 12-10-2024 Urea nitrogen/Creatinine [Mass ratio] 29.1 mg/mg High 10-20 [facility] Basophil percentageOrdered B y: Massimo Epperson on 12-10-2024 Basophils/100 WBC (Bld) 0.5 % 0-1 [facility] Bilirubin, totalOrdered By: Massimo Epperson on 12-10-2024 Bilirubin [Mass/Vol] 0.64 mg/dL 0.00-1.30 [facility] CBC W/Diff, Automatedon Absolute Lymph 3.42 X10 3/uL Normal 0.83-4.51 [facility] Comment on above: Performed By: #### L [id number] #### [facility] [address] [place], [address] Absolute Neut 5.5 X10 3/uL Normal 2.0-7.7 [facility] Comment on above: Performed By: #### L [id number] #### [facility] [address] [place], [address] Basophils/100 WBC (Bld) 0.5 % Normal 0-1 [facility] Comment on above: Performed By: #### L [id number] #### [facility] [address] [place], [address] Eosinophils/100 WBC (Bld) 0.8 % Normal 0-5 [facility] Comment on above: Performed By: #### L [id number] #### [facility] [address] [place], [address] Erythrocyte distribution width (RBC) [Ratio] 13.9 % Normal 11.6-14.6 [facility] Comment on above: Performed By: #### L [id number] #### [facility] [address] [place], [address] Hematocrit (Bld) [Volume fraction] 43.8 % Normal 40-54 [facility] Comment on above: Performed By: #### L [id number] #### [facility] [address] [place], [address] Hemoglobin (Bld) [Mass/Vol] 14.4 g/dL Normal 13.0-16.5 [facility] Comment on above: Performed By: #### L [id number] #### [facility] [address] [place], [address] IG% 0.200 Normal 0.0-0.9 [facility] Comment on above: Result Comment: IG% - Immature Granulocytes (promyelocytes, myelocytes and metamyelocytes) > 1% indicates that a LEFT SHIFT is Present. Performed By: #### L [id number] #### [facility] [address] [place], [address] Lymphocytes/100 WBC (Bld) 34.2 % Normal 19-41 [facility] Comment on above: Performed By: #### L [id number] #### [facility] [address] [place], [address] MCH (RBC) [Entitic mass] 31.7 pg Normal 27.0-32.0 [facility] Comment on above: Performed By: #### L [id number] #### [facility] [address] [place], [address] MCHC (RBC) [Mass/Vol] 32.9 g/dL Normal 32-36 [facility] Comment on above: Performed By: #### L [id number] #### [facility] [address] [place], [address] MCV (RBC) [Entitic vol] 96.5 fL High 80-94 [facility] Comment on above: Performed By: #### L [id number] #### [facility] [address] [place], [address] Monocytes/100 WBC (Bld) 9.3 % Normal 0-10 [facility] Comment on above: Performed By: #### L [id number] #### [facility] [address] [place], [address] Neutrophils/100 WBC (Bld) 55.0 % Normal 47-70 [facility] Comment on above: Performed By: #### L [id number] #### [facility] [address] [place], [address] Nucleated RBC (Bld) [#/Vol] 0 10*3/uL Normal 0-5 [facility] Comment on above: Performed By: #### L [id number] #### [facility] [address] [place], [address] Platelet mean volume (Bld) [Entitic vol] 9.6 fL Normal 6.2-12.0 [facility] Comment on above: Performed By: #### L [id number] #### [facility] [address] [place], [address] Platelets (Bld) [#/Vol] 371 10*3/uL Normal 150-450 [facility] Comment on above: Performed By: #### L [id number] #### [facility] [address] [place], [address] RBC (Bld) [#/Vol] 4.54 10*6/uL Low 4.6-6.2 [facility] Comment on above: Performed By: #### L [id number] #### [facility] [address] [place], [address] RDW SD 50.0 fl High 35.1-43.9 [facility] Comment on above: Performed By: #### L [id number] #### [facility] [address] [place], [address] WBC (Bld) [#/Vol] 10.0 10*3/uL Normal 4.4-11.0 [facility] Comment on above: Performed By: #### L [id number] #### [facility] [address] [place], [address] Calculated very low density lipoprotein (VLDL) cholesterol measurementOrdered By: Massimo Epperson on 12-10-2024 Calculated very low density lipoprotein (VLDL) cholesterol measurement 27 mg/dL 5-40 [facility] Carbon dioxide, total [Moles /volume] in Central venous bloodOrdered By: Massimo Epperson on 12-10-2024 CO2 [Moles/Vol] 28.2 mmol/L 21.0-32.0 [facility] Chloride assayOrdered By: Nj Epperson on 12-10-2024 Chloride [Moles/Vol] 96 mmol/L Low 98-108 [facility] Comprehensive Metabolic Prof ilon 12-10-2024 Albumin [Mass/Vol] 4.3 g/dL Normal 3.4-4.8 [facility] Comment on above: Performed By: #### L [id number] #### [facility] [address] [place], [address] Albumin/Globulin [Mass ratio] 1.4 {ratio} Normal 0.9-2.4 [facility] Comment on above: Performed By: #### L [id number] #### [facility] [address] [place], [address] ALK PHOS 104 U/L Normal 40-129 [facility] Comment on above: Performed By: #### L [id number] #### [facility] [address] [place], [address] ALT [Catalytic activity/Vol] 34 U/L Normal <=46 [facility] Comment on above: Performed By: #### L [id number] #### [facility] [address] [place], [address] AST [Catalytic activity/Vol] 32 U/L Normal <=37 [facility] Comment on above: Performed By: #### L [id number] #### [facility] [address] [place], [address] Bilirubin [Mass/Vol] 0.64 mg/dL Normal 0.00-1.30 [facility] Comment on above: Performed By: #### L [id number] #### [facility] [address] [place], [address] BUN/CRE 29.1 RATIO High 10-20 [facility] Comment on above: Performed By: #### L [id number] #### [facility] [address] [place], [address] Calcium [Mass/Vol] 9.6 mg/dL Normal 7.6-11.0 [facility] Comment on above: Performed By: #### L [id number] #### [facility] [address] [place], [address] Chloride [Moles/Vol] 96 mmol/L Low 98-108 [facility] Comment on above: Performed By: #### L [id number] #### [facility] [address] [place], [address] CO2 [Moles/Vol] 28.2 mmol/L Normal 21.0-32.0 [facility] Comment on above: Performed By: #### L [id number] #### [facility] [address] [place], [address] Creatinine [Mass/Vol] 0.94 mg/dL Normal 0.70-1.20 [facility] Comment on above: Performed By: #### L [id number] #### [facility] [address] [place], [address] GAP 12 Normal 5-15 [facility] Comment on above: Performed By: #### L [id number] #### [facility] [address] [place], [address] GFR/1.73 sq M.predicted among non-blacks MDRD (S/P/Bld) [Vol rate/Area] 86 mL/min/{1.73_m2} Normal >60 [facility] Comment on above: Result Comment: mL/m in/1.73m2 CKD-EPI Creatinine Equation (2020) Performed By: #### L [id number] #### [facility] [address] [place], [address] Globulin (S) [Mass/Vol] 3.1 g/dL Normal 2.2-4.2 [facility] Comment on above: Performed By: #### L [id number] #### [facility] [address] [place], [address] Glucose [Mass/Vol] 149 mg/dL High 70-99 [facility] Comment on above: Performed By: #### L [id number] #### [facility] [address] [place], [address] Potassium [Moles/Vol] 5.0 mmol/L Normal 3.3-5.1 [facility] Comment on above: Result Comment: Hemo lysis present, Results??could be affected. ?? Performed By: #### L [id number] #### [facility] [address] [place], [address] Sodium [Moles/Vol] 137 mmol/L Normal 133-145 [facility] Comment on above: Performed By: #### L [id number] #### [facility] [address] [place], [address] T PROT 7.4 g/dL Normal 5.9-8.4 [facility] Comment on above: Performed By: #### L [id number] #### [facility] [address] [place], [place], [address] Urea nitrogen [Mass/Vol] 27 mg/dL High 4-19 [facility] Comment on above: Performed By: #### L [id number] #### [facility] [address] [place], [address] Creatinine, Urine (random)on 12-10-2024 UR CREAT 177.00 mg/dL Normal 39.00-259.0 0 [facility] Comment on above: Performed By: #### L [id number] #### [facility] [address] [place], [place], [address] Eosinophil percentageOrdered By: Massimo Epperson on 12-10-2024 Eosinophils/100 WBC (Bld) 0.8 % 0-5 [facility] Erythrocyte distribution wid th ratioOrdered By: Massimo Epperson on 12-10-2024 Erythrocyte distribution width (RBC) [Ratio] 13.9 % 11.6-14.6 [facility] Erythrocyte distribution wid th standard deviationOrdered By: Massimo Epperson on 12-10-2024 Erythrocyte distribution width (RBC) [Ratio] 50.0 fl High 35.1-43.9 [facility] Glomerular filtration rate ( GFR) estimation/1.73 sq m using serum, plasma, or whole bOrdered By: Massimo Epperson on 12-10-2024 GFR/1.73 sq M.predicted among non-blacks MDRD (S/P/Bld) [Vol rate/Area] 86 mL/min/{1.73_m2} >60 [facility] Comment on above: mL/min/1.73m2 CKD-EP I Creatinine Equation (2020) Hematocrit Auto (Bld) [Volum e fraction]Ordered By: Massimo Epperson on 12-10-2024 Hematocrit (Bld) [Volume fraction] 43.8 % 40-54 [facility] Hemoglobin measurementOrdere d By: Massimo Epperson on 12-10-2024 Hemoglobin (Bld) [Mass/Vol] 14.4 g/dL 13.0-16.5 [facility] Immature granulocytes/100 WB C Auto (Bld)Ordered By: Massimo Epperson on 12-10-2024 Immature granulocytes/100 WBC (Bld) 0.200 % 0.0-0.9 [facility] Comment on above: IG% - Immature Granu locytes (promyelocytes, myelocytes and metamyelocytes) > 1% indicates that a LEFT SHIFT is Present. LDL calc ser/plasOrdered By: Massimo Epperson on 12-10-2024 Cholesterol in LDL [Mass/Vol] 51 mg/dL [facility] Comment on above: Virhxvpcaa=609-264 m g/dL & Higher Vskw=632 mg/dL or greater Laboratory - Chemistry and C hemistry - challengeOrdered By: Massimo Epperson on 12-10-2024 AST [Catalytic activity/Vol] 32 U/L <38 [facility] Lipid Profileon 12-10-2024 CHOL:HDL 3.52 Normal [facility] Comment on above: Performed By: #### L [id number] #### [facility] [address] [place], [address] Cholesterol [Mass/Vol] 109 mg/dL Normal <=200 [facility] Comment on above: Result Comment: Chol esterol level, Desirable <200 mg/dL Borderline high cholesterol 200-239 mg/dL High cholesterol >=240 mg/dL Recommendations of the NCEP Adult Treatment Panel for the following risk-cutoff thresholds for the [place] population. Performed By: #### L [id number] #### [facility] [address] [place], [place], [id number] Cholesterol in HDL [Mass/Vol] 31 mg/dL Low [facility] Comment on above: Result Comment: Catherine onal Cholesterol Education Program (NCEP) guidelines: <40 mg/dL: Low HDL-cholesterol (major risk factor for CHD) >= 60 mg/dL: High HDL-cholesterol (negative risk factor for CHD) HDL-cholesterol is affected by a number of factors, e.g. smoking, exercise, hormones, sex and age. Performed By: #### L [id number] #### [facility] [address] [place], [address] Cholesterol in LDL [Mass/Vol] 51 mg/dL Normal [facility] Comment on above: Result Comment: Bord iuhklo=997-343 mg/dL Higher Tkau=388 mg/dL or greater Performed By: #### L [id number] #### [facility] [address] [place], [address] Cholesterol in VLDL [Mass/Vol] 27 mg/dL Normal 5-40 [facility] Comment on above: Performed By: #### L [id number] #### [facility] [address] [place], [address] Triglyceride [Mass/Vol] 133 mg/dL Normal [facility] Comment on above: Result Comment: The drugs N-Acetylcysteine and Metamizole may falsely depress this assay. Normal range: <150 mg/dL Borderline High: 150-199 mg/dL High: 200-499 mg/dL Very High: >500 mg/dL Performed By: #### L [id number] #### [facility] [address] [place], [address] MCV (mean corpuscular volume ) determinationOrdered By: Massimo Epperson on 12-10-2024 MCV (RBC) [Entitic vol] 96.5 fL High 80-94 [facility] Mean corpuscular hemoglobin (MCH) determinationOrdered By: Massimo Epperson on 12-10-2024 MCH (RBC) [Entitic mass] 31.7 pg 27.0-32.0 [facility] Mean corpuscular hemoglobin concentration (MCHC) determinationOrdered By: Massimo Epperson on 12-10-2024 MCHC (RBC) [Mass/Vol] 32.9 g/dL 32-36 [facility] Mean platelet volume determi nationOrdered By: Massimo Epperson on 12-10-2024 Platelet mean volume (Bld) [Entitic vol] 9.6 fL 6.2-12.0 [facility] Microalbumin,Random Urineon 12-10-2024 MICROALBUMIN,UR 73.5 mg/L Normal NO RANGE EST. [facility] Comment on above: Performed By: #### L 501.4020 #### [facility] [address] [place], [address] Monocyte percentageOrdered B y: Massimo pEperson on 12-10-2024 Monocytes/100 WBC (Bld) 9.3 % 0-10 [facility] Neutrophil percentageOrdered By: Massimo Epperson on 12-10-2024 Neutrophils/100 WBC (Bld) 55.0 % 47-70 [facility] Nucleated red blood cell per centageOrdered By: Massimo Epperson on 12-10-2024 Nucleated RBC/100 WBC (Bld) [Ratio] 0 % 0-5 [facility] Platelet countOrdered By: Nj Epperson on 12-10-2024 Platelets (Bld) [#/Vol] 371 10*3/uL 150-450 [facility] Potassium measurement (mass/ volume)Ordered By: Massimo Epperson on 12-10-2024 Potassium (Unsp spec) [Mass/Vol] 5.0 mmol/L 3.3-5.1 [facility] Comment on above: Hemolysis present, R esults could be affected. RBC Auto (Bld) [#/Vol]Ordere d By: Massimo Epperson on 12-10-2024 RBC (Bld) [#/Vol] 4.54 10*6/uL Low 4.6-6.2 [facility] Random urine creatinine hollis urement (mass/volume)Ordered By: Massimo Epperson on 12-10-2024 Creatinine Unsp time (U) [Mass/Vol] 177.00 mg/dL 39.00-259.0 0 [facility] Screening total cholesterol/ high density lipoprotein (HDL) cholesterol ratioOrdered By: Massimo Epperson on 12-10-2024 Cholesterol.total/Choles terol in HDL [Mass ratio] 3.52 {ratio} [facility] Serum creatinine measurement (mass/volume)Ordered By: Massimo Epperson on 12-10-2024 Creatinine [Mass/Vol] 0.94 mg/dL 0.70-1.20 [facility] Serum globulin measurementOr dered By: Massimo Epperson on 12-10-2024 Globulin (S) [Mass/Vol] 3.1 g/dL 2.2-4.2 [facility] Serum glucose measurement (m ass/volume)Ordered By: Massimo Epperson on 12-10-2024 Glucose [Mass/Vol] 149 mg/dL High 70-99 [facility] Serum or plasma alanine jules otransferase (ALT) measurementOrdered By: Massimo Epperson 12-10-2024 ALT [Catalytic activity/Vol] 34 U/L <47 [facility] Serum or plasma albumin hollis urement (mass/volume)Ordered By: Massimo Epperson 12-10-2024 Albumin [Mass/Vol] 4.3 g/dL 3.4-4.8 [facility] Serum or plasma albumin/glob ulin mass ratioOrdered By: Massimo Epperson 12-10-2024 Albumin/Globulin [Mass ratio] 1.4 {ratio} 0.9-2.4 [facility] Serum or plasma alkaline karon sphatase measurementOrdered By: Massimo Epperson 12-10-2024 ALP [Catalytic activity/Vol] 104 U/L 40-129 [facility] Serum or plasma calcium hollis urement (mass/volume)Ordered By: Massimo Epperson 12-10-2024 Calcium [Mass/Vol] 9.6 mg/dL 7.6-11.0 [facility] Serum or plasma cholesterol in HDL measurement (mass/volume)Ordered By: Massimo Epperson 12-10-2024 Cholesterol in HDL [Mass/Vol] 31 mg/dL Low >40 [facility] Comment on above: National Cholesterol Education Program (NCEP) guidelines:<40 mg/dL: Low HDL-cholesterol (major risk factor for CHD)>= 60 mg/dL: High HDL-cholesterol (negative risk factor for CHD)HDL-cholesterol is affected by a number of factors, e.g. smoking, exercise, hormones, sex and age. Serum or plasma cholesterol measurement (mass/volume)Ordered By: Massimo Epperson on 12-10-2024 Cholesterol [Mass/Vol] 109 mg/dL <201 [facility] Comment on above: Cholesterol level, D esirable <200 mg/dLBorderline high cholesterol 200-239 mg/dLHigh cholesterol >=240 mg/dLRecommendations of the NCEP Adult Treatment Panel for the following risk-cutoff thresholds for the [place] population. Serum or plasma urea nitroge n measurement (mass/volume)Ordered By: Massimo Epperson on 12-10-2024 Urea nitrogen [Mass/Vol] 27 mg/dL High 4-19 [facility] Sodium levelOrdered By: Massimo Epperson on 12-10-2024 Sodium [Moles/Vol] 137 mmol/L 133-145 [facility] TSH DL <= 0.005 mIU/L QnOrde red By: Massimo Epperson on 12-10-2024 TSH Qn 2.170 uIU/mL 0.300-4.200 [facility] Thyroid Stim Hormone (TSH)on 12-10-2024 TSH 2.170 uIU/mL Normal 0.300-4.200 [facility] Comment on above: Performed By: #### L 501.5425, L500.2500, L100.0100 #### [facility] [address] [place] [address], [id number] Total proteinOrdered By: Massimo Epperson on 12-10-2024 Protein [Mass/Vol] 7.4 g/dL 5.9-8.4 [facility] Triglycerides measurementOrd ered By: Massimo Epperson on 12-10-2024 Triglyceride [Mass/Vol] 133 mg/dL <199 [facility] Comment on above: The drugs N-Acetylcy steine and Metamizole may falsely depress this assay. Normal range: <150 mg/dLBorderline High: 150-199 mg/dLHigh: 200-499 mg/dLVery High: >500 mg/dL Urine albumin measurement wi detection limit of 20 mg/L or less (mass/volume)Ordered By: Massimo Epperson on 12-10-2024 Albumin DL <= 20 mg/L (U) [Mass/Vol] 73.5 mg/L NO RANGE EST. [facility] Vitamin D,25 Hydroxyon 12-10 Vitamin D 25-OH 17.7 ng/mL Low 30-100 [facility] Comment on above: Result Comment: Maryuri min D Status Deficiency: <20 ng/mL (50nmol/L) Insufficiency: 20-30 ng/mL (50-75 nmol/L) Sufficiency: 30-100 ng/mL (75-250 nmol/L) Toxicity: >100 ng/mL (>250 nmol/L) Performed By: #### L 501.5425, L500.2500, L100.0100 #### [facility] [address] [place], [address] White blood cell (WBC) count Ordered By: Massimo Epperson on 12-10-2024 WBC (Bld) [#/Vol] 10.0 10*3/uL 4.4-11.0 [facility] Pulmonary Visit Reporton Pulmonary Visit Report [facility] [place] [address] [place] [address] OFFICE VISIT Date of Service: 10/26/24 MR#: [id number] Acct: [id number] Name: CELESTINE ECHAVARRIA Rep #: [id number] : 1950 Provider: JOHNNIE Schroeder Age/Sex: 74/M Location: [facility] Status: Signed Assessment and Plan Assessment and Plan (1) Obstructive sleep apnea: Status: Chronic Comment: BiPAP 18/12 cmH2O Plan: Stable, he is using and benefiting from Pap therapy. No indication for titration study at this time. Continue to encourage weight loss. Contact the office for any new or worsening symptoms in the meantime. Follow-up in March. (2) Obesity: Status: Chronic Qualifiers: Obesity type: with alveolar hypoventilation Obesity classification: adult class 3 (BMI >= 40) Serious obesity comorbidity presence: with serious comorbidity Body mass index: BMI 40.0-44.9 Qualified Code(s): E66.2 - Morbid (severe) obesity with alveolar hypoventilation; Z68.41 - Body mass index [BMI] 40.0-44.9, adult Plan: Complicates exam, plan, care and prognosis. Continue to encourage healthy weight loss. (3) Smoking greater than 40 pack years: Status: Chronic Comment: quit in 2019 Plan: Continue to encourage ongoing smoking cessation. He is appropriate for repeat LDCT which is due in February 2025, ordered accordingly. Orders: Orders Low Dose CT Lung Screening 02/05/25 F17.200 - Nicotine dependence, unspecified, uncomplicated, F17.210 - Nicotine dependence, cigarettes, uncomplicated Plan Details Additional Comments: This note was generated with Memonic dictation software. It may contain incorrect words, spelling, and punctuation that were not noted in checking the note before signing. Follow Up: 03/08/25 ([facility]) HPI 6 M FU Chief Complaint: Test results HPI Comments Details: This patient presents to the office today for follow-up of his hypoxia and obstructive sleep apnea and to discuss test results. He is ambulatory. He has not recently been seen in the ED or urgent care for any respiratory illness. He has not required any antibiotics or prednisone for any breathing problems. He is not currently on a maintenance inhaler. He does have an albuterol rescue inhaler. If you recall, this patient does have a greater than 79-chmh-inco smoking history quitting completely in 2019. He does have occasional shortness of breath on exertion. He has an occasional nonproductive cough. He reports some sinus congestion. He does occasional wheezing. He denies any chest tightness, chest pain or palpitations. He has not had any fever, chills or body aches. He reports waking feeling somewhat rested and refreshed with the use of his PAP device. He is not having difficulty with mask leaks or dry mouth. He is not having excessive nocturia. He denies nodding off to sleep unintentionally. Compliance report for the past 30 days shows 100 % compliance with average use of 8 hours and 48 minutes per night. Current setting is 18/12 cmH2O with residual AHI of 1.7 events per hour. Leaks do appear to be occurring frequently. Test results personally reviewed patient: Walking oximetry completed on July 28, 2024. Patient was able to ambulate total of 767 feet over the course of 6 minutes. He did not become hypoxic and does not currently require any supplemental oxygen. Pulmonary function tests completed on July 29, 2024. Impression is severe restrictive ventilatory impairment with preserved diffusing study. Intake Vital Signs 04/27/24 07:20 10/26/24 07:54 Height 5 ft 11 in 5 ft 10.87 in Weight: 292 lb BMI 40.8 BP 129/82 H Blood Pressure Location Lt brachial Position Sitting Respiration 20 H Pulse 72 Pulse Source Monitor Temp 97.4 F L Temperature Source Temporal Artery Pulse Oximetry (%) 98 Oxygen Delivery Method room air Intake Visit Reasons: 6 M FU Chief Complaint: [place], hypoxia Diplomatic Interpreter/Translator Required: No DME Vendor: Carla Accompanied by: Self Allergies adhesive tape Adverse Reaction (Mild, Verified 10/26/24 12:54) red/itchy Medications ???Medication ???Instructions ???Recorded ???Confirmed ???Type atenolol 50 mg tablet 25 mg PO DAILY heart 01/18/1610/07 History metformin 500 mg tablet 1,000 mg PO BID dm 11/29/21 History levocetirizine 5 mg tablet (Xyzal) 5 mg PO DAILY 12/28/21 10/26/24 History triamterene 75 0.5 tab PO DAILY 12/28/21 10/26/24 History mg-hydrochlorothiazide 50 mg tablet (Maxzide) albuterol sulfate 90 mcg/actuation 2 puff inhalation Q4H PRN 10/26/24 Rx aerosol inhaler (Ventolin HFA) shortness of breath or wheezing #18 grams atorvastatin 40 mg tablet 40 mg PO DAILY cholesterol 3 10/26/24 History aspirin 81 mg tablet,delayed 81 mg PO (more content not included)... Normal [facility] Hemoglobin A1con 09-29-2024 HbA1c (Bld) [Mass fraction] 7.9 % Normal <=5.6 [facility] Comment on above: Performed By: #### L 501.9985, L502.0250 #### [facility] [address] [place], [place], [id number] Base excess Calc (BldV) [Mol es/Vol]Ordered By: Marvin Elliott on 09-28-2024 Venous Blood Base Excess 5 mmol/L High -1.0-3.5 [facility] Blood Gas Base Excess 5 mmol/L High -2-2 [facility] Blood Gases by CPSon 025 Base excess Calc (Bld) [Moles/Vol] 5 mmol/L High -2 to +2 [facility] Comment on above: Performed By: #### L 501.5425, L500.2500, L100.0100 #### [facility] [address] [place], [address] Blood Gas Type ART [facility] Comment on above: Performed By: #### L 501.5425, L500.2500, L100.0100 #### [facility] [address] [place], [address] CO2 [Moles/Vol] 32 mmol/L Normal [facility] Comment on above: Performed By: #### L 501.5425, L500.2500, L100.0100 #### [facility] [address] [place], [address] HCO3 (Bld) [Moles/Vol] 30.7 mmol/L High 22-26 [facility] Comment on above: Performed By: #### L 501.5425, L500.2500, L100.0100 #### [facility] [address] [place], [address] Mode Not entered [facility] Comment on above: Performed By: #### L 501.5425, L500.2500, L100.0100 #### [facility] [address] [place], [address] O2 Delivery Dev Not entered [facility] Comment on above: Performed By: #### L 501.5425, L500.2500, L100.0100 #### [facility] [address] [place], [address] pCO2 53.4 mmHg High 35-45 [facility] Comment on above: Performed By: #### L 501.5425, L500.2500, L100.0100 #### [facility] [address] [place], [address] pH (Bld) 7.37 [pH] Normal 7.35-7.45 [facility] Comment on above: Performed By: #### L 501.5425, L500.2500, L100.0100 #### [facility] [address] [place], [address] PO2 59 mmHG Low 75-100 [facility] Comment on above: Performed By: #### L 501.5425, L500.2500, L100.0100 #### [facility] [address] [place], [address] SITE Not entered Normal [facility] Comment on above: Performed By: #### L 501.5425, L500.2500, L100.0100 #### [facility] [address] [place], [address] SO2 88 Low 95-99 [facility] Comment on above: Performed By: #### L 501.5425, L500.2500, L100.0100 #### [facility] [address] [place], [address] Blood base excess determinat ionOrdered By: Marvin Elliott on 09-28-2024 Base excess Calc (BldV) [Moles/Vol] 5 mmol/L High -2-2 [facility] Blood bicarbonate measuremen tOrdered By: Marvin Elliott on 09-28-2024 Blood Gas Bicarbonate Actual 30.7 mmol/L High 22-26 [facility] HCO3 (Bld) [Moles/Vol] 30.7 mmol/L High 22-26 [facility] CO2 (BldV) [Moles/Vol]Ordere d By: Marvin Elliott on 09-28-2024 CO2 [Moles/Vol] 33 mmol/L 23-33 [facility] CO2 (BldV) [Partial pressure ]Ordered By: Marvin Elliott on 09-28-2024 Bed Mix Venous Bld PCO2 at Pat Temp 57.4 mmHg High 41-51 [facility] Cardiac Cath Diagn[employer]icon Cardiac Cath Diagnostic [facility] [address] [place] [address] Cardiac Cath Diagnostic MR#: [id number] Acct: [id number] Name: CELESTINE ECHAVARRIA Rep #: [id number] : 1950 73 From: Marvin Elliott MD PCP: Dr. Massimo Epperson MD Status:REG [facility] Patient Name: CELESTINE ECHAVARRIA Study Date: 09/28/2024 Performing: Marvin Elliott MD Ht: 180.34 inches 458.0636 cm : 1950 Wt: 134.72 lbs 61.108 kg Age: 73 Gender: male BSA: 3.5 PROCEDURE(S) PERFORMED DC05-(70575)RHC/LHC/CO R/LV CLINICAL PROFILE AND INDICATIONS Indications: Other Heart Failure: None Stress/Imaging Stress/Image Study Performed: No CAD Presentations: Other: SOB CONCLUSIONS Single-vessel disease with totally occluded right coronary artery and luao-ck-qraho collaterals and preserved left ventricular ejection fraction. RECOMMENDATIONS Aggressive risk factor modification. Consider for precedent D trial. Weight loss recommended. DESCRIPTION OF PROCEDURE The patient arrived to the procedure lab. The risks and benefits of the procedure as well as a full description of our services here and current unavailability of surgical backup were fully explained to the patient and/or their significant other prior to the catheterization. The Timeout was completed, verifying the correct patient and procedure. The patient's procedural site was prepped and draped in the usual fashion. Local anesthetic was given subcutaneously to right brachial region with Lidocaine 2%. Local anesthetic was given subcutaneously to right radial region with Lidocaine 2%. Local anesthetic was given subcutaneously to right groin region with Lidocaine 2%. Using a modified Seldinger technique, arterial access was obtained via the right radial artery, a 6Fr sheath was inserted. Venous access was obtained via the right femoral vein, a 7Fr sheath was inserted. Left Coronary Artery selective angiography was performed in multiple views using a 5 Fr. 4.0 Gardner catheter. Left Ventriculography was performed in MOSS projection using a 5 Fr. Pigtail catheter. LV to AO pullback pressures were then recorded. A 7Fr thermal dilution catheter was inserted and right heart pressures were recorded, it was then advanced to PA position for cardiac outputs. Thermal dilution cardiac outputs were then recorded. O2 saturations were then obtained. The Thermal dilution catheter was then removed.The arterial sheath was pulled and a TR Band was applied for hemostasis. 13cc of air. The venous sheath was then pulled and manual compression applied until hemostasis achieved CORONARY ANGIOGRAPHY DOMINANCE: Right Dominant LEFT HEART ASSESSMENT Left Ventricular Ejection Fraction: by LV Gram 60 % Normal LV wall motion Normal Left Ventricular systolic function RIGHT HEART ASSESSMENT Katty CO: 8.16 Katty CI: 2.33 PW: 34/35 29 PA: 62/40 50 RV: 72/18 26 RA: 27 Right Heart pressures - elevated LEFT MAIN: Mild calcification, Mild luminal irregularities less than 30% LEFT ANTERIOR DESCENDING ARTERY: Mild coronary disease noted in the midsegment approximately 30%. First diagonal vessel with minimal disease and a second environmental conservation professor branch with no significant stenosis noted. [id number]-pg-[id number] collaterals noted. CIRCUMFLEX ARTERY: Mild luminal irregularities less than 30% RIGHT CORONARY ARTERY: PROX RCA: is occluded COLLATERAL FLOW: Collateral flow from Left to Right COMPLICATIONS No Complications PROCEDURE MEDICATIONS Versed 1 mg IV Fentanyl 50 mcg IV Baby Aspirin (81mg) 1 Tabs PO @ 09/28/2024 07:38:01 Heparin given IA 09/28/2024 09:02:23 Verapamil 2.5mg, Ntg 100mcgs, 3000 units of Heparin given IA 09/28/2024 09:02:23 SUMMARY OF HEMODYNAMIC DATA Time AIR REST ECG 08:35:39 AO 134/79 (103) SA 09:17:44 LV 148/22, 28 09:24:54 LV 146/22, 28 09:25:03 LV 144/-3, 25 09:25:51 LVp 152/15, 30 09:26:23 AOp 152/86 (112) 09:26:30 RA (27) SV 09:31:29 RV 72/18, 26 09:31:55 PW 34/35 (29) PV 09:37:35 PA 62/40 (50) PA 09:37:48 RV 66/16, 26 09:39:13 RA (22) 09:39:21 ECG 09:52:48 10:08:53 Type SV CO (l/m) CI (l/m/ HR Time AIR REST Katty 118.30 8.16 2.33 69 07:45:56 Label % O2 Pres/Loc Time AIR REST AO 88 PV 09:45:09 RA 58 SV 09:45:15 PA 58 PA 09:45:19 Signed By Marvin Elliott MD On 09/28/2024 10:50:24 Signed By Marvin Elliott MD On 09/28/2024 10:08:31 Signed By Marvin Elliott MD On 09/28/2024 09:49:17 Marvin Elliott MD 09/28/24 1051 Date Marvin Elliott MD Cosigner Signature: Date (if indicated) CC: Dr. Marvin Elliott MD; Dr. Massimo Epperson MD Date Dictated: 09/28/24 0842 Date Transcribed: 09/28/24 105 Stonemason Apprentice: CO (more content not included)... Normal [facility] Cardiac catheterization repo rtOrdered By: Marvin Elliott on 09-28-2024 Cardiac catheterization study [facility] [address] [place] [address] Cardiac Cath Diagnostic MR#: [id number] Acct: [id number] Name: CELESTINE ECHAVARRIAELL Rep #:[id number] : 1950 73 From: Marvin Elliott MD PCP: Dr. Massimo Epperson MD Status:REG S DC Patient Name: CELESTINE ECHAVARRIA Study Date: 09/28/2024 Performing: Marvin Elliott MD Ht: 180.34 inches 458.0636 cm : 1950 Wt: 134.72 lbs 61.108 kg Age: 73 Gender: male BSA: 3.5 PROCEDURE(S) PERFORMED DC05-(44854)RHC/LHC/CO R/LV CLINICAL PROFILE AND INDICATIONS Indications: Other Heart Failure: None Stress/Imaging Stress/Image Study Performed: No CAD Presentations: Other: SOB CONCLUSIONS Single-vessel disease with totally occluded right coronary artery and jrcj-og-nfort collaterals and preserved left ventricular ejection fraction. RECOMMENDATIONS Aggressive risk factor modification. Consider for precedent D trial. Weight loss recommended. DESCRIPTION OF PROCEDURE The patient arrived to the procedure lab. The risks and benefits of the procedure as well as a full description of our services here and current unavailability of surgical backup were fully explained to the patient and/or their significant other prior to the catheterization. The Timeout was completed, verifying the correct patient and procedure. The patient's procedural site was prepped and draped in the usual fashion. Local anesthetic was given subcutaneously to right brachial region with Lidocaine 2%. Local anesthetic was given subcutaneously to right radial region with Lidocaine 2%. Local anesthetic was given subcutaneously to right groin region with Lidocaine 2%. Using a modified Seldinger technique, arterial access was obtained via the right radial artery, a 6Fr sheath was inserted. Venous access was obtained via the right femoral vein, a 7Fr sheath was inserted. Left Coronary Artery selective angiography was performed in multiple views using a 5 Fr. 4.0 Gardner catheter. Left Ventriculography was performed in MOSS projection using a 5 Fr. Pigtail catheter. LV to AO pullback pressures were then recorded. A 7Fr thermal dilution catheter was inserted and right heart pressures were recorded, it was then advanced to PA position for cardiac outputs. Thermal dilution cardiac outputs were then recorded. O2 saturations were then obtained. The Thermal dilution catheter was then removed.The arterial sheath was pulled and a TR Band was applied for hemostasis. 13cc of air. The venous sheath was then pulled and manual compression applied until hemostasis achieved CORONARY ANGIOGRAPHY DOMINANCE: Right Dominant LEFT HEART ASSESSMENT Left Ventricular Ejection Fraction: by LV Gram 60 % Normal LV wall motion Normal Left Ventricular systolic function RIGHT HEART ASSESSMENT Katty CO: 8.16 Katty CI: 2.33 PW: 34/35 29 PA: 62/40 50 RV: 72/18 26 RA: 31/29 27 Right Heart pressures - elevated LEFT MAIN: Mild calcification, Mild luminal irregularities less than 30% LEFT ANTERIOR DESCENDING ARTERY: Mild coronary disease noted in the midsegment approximately 30%. First diagonal vessel with minimal disease and a second environmental conservation professor branch with no significant stenosis noted. Jykx-vm-oqyqq collaterals noted. CIRCUMFLEX ARTERY: Mild luminal irregularities less than 30% RIGHT CORONARY ARTERY: PROX RCA: is occluded COLLATERAL FLOW: Collateral flow from Left to Right COMPLICATIONS No Complications PROCEDURE MEDICATIONS Versed 1 mg IV Fentanyl 50 mcg IV Baby Aspirin (81mg) 1 Tabs PO @ 09/28/2024 07:38:01 Heparin given IA 09/28/2024 09:02:23 Verapamil 2.5mg, Ntg 100mcgs, 3000 units of Heparin given IA 09/28/2024 09:02:23 SUMMARY OF HEMODYNAMIC DATA Time AIR REST ECG 08:35:39 AO 134/79 (103) SA 09:17:44 LV 148/22, 28 09:24:54 LV 146/22, 28 09:25:03 LV 144/-3, 25 09:25:51 LVp 152/15, 30 09:26:23 AOp 152/86 (112) 09:26:30 RA 31/29 (27) SV 09:31:29 RV 72/18, 26 09:31:55 PW 34/35 (29) PV 09:37:35 PA 62/40 (50) PA 09:37:48 RV 66/16, 26 09:39:13 RA 27/25 (22) 09:39:21 ECG 09:52:48 10:08:53 Type SV CO (l/m) CI (l/m/ HR Time AIR REST Katty 118.30 8.16 2.33 69 07:45:56 Label % O2 Pres/Loc Time AIR REST AO 88 PV 09:45:09 RA 58 SV 09:45:15 PA 58 PA 09:45:19 Signed By Marvin Elliott MD On 09/28/2024 10:50:24 Signed By Marvin Elliott MD On 09/28/2024 10:08:31 Signed By Marvin Elliott MD On 09/28/2024 09:49:17 Marvin Elliott MD 09/28/24 1051 Date _ Marvin Elliott MD Cosigner Signature: Date (if indicated) CC: Dr. Marvin Elliott MD; Dr. Massimo Epperson MD ~ Date Dictated: 09/28/24 0842 Date Transcribed: 09/28/24 1050 Stonemason Apprentice: CO Signed [facility] Work Phone: Hemoglobin A1c percentageOrd ered By: Marvin Elliott on 09-28-2024 HbA1c (Bld) [Mass fraction] 7.9 % >5.7 [facility] Measurement, pHOrdered By: Kristyn Elliott on 09-28-2024 pH (Unsp spec) 7.37 [pH] 7.35-7.45 [facility] No Panel InformationOrdered By: Marvin Elliott on 09-28-2024 Blood Gas Sample Site Not entered [facility] Blood Gas Specimen Type RASHID [facility] Oxygen Delivery Device Not entered [facility] Blood Gas Vent Mode Not entered [facility] Oxygen (BldV) [Partial press ure]Ordered By: Marvin Elliott on 09-28-2024 Venous Blood Partial Pressure O2 33 mmHg 25-40 [facility] Oxygen saturation measuremen tOrdered By: Marvin Elliott on 09-28-2024 Blood Gas Oxygen Saturation 88 % Low 95-99 [facility] Partial pressure of carbon d ioxide measurementOrdered By: Marvin Elliott on 09-28-2024 Arterial Blood Partial Pressure CO2 53.4 mmHg High 35-45 [facility] Partial pressure of oxygen m easurementOrdered By: Marvin Elliott on 09-28-2024 Arterial Blood Partial Pressure O2 59 mmHG Low 75-100 [facility] Random urine creatinine hollis urement (mass/volume)Ordered By: Marvin Elliott on 09-28-2024 Creatinine Unsp time (U) [Mass/Vol] 120.00 mg/dL 39.00-259.0 0 [facility] Total carbon dioxide measure mentOrdered By: Marvin Elliott on 09-28-2024 Blood Gas Total CO2 32 mmol/L [facility] CO2 [Moles/Vol] 32 mmol/L [facility] Urine albumin measurement wi detection limit of 20 mg/L or less (mass/volume)Ordered By: Marvin Elliott on 09-28-2024 Albumin DL <= 20 mg/L (U) [Mass/Vol] 63.0 mg/L NO RANGE EST. [facility] Venous Blood Gason Blood Gas Type RASIHD Normal [facility] Comment on above: Performed By: #### L 9000.0810 #### [facility] [address] [place], [address] CO2 [Moles/Vol] 33 mmol/L Normal 23-33 [facility] Comment on above: Performed By: #### L 9000.0810 #### [facility] [address] [place], [address] HCO3 (Bld) [Moles/Vol] 31 mmol/L High 22-26 [facility] Comment on above: Performed By: #### L 9000.0810 #### [facility] [address] [place], [address] O2 Delivery Dev Not entered Normal [facility] Comment on above: Performed By: #### L 9000.0810 #### [facility] [address] [place], [address] SITE Not entered Normal [facility] Comment on above: Performed By: #### L 9000.0810 #### [facility] [address] [place], [address] VBG BE 5 mmol/L High -1.0-3.5 [facility] Comment on above: Performed By: #### L 9000.0810 #### [facility] [address] [place], [address] VBG pCO2 57.4 mmHg High 41-51 [facility] Comment on above: Performed By: #### L 9000.0810 #### [facility] [address] [place], [address] VBG pH 7.34 Normal 7.32-7.42 [facility] Comment on above: Performed By: #### L 9000.0810 #### [facility] [address] [place], [address] VBG PO2 33 mmHg Normal 25-40 [facility] Comment on above: Performed By: #### L 9000.0810 #### [facility] [address] [place], [address] VBG SO2 59 Normal 50-70 [facility] Comment on above: Performed By: #### L 9000.0810 #### [facility] [address] [place], [address] Blood Gas Type RASHID Normal [facility] Comment on above: Performed By: #### L 9000.0810 #### [facility] [address] [place], [address] CO2 [Moles/Vol] 32 mmol/L Normal 23-33 [facility] Comment on above: Performed By: #### L 9000.0810 #### [facility] [address] [place], [address] HCO3 (Bld) [Moles/Vol] 30 mmol/L High 22-26 [facility] Comment on above: Performed By: #### L 9000.0810 #### [facility] [address] [place], [address] O2 Delivery Dev Not entered Normal [facility] Comment on above: Performed By: #### L 9000.0810 #### [facility] [address] [place], [address] SITE Not entered Normal [facility] Comment on above: Performed By: #### L 9000.0810 #### [facility] [address] [place], [address] VBG BE 4 mmol/L High -1.0-3.5 [facility] Comment on above: Performed By: #### L 9000.0810 #### [facility] [address] [place], [address] VBG pCO2 56.8 mmHg High 41-51 [facility] Comment on above: Performed By: #### L 9000.0810 #### [facility] [address] [place], [address] VBG pH 7.33 Normal 7.32-7.42 [facility] Comment on above: Performed By: #### L 9000.0810 #### [facility] [address] [place], [address] VBG PO2 33 mmHg Normal 25-40 [facility] Comment on above: Performed By: #### L 9000.0810 #### [facility] [address] [place], [address] VBG SO2 58 Normal 50-70 [facility] Comment on above: Performed By: #### L 9000.0810 #### [facility] [address] [place], [address] Venous blood base excess luanne surementOrdered By: [place] Earl on 09-28-2024 Base excess Calc (BldV) [Moles/Vol] 5 mmol/L High -1.0-3.5 [facility] Venous blood bicarbonate luanne surementOrdered By: [place] Earl on 09-28-2024 HCO3 (Bld) [Moles/Vol] 31 mmol/L High 22-26 [facility] Venous blood oxygen saturati on measurementOrdered By: [place] Earl on 09-28-2024 Oxygen saturation in Blood 59 % 50-70 [facility] Venous blood pH measurementO rdered By: Marvin Earl on 09-28-2024 pH (BldV) 7.34 [pH] 7.32-7.42 [facility] Venous blood partial pressur e of carbon dioxide measurementOrdered By: [place] Earl on 09-28-2024 CO2 (BldV) [Partial pressure] 57.4 mm[Hg] High 41-51 [facility] Venous blood partial pressur e of oxygen measurementOrdered By: [place] Earl on 09-28-2024 Oxygen (BldV) [Partial pressure] 33 mm[Hg] 25-40 [facility] pH (BldV)Ordered By: [place] Jessenia galvani on 09-28-2024 Venous Blood pH 7.34 7.32-7.42 [facility] pH (Unsp spec)Ordered By: Panda Elliott on 09-28-2024 Blood Gas pH 7.37 7.35-7.45 [facility] Absolute lymphocyte countOrd ered By: Le Meyer on 09-15-2024 Lymphocytes Auto (Unsp spec) [#/Vol] 2.94 10*3/uL 0.83-4.51 [facility] Absolute neutrophil countOrd ered By: Le Meyer on 09-15-2024 Neutrophils (Bld) [#/Vol] 6.6 10*3/uL 2.0-7.7 [facility] Anion gap in Serum or Plasma Ordered By: Le Meyer on 09-15-2024 Anion gap [Moles/Vol] 11 mmol/L 5-15 [facility] Automated lymphocyte count a s percentage of total leukocytesOrdered By: Le Meyer on 09-15-2024 Lymphocytes/100 WBC Auto (Unsp spec) 27.5 % 19-41 [facility] BUN/creatinine ratioOrdered By: Le Meyer on 09-15-2024 Urea nitrogen/Creatinine [Mass ratio] 27.2 mg/mg High 10- [facility] Basic Metabolic Profile (BMP )on 09-15-2024 BUN/CRE 27.2 RATIO High 10- [facility] Comment on above: Order Comment: for r ight heart cath Performed By: #### L 501.4020 #### [facility] [address] [place], [address] Calcium [Mass/Vol] 9.3 mg/dL Normal 7.6-11.0 [facility] Comment on above: Order Comment: for r ight heart cath Performed By: #### L 501.4020 #### [facility] [address] [place], [address] Chloride [Moles/Vol] 96 mmol/L Low 98-108 [facility] Comment on above: Order Comment: for r ight heart cath Performed By: #### L 501.4020 #### [facility] [address] [place], [address] CO2 [Moles/Vol] 28.6 mmol/L Normal 21.0-32.0 [facility] Comment on above: Order Comment: for r ight heart cath Performed By: #### L 501.4020 #### [facility] [address] [place], [address] Creatinine [Mass/Vol] 0.79 mg/dL Normal 0.70-1.20 [facility] Comment on above: Order Comment: for r ight heart cath Performed By: #### L 501.4020 #### [facility] [address] [place], [address] GAP 11 Normal 5-15 [facility] Comment on above: Order Comment: for r ight heart cath Performed By: #### L 501.4020 #### [facility] [address] [place], [address] GFR/1.73 sq M.predicted among non-blacks MDRD (S/P/Bld) [Vol rate/Area] 94 mL/min/{1.73_m2} Normal >60 [facility] Comment on above: Order Comment: for r ight heart cath Result Comment: mL/m in/1.73m2 CKD-EPI Creatinine Equation (2020) Performed By: #### L 501.4020 #### [facility] [address] [place], [address] Glucose [Mass/Vol] 141 mg/dL High 70-99 [facility] Comment on above: Order Comment: for r ight heart cath Performed By: #### L 501.4020 #### [facility] [address] [place], [address] Potassium [Moles/Vol] 4.9 mmol/L Normal 3.3-5.1 [facility] Comment on above: Order Comment: for r ight heart cath Result Comment: Hemo lysis present, Results??could be affected. ?? Performed By: #### L 501.4020 #### [facility] [address] [place], [address] Sodium [Moles/Vol] 136 mmol/L Normal 133-145 [facility] Comment on above: Order Comment: for r ight heart cath Performed By: #### L 501.4020 #### [facility] [address] [place], [address] Urea nitrogen [Mass/Vol] 21 mg/dL High 4-19 [facility] Comment on above: Order Comment: for r ight heart cath Performed By: #### L 501.4020 #### [facility] [address] [place], [address] Basophil percentageOrdered B y: Le Meyer on 09-15-2024 Basophils/100 WBC (Bld) 0.5 % 0-1 [facility] CBC W/Diff, Automatedon 09-05 Absolute Lymph 2.94 X10 3/uL Normal 0.83-4.51 [facility] Comment on above: Order Comment: Comme nts: for right heart cath Performed By: #### L 500.2500, L100.0100 #### [facility] [address] [place], [address] Absolute Neut 6.6 X10 3/uL Normal 2.0-7.7 [facility] Comment on above: Order Comment: Comme nts: for right heart cath Performed By: #### L 500.2500, L100.0100 #### [facility] [address] [place], [address] Basophils/100 WBC (Bld) 0.5 % Normal 0-1 [facility] Comment on above: Order Comment: Comme nts: for right heart cath Performed By: #### L 500.2500, L100.0100 #### [facility] [address] [place], [address] Eosinophils/100 WBC (Bld) 1.4 % Normal 0-5 [facility] Comment on above: Order Comment: Comme nts: for right heart cath Performed By: #### L 500.2500, L100.0100 #### [facility] [address] [place], [address] Erythrocyte distribution width (RBC) [Ratio] 13.6 % Normal 11.6-14.6 [facility] Comment on above: Order Comment: Comme nts: for right heart cath Performed By: #### L 500.2500, L100.0100 #### [facility] [address] [place], [address] Hematocrit (Bld) [Volume fraction] 43.3 % Normal 40-54 [facility] Comment on above: Order Comment: Comme nts: for right heart cath Performed By: #### L 500.2500, L100.0100 #### [facility] [address] [place], [address] Hemoglobin (Bld) [Mass/Vol] 14.0 g/dL Normal 13.0-16.5 [facility] Comment on above: Order Comment: Comme nts: for right heart cath Performed By: #### L 500.2500, L100.0100 #### [facility] [address] [place], [address] IG% 0.400 Normal 0.0-0.9 [facility] Comment on above: Order Comment: Comme nts: for right heart cath Result Comment: IG% - Immature Granulocytes (promyelocytes, myelocytes and metamyelocytes) > 1% indicates that a LEFT SHIFT is Present. Performed By: #### L 500.2500, L100.0100 #### [facility] [address] [place], [address] Lymphocytes/100 WBC (Bld) 27.5 % Normal 19-41 [facility] Comment on above: Order Comment: Comme nts: for right heart cath Performed By: #### L 500.2500, L100.0100 #### [facility] [address] [place], [address] MCH (RBC) [Entitic mass] 31.3 pg Normal 27.0-32.0 [facility] Comment on above: Order Comment: Comme nts: for right heart cath Performed By: #### L 500.2500, L100.0100 #### [facility] [address] [place], [address] MCHC (RBC) [Mass/Vol] 32.3 g/dL Normal 32-36 [facility] Comment on above: Order Comment: Comme nts: for right heart cath Performed By: #### L 500.2500, L100.0100 #### [facility] [address] [place], [address] MCV (RBC) [Entitic vol] 96.7 fL High 80-94 [facility] Comment on above: Order Comment: Comme nts: for right heart cath Performed By: #### L 500.2500, L100.0100 #### [facility] [address] [place], [address] Monocytes/100 WBC (Bld) 8.7 % Normal 0-10 [facility] Comment on above: Order Comment: Comme nts: for right heart cath Performed By: #### L 500.2500, L100.0100 #### [facility] [address] [place], [address] Neutrophils/100 WBC (Bld) 61.5 % Normal 47-70 [facility] Comment on above: Order Comment: Comme nts: for right heart cath Performed By: #### L 500.2500, L100.0100 #### [facility] [address] [place], [address] Nucleated RBC (Bld) [#/Vol] 0 10*3/uL Normal 0-5 [facility] Comment on above: Order Comment: Comme nts: for right heart cath Performed By: #### L 500.2500, L100.0100 #### [facility] [address] [place], [address] Platelet mean volume (Bld) [Entitic vol] 9.4 fL Normal 6.2-12.0 [facility] Comment on above: Order Comment: Comme nts: for right heart cath Performed By: #### L 500.2500, L100.0100 #### [facility] [address] [place], [address] Platelets (Bld) [#/Vol] 367 10*3/uL Normal 150-450 [facility] Comment on above: Order Comment: Comme nts: for right heart cath Performed By: #### L 500.2500, L100.0100 #### [facility] [address] [place], [address] RBC (Bld) [#/Vol] 4.48 10*6/uL Low 4.6-6.2 [facility] Comment on above: Order Comment: Comme nts: for right heart cath Performed By: #### L 500.2500, L100.0100 #### [facility] [address] [place], [address] RDW SD 48.6 fl High 35.1-43.9 [facility] Comment on above: Order Comment: Comme nts: for right heart cath Performed By: #### L 500.2500, L100.0100 #### [facility] [address] [place], [address] WBC (Bld) [#/Vol] 10.7 10*3/uL Normal 4.4-11.0 [facility] Comment on above: Order Comment: Comme nts: for right heart cath Performed By: #### L 500.2500, L100.0100 #### [facility] [address] [place], [address] Carbon dioxide, total [Moles /volume] in Central venous bloodOrdered By: Le Meyer on 09-15-2024 CO2 [Moles/Vol] 28.6 mmol/L 21.0-32.0 [facility] Chloride assayOrdered By: Nan Meyer on 09-15-2024 Chloride [Moles/Vol] 96 mmol/L Low 98-108 [facility] Eosinophil percentageOrdered By: Le Meyer on 09-15-2024 Eosinophils/100 WBC (Bld) 1.4 % 0-5 [facility] Erythrocyte distribution wid th ratioOrdered By: Le Meyer on 09-15-2024 Erythrocyte distribution width (RBC) [Ratio] 13.6 % 11.6-14.6 [facility] Erythrocyte distribution wid th standard deviationOrdered By: Le Meyer on 09-15-2024 Erythrocyte distribution width (RBC) [Entitic vol] 48.6 fL High 35.1-43.9 [facility] Erythrocyte distribution width (RBC) [Ratio] 48.6 fl High 35.1-43.9 [facility] GFR/1.73 sq M.predicted dion g non-blacks MDRD (S/P/Bld) [Vol rate/Area]Ordered By: Le Meyer on 09-15-2024 Estimated GFR (MDRD) Non-Af Amer 94 >60 [facility] Comment on above: mL/min/1.73m2 CKD-EP I Creatinine Equation (2020) Glomerular filtration rate ( GFR) estimation/1.73 sq m using serum, plasma, or whole bOrdered By: Le Meyer on 09-15-2024 GFR/1.73 sq M.predicted among non-blacks MDRD (S/P/Bld) [Vol rate/Area] 94 mL/min/{1.73_m2} >60 [facility] Comment on above: mL/min/1.73m2 CKD-EP I Creatinine Equation (2020) Hematocrit Auto (Bld) [Volum e fraction]Ordered By: Le Meyer on 09-15-2024 Hematocrit (Bld) [Volume fraction] 43.3 % 40-54 [facility] Hemoglobin measurementOrdere d By: Le Meyer on 09-15-2024 Hemoglobin (Bld) [Mass/Vol] 14.0 g/dL 13.0-16.5 [facility] Immature granulocytes/100 WB C Auto (Bld)Ordered By: Le Meyer on 09-15-2024 Immature granulocytes/100 WBC (Bld) 0.400 % 0.0-0.9 [facility] Comment on above: IG% - Immature Granu locytes (promyelocytes, myelocytes and metamyelocytes) > 1% indicates that a LEFT SHIFT is Present. Lymphocytes Auto (Unsp spec) [#/Vol]Ordered By: Le Meyer on 09-15-2024 Lymphocytes (Bld) [#/Vol] 2.94 10*3/uL 0.83-4.51 [facility] Lymphocytes/100 WBC Auto (Un sp spec)Ordered By: Le Meyer on 09-15-2024 Lymphocytes/100 WBC (Bld) 27.5 % 19-41 [facility] MCV (mean corpuscular volume ) determinationOrdered By: Le Meyer on 09-15-2024 MCV (RBC) [Entitic vol] 96.7 fL High 80-94 [facility] Mean corpuscular hemoglobin (MCH) determinationOrdered By: Le Meyer on 09-15-2024 MCH (RBC) [Entitic mass] 31.3 pg 27.0-32.0 [facility] Mean corpuscular hemoglobin concentration (MCHC) determinationOrdered By: Le Meyer on 09-15-2024 MCHC (RBC) [Mass/Vol] 32.3 g/dL 32-36 [facility] Mean platelet volume determi nationOrdered By: Le Meyer on 09-15-2024 Platelet mean volume (Bld) [Entitic vol] 9.4 fL 6.2-12.0 [facility] Monocyte percentageOrdered B y: Le Meyer on 09-15-2024 Monocytes/100 WBC (Bld) 8.7 % 0-10 [facility] Neutrophil percentageOrdered By: Le Meyer on 09-15-2024 Neutrophils/100 WBC (Bld) 61.5 % 47-70 [facility] Nucleated red blood cell per centageOrdered By: eL Meyer on 09-15-2024 Nucleated RBC/100 WBC (Bld) [Ratio] 0 % 0-5 [facility] Platelet countOrdered By: Nan Meyer on 09-15-2024 Platelets (Bld) [#/Vol] 367 10*3/uL 150-450 [facility] Potassium (Uns spec) [Mass/ Vol]Ordered By: Le Meyer on 09-15-2024 Potassium [Moles/Vol] 4.9 mmol/L 3.3-5.1 [facility] Comment on above: Hemolysis present, R esults could be affected. Potassium measurement (mass/ volume)Ordered By: Le Meyer on 09-15-2024 Potassium (Unsp spec) [Mass/Vol] 4.9 mmol/L 3.3-5.1 [facility] Comment on above: Hemolysis present, R esults could be affected. RBC Auto (Bld) [#/Vol]Ordere d By: Le Meyer on 09-15-2024 RBC (Bld) [#/Vol] 4.48 10*6/uL Low 4.6-6.2 [facility] Serum creatinine measurement (mass/volume)Ordered By: Le Meyer on 09-15-2024 Creatinine [Mass/Vol] 0.79 mg/dL 0.70-1.20 [facility] Serum glucose measurement (m ass/volume)Ordered By: Le Meyer on 09-15-2024 Glucose [Mass/Vol] 141 mg/dL High 70-99 [facility] Serum or plasma calcium hollis urement (mass/volume)Ordered By: Le Meyer on 09-15-2024 Calcium [Mass/Vol] 9.3 mg/dL 7.6-11.0 [facility] Serum or plasma urea nitroge n measurement (mass/volume)Ordered By: Le Meyer on 09-15-2024 Urea nitrogen [Mass/Vol] 21 mg/dL High 4-19 [facility] Sodium levelOrdered By: Paolo Meyer on 09-15-2024 Sodium [Moles/Vol] 136 mmol/L 133-145 [facility] White blood cell (WBC) count Ordered By: Le Meyer on 09-15-2024 WBC (Bld) [#/Vol] 10.7 10*3/uL 4.4-11.0 [facility] 6 Minute Walk Teston 025 6 Minute Walk Test y [facility] [address] [place] [address] MR#: [id number] Acct: [id number] Name: CELESTINE ECHAVARRIA Rep #: [id number] : 1950 73 From: Juan Manuel Schmitt DO Referring Dr: Le Meyer PA Status: REG CLI Location: PSN Date: Sex: M C PSN 6 Minute Walk Test 6 Minute Walk Test 6 Minute Walk Test: 6 Minute Walk Test PSN:6-Minute Walk Test Start: 07/28/24 13:39 Freq: Status: Active Protocol: [id number].6MINW Document 07/28/24 13:30 AEH (Rec: 07/28/24 13:44 AEH [id number]) 6 Minute Walk Test Date Performed 07/28/24 Time Performed 13:30 Height 5 ft 11 in Weight: 297 lb Weight in Pounds 297.[address]: Yin Assistive device used: Cane Pre-test Oxygen Delivery Method Room Air Pulse Ox (%) 93 Pulse Rate (60-100 beats/min) 76 Dyspnea Lara Scale (0-10) 0.5 Exertion Lara Scale (6-20) 6 1st minute Oxygen Delivery Method Room Air Pulse Ox (%) 94 Pulse Rate (60-100 beats/min) 94 2nd minute Oxygen Delivery Method Room Air Pulse Ox (%) 93 Pulse Rate (60-100 beats/min) 105 H 3rd minute Oxygen Delivery Method Room Air Pulse Ox (%) 92 Pulse Rate (60-100 beats/min) 108 H 4th minute Oxygen Delivery Method Room Air Pulse Ox (%) 92 Pulse Rate (60-100 beats/min) 110 H 5th minute Oxygen Delivery Method Room Air Pulse Ox (%) 92 Pulse Rate (60-100 beats/min) 95 6th minute Oxygen Delivery Method Room Air Pulse Ox (%) 92 Pulse Rate (60-100 beats/min) 85 Dyspnea Lara Scale (0-10) 0.5 Exertion Lara Scale (6-20) 11 Post-test Oxygen Delivery Method Room Air Pulse Ox (%) 95 Pulse Rate (60-100 beats/min) 75 Full Laps Walked 13 Partial Lap, Number of Tiles Walked 0 Total Distance Walked (ft) 767 Interpretation Interpretation: The patient ambulated 767 feet over the course of 6 minutes beginning on room air with use of a cane. Pretesting oxygen saturation was noted to be 93% on room air. With ambulation, the [place] oxygen saturation was 92%. Although there was evidence of impaired walk distance, there was no significant exertional oxygen desaturation. Recommendations Recommendations: There is no indication for the use of supplemental oxygen at this time. 08/04/2458 Date Juan Manuel Schmitt DO CC: Date Dictated: 08/04/24956 Date Transcribed: 08/04/24956 Stonemason Apprentice: Dr. Juan Manuel Schmitt DO Signed Normal [facility] Cardiology Visit Reporton Cardiology Visit Report [facility] [address] [place] [address]. [address] [place] [address] OFFICE VISIT Date of Service: 07/16/24 MR#: [id number] Acct: [id number] Name: CELESTINE ECHAVARRIA Rep #: [id number] : 1950 Provider: SARAH Camarena Age/Sex: 73/M Location: [facility] Status: Signed HPI HPI History of Present Illness Details: He is a 73-year-old man with a history of known atherosclerotic cardiovascular disease. In 2016, he had a cardiac catheterization which demonstrated 50% mid left anterior descending artery stenosis, an ectatic circumflex artery, a right coronary artery which was totally occluded. He had preserved left ventricular systolic function. He also has a past medical history of diabetes, hypertension, hyperlipidemia, previous tobacco abuse, and obstructive sleep apnea. Patient was seen in the emergency room on July 14, 2024 for chest discomfort. Troponin was negative x 2. It was felt his discomfort was likely related to mild congestive heart failure. He was given IV Lasix. His BNP was 82. CXR did demonstrate mild congestion. He was asked to restart his hydrochlorothiazide at home. Pt notes that he is still having chest heaviness, it is constant. He does feel his swelling is better. He does have a chest congestion. He does use his CPAP at night with oxygen. He does have shortness of breath. Intake Vital Signs 07/14/24 13:04 07/16/24 08:26 Height 5 ft 11 in 5 ft 11 in Weight: 297 lb BMI 41.4 BP 142/83 H Blood Pressure Location Lt brachial Position Sitting Respiration 20 H Pulse 73 Pulse Source Monitor Pulse Oximetry (%) 91 Intake Visit Reasons: [facility] ER 07/14 Peripheral Edema Diplomatic Interpreter/Translator Required: No Is patient in pain?: No Allergies adhesive tape Adverse Reaction (Mild, Verified 07/16/24 08:32) red/itchy Medications ???Medication ???Instructions ???Recorded ???Confirmed ???Type atenolol 50 mg tablet 25 mg PO DAILY heart 01/18/16 07/16/24 History metformin 500 mg tablet 1,000 mg PO BID dm 11/29/21 07/16/24 History levocetirizine 5 mg tablet (Xyzal) 5 mg PO DAILY 12/28/21 07/16/24 History triamterene 75 0.5 tab PO DAILY 12/28/21 07/16/24 History mg-hydrochlorothiazide 50 mg tablet (Maxzide) albuterol sulfate 90 mcg/actuation 2 puff inhalation Q4H PRN 03/14/23 07/16/24 Rx aerosol inhaler (Ventolin HFA) shortness of breath or wheezing #18 grams atorvastatin 40 mg tablet 40 mg PO DAILY cholesterol 03/27/23 07/16/24 History finerenone 10 mg tablet (Kerendia) 10 mg PO QDAY 04/27/24 07/16/24 History aspirin 81 mg tablet,delayed 81 mg PO QDAY 07/16/24 07/16/24 History release (Adult Low Dose Aspirin) Have you fallen in the past year?: No Nurse's Note: no medication list, patient guessing at what he is taking [facility] Medical History Bronchiectasis BiPAP (biphasic positive airway pressure) dependence Encounter for screening colonoscopy Hoarseness On home oxygen therapy Fatty liver Hx of transfusion of whole blood History of edema Diabetes Acute and chronic respiratory failure with hypoxia COVID-19 (11/30/21) Leg edema Cholelithiasis with chronic cholecystitis Preop cardiovascular exam Hypoxia BMI 39.0-39.9,adult Smoking greater than 40 pack years Allergic rhinitis Essential (primary) hypertension Tobacco dependence in remission Arthritis Nicotine abuse Obstructive sleep apnea Hyperlipidemia Atherosclerotic heart disease of [place] coronary artery without angina pectoris Surgical History S/P cholecystectomy Hx of colonoscopy S/P emergency tracheotomy for assistance in breathing History of tracheostomy H/O resection of rib History of cataract extraction History of splenectomy History of arthroplasty of right knee History of tonsillectomy History of partial splenectomy History of appendectomy History of left heart catheterization (01/23/16) Family History Unknown No problems noted. Social History Smoking Status: Former smoker quit date: 07/08/16 pack-years: 50 second hand exposure: No alcohol intake: never substance use type: does not use caffeine: Yes Type: coffee Number of servings: 8 what type of physical activity do you participate in: none ROS Const Const: Positive for fatigue; Negative for weakness, body ache or headache(s) Eyes Eyes: Negative for change in vision ENT ENT: Positive for balance problems; Negative for headache(s), dizziness or hearing loss Cardio Chest Pain: Yes Palpitations: No Edema: None Muscle aches with walking: None Resp Respirato (more content not included)... Normal [facility] 12 Lead EKGon 07-14-2024 12 Lead EKG [facility] [address] [place] [address] 12 Lead EKG 07/14/24 1310 MR#: [id number] Acct: [id number] Name: CELESTINE ECHAVARRIA Rep #: [id number] : 1950 73 From: Bertram Dove MD Attending Dr: Status: DEP ER Ordering Dr: Conner Lazaro DO Date: 5 Location: ED Sex: M C Admitted: Test Reason : SC Blood Pressure : */* mmHG Vent. Rate : 66 BPM Atrial Rate : 66 BPM P-R Int : 158 ms QRS Dur : 108 ms QT Int : 436 ms P-R-T Axes : 77 0 54 degrees QTcB Int : 457 ms Normal sinus rhythm with sinus arrhythmia Normal ECG Confirmed by Bertram Dove ([id number]), purchase request editor FRANCISCO EDWARDS ([id number]) on 07/15/2024 8:27:08 AM Referred By: AR/NENA Confirmed By: Bertram Dove 07/15/24 0827 Date Bertram Dove MD CC: Dr. Conner Lazaro DO; Dr. Massimo Epperson MD Signed [facility] Absolute neutrophil countOrd ered By: Conner Lazaro on 07-14-2024 Neutrophils (Bld) [#/Vol] 6.1 10*3/uL 2.0-7.7 [facility] BNP (brain natriuretic pepti de measurement)Ordered By: Conner Lazaro on 01-07-2025 Natriuretic peptide B (Bld) [Mass/Vol] 82.1 pg/mL 0-100 [facility] BNP,B-Type NATRIURETIC PEPTI Comfort 07-14-2024 Natriuretic peptide B (Bld) [Mass/Vol] 82.1 pg/mL Normal 0-100 [facility] Comment on above: Performed By: #### L 501.5425, L500.2500, L100.0100 #### [facility] [address] [place], [address] Basic Metabolic Profile (BMP )on 07-14-2024 BUN/CRE 27.7 RATIO High 10-20 [facility] Comment on above: Order Comment: 1 Y Performed By: #### L 501.5425, L500.2500, L100.0100 #### [facility] [address] [place], [address] CA,Total 9.2 mg/dL Normal 8.5-10.1 [facility] Comment on above: Order Comment: 1 Y Performed By: #### L 501.5425, L500.2500, L100.0100 #### [facility] [address] [place], [address] Chloride [Moles/Vol] 101 mmol/L Normal 98-107 [facility] Comment on above: Order Comment: 1 Y Performed By: #### L 501.5425, L500.2500, L100.0100 #### [facility] [address] [place], [address] CO2 [Moles/Vol] 36.0 mmol/L High 21.0-32.0 [facility] Comment on above: Order Comment: 1 Y Performed By: #### L 501.5425, L500.2500, L100.0100 #### [facility] [address] [place], [address] Creatinine [Mass/Vol] 0.72 mg/dL Normal 0.70-1.30 [facility] Comment on above: Order Comment: 1 Y Result Comment: The validity of the calculated GFR GFRAA in patients over 70 years has not been determined. Clinical correlation is essential. Performed By: #### L 501.5425, L500.2500, L100.0100 #### [facility] [address] [place], [address] ECRCL 119.21 ml/min Normal [facility] Comment on above: Order Comment: 1 Y Performed By: #### L 501.5425, L500.2500, L100.0100 #### [facility] [address] [place], [address] EST GFR - AA 138 mL/min Normal >60 [facility] Comment on above: Order Comment: 1 Y Result Comment: Afri can Mexican GFR Calc Performed By: #### L 501.5425, L500.2500, L100.0100 #### [facility] [address] [place], [address] GAP 0 Low 5-15 [facility] Comment on above: Order Comment: 1 Y Performed By: #### L 501.5425, L500.2500, L100.0100 #### [facility] [address] [place], [address] GFR/1.73 sq M.predicted among non-blacks MDRD (S/P/Bld) [Vol rate/Area] 114 mL/min/{1.73_m2} Normal >60 [facility] Comment on above: Order Comment: 1 Y Result Comment: Non- GFR Calc Performed By: #### L 501.5425, L500.2500, L100.0100 #### [facility] [address] [place], [address] Glucose [Mass/Vol] 141 mg/dL High 74-106 [facility] Comment on above: Order Comment: 1 Y Result Comment: Fast ing Glucose result greater than or equal to 126 mg/dL suggests DIABETES MELLITUS per A.D.A. criteria. Performed By: #### L 501.5425, L500.2500, L100.0100 #### [facility] [address] [place], [address] Potassium [Moles/Vol] 4.3 mmol/L Normal 3.5-5.1 [facility] Comment on above: Order Comment: 1 Y Performed By: #### L 501.5425, L500.2500, L100.0100 #### [facility] [address] [place], [address] Sodium [Moles/Vol] 137 mmol/L Normal 136-145 [facility] Comment on above: Order Comment: 1 Y Performed By: #### L 501.5425, L500.2500, L100.0100 #### [facility] [address] [place], [address] Urea nitrogen [Mass/Vol] 20 mg/dL High -18 [facility] Comment on above: Order Comment: 1 Y Performed By: #### L 501.5425, L500.2500, L100.0100 #### [facility] [address] [place], [address] Basophil percentageOrdered B y: Conner Lazaro on 07-14-2024 Basophils/100 WBC (Bld) 0.6 % 0-1 [facility] Blood urea nitrogen (BUN)/cr eatinine ratioOrdered By: Conner Lazaro on 07-14-2024 Urea nitrogen/Creatinine [Mass ratio] 27.7 mg/mg High 10-20 [facility] CBC W/Diff, Automatedon Absolute Neut Normal 2.0-7.7 [facility] Comment on above: Result Comment: Bobo hayes via OM: Ordered Performed By: #### L 501.5425, L500.2500, L100.0100 #### [facility] [address] [place], [address] HCT Normal 40-54 [facility] Comment on above: Result Comment: Canc elled via OM: MD Ordered Performed By: #### L 501.5425, L500.2500, L100.0100 #### [facility] [address] [place], [address] HGB Normal 13.0-16.5 [facility] Comment on above: Result Comment: Canc elled via OM: MD Ordered Performed By: #### L 501.5425, L500.2500, L100.0100 #### [facility] [address] [place], [address] MCH Normal 27.0-32.0 [facility] Comment on above: Result Comment: Canc elled via OM: MD Ordered Performed By: #### L 501.5425, L500.2500, L100.0100 #### [facility] [address] [place], [address] MCHC Normal 32-36 [facility] Comment on above: Result Comment: Canc elled via OM: MD Ordered Performed By: #### L 501.5425, L500.2500, L100.0100 #### [facility] [address] [place], [address] MCV Normal 80-94 [facility] Comment on above: Result Comment: Canc elled via OM: MD Ordered Performed By: #### L 501.5425, L500.2500, L100.0100 #### [facility] [address] [place], [address] NEUT% Normal 47-70 [facility] Comment on above: Result Comment: Canc elled via OM: MD Ordered Performed By: #### L 501.5425, L500.2500, L100.0100 #### [facility] [address] [place], [address] PLT Normal 150-450 [facility] Comment on above: Result Comment: Canc elled via OM: MD Ordered Performed By: #### L 501.5425, L500.2500, L100.0100 #### [facility] [address] [place], [address] RBC Normal 4.6-6.2 [facility] Comment on above: Result Comment: Canc elled via OM: MD Ordered Performed By: #### L 501.5425, L500.2500, L100.0100 #### [facility] [address] [place], [address] RDW CV Normal 11.6-14.6 [facility] Comment on above: Result Comment: Canc elled via OM: MD Ordered Performed By: #### L 501.5425, L500.2500, L100.0100 #### [facility] [address] [place], [address] RDW SD Normal 35.1-43.9 [facility] Comment on above: Result Comment: Canc elled via OM: MD Ordered Performed By: #### L 501.5425, L500.2500, L100.0100 #### [facility] [address] [place], [address] WBC Normal 4.4-11.0 [facility] Comment on above: Result Comment: Canc elled via OM: MD Ordered Performed By: #### L 501.5425, L500.2500, L100.0100 #### [facility] [address] [place], [address] Absolute Lymph 3.20 X10 3/uL Normal 0.83-4.51 [facility] Comment on above: Performed By: #### L 501.5425, L500.2500, L100.0100 #### [facility] [address] [place], [address] Absolute Neut 6.1 X10 3/uL Normal 2.0-7.7 [facility] Comment on above: Performed By: #### L 501.5425, L500.2500, L100.0100 #### [facility] [address] [place], [address] Basophils/100 WBC (Bld) 0.6 % Normal 0-1 [facility] Comment on above: Performed By: #### L 501.5425, L500.2500, L100.0100 #### [facility] [address] [place], [address] Eosinophils/100 WBC (Bld) 1.2 % Normal 0-5 [facility] Comment on above: Performed By: #### L 501.5425, L500.2500, L100.0100 #### [facility] [address] [place], [address] Erythrocyte distribution width (RBC) [Ratio] 13.9 % Normal 11.6-14.6 [facility] Comment on above: Performed By: #### L 501.5425, L500.2500, L100.0100 #### [facility] [address] [place], [address] Hematocrit (Bld) [Volume fraction] 41.6 % Normal 40-54 [facility] Comment on above: Performed By: #### L 501.5425, L500.2500, L100.0100 #### [facility] [address] [place], [address] Hemoglobin (Bld) [Mass/Vol] 13.2 g/dL Normal 13.0-16.5 [facility] Comment on above: Performed By: #### L 501.5425, L500.2500, L100.0100 #### [facility] [address] [place], [address] IG% 0.400 Normal 0.0-0.9 [facility] Comment on above: Result Comment: IG% - Immature Granulocytes (promyelocytes, myelocytes and metamyelocytes) > 1% indicates that a LEFT SHIFT is Present. Performed By: #### L 501.5425, L500.2500, L100.0100 #### [facility] [address] [place], [address] Lymphocytes/100 WBC (Bld) 30.7 % Normal 19-41 [facility] Comment on above: Performed By: #### L 501.5425, L500.2500, L100.0100 #### [facility] [address] [place], [address] MCH (RBC) [Entitic mass] 31.1 pg Normal 27.0-32.0 [facility] Comment on above: Performed By: #### L 501.5425, L500.2500, L100.0100 #### [facility] [address] [place], [address] MCHC (RBC) [Mass/Vol] 31.7 g/dL Low 32-36 [facility] Comment on above: Performed By: #### L 501.5425, L500.2500, L100.0100 #### [facility] [address] [place], [address] MCV (RBC) [Entitic vol] 97.9 fL High 80-94 [facility] Comment on above: Performed By: #### L 501.5425, L500.2500, L100.0100 #### [facility] [address] [place], [address] Monocytes/100 WBC (Bld) 9.0 % Normal 0-10 [facility] Comment on above: Performed By: #### L 501.5425, L500.2500, L100.0100 #### [facility] [address] [place], [address] Neutrophils/100 WBC (Bld) 58.1 % Normal 47-70 [facility] Comment on above: Performed By: #### L 501.5425, L500.2500, L100.0100 #### [facility] [address] [place], [address] Nucleated RBC (Bld) [#/Vol] 0 10*3/uL Normal 0-5 [facility] Comment on above: Performed By: #### L 501.5425, L500.2500, L100.0100 #### [facility] [address] [place], [address] Platelet mean volume (Bld) [Entitic vol] 9.3 fL Normal 6.2-12.0 [facility] Comment on above: Performed By: #### L 501.5425, L500.2500, L100.0100 #### [facility] [address] [place], [address] Platelets (Bld) [#/Vol] 348 10*3/uL Normal 150-450 [facility] Comment on above: Performed By: #### L 501.5425, L500.2500, L100.0100 #### [facility] [address] [place], [address] RBC (Bld) [#/Vol] 4.25 10*6/uL Low 4.6-6.2 [facility] Comment on above: Performed By: #### L 501.5425, L500.2500, L100.0100 #### [facility] [address] [place], [address] RDW SD 50.1 fl High 35.1-43.9 [facility] Comment on above: Performed By: #### L 501.5425, L500.2500, L100.0100 #### [facility] [address] [place], [address] WBC (Bld) [#/Vol] 10.4 10*3/uL Normal 4.4-11.0 [facility] Comment on above: Performed By: #### L 501.5425, L500.2500, L100.0100 #### [facility] [address] [place], [place], [address] Carbon dioxide measurementOr dered By: Conner Lazaro on 07-14-2024 CO2 [Moles/Vol] 36.0 mmol/L High 21.0-32.0 [facility] Chest 1 View (Portable)on Chest 1 View (Portable) [facility] Imaging Services [address] [place] [address] Chest 1 View (Portable) MR#: [id number] Acct: [id number] Name: CELESTINE ECHAVARRIA Rep #: [id number] : 1950 M 73 From: Fely garcia MD PCP: Dr. Massimo Epperson MD Status: REG ER Study: Chest 1 View (Portable) Date of Exam: 07/14/24 Exam# [id number] Ordering Dr: Conner Lazaro DO [id number] HISTORY: chest pain. TECHNIQUE: XR Chest 1 View. COMPARISON: 03/08/2023. FINDINGS: CARDIOMEDIASTINAL BORDERS: Cardiac silhouette upper limits of normal in size. Calcification of the aortic knob. LUNGS: Low lung volumes with mild pulmonary vascular congestion and linear bibasilar opacities. PLEURA: No pleural effusion or pneumothorax seen. OSSEOUS STRUCTURES: Old left clavicle fracture. Old right sixth rib fracture. RAD/Chest 1 View (Portable) IMPRESSION: Mild pulmonary vascular congestion and bibasilar atelectasis. Electronically Signed: Fely Patricia MD at 14:35 EST , CC: Dr. Conner Lazaro DO; Dr. Massimo Epperson MD Stonemason Apprentice: Signed Normal [facility] Chloride measurementOrdered By: Conner Lazaro on 07-14-2024 Chloride [Moles/Vol] 101 mmol/L 98-107 [facility] D-Dimer Quantitative (DVT/PE )on 07-14-2024 D-DIMER QUANT 0.71 FEU/ug/m Invalid Interpretation Code 0.27-0.49 [facility] Comment on above: Order Comment: CRITI TOM VALUE CALLED TO SUNIL TESFAYE07/14/24 1438 [place] Saez.RESULTS READ BACK BY SAME. Result Comment: D-Di iesha ELEVATED (>0.49): Additional studies and clinical assessments are indicated to conclude diagnosis of: Deep Vein Thrombosis (DVT) or Pulmonary Embolism (PE) Performed By: #### L 501.5425, L500.2500, L100.0100 #### [facility] [address] [place], [address] D-dimer measurement for deep venous thrombosisOrdered By: Conner Lazaro on 07-14-2024 D-Dimer Quantitative (PE/DVT) 0.71 FEU/ug/m High 0.27-0.49 [facility] Comment on above: D-Dimer ELEVATED (>0 .49): Additional studies and clinicalassessments are indicated to conclude diagnosis of:Deep Vein Thrombosis (DVT) or Pulmonary Embolism (PE) Emergency Department Summary on 07-14-2024 Emergency Department Summary [facility] Medical Records Department [address] [place] [address] Emergency Department Summary 07/14/24 MR#: [id number] Acct: [id number] Name: CELESTINE ECHAVARRIA Rep #: [id number] : 1950 73 From: Conner Lazaro DO PCP: Dr. Massimo Epperson MD Status:REG ER Location: ED HPI History of Present Illness Chief Complaint: Chest Pain Narrative Narrative: Chief complaint and HPI: Shortness of breath and chest pain. 73-year-old male with past medical history of CAD, HTN, HLD, DM presents for evaluation of shortness of breath and chest pain. Patient states at baseline he has shortness of breath and exertional dyspnea. He states that it is progressively worsened over the last couple days. He endorses congestion and mild cough. He endorses bilateral lower extremity at baseline that has progressively worsened over the past week per . states that patient used to be on triamterene/HCTZ 75 to 50 mcg 1/2 tablet daily but was taken off of this several weeks ago due to overactive bladder. Patient states around 10 AM he developed diffuse chest pain. Describes it more as a tightness. He denies any fever, chills, abdominal pain, nausea, vomiting, dysuria. Patient declined aspirin and nitro via EMS prior to arrival. states at baseline the patient wheezes. On chart review, patient had a cardiac catheterization in 2016. He had an echocardiogram in January 2024 that showed an EF of 60%. He had a pharmacologic stress test in December 2023 that was negative for ischemic changes. Review of systems: See HPI Medications: As listed on the chart Allergies: As listed on the chart PFSH: Per chart Vital signs: As listed on the chart. Reviewed. Physical exam: Gen: A O x3, NAD Head: Normocephalic, atraumatic Eyes: No sclera icterus, conjunctiva clear, PERRL, EOMI ENT: Moist mucous membranes Neck: Trachea midline, No JVD CV: RRR, no murmurs, + bilateral pitting peripheral edema Resp: Lungs diminished in the bilateral bases, + expiratory wheezing diffusely GI: Abd soft, non-distended but protuberant, non-tender, no r/r/g Musc: Moves all extremities, no deformity Skin: Warm, dry Neuro: Alert, oriented, grossly intact, sensation intact Psych: Cooperative, appropriate mood and affect [facility] Medical History (Reviewed 04/27/24 @ 08:29 by Marissa Schroeder MANAGER UTILIZATION MANAGEMENT, MANAGER UTILIZATION MANAGEMENT-C) Bronchiectasis BiPAP (biphasic positive airway pressure) dependence Encounter for screening colonoscopy Hoarseness On home oxygen therapy Fatty liver Hx of transfusion of whole blood History of edema Diabetes Acute and chronic respiratory failure with hypoxia COVID-19 (11/30/21) Leg edema Cholelithiasis with chronic cholecystitis Preop cardiovascular exam Hypoxia BMI 39.0-39.9,adult Smoking greater than 40 pack years Allergic rhinitis Essential (primary) hypertension Tobacco dependence in remission Arthritis Nicotine abuse Obstructive sleep apnea Hyperlipidemia Atherosclerotic heart disease of [place] coronary artery without angina pectoris Home Medications ???Medication ???Instructions ???Recorded ???Last Taken ???Type atenolol 50 mg tablet 25 mg PO DAILY heart 01/18/16 01/24/22 History metformin 500 mg tablet 1,000 mg PO BID dm 11/29/21 11/30/21 History levocetirizine 5 mg tablet (Xyzal) 5 mg PO DAILY 12/28/21 Unknown History triamterene 75 0.5 tab PO DAILY 12/28/21 Unknown History mg-hydrochlorothiazide 50 mg tablet (Maxzide) albuterol sulfate 90 mcg/actuation 2 puff inhalation Q4H PRN 03/14/23 Unknown Rx aerosol inhaler (Ventolin HFA) shortness of breath or wheezing #18 grams atorvastatin 40 mg tablet 40 mg PO DAILY cholesterol 03/27/23 Unknown History finerenone 10 mg tablet (Kerendia) 10 mg PO QDAY 04/27/24 Unknown History Allergy/AdvReac Type Severity Reaction Status Date / Time adhesive tape AdvReac Mild red/itchy Verified 04/27/24 08:14 Family History (Reviewed 04/27/24 @ 08:29 by Marissa Schroeder MANAGER UTILIZATION MANAGEMENT, MANAGER UTILIZATION MANAGEMENT-C) Unknown No problems noted. Surgical History (Reviewed 04/27/24 @ 08:29 by Marissa Shcroeder MANAGER UTILIZATION MANAGEMENT, MANAGER UTILIZATION MANAGEMENT-C) S/P cholecystectomy Hx of colonoscopy S/P emergency tracheotomy for assistance in breathing History of tracheostomy H/O resection of rib History of cataract extraction History of splenectomy History of arthroplasty of right knee History of tonsillectomy History of partial splenectomy History of appendectomy History of left heart catheterization (01/23/16) Social History Smoking Status: Former smoker quit date: 07/08/16 pack-years: 50 second hand exposure: No alcohol intake: never substance use type: does not use caffeine: Yes Type: coffee Number of servings: 8 what type of physical activity do you participate in: none EXAM Physical Exam Const Maryuri (more content not included)... Normal [facility] Eosinophil percentageOrdered By: Conner Lazaro on 07-14-2024 Eosinophils/100 WBC (Bld) 1.2 % 0-5 [facility] Erythrocyte distribution wid th ratioOrdered By: Conner Lazaro on 07-14-2024 Erythrocyte distribution width (RBC) [Ratio] 13.9 % 11.6-14.6 [facility] Erythrocyte distribution wid th standard deviationOrdered By: Conner Avalos on 07-14-2024 Erythrocyte distribution width (RBC) [Entitic vol] 50.1 fL High 35.1-43.9 [facility] Estimated glomerular filtrat ion rate (GFR) AmericanOrdered By: Conner Lazaro on 07-14-2024 Estimated GFR (MDRD) Amer 138 mL/min >60 [facility] Comment on above: GFR Calc Estimation of creatinine roselia aranceOrdered By: Conner Lazaro on 07-14-2024 Estimated Creatinine Clearance Calc 119.21 ml/min [facility] Glomerular filtration rate ( GFR) estimationOrdered By: Conner Lazaro on 07-14-2024 Estimated GFR (MDRD) Non-Af Amer 114 mL/min >60 [facility] Comment on above: Non- GFR Calc Glucose measurementOrdered B y: Conner Lazaro on 07-14-2024 Glucose [Mass/Vol] 141 mg/dL High 74-106 [facility] Comment on above: Fasting Glucose resu lt greater than or equal to 126 mg/dL suggests DIABETES MELLITUS per A.D.A. criteria. Hematocrit Auto (Bld) [Volum e fraction]Ordered By: Conner Lazaro on 07-14-2024 Hematocrit (Bld) [Volume fraction] 41.6 % 40-54 [facility] Hemoglobin measurementOrdere d By: Conner Lazaro on 07-14-2024 Hemoglobin (Bld) [Mass/Vol] 13.2 g/dL 13.0-16.5 [facility] Immature granulocytes/100 WB C Auto (Bld)Ordered By: Connerjosué Lazaro on 07-14-2024 Immature granulocytes/100 WBC (Bld) 0.400 % 0.0-0.9 [facility] Comment on above: IG% - Immature Granu locytes (promyelocytes, myelocytes and metamyelocytes) > 1% indicates that a LEFT SHIFT is Present. Influenza virus A and B and SARS-CoV-2 (COVID-19) and Respiratory syncytial virus RNAOrdered By: Conner Lazaro on 07-14-2024 SARS-CoV-2 (COVID-19) RNA TAYA+probe Ql (Unsp spec) [facility] International normalized rat io (INR) calculationOrdered By: Conner Lazaro on 07-14-2024 INR Coag (Bld) [Relative time] 1.0 {INR} [facility] L501.4020on 07-14-2024 TROPONIN-I HS 12 pg/mL Normal 3.0-78.0 [facility] Comment on above: Result Comment: Plea se Note: New Test Units and Gender Specific Reference Ranges. For more information see Policy Stat Procedure [place] High Sensitivity Troponin (TNIH) and attachments. Performed By: #### L 501.4020 #### [facility] [address] [place], [address] L501.5425on 07-14-2024 TROPONIN-I HS 12 pg/mL Normal 3.0-78.0 [facility] Comment on above: Order Comment: 1 Y Result Comment: Plea se Note: New Test Units and Gender Specific Reference Ranges. For more information see Policy Stat Procedure [place] High Sensitivity Troponin (TNIH) and attachments. Performed By: #### L 501.5425, L500.2500, L100.0100 #### [facility] [address] [place], [address] Lymphocytes Auto (Unsp spec) [#/Vol]Ordered By: [facility] on 07-14-2024 Lymphocytes (Bld) [#/Vol] 3.20 10*3/uL 0.83-4.51 [facility] Lymphocytes/100 WBC Auto (Un sp spec)Ordered By: Conner Lazaro on 07-14-2024 Lymphocytes/100 WBC (Bld) 30.7 % 19-41 [facility] M100.678on 07-14-2024 M100.678 Pending SARS-CoV-2 (COVID 19) Negative INFLUENZA A Negative INFLUENZA B Negative RSV PCR Negative Normal [facility] Comment on above: Performed By: #### L 501.5422, L500.2500, L100.0100 #### [facility] [address] [place], [address] MCV (mean corpuscular volume ) determinationOrdered By: Conner Lazaro on 07-14-2024 MCV (RBC) [Entitic vol] 97.9 fL High 80-94 [facility] Mean corpuscular hemoglobin (MCH) determinationOrdered By: Conner Lazaro on 07-14-2024 MCH (RBC) [Entitic mass] 31.1 pg 27.0-32.0 [facility] Mean corpuscular hemoglobin concentration (MCHC) determinationOrdered By: Conner Lazaro on 07-14-2024 MCHC (RBC) [Mass/Vol] 31.7 g/dL Low 32-36 [facility] Mean platelet volume determi nationOrdered By: Conner Lazaro on 07-14-2024 Platelet mean volume (Bld) [Entitic vol] 9.3 fL 6.2-12.0 [facility] Monocyte percentageOrdered B y: Conner Lazaro on 07-14-2024 Monocytes/100 WBC (Bld) 9.0 % 0-10 [facility] Neutrophil percentageOrdered By: Conner Tejas on 07-14-2024 Neutrophils/100 WBC (Bld) 58.1 % 47-70 [facility] Nucleated red blood cell per centageOrdered By: [place] Tejas on 07-14-2024 Nucleated RBC/100 WBC (Bld) [Ratio] 0 % 0-5 [facility] Partial Thromboplast Timeon 07-14-2024 aPTT Coag (Bld) [Time] 29.1 s Normal 24.1-36.2 [facility] Comment on above: Order Comment: CRITI TOM VALUE CALLED TO SUNIL TESFAYE07/14/24 143Daniele Saez.RESULTS READ BACK BY SAME. Performed By: #### L 501.5425, L500.2500, L100.0100 #### [facility] [address] [place], [address] Platelet countOrdered By: Joseph Lazaro on 07-14-2024 Platelets (Bld) [#/Vol] 348 10*3/uL 150-450 [facility] Potassium measurementOrdered By: Conner Lazaro on 07-14-2024 Potassium [Moles/Vol] 4.3 mmol/L 3.5-5.1 [facility] Prothrombin Time w/INRon INR Coag (PPP) [Relative time] 1.0 {INR} Normal [facility] Comment on above: Order Comment: CRITI TOM VALUE CALLED TO SUNIL [facility]07/14/24 [facility] [place] Saez.RESULTS READ BACK BY SAME. Performed By: #### L 501.5425, L500.2500, L100.0100 #### [facility] [address] [place], [address] PT Coag (PPP) [Time] 13.6 s Normal 11.7-14.9 [facility] Comment on above: Order Comment: CRITI TOM VALUE CALLED TO [facility]07/14/24 [facility] [place] Saez.RESULTS READ BACK BY SAME. Performed By: #### L 501.5425, L500.2500, L100.0100 #### [facility] [address] [place], [address] Prothrombin timeOrdered By: Conner Lazaro on 07-14-2024 PT Coag (PPP) [Time] 13.6 s 11.7-14.9 [facility] RBC Auto (Bld) [#/Vol]Ordere d By: Conner Lazaro on 07-14-2024 RBC (Bld) [#/Vol] 4.25 10*6/uL Low 4.6-6.2 [facility] Serum anion gap measurementO rdered By: Conner Lazaro on 07-14-2024 Anion gap [Moles/Vol] 0 mmol/L Low 5-15 [facility] Serum or plasma calcium hollis urement (mass/volume)Ordered By: Conner Avalos on 07-14-2024 Calcium [Mass/Vol] 9.2 mg/dL 8.5-10.1 [facility] Serum or plasma creatinine m easurement (mass/volume)Ordered By: Conner Avalos on 07-14-2024 Creatinine [Mass/Vol] 0.72 mg/dL 0.70-1.30 [facility] Comment on above: The validity of the calculated GFR & GFRAA in patients over 70 years has not been determined. Clinical correlation is essential. Serum or plasma urea nitroge n measurement (mass/volume)Ordered By: Conner Lazaro on 07-14-2024 Urea nitrogen [Mass/Vol] 20 mg/dL High 7-18 [facility] Sodium levelOrdered By: Deangelo Lazaro on 07-14-2024 Sodium [Moles/Vol] 137 mmol/L 136-145 [facility] Troponin IOrdered By: Conner Lazaro on 07-14-2024 Troponin I High Sensitivity 12 pg/mL 3.0-78.0 [facility] Comment on above: Please Note: New Cynthia t Units and Gender Specific Reference Ranges. For more information see Policy Stat Procedure [place] High Sensitivity Troponin (TNIH) and attachments. White blood cell (WBC) count Ordered By: Conner Lazaro on 07-14-2024 WBC (Bld) [#/Vol] 10.4 10*3/uL 4.4-11.0 [facility] aPTT Coag (PPP) [Time]Ordere d By: Conner Lazaro on 07-14-2024 aPTT Coag (Bld) [Time] 29.1 s 24.1-36.2 [facility] 94-OX-Gdyykxu DOrdered By: Varun Epperson on 06-12-2024 Vitamin D 25-Hydroxy 11.8 ng/mL [facility] Comment on above: Vitamin D 25(OH) Sta tus Range Deficiency <20 ng/mL (50nmol/L) Insufficiency 20 - 30 ng/mL (50 - 75 nmol/L) Sufficiency 30 - 100 ng/mL (75 - 250 nmol/L) Toxicity >100 ng/mL (>250 nmol/L) Absolute neutrophil countOrd ered By: Massimo Epperson on 06-12-2024 Neutrophils (Bld) [#/Vol] 6.4 10*3/uL 2.0-7.7 [facility] Albumin to globulin ratioOrd ered By: Massimo Epperson on 06-12-2024 Albumin/Globulin [Mass ratio] 1.0 {ratio} 0.9-2.4 [facility] Basophil percentageOrdered B y: Massimo Epperson on 06-12-2024 Basophils/100 WBC (Bld) 0.5 % 0-1 [facility] Bilirubin, totalOrdered By: Massimo Epperson on 06-12-2024 Bilirubin [Mass/Vol] 0.60 mg/dL 0.20-1.00 [facility] Comment on above: For patients on eltr ombopag therapy, use of Dimension [place] TBIL is not recommended. Blood urea nitrogen (BUN)/cr eatinine ratioOrdered By: Massimo Epperson on 06-12-2024 Urea nitrogen/Creatinine [Mass ratio] 31.0 mg/mg High 10-20 [facility] CBC W/Diff, Automatedon Absolute Lymph 2.91 X10 3/uL Normal 0.83-4.51 [facility] Comment on above: Performed By: #### L 501.4020 #### [facility] [address] [place], [address] Absolute Neut 6.4 X10 3/uL Normal 2.0-7.7 [facility] Comment on above: Performed By: #### L [id number] #### [facility] [address] [place], [address] Basophils/100 WBC (Bld) 0.5 % Normal 0-1 [facility] Comment on above: Performed By: #### L [id number] #### [facility] [address] [place], [address] Eosinophils/100 WBC (Bld) 1.2 % Normal 0-5 [facility] Comment on above: Performed By: #### L [id number] #### [facility] [address] [place], [address] Erythrocyte distribution width (RBC) [Ratio] 13.2 % Normal 11.6-14.6 [facility] Comment on above: Performed By: #### L [id number] #### [facility] [address] [place], [address] Hematocrit (Bld) [Volume fraction] 44.9 % Normal 40-54 [facility] Comment on above: Performed By: #### L [id number] #### [facility] [address] [place], [address] Hemoglobin (Bld) [Mass/Vol] 14.2 g/dL Normal 13.0-16.5 [facility] Comment on above: Performed By: #### L [id number] #### [facility] [address] [place], [address] IG% 0.300 Normal 0.0-0.9 [facility] Comment on above: Result Comment: IG% - Immature Granulocytes (promyelocytes, myelocytes and metamyelocytes) > 1% indicates that a LEFT SHIFT is Present. Performed By: #### L [id number] #### [facility] [address] [place], [address] Lymphocytes/100 WBC (Bld) 27.9 % Normal 19-41 [facility] Comment on above: Performed By: #### L [id number] #### [facility] [address] [place], [address] MCH (RBC) [Entitic mass] 31.0 pg Normal 27.0-32.0 [facility] Comment on above: Performed By: #### L [id number] #### [facility] [address] [place], [address] MCHC (RBC) [Mass/Vol] 31.6 g/dL Low 32-36 [facility] Comment on above: Performed By: #### L [id number] #### [facility] [address] [place], [address] MCV (RBC) [Entitic vol] 98.0 fL High 80-94 [facility] Comment on above: Performed By: #### L [id number] #### [facility] [address] [place], [address] Monocytes/100 WBC (Bld) 8.6 % Normal 0-10 [facility] Comment on above: Performed By: #### L [id number] #### [facility] [address] [place], [address] Neutrophils/100 WBC (Bld) 61.5 % Normal 47-70 [facility] Comment on above: Performed By: #### L [id number] #### [facility] [address] [place], [address] Nucleated RBC (Bld) [#/Vol] 0 10*3/uL Normal 0-5 [facility] Comment on above: Performed By: #### L [id number] #### [facility] [address] [place], [address] Platelet mean volume (Bld) [Entitic vol] 9.2 fL Normal 6.2-12.0 [facility] Comment on above: Performed By: #### L [id number] #### [facility] [address] [place], [address] Platelets (Bld) [#/Vol] 377 10*3/uL Normal 150-450 [facility] Comment on above: Performed By: #### L [id number] #### [facility] [address] [place], [address] RBC (Bld) [#/Vol] 4.58 10*6/uL Low 4.6-6.2 [facility] Comment on above: Performed By: #### L [id number] #### [facility] [address] [place], [address] RDW SD 47.7 fl High 35.1-43.9 [facility] Comment on above: Performed By: #### L [id number] #### [facility] [address] [place], [address] WBC (Bld) [#/Vol] 10.4 10*3/uL Normal 4.4-11.0 [facility] Comment on above: Performed By: #### L [id number] #### [facility] [address] [place], [address] Carbon dioxide measurementOr dered By: Massimo Epperson on 06-12-2024 CO2 [Moles/Vol] 33.0 mmol/L High 21.0-32.0 [facility] Chloride measurementOrdered By: Massimo Epperson on 06-12-2024 Chloride [Moles/Vol] 99 mmol/L 98-107 [facility] Comprehensive Metabolic Prof ilon 06-12-2024 Albumin [Mass/Vol] 3.8 g/dL Normal 3.2-5.0 [facility] Comment on above: Performed By: #### L [id number] #### [facility] [address] [place], [address] Albumin/Globulin [Mass ratio] 1.0 {ratio} Normal 0.9-2.4 [facility] Comment on above: Performed By: #### L [id number] #### [facility] [address] [place], [address] ALK P 110 U/L Normal 45-117 [facility] Comment on above: Performed By: #### L [id number] #### [facility] [address] [place], [address] ALT [Catalytic activity/Vol] 42 U/L Normal 16-61 [facility] Comment on above: Performed By: #### L [id number] #### [facility] [address] [place], [address] AST [Catalytic activity/Vol] 27 U/L Normal 15-37 [facility] Comment on above: Performed By: #### L [id number] #### [facility] [address] [place], [address] Bilirubin [Mass/Vol] 0.60 mg/dL Normal 0.20-1.00 [facility] Comment on above: Result Comment: For patients on eltrombopag therapy, use of Dimension [place] TBIL is not recommended. Performed By: #### L [id number] #### [facility] [address] [place], [address] BUN/CRE 31.0 RATIO High 10-20 [facility] Comment on above: Performed By: #### L [id number] #### [facility] [address] [place], [address] CA,Total 9.3 mg/dL Normal 8.5-10.1 [facility] Comment on above: Performed By: #### L [id number] #### [facility] [address] [place], [address] Chloride [Moles/Vol] 99 mmol/L Normal 98-107 [facility] Comment on above: Performed By: #### L [id number] #### [facility] [address] [place], [address] CO2 [Moles/Vol] 33.0 mmol/L High 21.0-32.0 [facility] Comment on above: Performed By: #### L [id number] #### [facility] [address] [place], [address] Creatinine [Mass/Vol] 0.81 mg/dL Normal 0.70-1.30 [facility] Comment on above: Result Comment: The validity of the calculated GFR GFRAA in patients over 70 years has not been determined. Clinical correlation is essential. Performed By: #### L [id number] #### [facility] [address] [place], [address] EST GFR - AA 121 mL/min Normal >60 [facility] Comment on above: Result Comment: Afri can Mexican GFR Calc Performed By: #### L [id number] #### [facility] [address] [place], [address] GAP 4 Low 5-15 [facility] Comment on above: Performed By: #### L [id number] #### [facility] [address] [place], [address] GFR/1.73 sq M.predicted among non-blacks MDRD (S/P/Bld) [Vol rate/Area] 100 mL/min/{1.73_m2} Normal >60 [facility] Comment on above: Result Comment: Non- GFR Calc Performed By: #### L [id number] #### [facility] [address] [place], [address] Globulin (S) [Mass/Vol] 3.9 g/dL Normal 2.2-4.2 [facility] Comment on above: Performed By: #### L [id number] #### [facility] [address] [place], [address] Glucose [Mass/Vol] 139 mg/dL High 74-106 [facility] Comment on above: Result Comment: Fast ing Glucose result greater than or equal to 126 mg/dL suggests DIABETES MELLITUS per A.D.A. criteria. Performed By: #### L [id number] #### [facility] [address] [place], [address] Potassium [Moles/Vol] 4.2 mmol/L Normal 3.5-5.1 [facility] Comment on above: Performed By: #### L [id number] #### [facility] [address] [place], [address] Sodium [Moles/Vol] 135 mmol/L Low 136-145 [facility] Comment on above: Performed By: #### L [id number] #### [facility] [address] [place], [address] T PROT 7.7 g/dL Normal 6.4-8.2 [facility] Comment on above: Performed By: #### L [id number] #### [facility] [address] [place], [address] Urea nitrogen [Mass/Vol] 25 mg/dL High 7-18 [facility] Comment on above: Performed By: #### L [id number] #### [facility] [address] [place], [address] Eosinophil percentageOrdered By: Massimo Epperson on 06-12-2024 Eosinophils/100 WBC (Bld) 1.2 % 0-5 [facility] Erythrocyte distribution wid th ratioOrdered By: Massimo Epperson on 06-12-2024 Erythrocyte distribution width (RBC) [Ratio] 13.2 % 11.6-14.6 [facility] Erythrocyte distribution wid th standard deviationOrdered By: Massimo Epperson on 06-12-2024 Erythrocyte distribution width (RBC) [Entitic vol] 47.7 fL High 35.1-43.9 [facility] Estimated glomerular filtrat ion rate (GFR) AmericanOrdered By: Massimo Epperson on 06-12-2024 Estimated GFR (MDRD) Amer 121 mL/min >60 [facility] Comment on above: GFR Calc Glomerular filtration rate ( GFR) estimationOrdered By: Massimo Epperson on 06-12-2024 Estimated GFR (MDRD) Non-Af Amer 100 mL/min >60 [facility] Comment on above: Non- GFR Calc Glucose measurementOrdered B y: Massimo Epperson on 06-12-2024 Glucose [Mass/Vol] 139 mg/dL High 74-106 [facility] Comment on above: Fasting Glucose resu lt greater than or equal to 126 mg/dL suggests DIABETES MELLITUS per A.D.A. criteria. Hematocrit Auto (Bld) [Volum e fraction]Ordered By: Massimo Epperson on 06-12-2024 Hematocrit (Bld) [Volume fraction] 44.9 % 40-54 [facility] Hemoglobin measurementOrdere d By: Massimo Epperson on 06-12-2024 Hemoglobin (Bld) [Mass/Vol] 14.2 g/dL 13.0-16.5 [facility] Immature granulocytes/100 WB C Auto (Bld)Ordered By: Massimo Epperson on 06-12-2024 Immature granulocytes/100 WBC (Bld) 0.300 % 0.0-0.9 [facility] Comment on above: IG% - Immature Granu locytes (promyelocytes, myelocytes and metamyelocytes) > 1% indicates that a LEFT SHIFT is Present. Laboratory - Chemistry and C hemistry - challengeOrdered By: Massimo Epperson on 06-12-2024 AST [Catalytic activity/Vol] 27 U/L 15-37 [facility] Lymphocytes Auto (Unsp spec) [#/Vol]Ordered By: Massimo Epperson on 06-12-2024 Lymphocytes (Bld) [#/Vol] 2.91 10*3/uL 0.83-4.51 [facility] Lymphocytes/100 WBC Auto (Un sp spec)Ordered By: Massimo Epperson on 06-12-2024 Lymphocytes/100 WBC (Bld) 27.9 % 19-41 [facility] MCV (mean corpuscular volume ) determinationOrdered By: Massimo Epperson on 06-12-2024 MCV (RBC) [Entitic vol] 98.0 fL High 80-94 [facility] Mean corpuscular hemoglobin (MCH) determinationOrdered By: Massimo Epperson on 06-12-2024 MCH (RBC) [Entitic mass] 31.0 pg 27.0-32.0 [facility] Mean corpuscular hemoglobin concentration (MCHC) determinationOrdered By: Massimo Epperson on 06-12-2024 MCHC (RBC) [Mass/Vol] 31.6 g/dL Low 32-36 [facility] Mean platelet volume determi nationOrdered By: Massimo Epperson on 06-12-2024 Platelet mean volume (Bld) [Entitic vol] 9.2 fL 6.2-12.0 [facility] Monocyte percentageOrdered B y: Massimo Epperson on 06-12-2024 Monocytes/100 WBC (Bld) 8.6 % 0-10 [facility] Neutrophil percentageOrdered By: Massimo Epperson on 06-12-2024 Neutrophils/100 WBC (Bld) 61.5 % 47-70 [facility] Nucleated red blood cell per centageOrdered By: Massimo Epperson on 06-12-2024 Nucleated RBC/100 WBC (Bld) [Ratio] 0 % 0-5 [facility] Platelet countOrdered By: Nj Epperson on 06-12-2024 Platelets (Bld) [#/Vol] 377 10*3/uL 150-450 [facility] Potassium measurementOrdered By: Massimo Epperson on 06-12-2024 Potassium [Moles/Vol] 4.2 mmol/L 3.5-5.1 [facility] RBC Auto (Bld) [#/Vol]Ordere d By: Massimo Epperson on 06-12-2024 RBC (Bld) [#/Vol] 4.58 10*6/uL Low 4.6-6.2 [facility] Serum anion gap measurementO rdered By: Massimo Epperson 06-12-2024 Anion gap [Moles/Vol] 4 mmol/L Low 5-15 [facility] Serum globulin measurementOr dered By: Massimo Epperson 06-12-2024 Globulin (S) [Mass/Vol] 3.9 g/dL 2.2-4.2 [facility] Serum or plasma alanine jules otransferase (ALT) measurementOrdered By: Massimo Epperson 06-12-2024 ALT [Catalytic activity/Vol] 42 U/L 16-61 [facility] Serum or plasma albumin hollis urement (mass/volume)Ordered By: Massimo Epperson on 06-12-2024 Albumin [Mass/Vol] 3.8 g/dL 3.2-5.0 [facility] Serum or plasma alkaline karon sphatase measurementOrdered By: Massimo Epperson on 06-12-2024 ALP [Catalytic activity/Vol] 110 U/L 45-117 [facility] Serum or plasma calcium hollis urement (mass/volume)Ordered By: Massimo Epperson on 06-12-2024 Calcium [Mass/Vol] 9.3 mg/dL 8.5-10.1 [facility] Serum or plasma creatinine m easurement (mass/volume)Ordered By: Massimo Epperson on 06-12-2024 Creatinine [Mass/Vol] 0.81 mg/dL 0.70-1.30 [facility] Comment on above: The validity of the calculated GFR & GFRAA in patients over 70 years has not been determined. Clinical correlation is essential. Serum or plasma urea nitroge n measurement (mass/volume)Ordered By: Massimo Epperson on 06-12-2024 Urea nitrogen [Mass/Vol] 25 mg/dL High 7-18 [facility] Sodium levelOrdered By: Massimo Epperson 06-12-2024 Sodium [Moles/Vol] 135 mmol/L Low 136-145 [facility] TSH QnOrdered By: Massimo Epperson o n 06-12-2024 Thyroid Stimulating Hormone (TSH) 1.620 uIU/mL 0.358-3.740 [facility] Thyroid Stim Hormone (TSH)on 06-12-2024 TSH 1.620 uIU/mL Normal 0.358-3.740 [facility] Comment on above: Performed By: #### L 501.4020 #### [facility] [place], [address] Total proteinOrdered By: Massimo Epperson on 06-12-2024 Protein [Mass/Vol] 7.7 g/dL 6.4-8.2 [facility] Vitamin D,25 Hydroxyon 06-12 Vitamin D 25-OH 11.8 ng/mL Normal [facility] Comment on above: Result Comment: Maryuri min D 25(OH) Status Range Deficiency <20 ng/mL (50nmol/L) Insufficiency 20 - 30 ng/mL (50 - 75 nmol/L) Sufficiency 30 - 100 ng/mL (75 - 250 nmol/L) Toxicity >100 ng/mL (>250 nmol/L) Performed By: #### L [id number] #### [facility] [address] [place], [address] White blood cell (WBC) count Ordered By: Massimo Epperson on 06-12-2024 WBC (Bld) [#/Vol] 10.4 10*3/uL 4.4-11.0 [facility] Pulmonary Visit Reporton Pulmonary Visit Report [facility] [place] [address] [place] [address] OFFICE VISIT Date of Service: 04/27/24 MR#: [id number] Acct: [id number] Name: CELESTINE ECHAVARRIA Rep #: [id number] : 1950 Provider: JOHNNIE Schroeder Age/Sex: 73/M Location[place] [facility] [place] Status: Signed Assessment and Plan Assessment and Plan (1) Obstructive sleep apnea: Status: Chronic Plan: Stable, he is using and benefiting from Pap therapy. No indication for titration study at this time. Continue to encourage weight loss. Contact the office for any new or worsening symptoms in the meantime. Follow-up in 6 months. (2) Obesity: Status: Chronic Qualifiers: Body mass index: BMI 40.0-44.9 Obesity classification: adult class 3 (BMI >= 40) Obesity type: with alveolar hypoventilation Serious obesity comorbidity presence: with serious comorbidity Qualified Code(s): E66.2 - Morbid (severe) obesity with alveolar hypoventilation; Z68.41 - Body mass index [BMI] 40.0-44.9, adult Plan: Continue to encourage healthy weight loss. (3) Smoking greater than 40 pack years: Status: Chronic Comment: quit in 2019 Plan: Continue to encourage ongoing smoking cessation. He is appropriate for repeat LDCT which is due in February 2025, ordered accordingly. Orders: Orders Low Dose CT Lung Screening 02/05/25 F17.200 - Nicotine dependence, unspecified, uncomplicated, F17.210 - Nicotine dependence, cigarettes, uncomplicated Plan Details Follow Up: 6 Months (LR) HPI 4 M FU Chief Complaint: Test results HPI Comments Details: This patient presents to the office today for follow-up of his hypoxia and obstructive sleep apnea and to discuss test results. He is ambulatory. He has not recently been seen in the ED or urgent care for any respiratory illness. He has not required any antibiotics or prednisone for any breathing problems. He is not currently on a maintenance inhaler. He does have an albuterol rescue inhaler. He does have occasional shortness of breath on exertion. He has an occasional nonproductive cough. He reports some throat congestion. He does have chest tightness. He denies any palpitations. He denies any eros chest pain. He has not had any fever, chills or body aches. If you recall, this patient does have a greater than 43-wezf-auqj smoking history quitting completely approximately 3 or 4 years ago. You reports waking feeling rested and refreshed with the use of his PAP device. He is not having difficulty with mask leaks or dry mouth. He is not having excessive nocturia. He denies nodding off to sleep unintentionally. Compliance report for the past 30 days shows 100 % compliance with average use of 7 hours and 58 minutes per night. Current setting is 18/12 cmH2O with residual AHI of 1.2 events per hour. Leaks do appear to be occurring occasionally. Test results personally reviewed patient: Low-dose CT lung screening completed on February 28, 2024. Right hilar granulomas. 5 mm right upper lobe pulmonary nodule which is decreased in size since prior examination, previously measuring 6 mm. 4 mm on change right lower lobe pulmonary nodule. 3 mm unchanged left upper lobe pulmonary nodule. Recommendation is to repeat LDCT in 12 months. Intake Vital Signs 12/26/23 07:50 04/27/24 07:20 Height 5 ft 11 in 5 ft 11 in Weight: 294 lb BMI 41.0 BP 143/86 H Blood Pressure Location Lt brachial Position Sitting Respiration 20 H Pulse 62 Pulse Source Monitor Temp 97.2 F L Temperature Source Temporal Artery Pulse Oximetry (%) 99 Oxygen Delivery Method room air Intake Visit Reasons: 4 M FU Chief Complaint: [place], hypoxia Diplomatic Interpreter/Translator Required: No DME Vendor: pap- [employer] Accompanied by: Self Is patient in pain?: No Allergies adhesive tape Adverse Reaction (Mild, Verified 04/27/24 08:14) red/itchy Medications ???Medication ???Instructions ???Recorded ???Confirmed ???Type atenolol 50 mg tablet 25 mg PO DAILY heart 01/18/16 04/27/24 History metformin 500 mg tablet 1,000 mg PO BID dm 11/29/21 04/27/24 History levocetirizine 5 mg tablet (Xyzal) 5 mg PO DAILY 12/28/21 04/27/24 History triamterene 75 0.5 tab PO DAILY 12/28/21 04/27/24 History mg-hydrochlorothiazide 50 mg tablet (Maxzide) albuterol sulfate 90 mcg/actuation 2 puff inhalation Q4H PRN 03/14/23 04/27/24 Rx aerosol inhaler (Ventolin HFA) shortness of breath or wheezing #18 grams atorvastatin 40 mg tablet 40 mg PO DAILY cholesterol 03/27/23 04/27/24 History finerenone 10 mg tablet (Kerendia) 10 mg PO QDAY 04/27/24 04/27/24 History Have you fallen in the past year?: No PFSH Medical History (Reviewed 04/27/24 @ 08:29 by Marissa Schroeder MANAGER UTILIZATION MANAGEMENT, MANAGER UTILIZATION MANAGEMENT-C) Bronchiectasis BiPAP (biphasic positive airway pressure) dependence En (more content not included)... Normal [facility] Low Dose CT Lung Screeningon 02-28-[address] Lung Screening [facility] [address] [place] [address] Lung Screening MR#: [id number] Acct: [id number] Name: CELESTINE ECHAVARRIA Rep #: [id number] : 1950 M 73 From: Nathan rodrigez DO PCP: Dr. Massimo Epperson MD Status: REG CL Study: Low Dose CT Lung Screening Date of Exam: 02/27 Exam# [id number] Ordering Dr: Marissa Schroeder NP MANAGER UTILIZATION MANAGEMENT-C [id number] EXAM: CT CHEST, LUNG CANCER SCREENING WITHOUT INTRAVENOUS CONTRAST CLINICAL INDICATION: smoker quit 2018 TECHNIQUE: Helically acquired images were obtained of the chest without intravenous contrast using low dose (LDCT) lung cancer screening protocol. This CT exam was performed using one or more of the following dose reduction techniques: automated exposure control, adjustment of the mA and/or kV according to patient size, and/or use of iterative reconstruction technique. COMPARISON: CTA chest, 03/08/[address] screening, 03/06/2016. FINDINGS: LUNGS AND PLEURAL SPACES: Right hilar granulomas. 5 mm right upper lobe pulmonary nodule which is decreased in size since prior examination, previously measuring 6 mm in average diameter. 4 mm unchanged right lower lobe pulmonary nodule. 3 mm unchanged left upper lobe pulmonary nodule. Fatty pleural thickening bilaterally, related to postoperative change. No pneumothorax. HEART: Coronary artery calcifications. Heart size is normal. No pericardial effusion. MEDIASTINUM: Mediastinal granulomas. Small hiatal hernia. Few mildly enlarged mediastinal lymph nodes without calcifications are present. Esophagus is unremarkable. THYROID: No significant abnormality. No thyroid lesions. BONES/JOINTS: Degenerative changes throughout the spine. Apparent postoperative changes in left lower ribs. Multiple chronic rib fractures and postoperative changes of multiple right-sided ribs. No suspicious lytic or blastic abnormality. VASCULATURE: Atherosclerosis. LYMPH NODES: See above. No axillary lymphadenopathy. STOMACH AND BOWEL: Colonic diverticulosis. CT/Low Dose CT Lung Screening IMPRESSION: 1. ACR Lung CT Screening Reporting And Data System (Lung-RADS) score: 2S - Benign Appearance or Behavior. Additional clinically significant or potentially clinically significant findings are described. Recommend continued annual screening with a low-dose CT (LDCT) in 12 months. 2. Few mildly enlarged mediastinal lymph nodes without calcifications are present. There is a nonspecific. Granulomatous changes are evident. Overall similar appearance of the mediastinum and hilum compared to 03/08/2023. 3. Colonic diverticulosis. Electronically Signed: Nathan Parikh DO at 16:59 EDT , CC: JOHNNIE Schroeder; Dr. Massimo Epperson MD Stonemason Apprentice: Signed Normal [facility] Absolute lymphocyte countOrd ered By: Massimo Epperson on 06-11-2023 Lymphocytes Auto (Unsp spec) [#/Vol] 2.97 10*3/uL 0.83-4.51 [facility] Basophil percentageOrdered B y: Massimo Epperson on 06-11-2023 Basophils/100 WBC (Bld) 0.5 % 0-1 [facility] Bilirubin [Mass/Vol] 0.40 mg/dL 0.20-1.00 [facility] Comment on above: For patients on eltr ombopag therapy, use of Dimension [place] TBIL is not recommended. Chloride [Moles/Vol] 101 mmol/L 98-107 [facility] Eosinophils/100 WBC (Bld) 1.2 % 0-5 [facility] Glucose [Mass/Vol] 127 mg/dL 74-106 [facility] Comment on above: Fasting Glucose resu lt greater than or equal to 126 mg/dL suggests DIABETES MELLITUS per A.D.A. criteria. Neutrophils (Bld) [#/Vol] 5.9 10*3/uL 2.0-7.7 [facility] Neutrophils/100 WBC (Bld) 59.0 % 47-70 [facility] Potassium [Moles/Vol] 4.6 mmol/L 3.5-5.1 [facility] Protein [Mass/Vol] 7.2 g/dL 6.4-8.2 [facility] Sodium [Moles/Vol] 137 mmol/L 136-145 [facility] WBC (Bld) [#/Vol] 9.9 10*3/uL 4.4-11.0 [facility] Blood erythrocytes count (nu mber/volume)Ordered By: Massimo Epperson on 06-11-2023 RBC (Bld) [#/Vol] 4.38 10*6/uL 4.6-6.2 [facility] Blood hemoglobin measurement (mass/volume)Ordered By: Massimo Epperson on 06-11-2023 Hemoglobin (Bld) [Mass/Vol] 13.7 g/dL 13.0-16.5 [facility] Blood lymphocytes/100 leukoc ytesOrdered By: Massimo Epperson on 06-11-2023 Lymphocytes/100 WBC (Bld) 29.9 % 19-41 [facility] Blood monocytes/100 leukocyt esOrdered By: Massimo Zhou on 06-11-2023 Monocytes/100 WBC (Bld) 9.1 % 0-10 [facility] Blood platelet mean volumeOr dered By: [facility] on 06-11-2023 Platelet mean volume (Bld) [Entitic vol] 9.1 fL 6.2-12.0 [facility] Determination of erythrocyte mean corpuscular volume (MCV)Ordered By: Massimo Epperson on 06-11-2023 MCV (RBC) [Entitic vol] 98.2 fL 80-94 [facility] Hematocrit Auto (Bld) [Volum e fraction]Ordered By: [facility] on 06-11-2023 Hematocrit (Bld) [Volume fraction] 43.0 % 40-54 [facility] - Chemistry and C hemistry - challengeOrdered By: [facility] 06-11-2023 ALP [Catalytic activity/Vol] 93 U/L 45-117 [facility] ALT [Catalytic activity/Vol] 30 U/L 16-61 [facility] CO2 [Moles/Vol] 35.0 mmol/L 21.0-32.0 [facility] Globulin (S) [Mass/Vol] 3.7 g/dL 2.2-4.2 [facility] Urea nitrogen/Creatinine [Mass ratio] 28.0 mg/mg 10-20 [facility] - Hematology and Cell countsOrdered By: [facility] 06-11-2023 Erythrocyte distribution width (RBC) [Entitic vol] 51.5 fL 35.1-43.9 [facility] Erythrocyte distribution width (RBC) [Ratio] 14.1 % 11.6-14.6 [facility] Immature granulocytes/100 WBC (Bld) 0.300 % 0.0-0.9 [facility] Comment on above: IG% - Immature Granu locytes (promyelocytes, myelocytes and metamyelocytes) > 1% indicates that a LEFT SHIFT is Present. MCH (RBC) [Entitic mass] 31.3 pg 27.0-32.0 [facility] Nucleated RBC/100 WBC (Bld) [Ratio] 0 % 0-5 [facility] MCHC Auto (RBC) [Mass/Vol]Or dered By: Massimo Epperson on 06-11-2023 MCHC (RBC) [Mass/Vol] 31.9 g/dL 32-36 [facility] No Panel InformationOrdered By: Massimo Epperson on 06-11-2023 Estimated GFR (MDRD) Amer 108 mL/min >60 [facility] Comment on above: GFR Calc Estimated GFR (MDRD) Non-Af Amer 89 mL/min >60 [facility] Comment on above: Non- GFR Calc Thyroid Stimulating Hormone (TSH) 1.78 uIU/mL 0.358-3.74 [facility] Vitamin D 25-Hydroxy 14.7 ng/mL [facility] Comment on above: Vitamin D 25(OH) Sta tus Range Deficiency <20 ng/mL (50nmol/L) Insufficiency 20 - 30 ng/mL (50 - 75 nmol/L) Sufficiency 30 - 100 ng/mL (75 - 250 nmol/L) Toxicity >100 ng/mL (>250 nmol/L) Platelets bldOrdered By: Massimo Epperson on 06-11-2023 Platelets (Bld) [#/Vol] 378 10*3/uL 150-450 [facility] Serum or plasma albumin hollis urement (mass/volume)Ordered By: Massimo Epperson on 06-11-2023 Albumin [Mass/Vol] 3.5 g/dL 3.2-5.0 [facility] Serum or plasma albumin/glob ulin mass ratioOrdered By: Massimo Epperson 06-11-2023 Albumin/Globulin [Mass ratio] 0.9 {ratio} 0.9-2.4 [facility] Serum or plasma calcium hollis urement (mass/volume)Ordered By: Massimo Epperson 06-11-2023 Calcium [Mass/Vol] 8.8 mg/dL 8.5-10.1 [facility] Serum or plasma creatinine m easurement (mass/volume)Ordered By: Massimo Epperson 06-11-2023 Creatinine [Mass/Vol] 0.89 mg/dL 0.70-1.30 [facility] Comment on above: The validity of the calculated GFR & GFRAA in patients over 70 years has not been determined. Clinical correlation is essential. Serum or plasma urea nitroge n measurement (mass/volume)Ordered By: Massimo Epperson on 06-11-2023 Urea nitrogen [Mass/Vol] 25 mg/dL 7-18 [facility] Thin prep Papanicolaou smear with manual screeningOrdered By: Massimo Epperson on 06-11-2023 Thin prep Papanicolaou smear with manual screening 22 U/L 15-37 [facility] Thin prep Papanicolaou smear with manual screening 1 5-15 [facility] Absolute lymphocyte countOrd ered By: Jose Angel Gold on 03-09-2023 Lymphocytes Auto (Unsp spec) [#/Vol] 2.57 10*3/uL 0.83-4.51 [facility] Basophil percentageOrdered B y: Jose Angel Gold on 03-09-2023 Basophils/100 WBC (Bld) 0.1 % 0-1 [facility] Chloride [Moles/Vol] 104 mmol/L 98-107 [facility] Eosinophils/100 WBC (Bld) 0.1 % 0-5 [facility] Glucose [Mass/Vol] 219 mg/dL 74-106 [facility] Comment on above: Glucose result great er than or equal to 200 mg/dLsuggests DIABETES MELLITUS per A.D.A. criteria. Neutrophils (Bld) [#/Vol] 10.8 10*3/uL 2.0-7.7 [facility] Neutrophils/100 WBC (Bld) 72.1 % 47-70 [facility] Potassium [Moles/Vol] 4.3 mmol/L 3.5-5.1 [facility] Sodium [Moles/Vol] 139 mmol/L 136-145 [facility] WBC (Bld) [#/Vol] 15.0 10*3/uL 4.4-11.0 [facility] Blood erythrocytes count (nu mber/volume)Ordered By: Jose Angel Gold on 03-09-2023 RBC (Bld) [#/Vol] 4.22 10*6/uL 4.6-6.2 [facility] Blood hemoglobin measurement (mass/volume)Ordered By: Jose Angel Gold on 03-09-2023 Hemoglobin (Bld) [Mass/Vol] 13.2 g/dL 13.0-16.5 [facility] Blood lymphocytes/100 leukoc ytesOrdered By: Jose Angel Gold on 03-09-2023 Lymphocytes/100 WBC (Bld) 17.1 % 19-41 [facility] Blood manual differential co mment interpretation (narrative result)Ordered By: Jose Angel Gold on 03-09-2023 Manual differential comment Faizan (Bld) [Interp] SCANNED [facility] Blood monocytes/100 leukocyt esOrdered By: Jose Angel Gold on 03-09-2023 Monocytes/100 WBC (Bld) 10.3 % 0-10 [facility] Blood platelet mean volumeOr dered By: Jose Angel Gold on 03-09-2023 Platelet mean volume (Bld) [Entitic vol] 8.8 fL 6.2-12.0 [facility] Determination of erythrocyte mean corpuscular volume (MCV)Ordered By: Jose Angel Gold on 03-09-2023 MCV (RBC) [Entitic vol] 97.6 fL 80-94 [facility] Glucose Glucometer (BldC) [M ass/Vol]Ordered By: Jose Angel Gold on 03-09-2023 Glucose [Mass/Vol] 249 mg/dL 74-106 [facility] Comment on above: MANAGEMENT OF PATIEN T CARE PER NURSING PROTOCOL Hematocrit Auto (Bld) [Volum e fraction]Ordered By: Jose Angel Gold on 03-09-2023 Hematocrit (Bld) [Volume fraction] 41.2 % 40-54 [facility] - Chemistry and C hemistry - challengeOrdered By: Jose Angel Gold on 03-09-2023 CO2 [Moles/Vol] 31.0 mmol/L 21.0-32.0 [facility] Urea nitrogen/Creatinine [Mass ratio] 34.2 mg/mg 10-20 [facility] - Hematology and Cell countsOrdered By: Jose Angel Gold on 03-09-2023 Erythrocyte distribution width (RBC) [Entitic vol] 48.0 fL 35.1-43.9 [facility] Erythrocyte distribution width (RBC) [Ratio] 13.3 % 11.6-14.6 [facility] Immature granulocytes/100 WBC (Bld) 0.300 % 0.0-0.9 [facility] Comment on above: IG% - Immature Granu locytes (promyelocytes, myelocytes and metamyelocytes) > 1% indicates that a LEFT SHIFT is Present. MCH (RBC) [Entitic mass] 31.3 pg 27.0-32.0 [facility] Nucleated RBC/100 WBC (Bld) [Ratio] 0 % 0-5 [facility] MCHC Auto (RBC) [Mass/Vol]Or dered By: Jose Angel Gold on 03-09-2023 MCHC (RBC) [Mass/Vol] 32.0 g/dL 32-36 [facility] No Panel InformationOrdered By: Jose Angel Gold on 03-09-2023 Estimated Creatinine Clearance Calc 72.16 ml/min [facility] Estimated GFR (MDRD) Amer 136 mL/min >60 [facility] Comment on above: GFR Calc Estimated GFR (MDRD) Non-Af Amer 112 mL/min >60 [facility] Comment on above: Non- GFR Calc Platelets bldOrdered By: Cheryl Gold on 03-09-2023 Platelets (Bld) [#/Vol] 377 10*3/uL 150-450 [facility] Review by pathologistOrdered By: Jose Angel Gold on 03-09-2023 Pathologist review Faizan (Unsp spec) [Interp] November [facility] Serum or plasma calcium hollis urement (mass/volume)Ordered By: Jose Angel Gold on 03-09-2023 Calcium [Mass/Vol] 8.5 mg/dL 8.5-10.1 [facility] Serum or plasma creatinine m easurement (mass/volume)Ordered By: Jose Angel Gold on 03-09-2023 Creatinine [Mass/Vol] 0.73 mg/dL 0.70-1.30 [facility] Comment on above: The validity of the calculated GFR & GFRAA in patients over 70 years has not been determined. Clinical correlation is essential. Serum or plasma urea nitroge n measurement (mass/volume)Ordered By: Jose Angel Gold on 03-09-2023 Urea nitrogen [Mass/Vol] 25 mg/dL 7-18 [facility] Thin prep Papanicolaou smear with manual screeningOrdered By: Jose Angel Gold on 03-09-2023 Thin prep Papanicolaou smear with manual screening 4 5-15 [facility] Absolute lymphocyte countOrd ered By: Jabier Babin on 03-08-2023 Lymphocytes Auto (Unsp spec) [#/Vol] 2.84 10*3/uL 0.83-4.51 [facility] Basophil percentageOrdered B y: Jabier Babin on 03-08-2023 Basophils/100 WBC (Bld) 0.4 % 0-1 [facility] Bilirubin [Mass/Vol] 0.60 mg/dL 0.20-1.00 [facility] Comment on above: For patients on eltr ombopag therapy, use of Dimension [place] TBIL is not recommended. Chloride [Moles/Vol] 100 mmol/L 98-107 [facility] Eosinophils/100 WBC (Bld) 0.5 % 0-5 [facility] Glucose [Mass/Vol] 168 mg/dL 74-106 [facility] Comment on above: Fasting Glucose resu lt greater than or equal to 126 mg/dL suggests DIABETES MELLITUS per A.D.A. criteria. Lactate [Moles/Vol] 1.7 mmol/L 0.4-2.0 [facility] Neutrophils (Bld) [#/Vol] 11.4 10*3/uL 2.0-7.7 [facility] Neutrophils/100 WBC (Bld) 74.0 % 47-70 [facility] Potassium [Moles/Vol] 4.2 mmol/L 3.5-5.1 [facility] Protein [Mass/Vol] 7.3 g/dL 6.4-8.2 [facility] Sodium [Moles/Vol] 137 mmol/L 136-145 [facility] WBC (Bld) [#/Vol] 15.3 10*3/uL 4.4-11.0 [facility] Blood erythrocytes count (nu mber/volume)Ordered By: Jabier Babin on 03-08-2023 RBC (Bld) [#/Vol] 4.47 10*6/uL 4.6-6.2 [facility] Blood hemoglobin measurement (mass/volume)Ordered By: Jabier Babin on 03-08-2023 Hemoglobin (Bld) [Mass/Vol] 14.0 g/dL 13.0-16.5 [facility] Blood lymphocytes/100 leukoc ytesOrdered By: Jabier Babin on 03-08-2023 Lymphocytes/100 WBC (Bld) 18.5 % 19-41 [facility] Blood monocytes/100 leukocyt esOrdered By: Jabier Babin on 03-08-2023 Monocytes/100 WBC (Bld) 6.1 % 0-10 [facility] Blood platelet mean volumeOr dered By: Jabier Babin on 03-08-2023 Platelet mean volume (Bld) [Entitic vol] 9.1 fL 6.2-12.0 [facility] Determination of erythrocyte mean corpuscular volume (MCV)Ordered By: Jabier Babin on 03-08-2023 MCV (RBC) [Entitic vol] 97.8 fL 80-94 [facility] Direct bilirubinOrdered By: Jabier Babin on 03-08-2023 Bilirubin.direct [Mass/Vol] 0.17 mg/dL 0.00-0.30 [facility] Hematocrit Auto (Bld) [Volum e fraction]Ordered By: Jabier Babin on 03-08-2023 Hematocrit (Bld) [Volume fraction] 43.7 % 40-54 [facility] Influenza virus A and B and SARS-CoV-2 (COVID-19) Ag panel - Upper respiratory specimOrdered By: Jabier Babin on 03-08-2023 SARS-CoV-2 (COVID-19) RNA TAYA+probe Ql (Resp) [facility] - Chemistry and C hemistry - challengeOrdered By: Jabier Babin on 03-08-2023 ALP [Catalytic activity/Vol] 91 U/L 45-117 [facility] ALT [Catalytic activity/Vol] 37 U/L 16-61 [facility] CO2 [Moles/Vol] 31.0 mmol/L 21.0-32.0 [facility] Globulin (S) [Mass/Vol] 3.9 g/dL 2.2-4.2 [facility] Urea nitrogen/Creatinine [Mass ratio] 34.3 mg/mg 10-20 [facility] - Hematology and Cell countsOrdered By: Jabier Babin on 03-08-2023 Erythrocyte distribution width (RBC) [Entitic vol] 47.2 fL 35.1-43.9 [facility] Erythrocyte distribution width (RBC) [Ratio] 13.2 % 11.6-14.6 [facility] Immature granulocytes/100 WBC (Bld) 0.500 % 0.0-0.9 [facility] Comment on above: IG% - Immature Granu locytes (promyelocytes, myelocytes and metamyelocytes) > 1% indicates that a LEFT SHIFT is Present. MCH (RBC) [Entitic mass] 31.3 pg 27.0-32.0 [facility] Nucleated RBC/100 WBC (Bld) [Ratio] 0 % 0-5 [facility] MCHC Auto (RBC) [Mass/Vol]Or dered By: Jabier Babin on 03-08-2023 MCHC (RBC) [Mass/Vol] 32.0 g/dL 32-36 [facility] No Panel InformationOrdered By: Jose Angel Gold on 03-08-2023 Streptococcus pneumoniae Antigen (M [facility] D-Dimer Quantitative (PE/DVT) 1.13 FEU/ug/m 0.27-0.49 [facility] Comment on above: D-Dimer ELEVATED (>0 .49): Additional studies and clinicalassessments are indicated to conclude diagnosis of:Deep Vein Thrombosis (DVT) or Pulmonary Embolism (PE) No Panel InformationOrdered By: Jabier Babin on 03-08-2023 Estimated Creatinine Clearance Calc 72.16 ml/min [facility] Estimated GFR (MDRD) Amer 136 mL/min >60 [facility] Comment on above: GFR Calc Estimated GFR (MDRD) Non-Af Amer 113 mL/min >60 [facility] Comment on above: Non- GFR Calc Troponin I High Sensitivity 15 pg/mL 3.0-78.0 [facility] Comment on above: Please Note: New Cynthia t Units and Gender Specific Reference Ranges. For more information see Policy Stat Procedure [place] High Sensitivity Troponin (TNIH) and attachments. Platelets bldOrdered By: Keegan Babin on 03-08-2023 Platelets (Bld) [#/Vol] 401 10*3/uL 150-450 [facility] Serum or plasma albumin hollis urement (mass/volume)Ordered By: Jabier Babin on 03-08-2023 Albumin [Mass/Vol] 3.4 g/dL 3.2-5.0 [facility] Serum or plasma calcium hollis urement (mass/volume)Ordered By: Jabier Babin on 03-08-2023 Calcium [Mass/Vol] 8.9 mg/dL 8.5-10.1 [facility] Serum or plasma creatinine m easurement (mass/volume)Ordered By: Jabier Babin on 03-08-2023 Creatinine [Mass/Vol] 0.73 mg/dL 0.70-1.30 [facility] Comment on above: The validity of the calculated GFR & GFRAA in patients over 70 years has not been determined. Clinical correlation is essential. Serum or plasma urea nitroge n measurement (mass/volume)Ordered By: Jabier Babin on 03-08-2023 Urea nitrogen [Mass/Vol] 25 mg/dL 7-18 [facility] Thin prep Papanicolaou smear with manual screeningOrdered By: Jabier Babin on 03-08-2023 Thin prep Papanicolaou smear with manual screening 25 U/L 15-37 [facility] Thin prep Papanicolaou smear with manual screening 6 5-15 [facility] Urine Legionella pneumophila antigen detectionOrdered By: Jose Angel Gold on 03-08-2023 L. pneumophila Ag Ql (U) [facility] Absolute lymphocyte countOrd ered By: Massimo Epperson on 11-16-2022 Lymphocytes Auto (Unsp spec) [#/Vol] 3.23 10*3/uL 0.83-4.51 [facility] Basophil percentageOrdered B y: Massimo Epperson on 11-16-2022 Basophils/100 WBC (Bld) 0.5 % 0-1 [facility] Bilirubin [Mass/Vol] 0.60 mg/dL 0.20-1.00 [facility] Comment on above: For patients on eltr ombopag therapy, use of Dimension [place] TBIL is not recommended. Chloride [Moles/Vol] 102 mmol/L 98-107 [facility] Eosinophils/100 WBC (Bld) 1.1 % 0-5 [facility] Glucose [Mass/Vol] 108 mg/dL 74-106 [facility] Comment on above: Fasting Glucose resu lt from 100 to 125 mg/dL suggests IMPAIRED HOMEOSTASIS per A.D.A. criteria. Neutrophils (Bld) [#/Vol] 5.6 10*3/uL 2.0-7.7 [facility] Neutrophils/100 WBC (Bld) 56.6 % 47-70 [facility] Potassium [Moles/Vol] 4.5 mmol/L 3.5-5.1 [facility] Protein [Mass/Vol] 7.4 g/dL 6.4-8.2 [facility] Sodium [Moles/Vol] 138 mmol/L 136-145 [facility] WBC (Bld) [#/Vol] 10.0 10*3/uL 4.4-11.0 [facility] Blood erythrocytes count (nu mber/volume)Ordered By: Massimo Epperson on 11-16-2022 RBC (Bld) [#/Vol] 4.58 10*6/uL 4.6-6.2 [facility] Blood hemoglobin measurement (mass/volume)Ordered By: Massimo Epperson on 11-16-2022 Hemoglobin (Bld) [Mass/Vol] 14.6 g/dL 13.0-16.5 [facility] Blood lymphocytes/100 leukoc ytesOrdered By: Massimo Epperson on 11-16-2022 Lymphocytes/100 WBC (Bld) 32.4 % 19-41 [facility] Blood monocytes/100 leukocyt esOrdered By: Massimo Epperson on 11-16-2022 Monocytes/100 WBC (Bld) 9.1 % 0-10 [facility] Blood platelet mean volumeOr dered By: Massimo Epperson on 11-16-2022 Platelet mean volume (Bld) [Entitic vol] 10.2 fL 6.2-12.0 [facility] Determination of erythrocyte mean corpuscular volume (MCV)Ordered By: Massimo Epperson on 11-16-2022 MCV (RBC) [Entitic vol] 98.5 fL 80-94 [facility] Hematocrit Auto (Bld) [Volum e fraction]Ordered By: Massimo Epperson on 11-16-2022 Hematocrit (Bld) [Volume fraction] 45.1 % 40-54 [facility] - Chemistry and C hemistry - challengeOrdered By: Massimo Epperson on 11-16-2022 ALP [Catalytic activity/Vol] 91 U/L 45-117 [facility] ALT [Catalytic activity/Vol] 38 U/L 16-61 [facility] CO2 [Moles/Vol] 29.0 mmol/L 21.0-32.0 [facility] Globulin (S) [Mass/Vol] 3.6 g/dL 2.2-4.2 [facility] Urea nitrogen/Creatinine [Mass ratio] 32.2 mg/mg 10-20 [facility] - Hematology and Cell countsOrdered By: Massimo Epperson on 11-16-2022 Erythrocyte distribution width (RBC) [Entitic vol] 50.8 fL 35.1-43.9 [facility] Erythrocyte distribution width (RBC) [Ratio] 14.0 % 11.6-14.6 [facility] Immature granulocytes/100 WBC (Bld) 0.300 % 0.0-0.9 [facility] Comment on above: IG% - Immature Granu locytes (promyelocytes, myelocytes and metamyelocytes) > 1% indicates that a LEFT SHIFT is Present. MCH (RBC) [Entitic mass] 31.9 pg 27.0-32.0 [facility] Nucleated RBC/100 WBC (Bld) [Ratio] 0 % 0-5 [facility] MCHC Auto (RBC) [Mass/Vol]Or dered By: Massimo Epperson on 11-16-2022 MCHC (RBC) [Mass/Vol] 32.4 g/dL 32-36 [facility] No Panel InformationOrdered By: Massimo Epperson on 11-16-2022 Estimated GFR (MDRD) Amer 127 mL/min >60 [facility] Comment on above: GFR Calc Estimated GFR (MDRD) Non-Af Amer 105 mL/min >60 [facility] Comment on above: Non- GFR Calc Thyroid Stimulating Hormone (TSH) 1.97 uIU/mL 0.358-3.74 [facility] Vitamin D 25-Hydroxy 27.7 ng/mL [facility] Comment on above: Vitamin D 25(OH) Sta tus Range Deficiency <20 ng/mL (50nmol/L) Insufficiency 20 - 30 ng/mL (50 - 75 nmol/L) Sufficiency 30 - 100 ng/mL (75 - 250 nmol/L) Toxicity >100 ng/mL (>250 nmol/L) Platelets bldOrdered By: Massimo Epperson on 11-16-2022 Platelets (Bld) [#/Vol] 328 10*3/uL 150-450 [facility] Serum or plasma albumin hollis urement (mass/volume)Ordered By: Massimo Epperson on 11-16-2022 Albumin [Mass/Vol] 3.8 g/dL 3.2-5.0 [facility] Serum or plasma albumin/glob ulin mass ratioOrdered By: Massimo Epperson on 11-16-2022 Albumin/Globulin [Mass ratio] 1.1 {ratio} 0.9-2.4 [facility] Serum or plasma calcium hollis urement (mass/volume)Ordered By: Massimo Epperson on 11-16-2022 Calcium [Mass/Vol] 9.4 mg/dL 8.5-10.1 [facility] Serum or plasma creatinine m easurement (mass/volume)Ordered By: Massimo Epperson on 11-16-2022 Creatinine [Mass/Vol] 0.78 mg/dL 0.70-1.30 [facility] Comment on above: The validity of the calculated GFR & GFRAA in patients over 70 years has not been determined. Clinical correlation is essential. Serum or plasma urea nitroge n measurement (mass/volume)Ordered By: Massimo Epperson on 11-16-2022 Urea nitrogen [Mass/Vol] 25 mg/dL -18 [facility] Thin prep Papanicolaou smear with manual screeningOrdered By: Massimo Epperson on 11-16-2022 Thin prep Papanicolaou smear with manual screening 26 U/L 15-37 [facility] Thin prep Papanicolaou smear with manual screening 7 5-15 [facility] Basophil percentageOrdered B y: Dr. Elliott on 10-04-2022 Bilirubin [Mass/Vol] 0.50 mg/dL 0.20-1.00 [facility] Comment on above: For patients on eltr ombopag therapy, use of Dimension [place] TBIL is not recommended. Cholesterol [Mass/Vol] 105 mg/dL <200 [facility] Comment on above: <200 mg/dL Desirable 200-240 mg/dL Borderline >240 mg/dL High Risk Protein [Mass/Vol] 7.6 g/dL 6.4-8.2 [facility] Triglyceride [Mass/Vol] 70 mg/dL <199 [facility] Comment on above: The drugs N-Acetylcy steine and Metamizole may falsely depress this assay.Serum Triglycerides Reference Interval Normal <150 mg/dL Borderline high 150 - 199 mg/dL High 200 - 499 mg/dL Very High > or = 500 mg/dL Direct bilirubinOrdered By: Dr. Elliott on 10-04-2022 Bilirubin.direct [Mass/Vol] 0.14 mg/dL 0.00-0.30 [facility] - Chemistry and C hemistry - challengeOrdered By: Dr. Elliott on 10-04-2022 ALP [Catalytic activity/Vol] 89 U/L 45-117 [facility] ALT [Catalytic activity/Vol] 50 U/L 16-61 [facility] Globulin (S) [Mass/Vol] 3.7 g/dL 2.2-4.2 [facility] Serum or plasma albumin hollis urement (mass/volume)Ordered By: Dr. Elliott on 10-04-2022 Albumin [Mass/Vol] 3.9 g/dL 3.2-5.0 [facility] Serum or plasma cholesterol in HDL measurement (mass/volume)Ordered By: Dr. Elliott on 10-04-2022 Cholesterol in HDL [Mass/Vol] 36 mg/dL >40 [facility] Comment on above: The drugs N-Acetylcy steine and Metamizole may falsely depress this assay. Reference Range HDL <40 mg/dL Low HDL Cholesterol HDL >or= 60 mg/dL High HDL Cholesterol Serum or plasma cholesterol in VLDL measurement (mass/volume)Ordered By: Dr. Elliott on 10-04-2022 Cholesterol in VLDL [Mass/Vol] 14 mg/dL 5-40 [facility] Serum or plasma low density lipoprotein (LDL) cholesterol measurement (mass/volume)Ordered By: Dr. Elliott on 10-04-2022 Cholesterol in LDL [Mass/Vol] 55 mg/dL 0-130 [facility] Thin prep Papanicolaou smear with manual screeningOrdered By: Dr. Elliott on 10-04-2022 Thin prep Papanicolaou smear with manual screening 29 U/L 15-37 [facility] - Microbiology an d Antimicrobial susceptibilityOrdered By: Dr. Epperson on 06-28-2022 SARS-CoV-2 (COVID-19) RNA TAYA+probe Ql (Unsp spec) Detected Not Detect [facility] Comment on above: Normal Reference Ran ge: Not DetectedMethod:(RT-PCR) real-time reverse transcriptase PCRLuminex LC Instrument*The Food and Drug Administration (FDA) has issued an Emergency Use Authorization (EAU) for the [employer] SARS-CoV-2 Assay for the rapid detection of the virus that causes COVID-19. This test has been validated, but the FDAs independent review of this validation is pending.*Negative results do not preclude infection and should not be used as the sole basis for treatment or patient management. Optimum specimen types and timing for peak viral levels during infections caused by SARS-CoV-2 have not been determined. Collection of multiple specimens from the same patient may be necessary to detect the virus. The possibility of a false negative result should be considered if the patient has clinical presentation or has had recent exposure. No Panel InformationOrdered By: Dr. Epperson on 06-28-2022 Influenza Types A,B Direct FA (LEONIDAS) [facility] RSV Ag EIAOrdered By: Dr. Charla castro on 06-28-2022 RSV Ag Immune stain Ql (Tiss) [facility] Absolute lymphocyte countOrd ered By: Dr. Epperson on 05-18-2022 Lymphocytes Auto (Unsp spec) [#/Vol] 3.96 10*3/uL 0.83-4.51 [facility] Basophil percentageOrdered B y: Dr. Epperson on 05-18-2022 Basophils/100 WBC (Bld) 0.4 % 0-1 [facility] Bilirubin [Mass/Vol] 0.40 mg/dL 0.20-1.00 [facility] Comment on above: For patients on eltr ombopag therapy, use of Dimension [place] TBIL is not recommended. Chloride [Moles/Vol] 98 mmol/L 98-107 [facility] Eosinophils/100 WBC (Bld) 0.9 % 0-5 [facility] Glucose [Mass/Vol] 123 mg/dL 74-106 [facility] Comment on above: Fasting Glucose resu lt from 100 to 125 mg/dL suggests IMPAIRED HOMEOSTASIS per A.D.A. criteria. Neutrophils (Bld) [#/Vol] 6.2 10*3/uL 2.0-7.7 [facility] Neutrophils/100 WBC (Bld) 54.5 % 47-70 [facility] Potassium [Moles/Vol] 4.3 mmol/L 3.5-5.1 [facility] Protein [Mass/Vol] 7.7 g/dL 6.4-8.2 [facility] Sodium [Moles/Vol] 136 mmol/L 136-145 [facility] WBC (Bld) [#/Vol] 11.4 10*3/uL 4.4-11.0 [facility] Blood erythrocytes count (nu mber/volume)Ordered By: Dr. Epperson on 05-18-2022 RBC (Bld) [#/Vol] 4.70 10*6/uL 4.6-6.2 [facility] Blood hemoglobin measurement (mass/volume)Ordered By: Dr. Epperson on 05-18-2022 Hemoglobin (Bld) [Mass/Vol] 15.0 g/dL 13.0-16.5 [facility] Blood lymphocytes/100 leukoc ytesOrdered By: Dr. Epperson on 05-18-2022 Lymphocytes/100 WBC (Bld) 34.8 % 19-41 [facility] Blood monocytes/100 leukocyt esOrdered By: Dr. Epperson on 05-18-2022 Monocytes/100 WBC (Bld) 9.1 % 0-10 [facility] Blood platelet mean volumeOr dered By: Dr. Epperson on 05-18-2022 Platelet mean volume (Bld) [Entitic vol] 9.2 fL 6.2-12.0 [facility] Determination of erythrocyte mean corpuscular volume (MCV)Ordered By: Dr. Epperson on 05-18-2022 MCV (RBC) [Entitic vol] 98.5 fL 80-94 [facility] Hematocrit Auto (Bld) [Volum e fraction]Ordered By: Dr. Epperson on 05-18-2022 Hematocrit (Bld) [Volume fraction] 46.3 % 40-54 [facility] - Chemistry and C hemistry - challengeOrdered By: Dr. Epperson on 05-18-2022 ALP [Catalytic activity/Vol] 96 U/L 45-117 [facility] ALT [Catalytic activity/Vol] 34 U/L 16-61 [facility] CO2 [Moles/Vol] 33.0 mmol/L 21.0-32.0 [facility] Globulin (S) [Mass/Vol] 3.9 g/dL 2.2-4.2 [facility] Urea nitrogen/Creatinine [Mass ratio] 24.0 mg/mg 10-20 [facility] - Hematology and Cell countsOrdered By: Dr. Epperson on 05-18-2022 Erythrocyte distribution width (RBC) [Entitic vol] 48.8 fL 35.1-43.9 [facility] Erythrocyte distribution width (RBC) [Ratio] 13.4 % 11.6-14.6 [facility] Immature granulocytes/100 WBC (Bld) 0.300 % 0.0-0.9 [facility] Comment on above: IG% - Immature Granu locytes (promyelocytes, myelocytes and metamyelocytes) > 1% indicates that a LEFT SHIFT is Present. MCH (RBC) [Entitic mass] 31.9 pg 27.0-32.0 [facility] Nucleated RBC/100 WBC (Bld) [Ratio] 0 % 0-5 [facility] MCHC Auto (RBC) [Mass/Vol]Or dered By: Dr. Epperson on 05-18-2022 MCHC (RBC) [Mass/Vol] 32.4 g/dL 32-36 [facility] No Panel InformationOrdered By: Dr. Epperson on 05-18-2022 Estimated GFR (MDRD) Amer 117 mL/min >60 [facility] Comment on above: GFR Calc Estimated GFR (MDRD) Non-Af Amer 97 mL/min >60 [facility] Comment on above: Non- GFR Calc Prostate Specific Antigen Screen 1.76 ng/mL 0.00-4.00 [facility] Comment on above: This test was perfor med using the TPSA assay method for the[employer] chemistry system. Values obtained with differentassay methods cannot be used interchangably.When changing PSA assays in the course of monitoring apatient, additional sequential testing should be carriedout to confirm baseline values. Thyroid Stimulating Hormone (TSH) 2.21 uIU/mL 0.358-3.74 [facility] Vitamin D 25-Hydroxy 14.5 ng/mL [facility] Comment on above: Vitamin D 25(OH) Sta tus Range Deficiency <20 ng/mL (50nmol/L) Insufficiency 20 - 30 ng/mL (50 - 75 nmol/L) Sufficiency 30 - 100 ng/mL (75 - 250 nmol/L) Toxicity >100 ng/mL (>250 nmol/L) Platelets bldOrdered By: Dr. Epperson on 05-18-2022 Platelets (Bld) [#/Vol] 381 10*3/uL 150-450 [facility] Serum or plasma albumin hollis urement (mass/volume)Ordered By: Dr. Epperson on 05-18-2022 Albumin [Mass/Vol] 3.8 g/dL 3.2-5.0 [facility] Serum or plasma albumin/glob ulin mass ratioOrdered By: Dr. Epperson on 05-18-2022 Albumin/Globulin [Mass ratio] 1.0 {ratio} 0.9-2.4 [facility] Serum or plasma calcium hollis urement (mass/volume)Ordered By: Dr. Epperson on 05-18-2022 Calcium [Mass/Vol] 9.5 mg/dL 8.5-10.1 [facility] Serum or plasma creatinine m easurement (mass/volume)Ordered By: Dr. Epperson on 05-18-2022 Creatinine [Mass/Vol] 0.83 mg/dL 0.70-1.30 [facility] Comment on above: The validity of the calculated GFR & GFRAA in patients over 70 years has not been determined. Clinical correlation is essential. Serum or plasma urea nitroge n measurement (mass/volume)Ordered By: Dr. Epperson on 05-18-2022 Urea nitrogen [Mass/Vol] 20 mg/dL 7-18 [facility] Thin prep Papanicolaou smear with manual screeningOrdered By: Dr. Epperson on 05-18-2022 Thin prep Papanicolaou smear with manual screening 25 U/L 15-37 [facility] Thin prep Papanicolaou smear with manual screening 5 5-15 [facility] Absolute lymphocyte counton 02-16-2022 Lymphocytes Auto (Unsp spec) [#/Vol] 2.59 10*3/uL 0.83-4.51 [facility] Work Phone: Basophil percentageon 2021 Basophils/100 WBC (Bld) 0.3 % 0-1 [facility] Work Phone: Bilirubin [Mass/Vol] 0.70 mg/dL 0.20-1.00 [facility] Work Phone: Comment on above: For patients on eltr ombopag therapy, use of Dimension [place] TBIL is not recommended. Chloride [Moles/Vol] 98 mmol/L 98-107 [facility] Work Phone: Eosinophils/100 WBC (Bld) 0.8 % 0-5 [facility] Work Phone: Glucose [Mass/Vol] 143 mg/dL 74-106 [facility] Work Phone: Comment on above: Fasting Glucose resu lt greater than or equal to 126 mg/dL suggests DIABETES MELLITUS per A.D.A. criteria. Neutrophils (Bld) [#/Vol] 7.9 10*3/uL 2.0-7.7 [facility] Work Phone: Neutrophils/100 WBC (Bld) 66.6 % 47-70 [facility] Work Phone: Potassium [Moles/Vol] 4.5 mmol/L 3.5-5.1 [facility] Work Phone: Protein [Mass/Vol] 7.7 g/dL 6.4-8.2 [facility] Work Phone: Sodium [Moles/Vol] 134 mmol/L 136-145 [facility] Work Phone: WBC (Bld) [#/Vol] 11.9 10*3/uL 4.4-11.0 [facility] Work Phone: Blood erythrocytes count (nu mber/volume)on 02-16-2022 RBC (Bld) [#/Vol] 4.63 10*6/uL 4.6-6.2 [facility] Work Phone: Blood hemoglobin measurement (mass/volume)on 02-16-2022 Hemoglobin (Bld) [Mass/Vol] 15.1 g/dL 13.0-16.5 [facility] Work Phone: Blood lymphocytes/100 leukoc yteson 02-16-2022 Lymphocytes/100 WBC (Bld) 21.8 % 19-41 [facility] Work Phone: Blood monocytes/100 leukocyt eson 02-16-2022 Monocytes/100 WBC (Bld) 10.3 % 0-10 [facility] Work Phone: Blood platelet mean volumeon 02-16-2022 Platelet mean volume (Bld) [Entitic vol] 9.6 fL 6.2-12.0 [facility] Work Phone: Determination of erythrocyte mean corpuscular volume (MCV)on 02-16-2022 MCV (RBC) [Entitic vol] 97.4 fL 80-94 [facility] Work Phone: Hematocrit Auto (Bld) [Volum e fraction]on 02-16-2022 Hematocrit (Bld) [Volume fraction] 45.1 % 40-54 [facility] Work Phone: Laboratory - Chemistry and C hemistry - challengeon 02-16-2022 ALP [Catalytic activity/Vol] 85 U/L 45-117 [facility] Work Phone: ALT [Catalytic activity/Vol] 50 U/L 16-61 [facility] Work Phone: CO2 [Moles/Vol] 32.0 mmol/L 21.0-32.0 [facility] Work Phone: Globulin (S) [Mass/Vol] 4.0 g/dL 2.2-4.2 [facility] Work Phone: Urea nitrogen/Creatinine [Mass ratio] 27.1 mg/mg 10-20 [facility] Work Phone: Laboratory - Hematology and Cell countson 02-16-2022 Erythrocyte distribution width (RBC) [Entitic vol] 47.9 fL 35.1-43.9 [facility] Work Phone: Erythrocyte distribution width (RBC) [Ratio] 13.3 % 11.6-14.6 [facility] Work Phone: Immature granulocytes/100 WBC (Bld) 0.200 % 0.0-0.9 [facility] Work Phone: Comment on above: IG% - Immature Granu locytes (promyelocytes, myelocytes and metamyelocytes) > 1% indicates that a LEFT SHIFT is Present. MCH (RBC) [Entitic mass] 32.6 pg 27.0-32.0 [facility] Work Phone: Nucleated RBC/100 WBC (Bld) [Ratio] 0 % 0-5 [facility] Work Phone: MCHC Auto (RBC) [Mass/Vol]on 02-16-2022 MCHC (RBC) [Mass/Vol] 33.5 g/dL 32-36 [facility] Work Phone: No Panel Informationon 02-16 Estimated GFR (MDRD) Amer 95 mL/min >60 [facility] Work Phone: Comment on above: GFR Calc Estimated GFR (MDRD) Non-Af Amer 79 mL/min >60 [facility] Work Phone: Comment on above: Non- GFR Calc Thyroid Stimulating Hormone (TSH) 1.55 uIU/mL 0.358-3.74 [facility] Work Phone: Vitamin D 25-Hydroxy 27.4 ng/mL [facility] Work Phone: Comment on above: Vitamin D 25(OH) Sta tus Range Deficiency <20 ng/mL (50nmol/L) Insufficiency 20 - 30 ng/mL (50 - 75 nmol/L) Sufficiency 30 - 100 ng/mL (75 - 250 nmol/L) Toxicity >100 ng/mL (>250 nmol/L) Platelets bldon 02-16-2022 Platelets (Bld) [#/Vol] 385 10*3/uL 150-450 [facility] Work Phone: Serum or plasma albumin hollis urement (mass/volume)on 02-16-2022 Albumin [Mass/Vol] 3.7 g/dL 3.2-5.0 [facility] Work Phone: Serum or plasma albumin/glob ulin mass ratioon 02-16-2022 Albumin/Globulin [Mass ratio] 0.9 {ratio} 0.9-2.4 [facility] Work Phone: Serum or plasma calcium hollis urement (mass/volume)on 02-16-2022 Calcium [Mass/Vol] 9.1 mg/dL 8.5-10.1 [facility] Work Phone: Serum or plasma creatinine m easurement (mass/volume)on 02-16-2022 Creatinine [Mass/Vol] 1.00 mg/dL 0.70-1.30 [facility] Work Phone: Comment on above: The validity of the calculated GFR & GFRAA in patients over 70 years has not been determined. Clinical correlation is essential. Serum or plasma urea nitroge n measurement (mass/volume)on 02-16-2022 Urea nitrogen [Mass/Vol] 27 mg/dL 7-18 [facility] Work Phone: Thin prep Papanicolaou smear with manual screeningon 02-16-2022 Thin prep Papanicolaou smear with manual screening 42 U/L 15-37 [facility] Work Phone: Thin prep Papanicolaou smear with manual screening 4 5-15 [facility] Work Phone: Glucose Glucometer (BldC) [M ass/Vol]on 01-03-2022 Glucose [Mass/Vol] 175 mg/dL 74-106 [facility] Work Phone: Comment on above: MANAGEMENT OF PATIEN T CARE PER NURSING PROTOCOL Absolute lymphocyte counton 12-01-2021 Lymphocytes Auto (Unsp spec) [#/Vol] 3.30 10*3/uL 0.83-4.51 [facility] Work Phone: Basophil percentageon 2021 Basophils/100 WBC (Bld) 0.1 % 0-1 [facility] Work Phone: Bilirubin [Mass/Vol] 0.30 mg/dL 0.20-1.00 [facility] Work Phone: Comment on above: For patients on eltr ombopag therapy, use of Dimension [place] TBIL is not recommended. Chloride [Moles/Vol] 97 mmol/L 98-107 [facility] Work Phone: [phone] Eosinophils/100 WBC (Bld) 0.1 % 0-5 [facility] Work Phone: Glucose [Mass/Vol] 125 mg/dL 74-106 [facility] Work Phone: Comment on above: Fasting Glucose resu lt from 100 to 125 mg/dL suggests IMPAIRED HOMEOSTASIS per A.D.A. criteria. Neutrophils (Bld) [#/Vol] 8.0 10*3/uL 2.0-7.7 [facility] Work Phone: Neutrophils/100 WBC (Bld) 63.5 % 47-70 [facility] Work Phone: Potassium [Moles/Vol] 4.9 mmol/L 3.5-5.1 [facility] Work Phone: Comment on above: Slight Hemolysis, Re sult may be falsely increased. Protein [Mass/Vol] 7.0 g/dL 6.4-8.2 [facility] Work Phone: Sodium [Moles/Vol] 136 mmol/L 136-145 [facility] Work Phone: WBC (Bld) [#/Vol] 12.6 10*3/uL 4.4-11.0 [facility] Work Phone: Blood erythrocytes count (nu mber/volume)on 12-01-2021 RBC (Bld) [#/Vol] 4.81 10*6/uL 4.6-6.2 [facility] Work Phone: Blood hemoglobin measurement (mass/volume)on 12-01-2021 Hemoglobin (Bld) [Mass/Vol] 15.6 g/dL 13.0-16.5 [facility] Work Phone: Blood lymphocytes/100 leukoc yteson 12-01-2021 Lymphocytes/100 WBC (Bld) 26.2 % 19-41 [facility] Work Phone: Blood monocytes/100 leukocyt eson 12-01-2021 Monocytes/100 WBC (Bld) 9.7 % 0-10 [facility] Work Phone: Blood platelet mean volumeon 12-01-2021 Platelet mean volume (Bld) [Entitic vol] 9.0 fL 6.2-12.0 [facility] Work Phone: Determination of erythrocyte mean corpuscular volume (MCV)on 12-01-2021 MCV (RBC) [Entitic vol] 101.2 fL 80-94 [facility] Work Phone: Glucose Glucometer (BldC) [M ass/Vol]on 12-01-2021 Glucose [Mass/Vol] 144 mg/dL 74-106 [facility] Work Phone: Comment on above: MANAGEMENT OF PATIEN T CARE PER NURSING PROTOCOL Hematocrit Auto (Bld) [Volum e fraction]on 12-01-2021 Hematocrit (Bld) [Volume fraction] 48.7 % 40-54 [facility] Work Phone: Laboratory - Chemistry and C hemistry - challengeon 12-01-2021 ALP [Catalytic activity/Vol] 83 U/L 45-117 [facility] Work Phone: ALT [Catalytic activity/Vol] 37 U/L 16-61 [facility] Work Phone: CO2 [Moles/Vol] 35.0 mmol/L 21.0-32.0 [facility] Work Phone: Globulin (S) [Mass/Vol] 3.6 g/dL 2.2-4.2 [facility] Work Phone: Urea nitrogen/Creatinine [Mass ratio] 20.6 mg/mg 10-20 [facility] Work Phone: Laboratory - Hematology and Cell countson 12-01-2021 Erythrocyte distribution width (RBC) [Entitic vol] 48.7 fL 35.1-43.9 [facility] Work Phone: Erythrocyte distribution width (RBC) [Ratio] 12.9 % 11.6-14.6 [facility] Work Phone: Immature granulocytes/100 WBC (Bld) 0.400 % 0.0-0.9 [facility] Work Phone: Comment on above: IG% - Immature Granu locytes (promyelocytes, myelocytes and metamyelocytes) > 1% indicates that a LEFT SHIFT is Present. MCH (RBC) [Entitic mass] 32.4 pg 27.0-32.0 [facility] Work Phone: Nucleated RBC/100 WBC (Bld) [Ratio] 0 % 0-5 [facility] Work Phone: MCHC Auto (RBC) [Mass/Vol]on 12-01-2021 MCHC (RBC) [Mass/Vol] 32.0 g/dL 32-36 [facility] Work Phone: No Panel Informationon 12-01 Estimated Creatinine Clearance Calc 84.15 ml/min [facility] Work Phone: Estimated GFR (MDRD) Amer 111 mL/min >60 [facility] Work Phone: Comment on above: GFR Calc Estimated GFR (MDRD) Non-Af Amer 92 mL/min >60 [facility] Work Phone: Comment on above: Non- GFR Calc Platelets bldon 12-01-2021 Platelets (Bld) [#/Vol] 323 10*3/uL 150-450 [facility] Work Phone: Serum or plasma albumin hollis urement (mass/volume)on 12-01-2021 Albumin [Mass/Vol] 3.4 g/dL 3.2-5.0 [facility] Work Phone: Serum or plasma albumin/glob ulin mass ratioon 12-01-2021 Albumin/Globulin [Mass ratio] 0.9 {ratio} 0.9-2.4 [facility] Work Phone: Serum or plasma calcium hollis urement (mass/volume)on 12-01-2021 Calcium [Mass/Vol] 8.7 mg/dL 8.5-10.1 [facility] Work Phone: Serum or plasma creatinine m easurement (mass/volume)on 12-01-2021 Creatinine [Mass/Vol] 0.87 mg/dL 0.70-1.30 [facility] Work Phone: Comment on above: The validity of the calculated GFR & GFRAA in patients over 70 years has not been determined. Clinical correlation is essential. Serum or plasma urea nitroge n measurement (mass/volume)on 12-01-2021 Urea nitrogen [Mass/Vol] 18 mg/dL 7-18 [facility] Work Phone: Thin prep Papanicolaou smear with manual screeningon 12-01-2021 Thin prep Papanicolaou smear with manual screening 25 U/L 15-37 [facility] Work Phone: Comment on above: Slight Hemolysis, Re sult may be falsely increased. Thin prep Papanicolaou smear with manual screening 4 5-15 [facility] Work Phone: Laboratory - Chemistry and C hemistry - challengeon 11-30-2021 Natriuretic peptide B (Bld) [Mass/Vol] 55.8 pg/mL 0-100 [facility] Work Phone: No Panel Informationon 11-30 SARS-CoV-2 & FLU Antigen (Rapid) SARS-CoV-2 (COVID 19) [facility] Work Phone: D-Dimer Quantitative (PE/DVT) 1.15 FEU/ug/m 0.27-0.49 [facility] Work Phone: Comment on above: D-Dimer ELEVATED (>0 .49): Additional studies and clinicalassessments are indicated to conclude diagnosis of:Deep Vein Thrombosis (DVT) or Pulmonary Embolism (PE)CRITICAL VALUE VERIFIED. CALLED TO Anny ROE RN ER11/30/21 [id number] Kenneth Holliday.RESULTS READ BACK BY SAME. Troponin I High Sensitivity 20 pg/mL 3.0-78.0 [facility] Work Phone: Comment on above: Please Note: New Cynthia t Units and Gender Specific Reference Ranges. For more information see Policy Stat Procedure [place] High Sensitivity Troponin (TNIH) and attachments. Anh 11-28-2021 CNPN Telephone (AGGENS4) CELESTINE ECHAVARRIA ([id number]) 1950 Date Time Provider Department 11/28/21 JOANNE DUNBAR AGGENS4 During your visit today, we recorded the following information about you: Ashleigh Caceres 11/28/2021 10:45 AM Signed Insurance Verification Insurance Company: Medicare Best Benefit-Level From Date: 10/06/2016 Plan Date: 10/06/2021 Eligibility Date: 11/28/2021 Eligibility To Date: 11/28/2021 Status Date: 11/28/2021 PATHWAY: GEM Caceres November 28, 2021 10:44 AM Allergies As of Date: 11/28/2021 Noted Allergy Reaction ADHESIVE TAPE (ROSINS) 11/11/2015 9 - Itching Date Reviewed: 09/05/2021 Reviewed by: Jeniffer Sun LPN - Fully Assessed Reason for Visit: Benefits Investigation [4098] Prescriptions as of 11/28/2021 - peg 3350-Electrolytes (GOLYTELY) 236-22.74-6.74 -5.86 gram suspension Refer to printed prep instructions from your provider. - ciprofloxacin HCl (CILOXAN) 0.3 % ophthalmic solution - Ketorolac Tromethamine (ACLUAR LS) 0.4 % drop - prednisoLONE acetate (PRED FORTE, ECONOPRED PLUS) 1 % ophthalmic suspension - clotrimazole-betametha sone (LOTRISONE) cream - PREVNAR 13, PF, 0.5 mL syrg - ADACEL 2 Lf-(2.5-5-3-5 mcg)-5Lf/0.5 mL injection - aspirin, enteric coated (ASPIRIN, ENTERIC COATED) 81 mg EC tablet - atorvastatin (LIPITOR) 10 mg tablet - enoxaparin (LOVENOX) 40 mg/0.4 mL syrg - oxyCODONE immediate release (PERCOLONE) 5 mg immediate release tablet - HYDROcodone-acetaminop hen (NORCO) 5-325 mg per tablet One to Two tablets every 6-8 hours as needed for pain - senna-docusate (SENNA WITH DOCUSATE SODIUM) 8.6-50 mg per tablet Take 1 tablet by mouth once daily. As needed for constipation - triamterene-hydrochlor othiazide (MAXZIDE) 75-50 mg per tablet Take 1 tablet by mouth once daily. - atenolol (TENORMIN) 25 mg tablet Take 25 mg by mouth once daily. 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 He was seeing someone in [place] but its just too far. I returned the call no answer. Message left to let them know we would need records and for him to complete seminar. Ashleigh Caceres [employer] [facility] P: [phone] Ext [phone] Allergies As of Date: 11/20/2021 Noted Allergy Reaction ADHESIVE TAPE (ROSINS) 11/11/2015 9 - Itching Date Reviewed: 09/05/2021 Reviewed by: Jeniffer Sun LPN - Fully Assessed Reason for Visit: New Patient [172] Prescriptions as of 11/20/2021 - peg 3350-Electrolytes (GOLYTELY) 236-22.74-6.74 -5.86 gram suspension Refer to printed prep instructions from your provider. - ciprofloxacin HCl (CILOXAN) 0.3 % ophthalmic solution - Ketorolac Tromethamine (ACLUAR LS) 0.4 % drop - prednisoLONE acetate (PRED FORTE, ECONOPRED PLUS) 1 % ophthalmic suspension - clotrimazole-betametha sone (LOTRISONE) cream - PREVNAR 13, PF, 0.5 mL syrg - ADACEL 2 Lf-(2.5-5-3-5 mcg)-5Lf/0.5 mL injection - aspirin, enteric coated (ASPIRIN, ENTERIC COATED) 81 mg EC tablet - atorvastatin (LIPITOR) 10 mg tablet - enoxaparin (LOVENOX) 40 mg/0.4 mL syrg - oxyCODONE immediate release (PERCOLONE) 5 mg immediate release tablet - HYDROcodone-acetaminop hen (NORCO) 5-325 mg per tablet One to Two tablets every 6-8 hours as needed for pain - senna-docusate (SENNA WITH DOCUSATE SODIUM) 8.6-50 mg per tablet Take 1 tablet by mouth once daily. As needed for constipation - triamterene-hydrochlor othiazide (MAXZIDE) 75-50 mg per tablet Take 1 tablet by mouth once daily. - atenolol (TENORMIN) 25 mg tablet Take 25 mg by mouth once daily. 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 Milton has been received and scanned into [facility] under GI Outside Medical Records. Allergies As of Date: 11/15/2021 Noted Allergy Reaction ADHESIVE TAPE (ROSINS) 11/11/2015 9 - Itching Date Reviewed: 09/05/2021 Reviewed by: Jeniffer Sun LPN - Fully Assessed Reason for Visit: Outpatient Colonoscopy [482] Prescriptions as of 01/19/2022 - peg 3350-Electrolytes (GOLYTELY) 236-22.74-6.74 -5.86 gram suspension Refer to printed prep instructions from your provider. - ciprofloxacin HCl (CILOXAN) 0.3 % ophthalmic solution - Ketorolac Tromethamine (ACLUAR LS) 0.4 % drop - prednisoLONE acetate (PRED FORTE, ECONOPRED PLUS) 1 % ophthalmic suspension - clotrimazole-betametha sone (LOTRISONE) cream - PREVNAR 13, PF, 0.5 mL syrg - ADACEL 2 Lf-(2.5-5-3-5 mcg)-5Lf/0.5 mL injection - aspirin, enteric coated (ASPIRIN, ENTERIC COATED) 81 mg EC tablet - atorvastatin (LIPITOR) 10 mg tablet - enoxaparin (LOVENOX) 40 mg/0.4 mL syrg - oxyCODONE immediate release (PERCOLONE) 5 mg immediate release tablet - HYDROcodone-acetaminop hen (NORCO) 5-325 mg per tablet One to Two tablets every 6-8 hours as needed for pain - senna-docusate (SENNA WITH DOCUSATE SODIUM) 8.6-50 mg per tablet Take 1 tablet by mouth once daily. As needed for constipation - triamterene-hydrochlor othiazide (MAXZIDE) 75-50 mg per tablet Take 1 tablet by mouth once daily. - atenolol (TENORMIN) 25 mg tablet Take 25 mg by mouth once daily. 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 Chloride [Moles/Vol] 97 mmol/L 98-107 [facility] Work Phone: Eosinophils/100 WBC (Bld) 1.0 % 0-5 [facility] Work Phone: Glucose [Mass/Vol] 130 mg/dL 74-106 [facility] Work Phone: Comment on above: Fasting Glucose resu lt greater than or equal to 126 mg/dL suggests DIABETES MELLITUS per A.D.A. criteria. Neutrophils (Bld) [#/Vol] 5.4 10*3/uL 2.0-7.7 [facility] Work Phone: Neutrophils/100 WBC (Bld) 60.6 % 47-70 [facility] Work Phone: Potassium [Moles/Vol] 4.6 mmol/L 3.5-5.1 [facility] Work Phone: Comment on above: Slight Hemolysis, Re sult may be falsely increased. Protein [Mass/Vol] 7.4 g/dL 6.4-8.2 [facility] Work Phone: Sodium [Moles/Vol] 135 mmol/L 136-145 [facility] Work Phone: WBC (Bld) [#/Vol] 9.0 10*3/uL 4.4-11.0 [facility] Work Phone: Blood erythrocytes count (nu mber/volume)on 11-10-2021 RBC (Bld) [#/Vol] 5.16 10*6/uL 4.6-6.2 [facility] Work Phone: Blood hemoglobin measurement (mass/volume)on 11-10-2021 Hemoglobin (Bld) [Mass/Vol] 16.4 g/dL 13.0-16.5 [facility] Work Phone: Blood lymphocytes/100 leukoc yteson 11-10-2021 Lymphocytes/100 WBC (Bld) 27.8 % 19-41 [facility] Work Phone: Blood monocytes/100 leukocyt eson 11-10-2021 Monocytes/100 WBC (Bld) 10.0 % 0-10 [facility] Work Phone: Blood platelet mean volumeon 11-10-2021 Platelet mean volume (Bld) [Entitic vol] 9.6 fL 6.2-12.0 [facility] Work Phone: Determination of erythrocyte mean corpuscular volume (MCV)on 11-10-2021 MCV (RBC) [Entitic vol] 98.1 fL 80-94 [facility] Work Phone: Hematocrit Auto (Bld) [Volum e fraction]on 11-10-2021 Hematocrit (Bld) [Volume fraction] 50.6 % 40-54 [facility] Work Phone: Laboratory - Chemistry and C hemistry - challengeon 11-10-2021 ALP [Catalytic activity/Vol] 98 U/L 45-117 [facility] Work Phone: ALT [Catalytic activity/Vol] 41 U/L 16-61 [facility] Work Phone: CO2 [Moles/Vol] 36.0 mmol/L 21.0-32.0 [facility] Work Phone: Globulin (S) [Mass/Vol] 3.7 g/dL 2.2-4.2 [facility] Work Phone: Urea nitrogen/Creatinine [Mass ratio] 19.9 mg/mg 10-20 [facility] Work Phone: Laboratory - Hematology and Cell countson 11-10-2021 Erythrocyte distribution width (RBC) [Entitic vol] 47.6 fL 35.1-43.9 [facility] Work Phone: Erythrocyte distribution width (RBC) [Ratio] 13.2 % 11.6-14.6 [facility] Work Phone: Immature granulocytes/100 WBC (Bld) 0.200 % 0.0-0.9 [facility] Work Phone: Comment on above: IG% - Immature Granu locytes (promyelocytes, myelocytes and metamyelocytes) > 1% indicates that a LEFT SHIFT is Present. MCH (RBC) [Entitic mass] 31.8 pg 27.0-32.0 [facility] Work Phone: Nucleated RBC/100 WBC (Bld) [Ratio] 0 % 0-5 [facility] Work Phone: MCHC Auto (RBC) [Mass/Vol]on 11-10-2021 MCHC (RBC) [Mass/Vol] 32.4 g/dL 32-36 [facility] Work Phone: No Panel Informationon 11-10 Estimated GFR (MDRD) Amer 106 mL/min >60 [facility] Work Phone: Comment on above: GFR Calc Estimated GFR (MDRD) Non-Af Amer 88 mL/min >60 [facility] Work Phone: Comment on above: Non- GFR Calc Thyroid Stimulating Hormone (TSH) 0.89 uIU/mL 0.358-3.74 [facility] Work Phone: Vitamin D 25-Hydroxy 16.3 ng/mL [facility] Work Phone: Comment on above: Vitamin D 25(OH) Sta tus Range Deficiency <20 ng/mL (50nmol/L) Insufficiency 20 - 30 ng/mL (50 - 75 nmol/L) Sufficiency 30 - 100 ng/mL (75 - 250 nmol/L) Toxicity >100 ng/mL (>250 nmol/L) Platelets bldon 11-10-2021 Platelets (Bld) [#/Vol] 339 10*3/uL 150-450 [facility] Work Phone: Serum or plasma albumin hollis urement (mass/volume)on 11-10-2021 Albumin [Mass/Vol] 3.7 g/dL 3.2-5.0 [facility] Work Phone: Serum or plasma albumin/glob ulin mass ratioon 11-10-2021 Albumin/Globulin [Mass ratio] 1.0 {ratio} 0.9-2.4 [facility] Work Phone: Serum or plasma calcium hollis urement (mass/volume)on 11-10-2021 Calcium [Mass/Vol] 8.6 mg/dL 8.5-10.1 [facility] Work Phone: Serum or plasma creatinine m easurement (mass/volume)on 11-10-2021 Creatinine [Mass/Vol] 0.91 mg/dL 0.70-1.30 [facility] Work Phone: Comment on above: The validity of the calculated GFR & GFRAA in patients over 70 years has not been determined. Clinical correlation is essential. Serum or plasma urea nitroge n measurement (mass/volume)on 11-10-2021 Urea nitrogen [Mass/Vol] 18 mg/dL 7-18 [facility] Work Phone: Thin prep Papanicolaou smear with manual screeningon 11-10-2021 Thin prep Papanicolaou smear with manual screening 25 U/L 15-37 [facility] Work Phone: Comment on above: Slight Hemolysis, Re sult may be falsely increased. Thin prep Papanicolaou smear with manual screening 2 5-15 [facility] Work Phone: Absolute lymphocyte counton 10-20-2021 Lymphocytes Auto (Unsp spec) [#/Vol] 2.37 10*3/uL 0.83-4.51 [facility] Work Phone: Basophil percentageon 2021 Amylase [Catalytic activity/Vol] 54 U/L 25-115 [facility] Work Phone: Bilirubin [Mass/Vol] 0.60 mg/dL 0.20-1.00 [facility] Work Phone: Comment on above: For patients on eltr ombopag therapy, use of Dimension [place] TBIL is not recommended. Chloride [Moles/Vol] 94 mmol/L 98-107 [facility] Work Phone: Glucose [Mass/Vol] 156 mg/dL 74-106 [facility] Work Phone: Comment on above: Fasting Glucose resu lt greater than or equal to 126 mg/dL suggests DIABETES MELLITUS per A.D.A. criteria. Potassium [Moles/Vol] 4.3 mmol/L 3.5-5.1 [facility] Work Phone: Protein [Mass/Vol] 7.0 g/dL 6.4-8.2 [facility] Work Phone: Sodium [Moles/Vol] 132 mmol/L 136-145 [facility] Work Phone: Creatinine [Mass/Vol] 0.7 mg/dL 0.70-1.30 [facility] Work Phone: Basophils/100 WBC (Bld) 0.5 % 0-1 [facility] Work Phone: Eosinophils/100 WBC (Bld) 0.6 % 0-5 [facility] Work Phone: Neutrophils (Bld) [#/Vol] 6.8 10*3/uL 2.0-7.7 [facility] Work Phone: Neutrophils/100 WBC (Bld) 66.7 % 47-70 [facility] Work Phone: WBC (Bld) [#/Vol] 10.2 10*3/uL 4.4-11.0 [facility] Work Phone: Blood erythrocytes count (nu mber/volume)on 10-20-2021 RBC (Bld) [#/Vol] 5.07 10*6/uL 4.6-6.2 [facility] Work Phone: Blood hemoglobin measurement (mass/volume)on 10-20-2021 Hemoglobin (Bld) [Mass/Vol] 16.4 g/dL 13.0-16.5 [facility] Work Phone: Blood lymphocytes/100 leukoc yteson 10-20-2021 Lymphocytes/100 WBC (Bld) 23.2 % 19-41 [facility] Work Phone: Blood monocytes/100 leukocyt eson 10-20-2021 Monocytes/100 WBC (Bld) 8.8 % 0-10 [facility] Work Phone: Blood platelet mean volumeon 10-20-2021 Platelet mean volume (Bld) [Entitic vol] 8.9 fL 6.2-12.0 [facility] Work Phone: Culture, urineon 10-20-2021 Bacteria identified Cx Nom (U) Culture exhibits no growth. [facility] Work Phone: Determination of erythrocyte mean corpuscular volume (MCV)on 10-20-2021 MCV (RBC) [Entitic vol] 97.8 fL 80-94 [facility] Work Phone: Hematocrit Auto (Bld) [Volum e fraction]on 10-20-2021 Hematocrit (Bld) [Volume fraction] 49.6 % 40-54 [facility] Work Phone: Laboratory - Chemistry and C hemistry - challengeon 10-20-2021 ALP [Catalytic activity/Vol] 97 U/L 45-117 [facility] Work Phone: ALT [Catalytic activity/Vol] 38 U/L 16-61 [facility] Work Phone: CO2 [Moles/Vol] 36.0 mmol/L 21.0-32.0 [facility] Work Phone: Globulin (S) [Mass/Vol] 3.6 g/dL 2.2-4.2 [facility] Work Phone: Lipase [Catalytic activity/Vol] 62 U/L 73-393 [facility] Work Phone: Urea nitrogen/Creatinine [Mass ratio] 26.4 mg/mg 10-20 [facility] Work Phone: Laboratory - Hematology and Cell countson 10-20-2021 Erythrocyte distribution width (RBC) [Entitic vol] 49.3 fL 35.1-43.9 [facility] Work Phone: Erythrocyte distribution width (RBC) [Ratio] 13.5 % 11.6-14.6 [facility] Work Phone: Immature granulocytes/100 WBC (Bld) 0.200 % 0.0-0.9 [facility] Work Phone: Comment on above: IG% - Immature Granu locytes (promyelocytes, myelocytes and metamyelocytes) > 1% indicates that a LEFT SHIFT is Present. MCH (RBC) [Entitic mass] 32.3 pg 27.0-32.0 [facility] Work Phone: Nucleated RBC/100 WBC (Bld) [Ratio] 0 % 0-5 [facility] Work Phone: MCHC Auto (RBC) [Mass/Vol]on 10-20-2021 MCHC (RBC) [Mass/Vol] 33.1 g/dL 32-36 [facility] Work Phone: No Panel Informationon 10-20 Estimated GFR (MDRD) Amer 131 mL/min >60 [facility] Work Phone: Comment on above: GFR Calc Estimated GFR (MDRD) Non-Af Amer 108 mL/min >60 [facility] Work Phone: Comment on above: Non- GFR Calc Bedside Estimated GFR (eGFR) > 60.0000 mL/min >60 [facility] Work Phone: Platelets bldon 10-20-2021 Platelets (Bld) [#/Vol] 359 10*3/uL 150-450 [facility] Work Phone: Serum or plasma albumin hollis urement (mass/volume)on 10-20-2021 Albumin [Mass/Vol] 3.4 g/dL 3.2-5.0 [facility] Work Phone: Serum or plasma albumin/glob ulin mass ratioon 10-20-2021 Albumin/Globulin [Mass ratio] 0.9 {ratio} 0.9-2.4 [facility] Work Phone: Serum or plasma calcium hollis urement (mass/volume)on 10-20-2021 Calcium [Mass/Vol] 8.4 mg/dL 8.5-10.1 [facility] Work Phone: Serum or plasma creatinine m easurement (mass/volume)on 10-20-2021 Creatinine [Mass/Vol] 0.76 mg/dL 0.70-1.30 [facility] Work Phone: Comment on above: The validity of the calculated GFR & GFRAA in patients over 70 years has not been determined. Clinical correlation is essential. Serum or plasma urea nitroge n measurement (mass/volume)on 10-20-2021 Urea nitrogen [Mass/Vol] 20 mg/dL 7-18 [facility] Work Phone: Thin prep Papanicolaou smear with manual screeningon 10-20-2021 Thin prep Papanicolaou smear with manual screening 20 U/L 15-37 [facility] Work Phone: Thin prep Papanicolaou smear with manual screening 2 5-15 [facility] Work Phone: CNPNon 09-18-2021 CNPN Telephone (SARAHGLORIA) CELESTINE ECHAVARRIA ([id number]) 1950 M Date Time Provider Department 09/18/21 GINNY BUSH During your visit today, we recorded the following information about you: Jeniffer Sun LPN 09/18/2021 2:34 PM Signed Medical clearance received from Dr. Schmitt pulmonary clearing patient for colonoscopy. See scanned documents. Still waiting on clearance from cardiology Dr. Elliott. Jeniffer Sun LPN 10/06/2021 8:42 AM Signed Medical clearance has been received from Dr. Elliott's office. See scanned documents. Luz Maria Morelos 10/06/2021 10:05 AM Signed Patient cancelled his colonoscopy for November. Stated he got a second opinion and declined to reschedule. Luz Maria Morelos PSS Allergies As of Date: 09/18/2021 Noted Allergy Reaction ADHESIVE TAPE (ROSINS) 11/11/2015 9 - Itching Date Reviewed: 09/05/2021 Reviewed by: Jeniffer Sun LPN - Fully Assessed Reason for Visit: Appointment Cancelled [1023] Prescriptions as of 10/06/2021 - peg 3350-Electrolytes (GOLYTELY) 236-22.74-6.74 -5.86 gram suspension Refer to printed prep instructions from your provider. - ciprofloxacin HCl (CILOXAN) 0.3 % ophthalmic solution - Ketorolac Tromethamine (ACLUAR LS) 0.4 % drop - prednisoLONE acetate (PRED FORTE, ECONOPRED PLUS) 1 % ophthalmic suspension - clotrimazole-betametha sone (LOTRISONE) cream - PREVNAR 13, PF, 0.5 mL syrg - ADACEL 2 Lf-(2.5-5-3-5 mcg)-5Lf/0.5 mL injection - aspirin, enteric coated (ASPIRIN, ENTERIC COATED) 81 mg EC tablet - atorvastatin (LIPITOR) 10 mg tablet - enoxaparin (LOVENOX) 40 mg/0.4 mL syrg - oxyCODONE immediate release (PERCOLONE) 5 mg immediate release tablet - HYDROcodone-acetaminop hen (NORCO) 5-325 mg per tablet One to Two tablets every 6-8 hours as needed for pain - senna-docusate (SENNA WITH DOCUSATE SODIUM) 8.6-50 mg per tablet Take 1 tablet by mouth once daily. As needed for constipation - triamterene-hydrochlor othiazide (MAXZIDE) 75-50 mg per tablet Take 1 tablet by mouth once daily. - atenolol (TENORMIN) 25 mg tablet Take 25 mg by mouth once daily. Problem List As Of Date 09/18/2021 Noted Resolved Obesity [E66.9] Venous stasis of lower extremity [I87.8] History of knee replacement, total [Z96.659] 11/30/2016 Encounter Status:Closed by LUZ MARIA MORELOS on 10/06/21 [facility] CNCOon 09-06-2021 CNCO Letter Text [facility] CNOVon 09-05-2021 CNOV Office Visit (GASTWS ) CELESTINE ECHAVARRIA ([id number]) 1950 M Date Time Provider Department 09/05/21 1:30 PM GINNY BUSH During your visit today, we recorded the following information about you: Pulse Blood pressure Weight Height 72/minute 140/84 129.3 kg 1.78 m Ginny Bush APRN.CNP 09/05/2021 6:13 PM Signed CHIEF COMPLAINT: Patient presents with: Outpatient Colonoscopy Constipation: small amounts of stool 2-3 times a day This consult was requested by Massimo Epperson Chi, MD for an opinion regarding colon cancer screening. My final recommendations will be communicated to the requesting health care provider by way of the shared medical record for internal providers or letter via the [employer] for external providers. Celestine Echavarria [...] feels like he is pushing on a Fence. Patient denies unintentional weight loss. Patient denies [...] Itching Medications: atorvastatin (LIPITOR) 10 mg tablet triamterene-hydrochlor othiazide (MAXZIDE) 75-50 mg per tablet Take 1 tablet by mouth once daily. atenolol (TENORMIN) 25 mg tablet Take 25 mg by mouth once daily. peg 3350-Electrolytes (GOLYTELY) 236-22.74-6.74 -5.86 gram suspension Refer to printed prep instructions from your provider. ciprofloxacin HCl (CILOXAN) 0.3 % ophthalmic solution Ketorolac Tromethamine (ACLUAR LS) 0.4 % drop prednisoLONE acetate (PRED FORTE, ECONOPRED PLUS) 1 % ophthalmic suspension clotrimazole-betametha sone (LOTRISONE) cream PREVNAR 13, PF, 0.5 mL syrg ADACEL 2 Lf-(2.5-5-3-5 mcg)-5Lf/0.5 mL injection aspirin, enteric coated (ASPIRIN, ENTERIC COATED) 81 mg EC tablet enoxaparin (LOVENOX) 40 mg/0.4 mL syrg oxyCODONE immediate release (PERCOLONE) 5 mg immediate release tablet HYDROcodone-acetaminop hen (NORCO) 5-325 mg per tablet One to Two tablets every 6-8 hours as needed for pain senna-docusate (SENNA WITH DOCUSATE SODIUM) 8.6-50 mg per tablet Take 1 tablet by mouth once daily. 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 Cervical back: Normal (more content not included)... [facility] CNCOon 08-30-2021 CNCO Letter Text [facility] Absolute lymphocyte counton 07-11-2021 Lymphocytes Auto (Unsp spec) [#/Vol] 1.07 10*3/uL 0.83-4.51 [facility] Work Phone: [phone] Basophil percentageon 2021 Basophils/100 WBC (Bld) 0.1 % 0-1 [facility] Work Phone: Chloride [Moles/Vol] 91 mmol/L 98-107 [facility] Work Phone: Eosinophils/100 WBC (Bld) 0.0 % 0-5 [facility] Work Phone: Glucose [Mass/Vol] 350 mg/dL 74-106 [facility] Work Phone: Comment on above: Glucose result great er than or equal to 200 mg/dLsuggests DIABETES MELLITUS per A.D.A. criteria.Please note revised GLUCOSE reference range effective 2017. Neutrophils (Bld) [#/Vol] 14.5 10*3/uL 2.0-7.7 [facility] Work Phone: Neutrophils/100 WBC (Bld) 89.1 % 47-70 [facility] Work Phone: Potassium [Moles/Vol] 4.6 mmol/L 3.5-5.1 [facility] Work Phone: Comment on above: Slight Hemolysis, Re sult may be falsely increased. Sodium [Moles/Vol] 136 mmol/L 136-145 [facility] Work Phone: WBC (Bld) [#/Vol] 16.3 10*3/uL 4.4-11.0 [facility] Work Phone: Blood erythrocytes count (nu mber/volume)on 07-11-2021 RBC (Bld) [#/Vol] 4.93 10*6/uL 4.6-6.2 [facility] Work Phone: Blood hemoglobin measurement (mass/volume)on 07-11-2021 Hemoglobin (Bld) [Mass/Vol] 15.6 g/dL 13.0-16.5 [facility] Work Phone: Blood lymphocytes/100 leukoc yteson 07-11-2021 Lymphocytes/100 WBC (Bld) 6.6 % 19-41 [facility] Work Phone: Blood monocytes/100 leukocyt eson 07-11-2021 Monocytes/100 WBC (Bld) 3.6 % 0-10 [facility] Work Phone: Blood platelet mean volumeon 07-11-2021 Platelet mean volume (Bld) [Entitic vol] 9.4 fL 6.2-12.0 [facility] Work Phone: Determination of erythrocyte mean corpuscular volume (MCV)on 07-11-2021 MCV (RBC) [Entitic vol] 99.8 fL 80-94 [facility] Work Phone: Glucose Glucometer (BldC) [M ass/Vol]on 07-11-2021 Glucose [Mass/Vol] 308 mg/dL 70-110 [facility] Work Phone: Comment on above: MANAGEMENT OF PATIEN T CARE PER NURSING PROTOCOL Hematocrit Auto (Bld) [Volum e fraction]on 07-11-2021 Hematocrit (Bld) [Volume fraction] 49.2 % 40-54 [facility] Work Phone: Laboratory - Chemistry and C hemistry - challengeon 07-11-2021 CO2 [Moles/Vol] 41.0 mmol/L 21.0-32.0 [facility] Work Phone: Urea nitrogen/Creatinine [Mass ratio] 32.2 mg/mg 10-20 [facility] Work Phone: Laboratory - Hematology and Cell countson 07-11-2021 Erythrocyte distribution width (RBC) [Entitic vol] 49.8 fL 35.1-43.9 [facility] Work Phone: Erythrocyte distribution width (RBC) [Ratio] 13.5 % 11.6-14.6 [facility] Work Phone: Immature granulocytes/100 WBC (Bld) 0.600 % 0.0-0.9 [facility] Work Phone: Comment on above: IG% - Immature Granu locytes (promyelocytes, myelocytes and metamyelocytes) > 1% indicates that a LEFT SHIFT is Present. MCH (RBC) [Entitic mass] 31.6 pg 27.0-32.0 [facility] Work Phone: Nucleated RBC/100 WBC (Bld) [Ratio] 0 % 0-5 [facility] Work Phone: MCHC Auto (RBC) [Mass/Vol]on 07-11-2021 MCHC (RBC) [Mass/Vol] 31.7 g/dL 32-36 [facility] Work Phone: No Panel Informationon 07-11 Estimated Creatinine Clearance Calc 79.84 ml/min [facility] Work Phone: Estimated GFR (MDRD) Amer 103 mL/min >60 [facility] Work Phone: Comment on above: GFR Calc Estimated GFR (MDRD) Non-Af Amer 85 mL/min >60 [facility] Work Phone: Comment on above: Non- GFR Calc Platelets bldon 07-11-2021 Platelets (Bld) [#/Vol] 328 10*3/uL 150-450 [facility] Work Phone: Serum or plasma calcium hollis urement (mass/volume)on 07-11-2021 Calcium [Mass/Vol] 8.5 mg/dL 8.5-10.1 [facility] Work Phone: Serum or plasma creatinine m easurement (mass/volume)on 07-11-2021 Creatinine [Mass/Vol] 0.93 mg/dL 0.70-1.30 [facility] Work Phone: Comment on above: The validity of the calculated GFR & GFRAA in patients over 70 years has not been determined. Clinical correlation is essential. Serum or plasma urea nitroge n measurement (mass/volume)on 07-11-2021 Urea nitrogen [Mass/Vol] 30 mg/dL 7-18 [facility] Work Phone: Thin prep Papanicolaou smear with manual screeningon 07-11-2021 Thin prep Papanicolaou smear with manual screening 4 5-15 [facility] Work Phone: Basophil percentageon 2021 Basophil percentage 0-5 SEEN /hpf [facility] Work Phone: Bilirubin Test strip Ql (U)o n 07-10-2021 Bilirubin Ql (U) Negative Negative [facility] Work Phone: Culture, urineon 07-10-2021 Bacteria identified Cx Nom (U) Culture exhibits no growth. [facility] Work Phone: Ketones Test strip Ql (U)on 07-10-2021 Ketones Ql (U) Negative Negative [facility] Work Phone: Mucus LM Ql (Urine sed)on Mucus Ql (Urine sed) 0 SEEN /hpf [facility] Work Phone: Nitrite Test strip Ql (U)on 07-10-2021 Nitrite Ql (U) Negative Negative [facility] Work Phone: Protein Test strip Ql (U)on 07-10-2021 Protein Ql (U) 30 mg/dl Negative [facility] Work Phone: Squamous epithelial cells de tection in urine sediment by light microscopyon 07-10-2021 Epithelial cells.squamous LM Ql (Urine sed) 0 SEEN /hpf [facility] Work Phone: Urine blood detectionon RBC Ql (U) 25 /ul Negative [facility] Work Phone: RBC Ql (U) 0 SEEN /hpf [facility] Work Phone: Urine clarityon 07-10-2021 Clarity (U) Clear Clear [facility] Work Phone: Urine color determinationon 07-10-2021 Color (U) Yellow Yellow [facility] Work Phone: Urine glucose detectionon Glucose Ql (U) 1000 mg/dl Normal [facility] Work Phone: Urine leukocyte esterase det ection by dipstickon 07-10-2021 Leukocyte esterase Test strip Ql (U) Negative Negative [facility] Work Phone: Urine pHon 07-10-2021 pH (U) 6.0 [pH] [facility] Work Phone: Urine sediment bacteria coun t by microscopy (number/high power field)on 07-10-2021 Bacteria LM.HPF (Urine sed) [#/Area] 0 /[HPF] None Seen [facility] Work Phone: Urine specific gravity measu rementon 07-10-2021 Specific gravity (U) [Rel density] 1.020 [facility] Work Phone: Urobilinogen Auto test strip Ql (U)on 07-10-2021 Urobilinogen Ql (U) Normal mg/dl Normal [facility] Work Phone: Basophil percentageon 2021 Basophil percentage 4.0 mg/dL 2.5-4.9 [facility] Work Phone: Laboratory - Chemistry and C hemistry - challengeon 07-09-2021 Magnesium [Mass/Vol] 2.3 mg/dL 1.6-2.6 [facility] Work Phone: Natriuretic peptide B (Bld) [Mass/Vol] 55.2 pg/mL 0-100 [facility] Work Phone: Laboratory - Microbiology an d Antimicrobial susceptibilityon 07-09-2021 Bacteria identified Cx Nom (Bld) No growth in 5 days. [facility] Work Phone: No Panel Informationon 07-09 SARS-CoV-2 Antigen (Rapid) [facility] Work Phone: Troponin I High Sensitivity 62 pg/mL 3.0-78.0 [facility] Work Phone: Comment on above: Please Note: New Cynthia t Units and Gender Specific Reference Ranges. For more information see Policy Stat Procedure [place] High Sensitivity Troponin (TNIH) and attachments. Absolute lymphocyte counton 07-05-2021 Lymphocytes Auto (Unsp spec) [#/Vol] 1.77 10*3/uL 0.83-4.51 [facility] Work Phone: Basophil percentageon 2020 Chloride [Moles/Vol] 95 mmol/L 98-107 [facility] Work Phone: Eosinophils/100 WBC (Bld) 1.8 % 0-5 [facility] Work Phone: Glucose [Mass/Vol] 157 mg/dL 74-106 [facility] Work Phone: Comment on above: Fasting Glucose resu lt greater than or equal to 126 mg/dL suggests DIABETES MELLITUS per A.D.A. criteria.Please note revised GLUCOSE reference range effective 2017. Neutrophils (Bld) [#/Vol] 5.7 10*3/uL 2.0-7.7 [facility] Work Phone: Potassium [Moles/Vol] 3.9 mmol/L 3.5-5.1 [facility] Work Phone: Sodium [Moles/Vol] 135 mmol/L 136-145 [facility] Work Phone: WBC (Bld) [#/Vol] 8.6 10*3/uL 4.4-11.0 [facility] Work Phone: Blood erythrocytes count (nu mber/volume)on 07-05-2021 RBC (Bld) [#/Vol] 5.25 10*6/uL 4.6-6.2 [facility]: Blood hemoglobin measurement (mass/volume)on 07-05-2021 Hemoglobin (Bld) [Mass/Vol] 16.7 g/dL 13.0-16.5 [facility] Work Phone: Blood lymphocytes/100 leukoc yteson 07-05-2021 Lymphocytes/100 WBC (Bld) 20.7 % 19-41 [facility] Work Phone: Blood monocytes/100 leukocyt eson 07-05-2021 Monocytes/100 WBC (Bld) 9.8 % 0-10 [facility] Work Phone: Blood platelet mean volumeon 07-05-2021 Platelet mean volume (Bld) [Entitic vol] 9.7 fL 6.2-12.0 [facility] Work Phone: Determination of erythrocyte mean corpuscular volume (MCV)on 07-05-2021 MCV (RBC) [Entitic vol] 96.4 fL 80-94 [facility] Work Phone: Hematocrit Auto (Bld) [Volum e fraction]on 07-05-2021 Hematocrit (Bld) [Volume fraction] 50.6 % 40-54 [facility] Work Phone: Laboratory - Chemistry and C hemistry - challengeon 07-05-2021 CO2 [Moles/Vol] 33.0 mmol/L 21.0-32.0 [facility] Work Phone: Urea nitrogen/Creatinine [Mass ratio] 31.4 mg/mg 10-20 [facility] Work Phone: Laboratory - Hematology and Cell countson 07-05-2021 Basophils/100 WBC (Unsp spec) 0.5 % 0-1 [facility] Work Phone: Erythrocyte distribution width (RBC) [Entitic vol] 47.5 fL 35.1-43.9 [facility] Work Phone: Erythrocyte distribution width (RBC) [Ratio] 13.3 % 11.6-14.6 [facility] Work Phone: Immature granulocytes/100 WBC (Bld) 0.200 % 0.0-0.9 [facility] Work Phone: Comment on above: IG% - Immature Granu locytes (promyelocytes, myelocytes and metamyelocytes) > 1% indicates that a LEFT SHIFT is Present. MCH (RBC) [Entitic mass] 31.8 pg 27.0-32.0 [facility] Work Phone: Neutrophils/100 WBC (Bld) 67.0 % 47-70 [facility] Work Phone: Nucleated RBC/100 WBC (Bld) [Ratio] 0 % 0-5 [facility] Work Phone: Laboratory - Microbiology an d Antimicrobial susceptibilityon 07-05-2021 SARS-CoV-2 (COVID-19) RNA TAYA+probe Ql (Unsp spec) Not detected Not Detect [facility] Work Phone: Comment on above: Normal Reference Ran ge: Not DetectedMethod:(RT-PCR) real-time reverse transcriptase PCRLuminex LC Instrument*The Food and Drug Administration (FDA) has issued an Emergency Use Authorization (EAU) for the LC SARS-CoV-2 Assay for the rapid detection of the virus that causes COVID-19. This test has been validated, but the FDAs independent review of this validation is pending.*Negative results do not preclude infection and should not be used as the sole basis for treatment or patient management. Optimum specimen types and timing for peak viral levels during infections caused by SARS-CoV-2 have not been determined. Collection of multiple specimens from the same patient may be necessary to detect the virus. The possibility of a false negative result should be considered if the patient has clinical presentation or has had recent exposure. MCHC Auto (RBC) [Mass/Vol]on 07-05-2021 MCHC (RBC) [Mass/Vol] 33.0 g/dL 32-36 [facility] Work Phone: No Panel Informationon 07-05 Estimated GFR (MDRD) Amer 130 mL/min >60 [facility] Work Phone: Comment on above: GFR Calc Estimated GFR (MDRD) Non-Af Amer 107 mL/min >60 [facility] Work Phone: Comment on above: Non- GFR Calc Influenza Types A,B Direct FA (LEONIDAS) [facility] Work Phone: Platelets bldon 07-05-2021 Platelets (Bld) [#/Vol] 355 10*3/uL 150-450 [facility] Work Phone: Serum or plasma calcium hollis urement (mass/volume)on 07-05-2021 Calcium [Mass/Vol] 8.5 mg/dL 8.5-10.1 [facility] Work Phone: Serum or plasma creatinine m easurement (mass/volume)on 07-05-2021 Creatinine [Mass/Vol] 0.76 mg/dL 0.70-1.30 [facility] Work Phone: Comment on above: The validity of the calculated GFR & GFRAA in patients over 70 years has not been determined. Clinical correlation is essential. Serum or plasma urea nitroge n measurement (mass/volume)on 07-05-2021 Urea nitrogen [Mass/Vol] 24 mg/dL 7-18 [facility] Work Phone: Thin prep Papanicolaou smear with manual screeningon 07-05-2021 Thin prep Papanicolaou smear with manual screening 7 5-15 [facility] Work Phone: Office Visit: OSAon 05-27-20 Dietary management education, guidance, and counseling (procedure) yes Invalid Interpretation Code [facility] Work Phone: Documentation of current medications (procedure) Done Invalid Interpretation Code [facility] Work Phone: Tobacco smoking status NHIS Never Invalid Interpretation Code [facility] Work Phone: Tobacco use [facility] Former smoker Invalid Interpretation Code [facility] Work Phone: Office Visit: OSAon 05-10-20 Dietary management education, guidance, and counseling (procedure) yes Invalid Interpretation Code [facility] Work Phone: Documentation of current medications (procedure) Done Invalid Interpretation Code [facility] Work Phone: Tobacco smoking status NHIS Never Invalid Interpretation Code [facility] Work Phone: Tobacco use [facility] Former smoker Invalid Interpretation Code [facility] Work Phone: DISCHARGE SUMMARYon 02-05-[address] [facility] Discharge SummaryCELESTINE ECHAVARRIAMRN: [id number] ACCTNUM: [id number] OF : 1950 SEX/AGE: M/66PATIENT TYPE: [facility]: LOCATION: [id number] DATE: 01/21/2017 DISCHARGE DATE: 01/23/2017ADMISSION DIAGNOSIS: Left knee osteoarthritis.DISCHAR GE DIAGNOSIS: Left knee osteoarthritis.PROCEDU RE PERFORMED: While in the hospital, left total knee arthroplasty.BRIEF HISTORY AND CLINICAL COURSE: This is a 66-year-old male with long-standing history of left kneepain secondary to the advanced end-stage osteoarthritis. He exhausted nonoperative management and electedto undergo left total knee arthroplasty. This was performed by Dr. Shaver on 01/21/2017. For full details pleasesee dictated op report. The patient tolerated procedure well without complication, went to PACU for recoveryand subsequently transferred to regular nursing floor. Have physical therapy and occupational therapy see thepatient with a weightbearing status weightbearing as tolerated. He was started on DVT prophylaxis onpostoperative day #1, which was Lovenox. At that time, his hemoglobin was 13.3, initially. Physical therapy andoccupational therapy recommended the patient could go home at discharge. The patient was discharged homeon postoperative day #2 in stable condition after meeting all his dietary, pain control, and physical therapy goals.DISCHARGE MEDICATIONS: Please see discharge medication reconciliation form.Need from services upon discharge. Mr. Rdz is stable, status post left total knee arthroplasty. Made goodprogress with his therapies and rehabilitation. He is to be discharged home with home health services. Physicaltherapy and nursing visits ordered home physical therapy as needed to restore the ability to walk without support. Short-term care home is needed to monitor for signs of decomposition and for teaching of Lovenoxinjections.MY PELAYO INSTRUCTIONS: The patient discharged home on a regular diet with activity status weightbearingas tolerated to left lower extremity. He is told to call the office or return emergency room for any concernsincluding increased redness, swelling, drainage, fever, or any concerns regarding the operation or site incision.The patient is to follow up with Dr. Shaver in 2 weeks. All of the patient's questions were answered and he issatisfied with discharge instructions.Jairo Petersen MDOrthopaedic SurgeryBS:modlD: 01/31/2017 15:23:45T: 01/31/2017 16:29:28Job #: [id number] Page 1 of 1 Signed: AYAAN SHAVER MD 02/04/2017 12:04 EDT Normal [facility] DISCHARGE SUMMARY PDF Normal [facility] OPERATIVE REPORTon [address] [facility] Operative ReportSURGEON: JOSE ANGEL Rojas, REXMRN: [id number] ACCTNUM: [id number] OF SURGERY: 01/21/2017DATE OF : 1950 SEX/AGE: M/66PATIENT TYPE: [facility]: LOCATION: [id number] DATE: 01/21/2017DATE OF SURGERY: 01/21/2017SURGEON: SHYLA RojasREOPERATIVE DIAGNOSIS: Osteoarthritis, left knee.POSTOPERATIVE DIAGNOSIS: Osteoarthritis, left knee.PROCEDURE PERFORMED: Left total knee arthroplasty.DEPUTY FIRE CHIEF : Jairo Petersen MD.ANESTHESIA: Combination of spinal and general endotracheal.CLINICAL NOTE: This 66-year-old gentleman presented with advanced end-stage arthritis of his left knee. Hehad exhausted nonoperative interventions including anti-inflammatories, analgesics, and injection therapy. Hehad had a successful right total knee arthroplasty done in the past. He presents now for left total knee.IMPLANTS USED: Frandy Persona Ultracongruent System.PROCEDURE IN DETAIL: The patient was brought to the operative theater, where spinal regional anesthesiawas administered. A well-padded tourniquet was placed in the left upper thigh and calibrated to 300 mmHg. Leftleg was identified, appropriate time-out, prepped and draped in sterile orthopedic fashion. In the course of thepreparation the patient was then converted to a general endotracheal anesthesia.The limb was exsanguinated with an Esmarch and the tourniquet inflated. A straight midline approach wasmade. Medial flap was raised and medial parapatellar capsular entrance was performed. Once we hadappropriate releases we began with a measured resection protocol beginning with the patella. This sized to a 35component. On the femoral side, the intramedullary alignment joel was placed and the distal femoral cutting jigto femoral standard fashion sizing to a size 9 component.On the tibial side the extramedullary alignment was used in standard fashion and proximal tibial cut made sizingto a size G. Trials were placed and with the 14 millimeter insert we had full extension. Symmetrical varus andvalgus stability through the arc of motion and the patella tracked with no touch technique. Trials were removed.Bony surfaces were irrigated and dried. Preliminary hemostasis achieved with electrocautery. Gentamicin andSimplex cement was mixed and the components were cemented sequentially. Knee held in full extension to thecompress the components during final curing. Excess cement was removed. The knee was locally infiltratedwith 0.5% Marcaine with epinephrine through the periarticular tissues for postoperative pain control andhemostasis while the cement was curing. The knee was then packed with Betadine-soaked gauze sponges.The tourniquet was released and good circulatory return noted. Hemostasis was achieved with electrocautery.The trial was removed and the posterior aspect of the knee was inspected, irrigated, cleaned, and dried. The locked in. Final Betadine soaking and final irrigation. Final check made for hemostasis. The capsule was thenclosed with #1 Ethibond [id number] sutures. The arthrotomy was then oversewn with a running #2 Quillclosing in a watertight fashion. The adipose layers were closed with 0 Quill and Monocryl for skin. Steri-Stripswere applied followed by a [place] dressing, 4x4s, ABD, cast padding, and a modified compressiveJones dressing, and an Barry wrap. The patient was then awakened, [facility] Operative ReportPATIENT NAME: SARAVANAN ECHAVARRIA#: [id number] ACCTNUM: [id number] condition having tolerated the procedure well. Ancef was given intravenously and Gentamicin usedas antibiotic prophylaxis. Tranexamic acid was given for hemostasis. Signed: AYAAN SHAVER MD 02/02/2017 10:41 EDTGregvenus Shaver MDOrthopedic SurgeryGAV:modlD: 01/21/2017 17:03:55T: 01/23/2017 02:54:11Job #: [id number] Page 2 of 1 [facility] OPERATIVE REPORT PDF Normal [facility] Otheron 01-24-2017 CONVERTED CLINICAL HISTORY OPERATIVE PROCEDURE: Left total knee replacement CLINICAL INFORMATION: Left knee osteoarthritis [facility] CONVERTED ELECTRONIC SIGNATURE WARD BANUELOS M.D. (Electronic signature on file) Final Signed Out: 01/24/2017 16:18 [facility] CONVERTED FINAL DIAGNOSIS FINAL DIAGNOSIS: LEFT TOTAL KNEE REPLACEMENT - DEGENERATIVE OSTEOARTHRITIS. [facility] CONVERTED GROSS DESCRIPTION GROSS DESCRIPTION: Left knee bone The specimen is labeled and designated Celestine Rdz, left knee. Received in formalin, a 12 x 10 x 3 cm aggregate of bone and soft tissue consistent with total knee including segments of tibial plateau and femoral condyle. The articular surfaces vary from a yellow-pink and smooth cartilaginous covering to a dinero-pink and finely granular to porous with erosion and eburnation. The reticular bone has smooth margins. Bridge Welder is submitted: 1 - soft tissue; 2 - bone after decalcification. ELH:[facility] CONVERTED ORDERING PROVIDER Ordering Provider: AYAAN SHAVER [facility] Basic Panelon 01-23-2017 Creatinine 0.85 mg/dL Normal 0.67-1.17 [facility] Comment on above: Performed By: #### C BC1 ####[address] [address] Urea nitrogen 16 mg/dL Normal 7-18 [facility] Comment on above: Performed By: #### C BC1 ####[address] [address] Anion gap 9 mmol/L Normal 8-16 [facility] Comment on above: Performed By: #### C BC1 ####[facility] [place], [place] [address] Calcium 8.5 mg/dL Normal 8.5-10.1 [facility] Comment on above: Performed By: #### C BC1 ####[facility] [place], [place] [address] CO2 30 mmol/L Normal 21-32 [facility] Comment on above: Performed By: #### C BC1 ####[facility] [place], [place] [address] Glucose mass conc 136 mg/dL High 70-99 [facility] Comment on above: Performed By: #### C BC1 ####[address] [address] Chloride 102 mmol/L Normal 98-107 [facility] Comment on above: Performed By: #### C BC1 ####[address] [address] Potassium molar conc 3.8 mmol/L Normal 3.5-5.1 [facility] Comment on above: Performed By: #### C BC1 ####[place] [address] Sodium 137 mmol/L Normal 136-145 [facility] Comment on above: Performed By: #### C BC1 ####[address] [address] Hemogramon 01-23-2017 Erythrocyte distribution width Auto Ratio (RBC) 13.5 % Normal 11.6-14.4 [facility] Comment on above: Performed By: #### C BC1 ####[address] [address] Erythrocytes (RBC) 4.20 mil/cmm Low 4.63-6.08 [facility] Comment on above: Performed By: #### C BC1 ####[address] [address] Hematocrit (HCT) 40.5 % Normal 40.1-51.0 [facility] Comment on above: Performed By: #### C BC1 ####[facility] [place], [place] [address] Hemoglobin mass conc (Bld) 13.5 g/dL Low 13.7-17.5 [facility] Comment on above: Performed By: #### C BC1 ####[facility] [place], [place] [address] MCH 32.1 pg Normal 25.7-32.2 [facility] Comment on above: Performed By: #### C BC1 ####[address] [address] MCHC mass conc (RBC) 33.3 % Normal 32.3-36.5 [facility] Comment on above: Performed By: #### C BC1 ####[place] [address] MCV 96.4 fL High 83.2-95.6 [facility] Comment on above: Performed By: #### C BC1 ####[place] [address] Platelet mean volume (PMV) 9.2 fL Normal 8.7-12.0 [facility] Comment on above: Performed By: #### C BC1 ####[place] [address] Platelets 298 thou/cmm Normal 141-365 [facility] Comment on above: Performed By: #### C BC1 ####[address] [address] RDW SD 48.0 fl High 36.1-45.8 [facility] Comment on above: Performed By: #### C BC1 ####[address] [address] WBC (Leukocytes) 16.58 thou/cmm High 4.23-9.07 [facility] Comment on above: Performed By: #### C BC1 ####[address] [address] MDRD GFRon 01-23-2017 eGFR (non-black) mL/min/{1.73_m2} Normal >60mL/m in/1 .73m2 [facility] Comment on above: Result Comment: If t he patient is , multiply the result by 1.210. Performed By: #### C BC1 ####[place] [address] Basic Panelon 01-22-2017 Anion gap 11 mmol/L Normal 8-16 [facility] Comment on above: Performed By: #### P 8 ####[place] [address] Potassium molar conc 4.2 mmol/L Normal 3.5-5.1 [facility] Comment on above: Result Comment: SPEC IMEN SLIGHTLY HEMOLYZED Performed By: #### P 8 ####[place] [address] Creatinine 0.67 mg/dL Normal 0.67-1.17 [facility] Comment on above: Performed By: #### P 8 ####[place] [address] CO2 26 mmol/L Normal 21-32 [facility] Comment on above: Performed By: #### P 8 ####[address] [address] Glucose mass conc 109 mg/dL High 70-99 [facility] Comment on above: Performed By: #### P 8 ####[address] [address] Urea nitrogen 14 mg/dL Normal 7-18 [facility] Comment on above: Performed By: #### P 8 ####[place] [address] Calcium 7.9 mg/dL Low 8.5-10.1 [facility] Comment on above: Performed By: #### P 8 ####[place] [address] Chloride 101 mmol/L Normal 98-107 [facility] Comment on above: Performed By: #### P 8 ####[place] [address] Sodium 134 mmol/L Low 136-145 [facility] Comment on above: Performed By: #### P 8 ####[place] [address] Hemogramon 01-22-2017 Erythrocyte distribution width Auto Ratio (RBC) 13.6 % Normal 11.6-14.4 [facility] Comment on above: Performed By: #### C BC1 ####[place] [address] Erythrocytes (RBC) 4.11 mil/cmm Low 4.63-6.08 [facility] Comment on above: Performed By: #### C BC1 ####[place] [address] Hematocrit (HCT) 39.7 % Low 40.1-51.0 [facility] Comment on above: Performed By: #### C BC1 ####[place] [address] Hemoglobin mass conc (Bld) 13.3 g/dL Low 13.7-17.5 [facility] Comment on above: Performed By: #### C BC1 ####[place] [address] MCH 32.4 pg High 25.7-32.2 [facility] Comment on above: Performed By: #### C BC1 ####[place] [address] MCHC mass conc (RBC) 33.5 % Normal 32.3-36.5 [facility] Comment on above: Performed By: #### C BC1 ####[place] [address] MCV 96.6 fL High 83.2-95.6 [facility] Comment on above: Performed By: #### C BC1 ####[place] [address] Platelet mean volume (PMV) 9.3 fL Normal 8.7-12.0 [facility] Comment on above: Performed By: #### C BC1 ####[place] [address] Platelets 252 thou/cmm Normal 141-365 [facility] Comment on above: Performed By: #### C BC1 ####[facility] [place], [place] [address] RDW SD 48.4 fl High 36.1-45.8 [facility] Comment on above: Performed By: #### C BC1 ####[facility] [place], [place] [address] WBC (Leukocytes) 18.20 thou/cmm High 4.23-9.07 [facility] Comment on above: Performed By: #### C BC1 ####[facility] [place], [place] [address] MDRD GFRon 01-22-2017 eGFR (non-black) mL/min/{1.73_m2} Normal >60mL/m in/1 .73m2 [facility] Comment on above: Result Comment: If t he patient is , multiply the result by 1.210. Performed By: #### G FR ####[place] [id number] Surgical Tissue Examon 01-21 Surgical Tissue Exam Test performed at [place] [address]NAME: CELESTINE ECHAVARRIA [id number] REQUESTING: AYAAN SHAVER M.D.FINAL DIAGNOSIS:LEFT TOTAL KNEE REPLACEMENT - DEGENERATIVE OSTEOARTHRITIS.OPERATI VE PROCEDURE: Left total knee replacementCLINICAL INFORMATION: Left knee osteoarthritisGROSS DESCRIPTION:Left knee boneThe specimen is labeled and designated Celestine Rdz, left knee.Received in formalin, a 12 x 10 x 3 cm aggregate of bone and softtissue consistent with total knee including segments of tibial plateauand femoral condyle. The articular surfaces vary from a yellow-pinkand smooth cartilaginous covering to a dinero-pink and finely granular toporous with erosion and eburnation. The reticular bone has smoothmargins. Bridge Welder is submitted: 1 - soft tissue; 2 - bone afterdecalcification. ELH:verónica BANUELOS M.D.(Electronic signature on file)Signed out: 01/24/2017 16:18PRINTED: 01/24/2017 Page 1 of 1 Normal [facility] Comment on above: Performed By: #### C BC1 ####[facility] [place], [place] [address] Basic Panelon 01-11-2017 Creatinine 1.01 mg/dL Normal 0.67-1.17 [facility] Comment on above: Performed By: #### P 8 ####[facility] [place], [place] [address] Anion gap 13 mmol/L Normal 8-16 [facility] Comment on above: Performed By: #### P 8 ####[facility] [place], [place] [address] Calcium 9.3 mg/dL Normal 8.5-10.1 [facility] Comment on above: Performed By: #### P 8 ####[address] [address] CO2 33 mmol/L High 21-32 [facility] Comment on above: Performed By: #### P 8 ####[facility] [place], [place] [address] Glucose mass conc 93 mg/dL Normal 70-99 [facility] Comment on above: Performed By: #### P 8 ####[address] [address] Urea nitrogen 29 mg/dL High 7-18 [facility] Comment on above: Performed By: #### P 8 ####[address] [address] Chloride 103 mmol/L Normal 98-107 [facility] Comment on above: Performed By: #### P 8 ####[facility] [place], [place] [address] Potassium molar conc 5.6 mmol/L High 3.5-5.1 [facility] Comment on above: Performed By: #### P 8 ####[address] [address] Sodium 143 mmol/L Normal 136-145 [facility] Comment on above: Performed By: #### P 8 ####[address] [address] Hemogramon 01-11-2017 Erythrocyte distribution width Auto Ratio (RBC) 13.7 % Normal 11.6-14.4 [facility] Comment on above: Performed By: #### C BC1 ####[place] [address] Erythrocytes (RBC) 4.75 mil/cmm Normal 4.63-6.08 [facility] Comment on above: Performed By: #### C BC1 ####[place] [address] Hematocrit (HCT) 46.6 % Normal 40.1-51.0 [facility] Comment on above: Performed By: #### C BC1 ####[place] [address] Hemoglobin mass conc (Bld) 15.3 g/dL Normal 13.7-17.5 [facility] Comment on above: Performed By: #### C BC1 ####[place] [address] MCH 32.2 pg Normal 25.7-32.2 [facility] Comment on above: Performed By: #### C BC1 ####[place] [address] MCHC mass conc (RBC) 32.8 % Normal 32.3-36.5 [facility] Comment on above: Performed By: #### C BC1 ####[place] [address] MCV 98.1 fL High 83.2-95.6 [facility] Comment on above: Performed By: #### C BC1 ####[place] [address] Platelet mean volume (PMV) 10.1 fL Normal 8.7-12.0 [facility] Comment on above: Performed By: #### C BC1 ####[place] [address] Platelets 333 thou/cmm Normal 141-365 [facility] Comment on above: Performed By: #### C BC1 ####[place] [address] RDW SD 49.9 fl High 36.1-45.8 [facility] Comment on above: Performed By: #### C BC1 ####[place] [address] WBC (Leukocytes) 9.66 thou/cmm High 4.23-9.07 [facility] Comment on above: Performed By: #### C BC1 ####[place] [address] MDRD GFRon 01-11-2017 eGFR (non-black) mL/min/{1.73_m2} Normal >60mL/m in/1 .73m2 [facility] Comment on above: Result Comment: If t he patient is , multiply the result by 1.210. Performed By: #### G FR ####[place] [address] MRSA/MSSA Screenon MRSA/MSSA Screen Test performed at [facility] No Staph aureus or MRSA detected. Normal [facility] Comment on above: Performed By: #### P STSS ####[place] [address] Diggs Venipunctureon Diggs Venipuncture COMPLETED Normal [facility] Comment on above: Performed By: #### M VENP ####[place] [address] Type and Screenon 01-11-2017 ABO group A Normal [facility] Comment on above: Performed By: #### T &S ####[place] [address] Antibody Screen Negative Normal [facility] Comment on above: Performed By: #### T &S ####[place] [address] Comment PAT specimen Normal [facility] Comment on above: Performed By: #### T &S ####[place] [address] RH Type Positive Normal [facility] Comment on above: Performed By: #### T &S ####[place] [address] Lab Report: Lipid Profileon 07-10-2016 Cholesterol 150 mg/dL Invalid Interpretation Code 200 [facility] Work Phone: HDL Cholesterol 41 mg/dL Invalid Interpretation Code [facility] Work Phone: LDL Cholesterol 75 mg/dL Invalid Interpretation Code 0-130 [facility] Work Phone: Triglyceride 168 mg/dL Invalid Interpretation Code [facility] Work Phone: very low density lipoproteins 34 mg/dL Invalid Interpretation Code 5-40 [facility] Work Phone: Lab Report: Liver Profileon 07-10-2016 Alanine aminotransferase (ALT) 21 U/L Invalid Interpretation Code 12-78 [facility] Work Phone: Albumin 3.4 g/dL Invalid Interpretation Code 3.4-5.0 [facility] Work Phone: Alkaline phosphatase (ALP) 93 U/L Invalid Interpretation Code 45-117 [facility] Work Phone: Aspartate aminotransferase (AST) 18 U/L Invalid Interpretation Code 15-37 [facility] Work Phone: Bilirubin (direct) 0.08 mg/dL Invalid Interpretation Code 0.00-0.30 [facility] Work Phone: Bilirubin (total) 0.40 mg/dL Invalid Interpretation Code 0.20-1.00 [facility] Work Phone: Globulin 3.5 g/dL Invalid Interpretation Code 2.3-3.5 [facility] Work Phone: Protein 6.9 g/dL Invalid Interpretation Code 6.4-8.2 [facility] Work Phone: Clinical Lists Update: Prelo checker/stocker 06-25-2016 Left ventricular Ejection fraction 51 % Invalid Interpretation Code [facility] Work Phone: Otheron 02-13-2016 CONVERTED CLINICAL HISTORY OPERATIVE PROCEDURE: Right total knee replacement CLINICAL INFORMATION: Right knee osteoarthritis [facility] CONVERTED ELECTRONIC SIGNATURE LEE MENDOZA M.D. PATHOLOGIST (Electronic signature on file) Final Signed Out: 02/13/2016 14:09 [facility] CONVERTED FINAL DIAGNOSIS FINAL DIAGNOSIS: BONE, RIGHT KNEE, TOTAL JOINT REPLACEMENT - BONE AND FIBROCARTILAGE WITH DEGENERATIVE/REACTIVE FEATURES, REACTIVE SYNOVIUM AND WEAKLY POLARIZABLE CRYSTALS CONSISTENT WITH CALCIUM PYROPHOSPHATE DEPOSITION. [facility] CONVERTED GROSS DESCRIPTION GROSS DESCRIPTION: Right knee bone Received in formalin labeled with the patient's name and as bone, right knee, is a 12.5 x 11.0 x 4.0 cm aggregate of dinero-yellow soft tissue admixed with bone fragments. No chalky deposits are identified. The articular surfaces show moderate to marked degenerative change. Representatively submitted as follows: 1 soft tissue; 2 bone following decalcification. EM:[facility] CONVERTED ORDERING PROVIDER Ordering Provider: AYAAN SHAVER [facility] EKG Report: [facility] ECG Obse rvationson 01-12-2016 EKG QRS axis 13 deg Invalid Interpretation Code [facility] Work Phone: Interpretation Sinus Bradycardia -Nonspecific QRS widening. - Negative precordial T-waves. BORDERLINE Invalid Interpretation Code [facility] Work Phone: P Wo[place] 54 deg Invalid Interpretation Code [facility] Work Phone: NE Interval 142 ms Invalid Interpretation Code [facility] Work Phone: Pulse (Heart Rate) 52 /min Invalid Interpretation Code [facility] Work Phone: QRS Duration 116 ms Invalid Interpretation Code [facility] Work Phone: QT Interval new path ms Invalid Interpretation Code [facility] Work Phone: QTc Larsen 450 ms Invalid Interpretation Code [facility] Work Phone: T [place] 48 deg Invalid Interpretation Code [facility] Work Phone: Lab Report: Basic Metabolic Profile (BMP)on 01-12-2016 Anion gap 5 mmol/L Invalid Interpretation Code 5-15 [facility] Work Phone: BUN/Creatinine Ratio 23.9 RATIO High 10-20 [facility] Work Phone: Calcium 9.2 mg/dL Invalid Interpretation Code 8.5-10.1 [facility] Work Phone: Chloride 99 mmol/L Invalid Interpretation Code 98-107 [facility] Work Phone: CO2 32.0 mmol/L Invalid Interpretation Code 21.0-32.0 [facility] Work Phone: Creatinine 0.96 mg/dL Invalid Interpretation Code 0.70-1.30 [facility] Work Phone: eGFR (non-black) 101 mL/min/{1.73_m2} Invalid Interpretation Code >60 [facility] Phone: eGFR (non-black) 83 mL/min/{1.73_m2} Invalid Interpretation Code >60 [facility] Work Phone: Glucose mass conc 97 mg/dL Invalid Interpretation Code 70-110 [facility] Work Phone: Potassium molar conc 4.7 mmol/L Invalid Interpretation Code 3.5-5.1 [facility] Work Phone: Sodium 136 mmol/L Invalid Interpretation Code 136-145 [facility] Work Phone: Urea nitrogen 23 mg/dL High 7-18 [facility] Work Phone: Lab Report: CBC W/Diff, Auto matedon 01-12-2016 Absolute Neut 5.6 X10 3/UL Invalid Interpretation Code 2.0-7.7 [facility] Phone: Basophils/100 WBC Auto (Bld) 0.3 % Invalid Interpretation Code 0-1 [facility] Work Phone: Eosinophils/100 leukocytes 1.2 % Invalid Interpretation Code 0-5 [facility] Work Phone: Erythrocyte distribution width Auto Ratio (RBC) 13.7 % Invalid Interpretation Code 11.6-14.6 [facility] Work Phone: Erythrocytes (RBC) 4.92 10*6/uL Invalid Interpretation Code 4.6-6.2 [facility] Work Phone: Hematocrit (HCT) 47.9 % Invalid Interpretation Code 40-54 [facility] Work Phone: Hemoglobin mass conc (Bld) 15.8 g/dL Invalid Interpretation Code 13.0-16.5 [facility] Work Phone: Immature granulocytes/100 WBC (Bld) 0.100 % Invalid Interpretation Code 0.0-0.9 [facility] Work Phone: Lymphocytes 3.42 X10 3/UL Invalid Interpretation Code 0.83-4.51 [facility] Phone: Lymphocytes/100 leukocytes 33.0 % Invalid Interpretation Code 19-41 [facility] Work Phone: MCH 32.1 pg High 27.0-32.0 [facility] Work Phone: MCHC mass conc (RBC) 33.0 G/GL Invalid Interpretation Code 32-36 [facility] Work Phone: MCV 97.4 fL High 80-94 [facility] Work Phone: Monocytes/100 leukocytes 11.0 % High 0-10 [facility] Work Phone: Neutrophils/100 WBC Auto (Bld) 54.4 % Invalid Interpretation Code 47-70 [facility] Work Phone: Platelets 379 10*3/mm3 Invalid Interpretation Code 150-450 [facility] Work Phone: PMV by Cynthia 9.9 fL Invalid Interpretation Code 6.2-12.0 [facility] Phone: RDW SD 48.3 fL High 35.1-43.9 [facility] Work Phone: WBC (Leukocytes) 10.4 10*3/uL Invalid Interpretation Code 4.4-11.0 [facility] Work Phone: Lab Report: Prothrombin Time w/INRon 01-12-2016 INR Coag RelTime (PPP) 1.0 {INR} Invalid Interpretation Code [facility] Work Phone: Prothrombin time (PT) Coag time (PPP) 12.5 s Invalid Interpretation Code 11.7-14.9 [facility] Work Phone: Office Visiton 01-12-2016 Smoking cessation education (procedure) yes Invalid Interpretation Code [facility] Work Phone: Culture, urine Bacteria identified Cx Nom (U) Culture exhibits no growth. [facility] Work Phone: No Panel Information Influenza Types A,B Direct FA (LEONIDAS) [facility] Work Phone: SARS-CoV-2 & FLU Antigen (Rapid) SARS-CoV-2 (COVID 19) [facility] Work Phone: RSV Ag EIA RSV Ag Immune stain Ql (Tiss) [facility] Work Phone: Vital Signs Date Time Vital Sign Value Performing Clinician Qianai gopi 01-11-2025 08:14-0400 Body height 180.[address] Massimo Epperson MD Work Phone: [facility] 01-11-2025 08:14-0400 Body mass index (BMI) [Ratio] 41.7 kg/m2 Dr. Massimo Epperson MD Work Phone: [facility] 01-11-2025 08:14-0400 Body weight 135.[address] Massimo Epperson MD Work Phone: [facility] 01-11-2025 08:14-0400 Diastolic blood pressure 79 mm[Hg] Dr. Massimo Epperson MD Work Phone: [facility] 01-11-2025 08:14-0400 Heart rate 63 /min Dr. Massimo Epperson MD Work Phone: [facility] 01-11-2025 08:14-0400 Respiratory rate 18 /min Dr. Massimo Epperson MD Work Phone: [facility] 01-11-2025 08:14-0400 SaO2% (BldA) [Mass fraction] 92 % Dr. Massimo Epperson MD Work Phone: [facility] 01-11-2025 08:14-0400 Systolic blood pressure 129 mm[Hg] Dr. Massimo Epperson MD Work Phone: [facility] 10-26-2024 07:54-0400 Body mass index (BMI) [Ratio] 40.8 kg/m2 Dr. Massimo Epperson MD Work Phone: [facility] 10-26-2024 07:54-0400 Body temperature 97.4 [degF] Dr. Massimo Epperson MD Work Phone: 3(253)947-108761 [place] [address] 10-26-2024 07:54-0400 Body weight 132.[address] Massimo Epperson MD Work Phone: [facility] 10-26-2024 07:54-0400 Diastolic blood pressure 82 mm[Hg] Dr. Massimo Epperson MD Work Phone: [facility] 10-26-2024 07:54-0400 Heart rate 72 /min Dr. Massimo Epperson MD Work Phone: [facility] 10-26-2024 07:54-0400 Respiratory rate 20 /min Dr. Massimo Epperson MD Work Phone: [facility] 10-26-2024 07:54-0400 SaO2% (BldA) [Mass fraction] 98 % Dr. Massimo Epperson MD Work Phone: [facility] 10-26-2024 07:54-0400 Systolic blood pressure 129 mm[Hg] Dr. Massimo Epperson MD Work Phone: [facility] 09-28-2024 07:38-0400 Body height 180.[address] Masismo Epperson MD Work Phone: [facility] 09-28-2024 07:38-0400 Body weight 134.[address] Massimo Epperson MD Work Phone: 9(313)693-454261 [place] [address] 09-25-2024 09:41-0400 Body mass index (BMI) [Ratio] 41.5 kg/m2 Dr. Massimo Epperson MD Work Phone: 8(881)809-119761 [place] [address] 07-28-2024 13:30-0500 Body weight 134.[address] Massimo Epperson MD Work Phone: 8(350)269-508361 [place] [address] 07-28-2024 13:30-0500 Heart rate 76 /min Dr. Massimo Epperson MD Work Phone: 1(090)155-112161 [place] [address] 07-28-2024 13:30-0500 SaO2% (BldA) [Mass fraction] 93 % Dr. Massimo Epperson MD Work Phone: 1(312)978-580163 [place] [address] 07-16-2024 08:26-0500 Body mass index (BMI) [Ratio] 41.4 kg/m2 Dr. Massimo Epperson MD Work Phone: 6(365)598-343663 [place] [address] 07-16-2024 08:26-0500 Body weight 134.[address] Massimo Epperson MD Work Phone: 6(546)193-111963 [place] [address] 07-16-2024 08:26-0500 Diastolic blood pressure 83 mm[Hg] Dr. Massimo Epperson MD Work Phone: 3(902)035-186163 [place] [address] 07-16-2024 08:26-0500 Heart rate 73 /min Dr. Massimo Epperson MD Work Phone: 7(114)766-466761 [place] [address] 07-16-2024 08:26-0500 Respiratory rate 20 /min Dr. Massimo Epperson MD Work Phone: 6(139)999-230263 [place] [address] 07-16-2024 08:26-0500 SaO2% (BldA) [Mass fraction] 91 % Dr. Massimo Epperson MD Work Phone: 6(021)174-479861 [place] [address] 07-16-2024 08:26-0500 Systolic blood pressure 142 mm[Hg] Dr. Massimo Epperson MD Work Phone: 9(835)281-860861 [place] [address] 07-14-2024 16:38-0500 Body temperature 97.1 [degF] Dr. Massimo Epperson MD Work Phone: 0(452)981-658663 [place] [address] 07-14-2024 16:38-0500 Diastolic blood pressure 113 mm[Hg] Dr. Massimo Epperson MD Work Phone: 5(034)752-192763 [place] [address] 07-14-2024 16:38-0500 Heart rate 75 /min Dr. Massimo Epperson MD Work Phone: 5(135)465-626063 [place] [address] 07-14-2024 16:38-0500 Respiratory rate 19 /min Dr. Massimo Epperson MD Work Phone: 3(199)483-593363 [place] [address] 07-14-2024 16:38-0500 SaO2% (BldA) [Mass fraction] 94 % Dr. Massimo Epperson MD Work Phone: 4(584)111-353263 [place] [address] 07-14-2024 16:38-0500 Systolic blood pressure 176 mm[Hg] Dr. Massimo Epperson MD Work Phone: 2(718)580-960163 [place] [address] 07-14-2024 13:04-0500 Body mass index (BMI) [Ratio] 42.9 kg/m2 Dr. Massimo Epperson MD Work Phone: 2(941)358-454263 [place] [address] 07-14-2024 13:04-0500 Body weight 139.[address] Massimo Epperson MD Work Phone: 1(158)761-126963 [place] [address] 07-02-2023 08:09-0500 Body height 180.[address] Massimo Epperson Work Phone: 4(195)090-667363 [place] [address] 07-02-2023 08:09-0500 Body weight 129.[address] Massimo Epperson Work Phone: 5(155)321-962663 [place] [address] 07-02-2023 08:09-0500 Heart rate 72 /min Dr. Massimo Epperson Work Phone: 5(171)928-951063 [place] [address] 07-02-2023 08:09-0500 SaO2% (BldA) [Mass fraction] 96 % Dr. Massimo Epperson Work Phone: 4(170)690-513663 [place] [address] 06-26-2023 06:38-0500 Body mass index (BMI) [Ratio] 38.7 kg/m2 Dr. Massimo Epperson Work Phone: [facility] 06-26-2023 06:38-0500 Body temperature 97.5 [degF] Dr. Massimo Epperson Work Phone: [facility] 06-26-2023 06:38-0500 Body weight 126.[address] Massimo Epperson Work Phone: [facility] 06-26-2023 06:38-0500 Diastolic blood pressure 84 mm[Hg] Dr. Massimo Epperson Work Phone: 1(907)057-141961 [place] [address] 06-26-2023 06:38-0500 Heart rate 74 /min Dr. Massimo Epperson Work Phone: 3(692)273-170761 [place] [address] 06-26-2023 06:38-0500 Respiratory rate 20 /min Dr. Massimo Epperson Work Phone: 3(928)950-721761 [place] [address] 06-26-2023 06:38-0500 SaO2% (BldA) [Mass fraction] 95 % Dr. Massimo Epperson Work Phone: 5(027)650-399061 [place] [address] 06-26-2023 06:38-0500 Systolic blood pressure 150 mm[Hg] Dr. Massimo Epperson Work Phone: 8(833)106-737161 [place] [address] 03-27-2023 08:54-0400 Body mass index (BMI) [Ratio] 39.6 kg/m2 Dr. Massimo Epperson Work Phone: [facility] 03-27-2023 08:54-0400 Body weight 128.[address] Massimo Epeprson Work Phone: 2(452)024-566861 [place] [address] 03-27-2023 08:54-0400 Diastolic blood pressure 84 mm[Hg] Dr. Massimo Epperson Work Phone: 7(552)938-985761 [place] [address] 03-27-2023 08:54-0400 Heart rate 57 /min Dr. Massimo Epperson Work Phone: [facility] 03-27-2023 08:54-0400 Respiratory rate 20 /min Dr. Massimo Epperson Work Phone: [facility] 03-27-2023 08:54-0400 SaO2% (BldA) [Mass fraction] 93 % Dr. Massimo Epperson Work Phone: [facility] 03-27-2023 08:54-0400 Systolic blood pressure 145 mm[Hg] Dr. Massimo Epperson Work Phone: [facility] 03-26-2023 07:42-0400 Body mass index (BMI) [Ratio] 39.7 kg/m2 Dr. Massimo Epperson Work Phone: [facility] 03-26-2023 07:42-0400 Body temperature 97.4 [degF] Dr. Massimo Epperson Work Phone: [facility] 03-26-2023 07:42-0400 Body weight 129.[address] Massimo Epperson Work Phone: [facility] 03-26-2023 07:42-0400 Diastolic blood pressure 73 mm[Hg] Dr. Massimo Epperson Work Phone: [facility] 03-26-2023 07:42-0400 Heart rate 75 /min Dr. Massimo Epperson Work Phone: [facility] 03-26-2023 07:42-0400 Respiratory rate 20 /min Dr. Massimo Epperson Work Phone: [facility] 03-26-2023 07:42-0400 SaO2% (BldA) [Mass fraction] 93 % Dr. Massimo Epperson Work Phone: [facility] 03-26-2023 07:42-0400 Systolic blood pressure 134 mm[Hg] Dr. Massimo Epperson Work Phone: [facility] 03-14-2023 08:19-0400 Body mass index (BMI) [Ratio] 39.6 kg/m2 Dr. Massimo Epperson Work Phone: [facility] 03-14-2023 08:19-0400 Body temperature 97.6 [degF] Dr. Massimo Epperson Work Phone: [facility] 03-14-2023 08:19-0400 Body weight 128.[address] Massimo Epperson Work Phone: [facility] 03-14-2023 08:19-0400 Diastolic blood pressure 76 mm[Hg] Dr. Massimo Epperson Work Phone: [facility] 03-14-2023 08:19-0400 Heart rate 67 /min Dr. Massimo Epperson Work Phone: [facility] 03-14-2023 08:19-0400 Inhaled oxygen flow rate 2 L/min Dr. Massimo Epperson Work Phone: [facility] 03-14-2023 08:19-0400 Respiratory rate 22 /min Dr. Massimo Epperson Work Phone: [facility] 03-14-2023 08:19-0400 SaO2% (BldA) [Mass fraction] 93 % Dr. Massimo Epperson Work Phone: [facility] 03-14-2023 08:19-0400 Systolic blood pressure 145 mm[Hg] Dr. Massimo Epperson Work Phone: [facility] 03-09-2023 16:48-0400 Body temperature 98.6 [degF] Dr. Massimo Epperosn Work Phone: [facility] 03-09-2023 16:48-0400 Diastolic blood pressure 87 mm[Hg] Dr. Massimo Epperson Work Phone: [facility] 03-09-2023 16:48-0400 Heart rate 78 /min Dr. Massimo Epperson Work Phone: [facility] 03-09-2023 16:48-0400 Inhaled oxygen flow rate 2 L/min Dr. Massimo Epperson Work Phone: [facility] 03-09-2023 16:48-0400 Respiratory rate 18 /min Dr. Massimo Epperson Work Phone: [facility] 03-09-2023 16:48-0400 SaO2% (BldA) [Mass fraction] 97 % Dr. Massimo Epperson Work Phone: [facility] 03-09-2023 16:48-0400 Systolic blood pressure 135 mm[Hg] Dr. Massimo Epperson Work Phone: [facility] 03-08-2023 14:54-0400 Body height 180.[address] Massimo Epperson Work Phone: [facility] 03-08-2023 14:54-0400 Body mass index (BMI) [Ratio] 39.7 kg/m2 Dr. Massimo Epperson Work Phone: [facility] 03-08-2023 14:54-0400 Body weight 129.[address] Massimo Epperson Work Phone: [facility] 03-08-2023 13:37-0400 Diastolic blood pressure 97 mm[Hg] [facility] 03-08-2023 13:37-0400 Heart rate 77 /min [facility] 03-08-2023 13:37-0400 Inhaled oxygen flow rate 2 L/min [facility] 03-08-2023 13:37-0400 Respiratory rate 16 /min [facility] 03-08-2023 13:37-0400 SaO2% (BldA) [Mass fraction] 94 % [facility] 03-08-2023 13:37-0400 Systolic blood pressure 164 mm[Hg] [facility] 03-08-2023 12:16-0400 Body temperature 97.1 [degF] [facility] 03-08-2023 07:59-0400 Body height 180.34 cm [facility] 03-08-2023 07:59-0400 Body mass index (BMI) [Ratio] 55 kg/m2 [facility] 03-08-2023 07:59-0400 Body weight 179 kg [facility] 10-04-2022 09:07-0400 Body weight 125.[address] Massimo Epperson Work Phone: [facility] 03-30-2023 09:07-0400 Diastolic blood pressure 76 mm[Hg] Dr. Massimo Epperson Work Phone: 4(621)410-690361 [place] [address] 10-04-2022 09:07-0400 Heart rate 60 /min Dr. Massimo Epperson Work Phone: 2(105)209-625863 [place] [address] 10-04-2022 09:07-0400 Respiratory rate 14 /min Dr. Massimo Epperson Work Phone: 3(974)937-507663 [place] [address] 10-04-2022 09:07-0400 Systolic blood pressure 127 mm[Hg] Dr. Massimo Epperson Work Phone: 6(614)067-492263 [place] [address] 10-04-2022 08:39-0400 Body height 180.[address] Massimo Epperson Work Phone: 9(440)881-727663 [place] [address] 05-25-2022 08:28-0500 Body height 180.[address] Massimo Epperson Work Phone: 6(353)039-644563 [place] [address] 05-25-2022 08:28-0500 Body mass index (BMI) [Ratio] 39.3 kg/m2 Dr. Massimo Epperson Work Phone: 4(979)427-767863 [place] [address] 05-25-2022 08:28-0500 Body weight 127.[address] Massimo Epperson Work Phone: 1(757)395-060463 [place] [address] 05-25-2022 08:28-0500 Diastolic blood pressure 90 mm[Hg] Dr. Massimo Epperson Work Phone: 8(643)517-854763 [place] [address] 05-25-2022 08:28-0500 Heart rate 78 /min Dr. Massimo Epperson Work Phone: 1(645)372-900763 [place] [address] 05-25-2022 08:28-0500 Respiratory rate 22 /min Dr. Massimo Epperson Work Phone: 4(440)143-598463 [place] [address] 05-25-2022 08:28-0500 Systolic blood pressure 160 mm[Hg] Dr. Massimo Epperson Work Phone: 2(000)333-555163 [place] [address] 03-06-2022 12:40-0400 Body mass index (BMI) [Ratio] 37.5 kg/m2 Dr. Massimo Epperson Work Phone: [facility] Work Phone: 03-06-2022 12:40-0400 Body temperature 97.2 [degF] Dr. Massimo Epperson Work Phone: [facility] Work Phone: 03-06-2022 12:40-0400 Body weight 122.[address] Massimo Epperson Work Phone: [facility] Work Phone: 03-06-2022 12:40-0400 Diastolic blood pressure 79 mm[Hg] Dr. Massimo Epperson Work Phone: [facility] Work Phone: 03-06-2022 12:40-0400 Heart rate 71 /min Dr. Massimo Epperson Work Phone: [facility] Work Phone: 03-06-2022 12:40-0400 Inhaled oxygen flow rate 92 L/min Dr. Massimo Epperson Work Phone: [facility] Work Phone: 03-06-2022 12:40-0400 Respiratory rate 16 /min Dr. Massimo Epperson Work Phone: [facility] Work Phone: 03-06-2022 12:40-0400 SaO2% (BldA) [Mass fraction] 92 % Dr. Massimo Epperson Work Phone: [facility] Work Phone: 03-06-2022 12:40-0400 Systolic blood pressure 141 mm[Hg] Dr. Massimo Epperson Work Phone: [facility] Work Phone: 01-03-2022 12:23-0400 Body temperature 99.6 [degF] Dr. Massimo Epperson Work Phone: [facility] Work Phone: 01-03-2022 12:23-0400 Diastolic blood pressure 88 mm[Hg] Dr. Massimo Epperson Work Phone: [facility] Work Phone: 01-03-2022 12:23-0400 Heart rate 69 /min Dr. Massimo Epperson Work Phone: [facility] Work Phone: 01-03-2022 12:23-0400 Respiratory rate 16 /min Dr. Massimo Epperson Work Phone: [facility] Work Phone: 01-03-2022 12:23-0400 SaO2% (BldA) [Mass fraction] 94 % Dr. Massimo Epperson Work Phone: [facility] Work Phone: 01-03-2022 12:23-0400 Systolic blood pressure 116 mm[Hg] Dr. Massimo Epperson Work Phone: [facility] Work Phone: 01-03-2022 10:13-0400 Body height 180.[address] Massimo Epperson Work Phone: [facility] Work Phone: 01-03-2022 10:13-0400 Body mass index (BMI) [Ratio] 38 kg/m2 Dr. Massimo Epperson Work Phone: [facility] Work Phone: 01-03-2022 10:13-0400 Body weight 123.[address] Massimo Epperson Work Phone: [facility] Work Phone: 12-22-2021 08:57-0400 Body mass index (BMI) [Ratio] 40.3 kg/m2 Dr. Massimo Epperson Work Phone: [facility] Work Phone: 12-22-2021 08:57-0400 Body weight 131.[address] Massimo Epperson Work Phone: [facility] Work Phone: 06-17-2022 08:57-0400 Diastolic blood pressure 92 mm[Hg] Dr. Massimo Epperson Work Phone: [facility] Work Phone: 12-22-2021 08:57-0400 Heart rate 78 /min Dr. Massimo Epperson Work Phone: [facility] Work Phone: 12-22-2021 08:57-0400 Respiratory rate 18 /min Dr. Massimo Epperson Work Phone: [facility] Work Phone: 12-22-2021 08:57-0400 SaO2% (BldA) [Mass fraction] 92 % Dr. Massimo Epperson Work Phone: [facility] Work Phone: 12-22-2021 08:57-0400 Systolic blood pressure 135 mm[Hg] Dr. Massimo Epperson Work Phone: [facility] Work Phone: 12-15-2021 14:06-0400 Body mass index (BMI) [Ratio] 39.9 kg/m2 Dr. Massimo Epperson Work Phone: [facility] Work Phone: 12-15-2021 14:06-0400 Body temperature 97.4 [degF] Dr. Massimo Epperson Work Phone: [facility] Work Phone: 12-15-2021 14:06-0400 Body weight 129.[address] Massimo Epperson Work Phone: [facility] Work Phone: 12-15-2021 14:06-0400 Diastolic blood pressure 84 mm[Hg] Dr. Massimo Epperson Work Phone: [facility] Work Phone: 12-15-2021 14:06-0400 Heart rate 87 /min Dr. Massimo Epperson Work Phone: [facility] Work Phone: 12-15-2021 14:06-0400 Respiratory rate 17 /min Dr. Massimo Epperson Work Phone: [facility] Work Phone: 12-15-2021 14:06-0400 SaO2% (BldA) [Mass fraction] 94 % Dr. Massimo Epperson Work Phone: [facility] Work Phone: 12-15-2021 14:06-0400 Systolic blood pressure 178 mm[Hg] Dr. Massimo Epperson Work Phone: [facility] Work Phone: 12-01-2021 09:59-0400 Body height 180.[address] Massimo Epperson Work Phone: [facility] Work Phone: 12-01-2021 09:59-0400 Body weight 129.[address] Massimo Epperson Work Phone: [facility] Work Phone: 12-01-2021 09:45-0400 Inhaled oxygen flow rate 2 L/min Dr. Massimo Epperson Work Phone: [facility] Work Phone: 12-01-2021 09:45-0400 SaO2% (BldA) [Mass fraction] 96 % Dr. Massimo Epperson Work Phone: [facility] Work Phone: 12-01-2021 09:22-0400 Body temperature 98.1 [degF] Dr. Massimo Epperson Work Phone: [facility] Work Phone: 12-01-2021 09:22-0400 Diastolic blood pressure 74 mm[Hg] Dr. Massimo Epperson Work Phone: [facility] Work Phone: 12-01-2021 09:22-0400 Heart rate 61 /min Dr. Massimo Epperson Work Phone: [facility] Work Phone: 12-01-2021 09:22-0400 Respiratory rate 18 /min Dr. Massimo Epperson Work Phone: [facility] Work Phone: 12-01-2021 09:22-0400 Systolic blood pressure 116 mm[Hg] Dr. Massimo Epperson Work Phone: [facility] Work Phone: 11-30-2021 08:27-0400 Body mass index (BMI) [Ratio] 39.7 kg/m2 Dr. Massimo Epperson Work Phone: [facility] Work Phone: 11-29-2021 12:22-0400 Body mass index (BMI) [Ratio] 40.4 kg/m2 Dr. Massimo Epperson Work Phone: [facility] Work Phone: 11-29-2021 12:22-0400 Body temperature 97.7 [degF] Dr. Massimo Epperson Work Phone: [facility] Work Phone: 11-29-2021 12:22-0400 Body weight 131.[address] Massimo Epperson Work Phone: [facility] Work Phone: 11-29-2021 12:22-0400 Diastolic blood pressure 90 mm[Hg] Dr. Massimo Epperson Work Phone: [facility] Work Phone: 11-29-2021 12:22-0400 Heart rate 63 /min Dr. Massimo Epperson Work Phone: [facility] Work Phone: 11-29-2021 12:22-0400 Respiratory rate 19 /min Dr. Massimo Epperson Work Phone: [facility] Work Phone: 11-29-2021 12:22-0400 SaO2% (BldA) [Mass fraction] 93 % Dr. Massimo Epperson Work Phone: [facility] Work Phone: 11-29-2021 12:22-0400 Systolic blood pressure 166 mm[Hg] Dr. Massimo Epperson Work Phone: [facility] Work Phone: 11-29-2021 12:22-0400 Body mass index (BMI) [Ratio] 40.4 kg/m2 Dr. Massimo Epperson Work Phone: [facility] Work Phone: 11-29-2021 12:22-0400 Body temperature 97.7 [degF] Dr. Massimo Epperson Work Phone: [facility] Work Phone: 11-29-2021 12:22-0400 Body weight 131.[address] Massimo Epperson Work Phone: [facility] Work Phone: 11-29-2021 12:22-0400 Diastolic blood pressure 90 mm[Hg] Dr. Massimo Epperson Work Phone: [facility] Work Phone: 11-29-2021 12:22-0400 Heart rate 63 /min Dr. Massimo Epperson Work Phone: [facility] Work Phone: 11-29-2021 12:22-0400 Respiratory rate 19 /min Dr. Massimo Epperson Work Phone: [facility] Work Phone: 11-29-2021 12:22-0400 SaO2% (BldA) [Mass fraction] 93 % Dr. Massimo Epperson Work Phone: [facility] Work Phone: 11-29-2021 12:22-0400 Systolic blood pressure 166 mm[Hg] Dr. Massimo Epperson Work Phone: [facility] Work Phone: 11-17-2021 10:30-0400 Body height 176.53 cm PITER MALIA-ARTURO Other [facility] [employer] Other 11-17-2021 10:30-0400 Body mass index (BMI) [Ratio] 41.33 kg/m2 PITER MALIA-ARTURO Other [facility] [employer] Other 11-17-2021 10:30-0400 Body weight 128.82 kg PITER MALIA-ARTURO Other [facility] [employer] Other 11-17-2021 10:30-0400 Diastolic blood pressure 82 mm[Hg] PITER MALIA-ARTURO Other [facility] [employer] Other 11-17-2021 10:30-0400 Heart rate 56 /min PITER MALIA-ARTURO Other [facility] [employer] Other 11-17-2021 10:30-0400 Systolic blood pressure 130 mm[Hg] PITER MALIA-ARTURO Other [facility] [employer] Other 09-25-2021 14:24-0400 Body mass index (BMI) [Ratio] 39.4 kg/m2 Dr. Massimo Epperson Work Phone: [facility] Work Phone: 09-25-2021 14:24-0400 Body weight 128.[address] Massimo Epperson Work Phone: [facility] Work Phone: 09-25-2021 14:24-0400 Diastolic blood pressure 80 mm[Hg] Dr. Massimo Epperson Work Phone: [facility] Work Phone: 09-25-2021 14:24-0400 Heart rate 62 /min Dr. Massimo Epperson Work Phone: [facility] Work Phone: 09-25-2021 14:24-0400 Respiratory rate 18 /min Dr. Massimo Epperson Work Phone: [facility] Work Phone: 09-25-2021 14:24-0400 Systolic blood pressure 129 mm[Hg] Dr. Massimo Epperson Work Phone: [facility] Work Phone: 09-25-2021 14:24-0400 Body height 180.[address] Massimo Epperson Work Phone: [facility] Work Phone: 09-25-2021 14:24-0400 Body mass index (BMI) [Ratio] 39.4 kg/m2 Dr. Massimo Epperson Work Phone: [facility] Work Phone: 09-25-2021 14:24-0400 Body weight 128.[address] Massimo Epperson Work Phone: [facility] Work Phone: 09-25-2021 14:24-0400 Diastolic blood pressure 80 mm[Hg] Dr. Massimo Epperson Work Phone: [facility] Work Phone: 09-25-2021 14:24-0400 Heart rate 62 /min Dr. Massimo Epperson Work Phone: [facility] Work Phone: 09-25-2021 14:24-0400 Respiratory rate 18 /min Dr. Massimo Epperson Work Phone: [facility] Work Phone: 09-25-2021 14:24-0400 Systolic blood pressure 129 mm[Hg] Dr. Massimo Epperson Work Phone: [facility] Work Phone: 08-25-2021 08:57-0500 Body mass index (BMI) [Ratio] 39.3 kg/m2 Dr. Massimo Epperson Work Phone: [facility] Work Phone: 08-25-2021 08:57-0500 Body temperature 97.5 [degF] Dr. Massimo Epperson Work Phone: [facility] Work Phone: 08-25-2021 08:57-0500 Body weight 127.[address] Massimo Epperson Work Phone: [facility] Work Phone: 08-25-2021 08:57-0500 Diastolic blood pressure 86 mm[Hg] Dr. Massimo Epperson Work Phone: [facility] Work Phone: 08-25-2021 08:57-0500 Heart rate 76 /min Dr. Massimo Epperson Work Phone: [facility] Work Phone: 08-25-2021 08:57-0500 Respiratory rate 18 /min Dr. Massimo Epperson Work Phone: [facility] Work Phone: 08-25-2021 08:57-0500 SaO2% (BldA) [Mass fraction] 95 % Dr. Massimo Epperson Work Phone: [facility] Work Phone: 08-25-2021 08:57-0500 Systolic blood pressure 132 mm[Hg] Dr. Massimo Epperson Work Phone: [facility] Work Phone: 07-11-2021 12:51-0500 Body temperature 98.1 [degF] Dr. Massimo Epperson Work Phone: [facility] Work Phone: 07-11-2021 12:51-0500 Diastolic blood pressure 116 mm[Hg] Dr. Massimo Epperson Work Phone: [facility] Work Phone: 07-11-2021 12:51-0500 Heart rate 72 /min Dr. Massimo Epperson Work Phone: [facility] Work Phone: 07-11-2021 12:51-0500 Respiratory rate 22 /min Dr. Massimo Epperson Work Phone: [facility] Work Phone: 07-11-2021 12:51-0500 SaO2% (BldA) [Mass fraction] 92 % Dr. Massimo Epperson Work Phone: [facility] Work Phone: 07-11-2021 12:51-0500 Systolic blood pressure 133 mm[Hg] Dr. Massimo Epperson Work Phone: [facility] Work Phone: 07-09-2021 09:45-0500 Body mass index (BMI) [Ratio] 40.1 kg/m2 Dr. Massimo Epperson Work Phone: [facility] Work Phone: 07-09-2021 09:45-0500 Body weight 130.[address] Massimo Epperson Work Phone: [facility] Work Phone: 05-27-2017 07:09-0500 BMI (Body Mass Index) 39.05 kg/m2 Swapna Glez [facility] Work Phone: 05-27-2017 07:09-0500 Body Temperature 97.4 [degF] Swapna Glez [facility] [place] Work Phone: 05-27-2017 07:09-0500 BP Diastolic 78 mm[Hg] Swapna Glez [facility] [employer] Work Phone: 05-27-2017 07:09-0500 BP Systolic 132 mm[Hg] Swapna Glez [facility] Work Phone: 05-27-2017 07:09-0500 Height 180.34 cm Swapna York [facility] Work Phone: 05-27-2017 07:09-0500 Pulse (Heart Rate) 56 /min Swapna York [facility] Work Phone: 05-27-2017 07:09-0500 Respiratory Rate 18 /min Swapna York [facility] Work Phone: 05-27-2017 07:09-0500 Weight 127.01 kg Swapna kubo financiero [facility] Work Phone: 05-10-2017 08:00-0400 BMI (Body Mass Index) 39.33 kg/m2 Swapna kubo financiero [facility] Work Phone: 05-10-2017 08:00-0400 Body Temperature 97.4 [degF] Swapna kubo financiero [facility] Work Phone: 05-10-2017 08:00-0400 BP Diastolic 97 mm[Hg] Swapna kubo financiero [facility] [place] Work Phone: 05-10-2017 08:00-0400 BP Systolic 158 mm[Hg] Swapna York [facility] [place] Work Phone: 05-10-2017 08:00-0400 Height 180.34 cm Swapna kubo financiero [facility] [place] Work Phone: 05-10-2017 08:00-0400 Pulse (Heart Rate) 77 /min Swapna York [facility] [place] Work Phone: 05-10-2017 08:00-0400 Respiratory Rate 18 /min Swapna kubo financiero [facility] [place] Work Phone: 05-10-2017 08:00-0400 Weight 127.92 kg Swapna kubo financiero [facility] [place] Work Phone: 07-10-2016 08:52-0500 BSA (Body Surface Area) 2.38 m2 [facility] Work Phone: Encounters Encounter Date Encounter Type Care Provider Facility Start: 03-09-2025 ambulatory [facility] Facility:[facility] Start: 01-11-2025 End: 01-11-[address] Bertram Dove MD -[facility] Work Phone: Start: 01-11-2025 End: 01-11-[address] Massimo Epperson MD Work Phone: -[facility] Start: 12-10-2024 End: 12-10-[address] Massimo Epperson MD Work Phone: [facility] Work Phone: Start: 12-10-2024 End: 12-10-[address] Massimo Epperson MD -Laboratory Work Phone: Start: 12-10-2024 End: 12-10-2024 ambulatory [facility] Facility:[facility] Start: 10-26-2024 End: 10-26-2024 Patient encounter procedure Marissa Schroeder MANAGER UTILIZATION MANAGEMENT-C -[facility] Work Phone: Start: 10-26-2024 End: 10-26-2024 [facility] Start: 09-28-2024 End: 09-28-2024 Admission to same day surgery center Dr. Marvin Elliott MD -[facility]/Special Procedures Work Phone: Start: 09-28-2024 End: 09-28-[address] Massimo Epperson MD Work Phone: [facility] Work Phone: Start: 09-08-2024 ambulatory Massimo Chi Zhou [facility] Start: 09-08-2024 Non-patient / Non-visit Rene Knowles [facility] Start: 08-04-2024 ambulatory Massimo Chi Zhou [facility] Start: 08-04-2024 Non-patient / Non-visit Dr. Juan Manuel spangler DO -[facility] Start: 07-29-2024 End: 07-29-2024 Patient encounter procedure Le SMITH -Pulmonary Services/Neurology Work Phone: Start: 07-29-2024 End: 07-29-2024 ambulatory Massimo Chi Zhou Facility:[facility] Start: 07-28-2024 End: 07-28-2024 Patient encounter procedure Le SMITH -Pulmonary Services/Neurology Work Phone: Start: 07-28-2024 End: 07-28-2024 ambulatory Massimo Chi Zhou Facility:[facility] Start: 07-16-2024 End: 07-16-2024 Patient encounter procedure Le SMITH -[place] [facility] Work Phone: Start: 07-16-2024 End: 07-16-2024 ambulatory Massimo Chi Zhou [facility] Start: 07-14-2024 End: 07-14-2024 Emergency department patient visit Dr. Conner Lazaro DO -Emergency Department Work Phone: Start: 06-12-2024 End: 06-12-[address] Massimo Epperson MD -Laboratory Work Phone: Start: 06-12-2024 End: 06-12-2024 ambulatory Massimo Chi Zhou Facility:[facility] Start: 04-27-2024 End: 04-27-2024 ambulatory Massimo Chi Zhou Facility:[facility] Start: 02-28-2024 End: 02-28-2024 ambulatory Massimo Chi Zhou Facility:[facility] Start: 07-04-[address] Massimo boyd Work Phone: [facility]-Physical Therapy Work Phone: Start: 07-04-2023 Non-patient / Non-visit Dr. Nj Epperson Work Phone: [facility] Start: 07-02-2023 End: 07-02-[address] Massimo Epperson Work Phone: [facility] Work Phone: Start: 07-02-2023 End: 07-02-[address] Massimo Eppreson Work Phone: [facility]-Pulmonary Services/Neurology Work Phone: Start: 06-26-2023 End: 06-26-[address] [facility] Work Phone: Start: 06-12-2023 End: 06-12-[address] Massimo Epperson Work Phone: [facility]-Radiology, [facility] Work Phone: Start: 06-11-2023 End: 06-11-[address] Massimo Epperson Work Phone: [facility]-Laboratory, Phy Office 3rd Txr Start: 03-27-2023 End: 03-27-[address] Massimo Epperson Work Phone: [facility] Work Phone: Start: 03-26-2023 End: 03-26-[address] Massimo Epperson Work Phone: [facility] Work Phone: Start: 03-14-2023 End: 03-14-[address] [facility]imo [facility]pperson [facility] Work Phone: Start: 03-09-2023 Non-patient / Non-visit Dr. Nj Epperson Work Phone: [facility] Work Phone: Start: 03-08-2023 Non-patient / Non-visit Dr. Nj Epperson Work Phone: [facility] Work Phone: Start: 03-08-2023 End: 03-09-2023 Evaluation and management of inpatient [facility]-Medical Surgical 3 Work Phone: Start: 03-08-2023 End: 03-09-[address] Massimo Epperson Work Phone: [facility] Work Phone: Start: 11-16-2022 End: 11-16-2022 Patient encounter procedure [facility]-Laboratory, Phy Office 3rd Txr Start: 10-04-2022 End: 10-04-[address] Massimo Epperson Work Phone: [facility] Work Phone: Start: 10-04-2022 End: 10-04-[address] Massimo Epperson Work Phone: [facility] Start: 08-30-2022 End: 08-30-[address] Massimo Epperson Work Phone: [facility] Work Phone: Start: 08-30-2022 End: 08-30-[address] Massimo Epperson Work Phone: [facility]-Radiology, [facility] Start: 06-28-2022 End: 06-28-[address] Massimo Epperson Work Phone: [facility] Work Phone: Start: 06-28-2022 End: 06-28-[address] Massimo Epperson Work Phone: [facility]-Pulmonary Services/Neurology Start: 05-25-2022 End: 05-25-[address] Massimo Epperson Work Phone: [facility] Start: 05-18-2022 End: 05-18-[address] Massimo Epperson Work Phone: [facility] Work Phone: Start: 05-18-2022 End: 05-18-[address] Massimo Epperson Work Phone: [facility]-Laboratory Start: 03-06-2022 End: 03-06-[address] [facility] Start: 02-16-2022 End: 02-16-[address] Massimo Epperson Work Phone: [facility]-Laboratory Start: 02-01-2022 End: 02-01-[address] Massimo Epperson Work Phone: [facility] Start: 01-03-2022 Non-patient / Non-visit Dr. Nj Epperson Work Phone: [facility] Start: 01-03-2022 End: 01-03-2022 Admission to same day surgery center Dr. Massimo Epperson Work Phone: [facility]-Endoscopy Start: 12-22-2021 End: 12-22-[address] Massimo Epperson Work Phone: [facility] Start: 12-15-2021 End: 12-15-[address] [facility]pperson [facility] Start: 12-06-2021 End: 12-06-2021 ambulatory PITER VAZQUEZ Other [facility] Other Start: 12-06-2021 Telephone encounter PITER VAZQUEZ [facility] Start: 12-01-2021 Non-patient / Non-visit Dr. Nj Epperson Work Phone: [facility] Start: 11-30-2021 Non-patient / Non-visit Dr. Nj Epperson Work Phone: [facility] Start: 11-30-2021 End: 12-01-2021 Evaluation and management of inpatient Dr. Massimo Epperson Work Phone: [facility] 3 Start: 11-29-2021 End: 11-29-[address] Massimo Epperson Work Phone: [facility] Start: 11-28-2021 Telephone encounter Joanne redmond MD Work Phone: [facility] Comment on above: Benefits Investigati on Start: 11-22-2021 End: 11-22-[address] Massimo [facility]pperson [facility] Start: 11-20-2021 Telephone encounter Joanne redmond MD Work Phone: [facility] Comment on above: New Patient Start: 11-17-2021 End: 11-17-2021 ambulatory PITER MALIA-ARTURO Other [facility] Other Start: 11-17-2021 Office outpatient ne w 45 minutes PITER MALIA-ARTURO [facility] Start: 11-15-2021 Telephone encounter Ginny Bush APRN.CNP Work Phone: Gastroenterology Comment on above: Outpatient [place] [facility] Start: 11-13-2021 End: 11-13-[address] Massimo Epperson Work Phone: [facility]-Ultrasound, [facility] Start: 11-10-2021 End: 11-10-[address] Massimo Epperson Work Phone: [facility]-Laboratory, Phy Office 3rd Flr Start: 10-20-2021 End: 10-20-[address] Massimo Epperson Work Phone: [facility]-Cat Scan, [facility] Start: 10-04-2021 Non-patient / Non-visit Dr. Nj Epperson Work Phone: [facility] Start: 10-04-2021 End: 10-04-[address] Massimo Epperson Work Phone: [facility]-Cardiovascular Services Start: 09-25-[address] Massimo Epperson Work Phone: [facility] Work Phone: Start: 09-25-2021 End: 09-25-2021 Admission to same day surgery center Dr. Massimo Epperson Work Phone: [facility] Start: 09-25-2021 End: 09-25-[address] Massimo Epperson Work Phone: [facility] Start: 09-18-2021 Telephone encounter Ginny Bush APRN.CNP Work Phone: Gastroenterology Comment on above: Appointment Cancelle d Start: 08-25-2021 End: 08-25-[address] Massimo [facility]pperson [facility] Start: 08-04-2021 Non-patient / Non-visit Dr. Nj Epperson Work Phone: [facility] Start: 08-04-2021 End: 08-04-[address] Massimo Epperson Work Phone: [facility]-Pulmonary Services/Neurology Start: 07-11-2021 Non-patient / Non-visit Dr. Nj Epperson Work Phone: [facility] Start: 07-10-2021 Non-patient / Non-visit Dr. Nj Epperson Work Phone: [facility] Start: 07-09-2021 Non-patient / Non-visit Dr. Nj Epperson Work Phone: [facility] Start: 07-09-2021 End: 07-11-2021 Evaluation and management of inpatient Dr. Massimo Epperson Work Phone: [facility] 3 Start: 07-05-[address] Massimo Epperson Work Phone: [facility]-Laboratory, Phy Office 3rd Flr Start: 02-11-2017 End: 03-13-2017 Ambulatory AYAAN MANNC Facility:[facility] Start: 01-21-2017 End: 01-23-2017 Evaluation and management of inpatient AYAAN SHAVER Facility:[facility] Start: 01-21-2017 End: 01-21-2017 Patient encounter procedure Ayaan Shaver Work Phone: [facility] Start: 01-21-2017 Results Only Ayaan lopez Work Phone: [facility] Start: 02-02-2016 End: 02-02-2016 Patient encounter procedure Ayaan Shaver Work Phone: [facility] Start: 02-02-2016 Results Only Ayaan lopez Work Phone: [facility] Procedures Date Procedure Procedure Detail Performing Clinician Start: 12-10-2024 Vitamin D, 25-hydrox y measurement Dr. Massimo Epperson MD Work Phone: Comment on above: Vitamin D StatusDefi ciency: <20 ng/mL (50nmol/L)Insufficiency: 20-30 ng/mL (50-75 nmol/L)Sufficiency: 30-100 ng/mL (75-250 nmol/L)Toxicity: >100 ng/mL (>250 nmol/L) Start: 09-28-2024 Urine microalbumin/creatinine ratio measurement Dr. Massimo Epperson MD Work Phone: Comment on above: Previous reported re sult: 525.0 mg/g CREEdited by: GALEN on 12/24/24:0756 AMENDED REPORT 12/24/24 0756 MALB:CREAT previously reported as: 525.0 mg/g CRE Start: 09-28-2024 Carbon dioxide measu rement, partial pressure Dr. Massimo Epperson MD Work Phone: Start: 09-28-2024 Gases blood o2 satur ation only direct hollis Dr. Massimo Epperson MD Work Phone: Start: 09-28-2024 Measurement of parti al pressure of oxygen in blood Dr. Massimo Epperson MD Work Phone: Start: 07-14-2024 SARS-CoV-2, Influenz a & RSV (PCR) Dr. Massimo Epperson MD Work Phone: Start: 07-14-2024 Plain chest X-ray Dr. Varun Epperson MD Work Phone: Start: 06-12-2023 X-ray of lumbar spin e, two or three views Dr. Massimo Epperson Work Phone: Start: 03-08-2023 CT angiography of ch est with contrast Dr. Massimo Epperson Work Phone: Start: 03-08-2023 Legionella pneumophi la antigen assay Dr. Massimo Epperson Work Phone: Start: 03-08-2023 SARS-CoV-2 & FLU Ant igen (Rapid) Start: 03-08-2023 Streptococcus pneumo niae Antigen (M Dr. Massimo Epperson Work Phone: Start: 03-08-2023 Plain chest X-ray Start: 08-30-2022 Plain X-ray of shoulder Dr. Massimo Epperson Work Phone: Start: 01-03-[address] Massimo castro Work Phone: Start: 11-30-2021 SARS-CoV-2 & FLU Ant igen (Rapid) Dr. Massimo Epperson Work Phone: Start: 11-30-2021 CT angiography of ch est with contrast Dr. Massimo Epperson Work Phone: Start: 11-30-2021 Plain chest X-ray Dr. Varun Epperson Work Phone: Start: 11-22-2021 Radionuclide imaging of liver and/or biliary tract using radioactive isotope Dr. Massimo Epperson Work Phone: Start: 11-13-[address] Massimo Epperson Work Phone: Start: 11-13-[address] Massimo Epperson Work Phone: Start: 10-20-[address] Massimo boyd Work Phone: Start: 10-20-2021 Computed tomography of abdomen and pelvis with contrast Dr. Massimo Epperson Work Phone: Start: 10-04-2021 Cardiovascular stres s test using pharmacologic stress agent Dr. Massimo Epperson Work Phone: Start: 07-10-2021 Bacteria identified in Blood by Culture Dr. Massimo Epperson Work Phone: Start: 07-10-[address] Massimo boyd Work Phone: Start: 07-10-2021 Plain chest X-ray Dr. Varun Epperson Work Phone: Start: 07-09-2021 Plain X-ray abdomen Dr. Massimo Epperson Work Phone: Start: 07-09-2021 SARS-CoV-2 Antigen (Rapid) Dr. Massimo Epperson Work Phone: Start: 07-09-[address] Massimo castro Work Phone: Start: 07-09-2021 CT angiography of ch est with contrast Dr. Massimo Epperson Work Phone: Start: 07-05-2021 Influenza Types A,B Direct FA (LEONIDAS) Dr. Massimo Epperson Work Phone: Start: 07-05-2021 End: 07-05-2021 Respiratory syncytial virus antigen assay Dr. Massimo Epperson Work Phone: Start: 07-05-2021 Plain chest X-ray Dr. Varun Epperson Work Phone: Start: 01-21-2017 CONVERTED SURGICAL PATHOLOGY Ayaan Shaver Work Phone: Start: 01-21-2017 REPL L KNEE JOINT SYNTH PROVIDER UNKNOWN Start: 07-10-2016 End: 07-10-2016 *Hepatic Function Panel An[facility] High Start: 07-10-2016 End: 07-10-2016 PRODUCT MANAGEMENT CONSULTANT Marvin Elliott MD Start: 07-10-2016 End: 07-10-2016 Follow Up Appt 1 year Marvin Elliott MD Start: 07-10-2016 End: 07-10-2016 Lipid 1996 panel - Serum or Plasma Marvin Elliott MD Start: 02-02-2016 CONVERTED SURGICAL PATHOLOGY Ayaan Decker [facility] Work Phone: Start: 01-12-2016 End: 01-12-2016 *BMP [...] 01-25-2016 Left Heart Cath Marvin Elliott MD Influenza Types A,B Direct FA (LEONIDAS) Dr. Massimo Epperson Work Phone: Influenza Types A,B Direct FA (LEONIDAS) Dr. Massimo Epperson Work Phone: Respiratory syncytia l virus antigen assay Dr. Massimo Epperson Work Phone: Respiratory syncytia l virus antigen assay Dr. Massimo Epperson Work Phone: SARS-CoV-2 & FLU Ant igen (Rapid) Dr. Massimo Epperson Work Phone: Urine culture Dr. Massimo Epperson Work Phone: Plan of Treatment Date Care Activity Detail Author Start: 09-28-2024 Patient discharge [facility] Start: 07-14-2024 [facility] Start: 03-09-2023 Microscopic observation [Identifier] in Unspecified specimen by Gram stain [facility] Start: 03-09-2023 Respiratory Culture Respiratory Culture [facility] Start: 03-09-2023 Patient discharge [facility] Start: 03-09-2023 Physiotherapy of chest [facility] Start: 03-09-2023 Blood chemistry [facility] Start: 03-08-2023 Continuous positive airway pressure ventilation treatment [facility] Start: 03-08-2023 Physiotherapy of chest [facility] Start: 03-08-2023 Following clinical pathway protocol [facility] Start: 03-08-2023 Oxygen therapy [facility] Start: 03-08-2023 Ambulation without limitation [facility] Start: 03-08-2023 Assessment of risk of venous thromboembolism [facility] Start: 03-08-2023 Care regimes management [facility] Start: 03-08-2023 CT angiography of chest with contrast CTA Chest W/WO Contrast [facility] Start: 03-08-2023 Elevation of head of bed [facility] Start: 03-08-2023 Inhalation therapy procedure [facility] Start: 03-08-2023 Insertion of catheter into peripheral vein [facility] Start: 03-08-2023 Notification of physician [facility] Start: 03-08-2023 Patient education [facility] Start: 03-08-2023 Providing care according to standard [facility] Start: 03-08-2023 [facility] Start: 03-08-2023 Bacteria identified in Blood by Culture Blood Culture [facility] Start: 03-08-2023 Bacteria identified in Sputum by Culture [facility] Start: 03-08-2023 Legionella pneumophila Ag [Presence] in Urine [facility] Start: 03-08-2023 Streptococcus pneumoniae antigen assay [facility] Start: 03-08-2023 [facility] Start: 03-08-2023 Verification routine [facility] Start: 03-08-2023 Admission procedure [facility] Start: 03-08-2023 End: 03-08-2023 Blood culture [facility] Start: 01-29-2023 DIABETES SCREEN DIABETES SCREEN [facility] Start: 03-08-2022 Influenza vaccination INFLUENZA (#1) [facility] Start: 01-03-2022 Patient discharge [facility] Work Phone: Start: 12-01-2021 Patient discharge [facility] Work Phone: Start: 11-30-2021 Incentive spirometry [facility] Work Phone: Start: 11-30-2021 Oxygen therapy [facility] Work Phone: Start: 11-30-2021 Following clinical pathway protocol [facility] Work Phone: Start: 11-30-2021 Ambulation without limitation [facility] Work Phone: Start: 11-30-2021 Assessment of risk of venous thromboembolism [facility] Work Phone: Start: 11-30-2021 Care regimes management [facility] Work Phone: Start: 11-30-2021 Insertion of catheter into peripheral vein [facility] Work Phone: Start: 11-30-2021 Providing care according to standard [facility] Work Phone: Start: 11-30-2021 [facility] Work Phone: Start: 11-30-2021 Admission procedure [facility] Work Phone: Start: 11-30-2021 Physiotherapy of chest [facility] Work Phone: Start: 09-04-2021 COVID-19 VACCINE (4 - Booster for Moderna series) COVID-19 VACCINE (4 - Booster for Moderna series) [facility] Start: 07-08-2021 ADVANCE DIRECTIVE DISCUSSION ADVANCE DIRECTIVE DISCUSSION [facility] Start: 03-08-2020 Influenza vaccination INFLUENZA (#1) [facility] Start: 01-24-2020 DIABETES SCREEN DIABETES SCREEN [facility] Start: 08-30-2017 End: 08-30-2017 Appointment Appointment [facility] Work Phone: Start: 07-11-2017 End: 07-11-2017 Appointment Appointment [facility] Work Phone: Start: 05-27-2017 End: 05-27-2017 DMB DMB [facility] Work Phone: Start: 05-27-2017 End: 05-27-2017 Follow Up Appt 3 months Follow Up Appt 3 months [facility] Work Phone: Start: 05-27-2017 End: 05-27-2017 Appointment Appointment [facility] Work Phone: Start: 05-10-2017 End: 05-10-2017 [facility] Work Phone: Start: 05-10-2017 End: 05-10-2017 Follow Up Appt 1 month Follow Up Appt 1 month [facility] Work Phone: Start: 05-10-2017 End: 05-10-2017 Appointment Appointment [facility] Work Phone: Start: 01-07-2017 End: 07-11-2016 *Hepatic Function Panel *Hepatic Function Panel [facility] Work Phone: Start: 01-07-2017 End: 07-11-2016 Lipid panel [AGGREGATE] *Lipid Profile CC PCP [facility] Work Phone: Start: 10-10-2016 ADVANCE DIRECTIVE DISCUSSION ADVANCE DIRECTIVE DISCUSSION [facility] Start: 10-10-2016 PNEUMOCOCCAL: 65+ (1 - PCV) PNEUMOCOCCAL: 65+ (1 - PCV) [facility] Start: 2017 PNEUMOVAX AGE 65 AND OVER WITH 5YR LOOKBACK (#1) PNEUMOVAX AGE 65 AND OVER WITH 5YR LOOKBACK (#1) [facility] Start: 07-10-2016 End: 07-10-2016 *Hepatic Function Panel *Hepatic Function Panel [facility] Phone: Start: 07-10-2016 End: 07-10-2016 [facility] Phone: Start: 07-10-2016 End: 07-10-2016 Follow Up Appt 1 year Follow Up Appt 1 year [facility] Phone: Start: 07-10-2016 End: 07-10-2016 Lipid panel [AGGREGATE] *Lipid Profile CC PCP [facility] Phone: Start: 01-12-2016 End: 01-12-2016 *BMP *BMP [facility] Phone: Start: 01-12-2016 End: 01-12-2016 CBC W Auto Differential panel - Blood *CBC without Diff [facility] Phone: Start: 01-12-2016 End: 01-13-2016 Chest x-ray X-Ray, Chest, PA & Lateral [facility] Phone: Start: 01-12-2016 End: 01-12-2016 [facility] Phone: Start: 01-12-2016 End: 01-12-2016 Ecg routine ecg w/least 12 lds w/i&r EKG (In office) [facility] Phone: Start: 01-12-2016 End: 01-12-2016 Follow Up Appt 6 months Follow Up Appt 6 months [facility] Phone: Start: 01-12-2016 End: 01-13-2016 INR Coag RelTime (PPP) *PT/INR [facility] Phone: Start: 01-12-2016 End: 01-12-2016 Left Heart Cath Left Heart Cath [facility] Phone: Start: 10-10-2006 PROSTATE CANCER SCREENING DISCUSSION PROSTATE CANCER SCREENING DISCUSSION [facility] Start: 10-10-2001 SHINGRIX VACCINE (1 of 2) SHINGRIX VACCINE (1 of 2) [facility] Start: 10-10-2001 Tuberculosis screening COLORECTAL CANCER SCREENING,SEE MODIFIER [facility] Start: 10-10-1996 COLOGUARD (FIT-DNA) COLOGUARD (FIT-DNA) [facility] Start: 10-10-1996 Colonoscopy COLONOSCOPY [facility] Start: 10-10-1996 COLORECTAL CANCER SCREENING COLORECTAL CANCER SCREENING [facility] Start: 10-10-[address] COLONOGRAPHY [facility] Start: 10-10-1996 FECAL OCCULT BLOOD FECAL OCCULT BLOOD [facility] Start: 10-10-1996 SIGMOIDOSCOPY SIGMOIDOSCOPY [facility] Start: 10-10-1986 LIPID SCREEN LIPID SCREEN [facility] Start: 10-10-1970 Urine microalbumin profile DTAP,TDAP,TD (1 - Tdap) [facility] Start: 10-10-1969 HEPATITIS C SCREENING HEPATITIS C SCREENING [facility] Start: 1962 Adult depression screening assessment DEPRESSION SCREENING [facility] Start: 1950 ABDOMINAL AORTIC ANEURYSM SCREENING ABDOMINAL AORTIC ANEURYSM SCREENING [facility] Anion gap measurement [facility] Bacteria identified in Sputum by Respiratory culture [facility] BUN/Creatinine ratio [facility] Calcium [Mass/volume ] in Serum or Plasma [facility] Carbon dioxide, tota l [Moles/volume] in Serum or Plasma [facility] Chloride [Moles/volu me] in Serum or Plasma [facility] Creatinine [Mass/vol ume] in Urine collected for unspecified duration [facility] Creatinine [Moles/vo lume] in Serum or Plasma [facility] CT Chest [facility] Glucose [Mass/volume ] in Serum or Plasma [facility] Hematocrit [Volume Fraction] of Blood [facility] Hemoglobin [Mass/vol ume] in Blood [facility] Hemoglobin A1c/Hemoglobin.total in Blood [facility] Leukocytes [#/volume ] in Blood [facility] Mean corpuscular hemoglobin concentration determination [facility] Mean corpuscular hemoglobin determination [facility] Measurement of renal function [facility] Microalbumin [Mass/v olume] in Urine [facility] Neutrophil count [facility] Neutrophil percent differential count [facility] Patient Education [facility] Work Phone: Patient referral [facility] Work Phone: Platelets [#/volume] in Blood [facility] Potassium [Moles/vol ume] in Serum or Plasma [facility] Red blood cell count [facility] Red cell distributio n width determination [facility] Sodium [Moles/volume ] in Serum or Plasma [facility] Urea nitrogen [Mass/volume] in Serum or Plasma [facility] Urine microalbumin/creatinine ratio measurement [facility] Immunizations Immunization Date Immunization Notes Care Provider Fa cili 10-20-2021 Covid (Moderna) Dr. Massimo Epperson Work Phone: [facility] 05-06-2021 Covid (Moderna) Dr. Massimo Epperson Work Phone: [facility] 04-07-2021 influenza, injectabl e, quadrivalent, preservative free Dr. Massimo Epperson Work Phone: [facility] 04-07-2021 influenza, seasonal, injectable Dr. Massimo Epperson Work Phone: [facility] 10-08-2020 Covid (Moderna) Dr. Massimo Epperson Work Phone: [facility] 09-10-2020 Covid (Moderna) Dr. Massimo Epperson Work Phone: [facility] 02-23-2016 diphtheria, tetanus toxoids and acellular pertussis vaccine, unspecified [facility] pneumococcal vaccine , unspecified formulation [facility] Payers Date Payer Category Payer Medicare [id number] 2024 Self-pay [id number] 2023 Medicare [id number] 2023 Unknown [id number] 2021 Private Health Insurance AETNA A ETNA CHOICE POS II [id number] 2021-Present [phone] [address] [place] [address] POS [id number] 2016 Medicare MEDICARE MEDICAR E A AND B [id number] 2016-Present [phone] [address] [address] [place] [address] Medicare [id number] 2015 Private Health Insurance [id number] 2003 Unknown [facility] [id number] 2003-Present Indemnity [id number] Unknown SELF PAY INSURANCE [id number] Unknown [id number]. 462 Unknown [id number] [id number]. 462 Unknown [id number]. 462 Unknown [id number]. 462 Unknown [id number] [id number]. 462 Unknown [id number] [id number]. 462 Unknown [id number] 2.16.840.1.450162.3.579.2. 462 Unknown [id number] 2.16.840.1.146644.3.579.2. 462 Unknown [id number] [id number]. 462 Unknown [id number] 2.16.840.1.769694.3.579.2. 462 Unknown [id number] 2.16.840.1.860449.3.579.2. 462 Unknown [id number] [id number]. 462 Unknown [id number] [id number]. 462 Unknown [id number] [id number]. 462 Unknown [id number]. 462 Social History Date Type Detail Facility Start: 11-30-2016 End: 09-28-2024 Tobacco smoking status IDIS Former smoker [facility] History of tobacco use Cigarette Smoker [facility] Start: 02-17-2016 End: 11-30-2016 Tobacco use and exposure Never used [facility] Start: 11-30-2016 End: 09-05-2021 Alcohol intake Current drinker of alcohol (finding) [facility] Start: 11-11-2015 Alcohol Comment [facility] Start: 1950 Sex Assigned At Not on file [facility] Start: 11-11-2015 Tobacco smoking status IDIS Current some day smoker [facility] Start: 09-25-2021 End: 06-26-2023 Tobacco smoking status [facility] Unknown if ever smoked [facility] Start: 1950 Sex Assigned At Male [facility] Sex Assigned At Sex Assigned At [facility]. Other Start: 09-28-2024 Sex Male (finding) [facility] Medical Equipment Procedure Code Equipment Code Equipment Original Text Equipment Identifier Dates Total cholecystectomy with exploration of common bile duct DRESSING,FIBRILLA R 1X2 1960 FDA Start: 01-24-2022 Total cholecystectomy with exploration of common bile duct Ligation clip, synthetic polymer, non-bioabsorbable [id number] FDA Start: 01-24-2022 Total cholecystectomy with exploration of common bile duct DRESSING,FIBRILLA R 1X2 1960 FDA Start: 01-24-2022 Total cholecystectomy with exploration of common bile duct DRESSING,FIBRILLA R 1X2 1960 FDA Start: 01-24-2022 Total cholecystectomy with exploration of common bile duct DRESSING,FIBRILLA R 1X2 1960 FDA Start: 01-24-2022 Total cholecystectomy with exploration of common bile duct DRESSING,FIBRILLA R 1X2 1960 FDA Start: 01-24-2022 Total cholecystectomy with exploration of common bile duct DRESSING,FIBRILLA R 1X2 1960 FDA Start: 01-24-2022 Total cholecystectomy with exploration of common bile duct DRESSING,FIBRILLA R 1X2 1960 FDA Start: 01-24-2022 Total cholecystectomy with exploration of common bile duct DRESSING,FIBRILLA R 1X2 1960 FDA Start: 01-24-2022 Total cholecystectomy with exploration of common bile duct DRESSING,FIBRILLA R 1X2 1960 FDA Start: 01-24-2022 Total cholecystectomy with exploration of common bile duct DRESSING,FIBRILLA R 1X2 1960 FDA Start: 01-24-2022 Goals Date Patient Goal Desired Activity /State Functional Status Date Assessment Result Facility 03-09-2023 Functional status Ambulates;Up ad macho [facility] Work Phone: 12-01-2021 Functional status Ambulates;Up ad macho [facility] Work Phone: 07-11-2021 Functional status Patient Activity Chair [facility] Work Phone: 07-11-2021 Functional status Activity Abili ty Standby Assist [facility] Work Phone: 07-10-2021 Functional status Assistive Tanya jerome Rolling Walker [facility] Work Phone: Mental Status Date Assessment Result Facility 03-09-2023 Cognitive function Voice/Name [facility] Work Phone: 01-03-2022 Cognitive function Voice/Name;Touch/Jamesonki clemente [facility] Work Phone: 12-01-2021 Cognitive function Voice/Name [facility] Work Phone: 07-11-2021 Cognitive function Patient Behavior Impul luise [facility] Work Phone: 07-10-2021 Cognitive function Demonstrates ability to follow instructions/comprehend [facility] Work Phone: 07-09-2021 Cognitive function Speech Pattern Appropr iate [facility] Work Phone: Clinical Notes 09-05-2021 to 09-28-2024 Note Date & Type Note Facility 09-28-2024 Evaluation note Diagnosis Onset Date Resolution MARCANO (dyspnea on exertion) acute September 28, 2024 7:16am Pulmonary hypertension acute [facility] 2024 7:16am Atherosclerotic heart disease of [place] coronary artery without angina pectoris chronic September 28, 2024 7:16am Essential (primary) hypertension chronic September 28, 2024 7:16am Hyperlipidemia chronic September 7:16am Obstructive sleep apnea chronic [facility] 2024 7:16am Obesity chronic October 26 12:43pm Obstructive sleep apnea chronic A pril 2024 12:43pm Smoking greater than 40 pack years chronic October 26, 2024 12:43pm [facility] Work Phone: 1(436) 952-477803-04-2025 History and physical note Author Le Meyer [facility] Note Date/Time September 08, 2024 3:13 pm [facility] Medical Records Department [address] [place] [id number] History & Physical Exam 09/08/24 1610 MR#: [id number] Acct: [id number] Name: CELESTINE ECHAVARRIA Rep #:[id number] : 1950 73 From: Le SM[place] PCP: Dr. Massimo Epperson MD Status:PRE S DC Location: [facility] History and Physical Date of Admission: 09/28/24 He is a 73-year-old man with a history of known atherosclerotic cardiovascular disease. In 2016, he had a cardiac catheterization which demonstrated 50% mid left anterior descending artery stenosis, an ectatic circumflex artery, a right coronary artery which was totally occluded. He had preserved left ventricular systolic function. He also has a past medical history of diabetes, hypertension, hyperlipidemia, previous tobacco abuse, and obstructive sleep apnea. Patient was seen in the emergency room on July 14, 2024 for chest discomfort. Troponin was negative x 2. It was felt his discomfort was likely related to mild congestive heart failure. He was given IV Lasix. His BNP was 82. CXR diddemonstrate mild congestion. He was asked to restart his hydrochlorothiazide at home. Pt notes that he is still having chest heaviness, it is constant. He does feel his swelling is better. He does have a chest congestion. He does use his CPAP at night with oxygen. He does have shortness of breath. Patient underwent a pulmonary function test which did demonstrate severe restrictive ventilatory impairment with preserved diffusing capacity. Since hiscardiac workup was negative in 2023. His case was discussed with pulmonary. They felt that a right heart cath would help further assess. He is scheduled toundergo a diagnostic right heart catheterization today. Medical History Bronchiectasis BiPAP (biphasic positive airway pressure) dependence Encounter for screening colonoscopy Hoarseness On home oxygen therapy Fatty liver Hx of transfusion of whole blood History of edema Diabetes Acute and chronic respiratory failure with hypoxia COVID-19 (11/30/21) Leg edema Cholelithiasis with chronic cholecystitis Preop cardiovascular exam Hypoxia BMI 39.0-39.9,adult Smoking greater than 40 pack years Allergic rhinitis Essential (primary) hypertension Tobacco dependence in remission Arthritis Nicotine abuse Obstructive sleep apnea Hyperlipidemia Atherosclerotic heart disease of [place] coronary artery without angina pectoris Surgical History S/P cholecystectomy Hx of colonoscopy S/P emergency tracheotomy for assistance in breathing History of tracheostomy H/O resection of rib History of cataract extraction History of splenectomy History of arthroplasty of right knee History of tonsillectomy History of partial splenectomy History of appendectomy History of left heart catheterization (01/23/16) Family History Unknown No problems noted. Social History Smoking Status: Former smoker quit date: 07/08/16 pack-years: 50 second hand exposure: No alcohol intake: never substance use type: does not use caffeine: Yes Type: coffee Number of servings: 8 what type of physical activity do you participate in: none ROS Const Const: Positive for fatigue; Negative for weakness, body ache or headache(s) Eyes Eyes: Negative for change in vision ENT ENT: Positive for balance problems; Negative for headache(s), dizziness or hearing loss Cardio Chest Pain: Yes Palpitations: No Edema: None Muscle aches with walking: None Resp Respiratory: Positive for SOB with activity and Cough; Negative for SOB at rest or SOB orthopneaundefinedSOB lying down GI GI: Negative nausea, vomiting or heartburn Musc Musc: Positive for muscle aches/ myalgia, muscle weakness, joint pain and balance problems Neuro Neuro: Negative for dizziness, lightheadedness, near syncope, syncope, headache(s) or weakness Endo Endo: Positive for fatigue Cardiology Exam Const Appearance: cooperative Nutritional Appearance: obese Head Head: normal to inspection Eyes General: appearance normal, both eyes and all related structures Neck Neck: no JVD Carotids: Negative bruit Chest Chest inspection: normal inspection of the chest Auscultation: Bilateral: Diminished Lung Sounds and Crackles (Posteriorly) Cardio Rate: regular rate Rhythm: regular rhythm Heart sounds: S1 normal and S2 normal; Negative rub, gallop or murmur Distant heart tones due to body this. GI GI: bowel sounds present and obese Neuro General: patient alert and patient oriented x3 Skin Hyperpigmentation noted on both lower extremities above the ankle and below the patella. Extremities Lower Extremity Edema: Trace: Bilateral (Dense skin over the lower extremities with hyperpigmentation) Psych Psychological: normal affect Assessment & Plan Assessment/Plan (1) MARCANO (dyspnea on exertion): (2) Pulmonary hypertension: (3) Obstructive sleep apnea: (4) Atherosclerotic heart disease of [place] coronary artery without angina pectoris: QUALIFIERS: [place] vs. transplanted heart: [place] heart QualifiedCode(s): I25.10 - Atherosclerotic heart disease of [place] coronary artery without angina pectoris; I25.10 - Atherosclerotic heart disease of [place] [place] coronary artery without angina pectoris; I25.10 - Atherosclerotic heart disease of [place] coronary artery without angina pectoris (5) Essential (primary) hypertension: (6) Hyperlipidemia: QUALIFIERS: Hyperlipidemia type: pure hypercholesterolemia Qualified Code(s): E78.00 - Pure hypercholesterolemia, unspecified; E78.00 - Pure hypercholesterolemia, unspecified; E78.00 - Pure hypercholesterolemia, unspecified; E78.0 - Pure hypercholesterolemia PLAN: Plan Pt will undergo a Right heart cath. Follow up will be based on findings. 09/08/24 161 <Electronically signed by Le SMITH> Cosigner Signature (if applicable): CC: Dr. Massimo Epperson MD; SARAH Garcia~ Signed [facility] Work Phone: 1(637) 172-612203-04-2025 [facility] Medical Records Department [address] [place] [address] History Physical Exam 09/08/24 1610 MR#: [id number] Acct: [id number] Name: CELESTINE ECHAVARRIA Rep #: [id number] : 1950 73 From: Le SMITH PCP: Dr. Massimo Epperson MD Status:PRE [facility] [place] Location: [facility] History and Physical Date of Admission: 09/28/24 He is a 73-year-old man with a history of known atherosclerotic cardiovascular disease. In 2015, he had a cardiac catheterization which demonstrated 50% mid left anterior descending artery stenosis, an ectatic circumflex artery, a right coronary artery which was totally occluded. He had preserved left ventricular systolic function. He also has a past medical history of diabetes, hypertension, hyperlipidemia, previous tobacco abuse, and obstructive sleep apnea. Patient was seen in the emergency room on July 14, 2024 for chest discomfort. Troponin was negative x 2. It was felt his discomfort was likely related to mild congestive heart failure. He was given IV Lasix. His BNP was 82. CXR did demonstrate mild congestion. He was asked to restart his hydrochlorothiazide at home. Pt notes that he is still having chest heaviness, it is constant. He does feel his swelling is better. He does have a chest congestion. He does use his CPAP at night with oxygen. He does have shortness of breath. Patient underwent a pulmonary function test which did demonstrate severe restrictive ventilatory impairment with preserved diffusing capacity. Since his cardiac workup was negative in 2023. His case was discussed with pulmonary. They felt that a right heart cath would help further assess. He is scheduled to undergo a diagnostic right heart catheterization today. Medical History Bronchiectasis BiPAP (biphasic positive airway pressure) dependence Encounter for screening colonoscopy Hoarseness On home oxygen therapy Fatty liver Hx of transfusion of whole blood History of edema Diabetes Acute and chronic respiratory failure with hypoxia COVID-19 (11/30/21) Leg edema Cholelithiasis with chronic cholecystitis Preop cardiovascular exam Hypoxia BMI 39.0-39.9,adult Smoking greater than 40 pack years Allergic rhinitis Essential (primary) hypertension Tobacco dependence in remission Arthritis Nicotine abuse Obstructive sleep apnea Hyperlipidemia Atherosclerotic heart disease of [place] coronary artery without angina pectoris Surgical History S/P cholecystectomy Hx of colonoscopy S/P emergency tracheotomy for assistance in breathing History of tracheostomy H/O resection of rib History of cataract extraction History of splenectomy History of arthroplasty of right knee History of tonsillectomy History of partial splenectomy History of appendectomy History of left heart catheterization (01/23/16) Family History Unknown No problems noted. Social History Smoking Status: Former smoker quit date: 07/08/16 pack-years: 50 second hand exposure: No alcohol intake: never substance use type: does not use caffeine: Yes Type: coffee Number of servings: 8 what type of physical activity do you participate in: none ROS Const Const: Positive for fatigue; Negative for weakness, body ache or headache(s) Eyes Eyes: Negative for change in vision ENT ENT: Positive for balance problems; Negative for headache(s), dizziness or hearing loss Cardio Chest Pain: Yes Palpitations: No Edema: None Muscle aches with walking: None Resp Respiratory: Positive for SOB with activity and Cough; Negative for SOB at rest or SOB orthopnea SOB lying down GI GI: Negative nausea, vomiting or heartburn Musc Musc: Positive for muscle aches/ myalgia, muscle weakness, joint pain and balance problems Neuro Neuro: Negative for dizziness, lightheadedness, near syncope, syncope, headache(s) or weakness Endo Endo: Positive for fatigue Cardiology Exam Const Appearance: cooperative Nutritional Appearance: obese Head Head: normal to inspection Eyes General: appearance normal, both eyes and all related structures Neck Neck: no JVD Carotids: Negative bruit Chest Chest inspection: normal inspection of the chest Auscultation: Bilateral: Diminished Lung Sounds and Crackles (Posteriorly) Cardio Rate: regular rate Rhythm: regular rhythm Heart sounds: S1 normal and S2 normal; Negative rub, gallop or murmur Distant heart tones due to body this. GI GI: bowel sounds present and obese Neuro General: patient alert and patient oriented x3 Skin Hyperpigmentation noted on both lower extremities above the ankle and below the p (more content notincluded)...[facility]03-04-2025 History and physical note [facility] Medical Records Department [address] [place] [address] History & Physical Exam 09/08/24 1610 MR#: [id number] Acct: [id number] Name: CELESTINE ECHAVARRIA Rep #:[id number] : 1950 73 From: Le SMITH PCP: Dr. Massimo Epperson MD Status:PRE S DC Location: [facility] History and Physical Date of Admission: 09/28/24 He is a 73-year-old man with a history of known atherosclerotic cardiovascular disease. In 2016, hehad a cardiac catheterization which demonstrated 50% mid left anterior descending artery stenosis, an ectatic circumflex artery, a right coronary artery which was totally occluded. He had preserved left ventricular systolic function. He also has a past medical history of diabetes, hypertension, hyperlipidemia, previous tobacco abuse, and obstructive sleep apnea. Patient was seen in the emergency room on July 14, 2024 for chest discomfort. Troponin was negative x 2. It was felt his discomfort was likely related to mild congestive heart failure. He was givenIV Lasix. His BNP was 82. CXR diddemonstrate mild congestion. He was asked to restart his hydrochlorothiazide at home. Pt notes that he is still having chest heaviness, it is constant. He does feel his swelling is better. He does have a chest congestion. He does use his CPAP at night with oxygen. He does have shortness of breath. Patient underwent a pulmonary function test which did demonstrate severe restrictive ventilatory impairment with preserved diffusing capacity. Since hiscardiac workup was negative in 2023. His case was discussed with pulmonary. They felt that a right heart cath would help further assess. He is scheduled toundergo a diagnostic right heart catheterization today. Medical History Bronchiectasis BiPAP (biphasic positive airway pressure) dependence Encounter for screening colonoscopy Hoarseness On home oxygen therapy Fatty liver Hx of transfusion of whole blood History of edema Diabetes Acute and chronic respiratory failure with hypoxia COVID-19 (11/30/21) Leg edema Cholelithiasis with chronic cholecystitis Preop cardiovascular exam Hypoxia BMI 39.0-39.9,adult Smoking greater than 40 pack years Allergic rhinitis Essential (primary) hypertension Tobacco dependence in remission Arthritis Nicotine abuse Obstructive sleep apnea Hyperlipidemia Atherosclerotic heart disease of [place] coronary artery without angina pectoris Surgical History S/P cholecystectomy Hx of colonoscopy S/P emergency tracheotomy for assistance in breathing History of tracheostomy H/O resection of rib History of cataract extraction History of splenectomy History of arthroplasty of right knee History of tonsillectomy History of partial splenectomy History of appendectomy History of left heart catheterization (01/23/16) Family History Unknown No problems noted. Social History Smoking Status: Former smoker quit date: 07/08/16 pack-years: 50 second hand exposure: No alcohol intake: never substance use type: does not use caffeine: Yes Type: coffee Number of servings: 8 what type of physical activity do you participate in: none ROS Const Const: Positive for fatigue; Negative for weakness, body ache or headache(s) Eyes Eyes: Negative for change in vision ENT ENT: Positive for balance problems; Negative for headache(s), dizziness or hearing loss Cardio Chest Pain: Yes Palpitations: No Edema: None Muscle aches with walking: None Resp Respiratory: Positive for SOB with activity and Cough; Negative for SOB at rest or SOB orthopneaundefinedSOB lying down GI GI: Negative nausea, vomiting or heartburn Musc Musc: Positive for muscle aches/ myalgia, muscle weakness, joint pain and balance problems Neuro Neuro: Negative for dizziness, lightheadedness, near syncope, syncope, headache(s) or weakness Endo Endo: Positive for fatigue Cardiology Exam Const Appearance: cooperative Nutritional Appearance: obese Head Head: normal to inspection Eyes General: appearance normal, both eyes and all related structures Neck Neck: no JVD Carotids: Negative bruit Chest Chest inspection: normal inspection of the chest Auscultation: Bilateral: Diminished Lung Sounds and Crackles (Posteriorly) Cardio Rate: regular rate Rhythm: regular rhythm Heart sounds: S1 normal and S2 normal; Negative rub, gallop or murmur Distant heart tones due to body this. GI GI: bowel sounds present and obese Neuro General: patient alert and patient oriented x3 Skin Hyperpigmentation noted on both lower extremities above the ankle and below the patella. Extremities Lower Extremity Edema: Trace: Bilateral (Dense skin over the lower extremities with hyperpigmentation) Psych Psychological: normal affect Assessment & Plan Assessment/Plan (1) MARCANO (dyspnea on exertion): (2) Pulmonary hypertension: (3) Obstructive sleep apnea: (4) Atherosclerotic heart disease of [place] coronary artery without angina pectoris: QUALIFIERS: [place] vs. transplanted heart: [place] heart QualifiedCode(s): I25.10 - Atherosclerotic heart disease of [place] coronary artery without angina pectoris; I25.10 - Atherosclerotic heart disease of [place] coronary artery without angina pectoris; I25.10 - Atherosclerotic heart disease of [place] coronary artery without angina pectoris (5) Essential (primary) hypertension: (6) Hyperlipidemia: QUALIFIERS: Hyperlipidemia type: pure hypercholesterolemia Qualified Code(s): E78.00 - Pure hypercholesterolemia, unspecified; E78.00 - Pure hypercholesterolemia, unspecified; E78.00 - Pure hypercholesterolemia, unspecified; E78.0 - Pure hypercholesterolemia PLAN: Plan Pt will undergo a Right heart cath. Follow up will be based on findings. 09/08/24 1613 Cosigner Signature (if applicable): CC: Dr. Massimo Epperson MD; SARAH Garcia~ Signed [facility]01-09-2025 Evaluation note* Diagnosis Onset Date Resolution Status Admit Date MARCANO (dyspnea on exertion) acute July 16, 2024 8:10am Atherosclerotic heart diseas e of [place] coronary artery without angina pectoris chronic July 16 8:10am Essential (primary) hypertension chr onic July 16, 2024 8:10am Hyperlipidemia chronic July 8:10am MARCANO (dyspnea on exertion) acute September 28, 2024 7:16am Pulmonary hypertension acute [facility] 2024 7:16am Atherosclerotic heart diseas e of [place] coronary artery without angina pectoris chronic September 28, 2024 7:16am Essential (primary) hypertension chr onic September 28, 2024 7:16am Hyperlipidemia chronic September 7:16am Obstructive sleep apnea chronic [facility] 2024 7:16am [facility] Work Phone: 1(762) 392-127912-28-2023 Procedure [facility] 03-09-2023 Discharge summary Author Jose Angel Gold [facility] March 09, 2023 12:19pm Note Date/Time March 09, 2023 12:12pm [facility] Medical Records Department [address] [place] [address] Discharge Summary 03/09/23 1209 MR#: [id number] Acct: [id number] Name: CELESTINE ECHAVARRIA Rep #:[id number] : 1950 72 From: Jose Angel Gold DO PCP: Dr. Massimo Epperson MD Status:ADM I NO Location: [facility] [place] [id number] Providers Date of Admission: 03/08/23 Primary Care Physician: Dr. Massimo Epperson MD Reason For Visit: PNEUMONIA Diagnosis Discharge Diagnosis (1) Pneumonia: Status: Acute Code(s): J18.9 - Pneumonia, unspecified organism Qualifiers: Pneumonia type: due to Pneumococcus Laterality: right Lung location: lower lobe of lung Qualified Code(s): J13 - Pneumonia due to Streptococcus pneumoniae Plan: Received ceftriaxone and azithromycin in ED. Pulmonary toilet Check sputum culture. Check urinary antigens for Streptococcus and Legionella (2) Bronchiectasis: Status: Acute Code(s): J47.9 - Bronchiectasis, uncomplicated Qualifiers: Bronchiectasis type: uncomplicated Qualified Code(s): J47.9 - Bronchiectasis, uncomplicated Plan: May be chronic. Patient established with pulmonology. Recommend follow-up as outpatient. (3) Hypoxia: Status: Acute Code(s): R09.02 - Hypoxemia Plan: Patient has reported history of acute on chronic respiratory failure. Patient has been told to utilize oxygen with exertion dating back to pulmonary visit back in December 2021. Likely pneumonia just exacerbated his chronic respiratory failure. Prior to discharge, will check an ambulatory pulse ox. Likely complicated by underlying sleep apnea, obesity Patient is diminished we will start him on prednisone. CTA of the chest showed right lower lobe infiltrate. No evidence of pulmonary embolism given the patient's recent travels. Plan Chronic condition * [place]: May use home CPAP. * Hypertension: Continue with atenolol and lisinopril, triamterene/hydrochlorothiazide * Diabetes mellitus type 2: Hold metformin in light of the contrast he received. VTE prophylaxis with low medical weight heparin Disposition: Patient was not in any respiratory distress when he arrived though he was symptomatic. Top of patient's chronic hypoxic respiratory failure patient appears to be more or less at his baseline. Patient is under observation status and if remains fairly stable, would anticipate the patient bepotentially ready for discharge on the second. Home oxygen eval. Medications at Discharge Home Medications atenolol 50 mg tablet 25 mg PO DAILY heart 01/18/16 atorvastatin 40 mg tablet 10 mg PO DAILY cholesterol 09/25/21 metformin 500 mg tablet 1,000 mg PO BID dm 11/29/21 levocetirizine 5 mg tablet (Xyzal) 5 mg PO DAILY 12/28/21 triamterene 75 mg-hydrochlorothiazide 50 mg tablet (Maxzide) 0.5 tab PO DAILY 12/28/21 lisinopril 2.5 mg tablet 2.5 mg PO DAILY 05/25/22 acetaminophen 650 mg tablet,extended release (Tylenol Arthritis Pain) 650 mg PO Q8H 10/04/22 guaifenesin 600 mg tablet, extended release 12 hr (Mucinex) 600 mg PO Q12H #10 tabs 03/09/23 levofloxacin 750 mg tablet 750 mg PO DAILY #5 tabs 03/09/23 prednisone 20 mg tablet 40 mg (2 x 20 mg) PO BREAKFAST 4 days #8 tabs 03/09/23 Hospital Course Operations None Procedures None Summary of Care Provided Minutes Spent on Discharge: 32 Hospital Course: Patient presents with shortness of breath and was hypoxic. Patient was found tohave a right lower lobe infiltrate. Patient recently came back from [place] and did undergo a CT angiogram as his D-dimer was elevated and that was negative forPE but did show his infiltrate. Patient has history of chronic respiratory failure and has had documentation that he requires oxygen more continuously. Patient was treated with ceftriaxone and azithromycin in the emergency room and overall improved. Patient be discharged with levofloxacin. Patient advised to follow-up with pulmonology as outpatient. Weight / BMI Weight Weight: 129.319 kg Body Mass Index (BMI) 39.7 ABG / Lab / Microbiology Data 03/09/23 04:05 03/09/23 04:05 Laboratory: Laboratory Results - last 24 hr 03/08/23 08:41: D-Dimer Quant (PE/DVT) 1.13 H* 03/08/23 15:48: POC Glucose 231 H 03/09/23 04:05: WBC 15.0 H, RBC 4.22 L, Hgb 13.2, Hct 41.2, MCV 97.6 H, MCH 31.3, MCHC 32.0, RDW Std Deviation 48.0 H, RDW Coeff of Tate 13.3, Plt Count 377,MPV 8.8, Immature Gran % (Auto) 0.300, Neut % (Auto) 72.1 H, Lymph % (Auto) 17.1L, Mcpherson % (Auto) 10.3 H, Eos % (Auto) 0.1, Baso % (Auto) 0.1, Absolute Neuts (auto) 10.8 H, Absolute Lymphs (auto) 2.57, Nucleated RBC % 0, Differential Comment SCANNED, Diff Path Review November foll, Sodium 139, Potassium 4.3, Chloride 104, Carbon Dioxide 31.0, Anion Gap 4 L, BUN 25 H, Creatinine 0.73, Estim Creat Clear Calc 72.16, Est GFR (MDRD) Af Amer 136, Est GFR (MDRD) Non-Af 112, BUN/Creatinine Ratio 34.2 H, Glucose 219 H, Calcium 8.5 03/09/23 06:42: POC Glucose 198 H Microbiology: Microbiology 03/08/23 15:35 Urine, Clean Catch Legionella Antigen - Final 03/08/23 15:35 Urine, Clean Catch Streptococcus pneumoniae Antigen (M - Final 03/08/23 08:41 Nasal Secretion SARS-CoV-2 & FLU Antigen (Rapid) - Final Radiography Diagnostic Testing: Radiology Impression Chest CTA 03/08/23 14:37 IMPRESSION: Patchy atelectasis versus infiltrate in the posterior aspect of the right lower lobe as well as in the left lower lobe. Bronchiectasis in the left lower lobe. No evidence of pulmonary embolism. Electronically Signed: Crispin Morgan MD at 15:00 EDT , D/C Instructions Discharge Diet: No restrictions Meaningful Use Info Meaningful Use Diagnoses (Choose all that apply): None applicable Discharge Plan Admission Admit Date/Time: 03/08/23 12:12 Primary Reason for Your Visit: pneumonia Attending Provider: Jose Angel Gold Primary Care Provider: Massimo Epperson Chi Instructions Additional Instructions / Restrictions: You have pneumonia. Please take antibiotics until completed. Return if you are worse. You received IV contrast for your CT scan and you will need to hold your metformin through the . Discharge Orders/Prescriptions Prescriptions: New prednisone 20 mg Tablet 40 mg PO BREAKFAST 4 Days Qty: 8 0RF levofloxacin 750 mg tablet 750 mg PO DAILY Qty: 5 0RF Rx Instructions: start 02/07 guaifenesin [Mucinex] 600 mg tablet extended release 12hr 600 mg PO Q12H Qty: 10 0RF Continued atorvastatin 40 mg tablet 10 mg PO DAILY lisinopril 2.5 mg tablet 2.5 mg PO DAILY acetaminophen [Tylenol Arthritis Pain] 650 mg tablet extended release 650 mg PO Q8H atenolol 50 MG tablet 25 mg PO DAILY levocetirizine [Xyzal] 5 mg Tablet 5 mg PO DAILY triamterene-hydrochlorothiazid [Maxzide] 75-50 mg tablet 0.5 tab PO DAILY Held metformin 500 mg tablet 1,000 mg PO BID Hold Instructions: Resume on 03/13/23. Referrals / Follow Up: [facility] [Provider Group] - 03/15/23 1:45 pm Massimo Epperson Chi, MD [Primary Care Provider] - Within 2 Weeks Disposition Disposition (needs filled in before D/C Order can be placed): Home, Self Care Charges/Coding Visit Charges Inpatient E&M: 84558 Disch Hosp >30min 03/09/23 1219 <Electronically signed by Jose Angel Gold DO> Cosigner Signature (if applicable): CC: Dr. Jose Angel Gold DO; Dr. Massimo Epperson MD~ Signed [facility] Work Phone: 1(535) 616-533109-02-2023 Progress note Author Jose Angel Gold [facility] March 09, 2023 12:09pm Note Date/Time March 09, 2023 7:11am [facility] Medical Records Department [address] [place] [address] Progress Note - Hospitalist 03/09/23708 MR#: [id number] Acct: [id number] Name: CELESTINE ECHAVARRIA Rep #:[id number] : 1950 72 From: Jose Angel Gold DO PCP: Dr. Massimo Epperson MD Status:ADM I NO Location: [place] [address] Reason for Visit Reason for Visit: Diagnoses Pneumonia due to Streptococcus pneumoniae (03/08/23) Bronchiectasis, uncomplicated (03/08/23) Hypoxemia (03/08/23) Subjective Subjective No new events. Objective Data Objective Data Vital Signs: Vital Signs Temp Pulse Resp BP Pulse Ox O2 Del Method O2 Flow Rate 36.4 C L 68 18 148/83 H 98 Nasal Cannula 2 03/09/23 05:00 03/09/23 05:00 03/09/23 05:00 03/09/23 05:00 03/09/23 05:00 03/09/23 05:00 03/09/23 05:00 Oxygen Flow Rate (L/min) 2 Oxygen Delivery Method Nasal Cannula Weight: 129.319 kg Body Mass Index (BMI) 39.7 Intake & Output: Intake and Output for Last 24 Hours 03/07/23 03/08/23 03/09/23 23:59 23:59 23:59 Intake Total 545 / 545 Output Total 300 / 300 500 / 500 Balance 245 / 245 -500 / -500 Lab / Micro Data 03/09/23 04:05 03/09/23 04:05 Labs: Laboratory Results - last 24 hr 03/08/23 08:41: WBC 15.3 H, RBC 4.47 L, Hgb 14.0, Hct 43.7, MCV 97.8 H, MCH 31.3, MCHC 32.0, RDW Std Deviation 47.2 H, RDW Coeff of Tate 13.2, Plt Count 401,MPV 9.1, Immature Gran % (Auto) 0.500, Neut % (Auto) 74.0 H, Lymph % (Auto) 18.5L, Mcpherson % (Auto) 6.1, Eos % (Auto) 0.5, Baso % (Auto) 0.4, Absolute Neuts (auto)11.4 H, Absolute Lymphs (auto) 2.84, Nucleated RBC % 0, D-Dimer Quant (PE/DVT) 1.13 H*, Sodium 137, Potassium 4.2, Chloride 100, Carbon Dioxide 31.0, Anion Gap6, BUN 25 H, Creatinine 0.73, Estim Creat Clear Calc 72.16, Est GFR (MDRD) Af Amer 136, Est GFR (MDRD) Non-Af 113, BUN/Creatinine Ratio 34.3 H, Glucose 168 H,Lactic Acid 1.7, Calcium 8.9, Total Bilirubin 0.60, Direct Bilirubin 0.17, AST 25, ALT 37, Alkaline Phosphatase 91, Troponin I High Sens 15, Total Protein 7.3,Albumin 3.4, Globulin 3.9 03/08/23 15:48: POC Glucose 231 H 03/09/23 04:05: WBC 15.0 H, RBC 4.22 L, Hgb 13.2, Hct 41.2, MCV 97.6 H, MCH 31.3, MCHC 32.0, RDW Std Deviation 48.0 H, RDW Coeff of Tate 13.3, Plt Count 377,MPV 8.8, Immature Gran % (Auto) 0.300, Neut % (Auto) 72.1 H, Lymph % (Auto) 17.1L, Mcpherson % (Auto) 10.3 H, Eos % (Auto) 0.1, Baso % (Auto) 0.1, Absolute Neuts (auto) 10.8 H, Absolute Lymphs (auto) 2.57, Nucleated RBC % 0, Differential Comment SCANNED, Diff Path Review November foll, Sodium 139, Potassium 4.3, Chloride 104, Carbon Dioxide 31.0, Anion Gap 4 L, BUN 25 H, Creatinine 0.73, Estim Creat Clear Calc 72.16, Est GFR (MDRD) Af Amer 136, Est GFR (MDRD) Non-Af 112, BUN/Creatinine Ratio 34.2 H, Glucose 219 H, Calcium 8.5 03/09/23 06:42: POC Glucose 198 H Micro: Microbiology 03/08/23 15:35 Urine, Clean Catch Legionella Antigen - Final 03/08/23 15:35 Urine, Clean Catch Streptococcus pneumoniae Antigen (M - Final 03/08/23 08:41 Nasal Secretion SARS-CoV-2 & FLU Antigen (Rapid) - Final Radiography Diagnostic Testing: Radiology Impression Chest X-Ray 03/08/23 08:55 IMPRESSION: Focal right lower lobe infiltrate with small left pleural effusion and underlying atelectasis and/or left basilar infiltrate as well. Follow-up recommended. Electronically Signed: Crispin Morgan MD at 9:37 EDT , Chest CTA 03/08/23 14:37 IMPRESSION: Patchy atelectasis versus infiltrate in the posterior aspect of the right lower lobe as well as in the left lower lobe. Bronchiectasis in the left lower lobe. No evidence of pulmonary embolism. Electronically Signed: Crispin Morgan MD at 15:00 EDT , Physical Exam Const alert and no apparent distress Resp normal respiratory effort and no retractions Resp Narrative: bibasilar crackles. Cardio regular rate, regular rhythm, S1 normal heart sound and S2 normal heart sound GI normal to inspection, nondistended, normoactive bowel sounds and soft to palpation Assessment & Plan Assessment/Plan (1) Pneumonia: QUALIFIERS: Laterality: right Lung location: lower lobe of lung Pneumonia type: due to Pneumococcus Qualified Code(s): J13 - Pneumonia due to Streptococcus pneumoniae PLAN: Received ceftriaxone and azithromycin in ED. Pulmonary toilet Check sputum culture. Check urinary antigens for Streptococcus and Legionella (2) Bronchiectasis: QUALIFIERS: Bronchiectasis type: uncomplicated Qualified Code(s):J47.9 - Bronchiectasis, uncomplicated PLAN: May be chronic. Patient established with pulmonology. Recommend follow-up as outpatient. (3) Hypoxia: PLAN: Patient has reported history of acute on chronic respiratory failure. Patient has been told to utilize oxygen with exertion dating back to pulmonary visit back in December 2021. Likely pneumonia just exacerbated his chronic respiratory failure. Prior to discharge, will check an ambulatory pulse ox. Likely complicated by underlying sleep apnea, obesity Patient is diminished we will start him on prednisone. CTA of the chest showed right lower lobe infiltrate. No evidence of pulmonary embolism given the patient's recent travels. PLAN: Plan Chronic condition * [place]: May use home CPAP. * Hypertension: Continue with atenolol and lisinopril, triamterene/hydrochlorothiazide * Diabetes mellitus type 2: Hold metformin in light of the contrast he received. VTE prophylaxis with low medical weight heparin Disposition: Patient was not in any respiratory distress when he arrived though he was symptomatic. Top of patient's chronic hypoxic respiratory failure patient appears to be more or less at his baseline. Patient is under observation status and if remains fairly stable, would anticipate the patient bepotentially ready for discharge on the second. Home oxygen eval. Charges/Coding Visit Charges Inpatient E&M: 45043 Subs Hosp L2 03/09/23 1200 <Electronically signed by Jose Angel Gold DO> Cosigner Signature (if applicable): CC: ~ Signed [facility] Work Phone: 1(318) 292-195009-01-2023 History and physical note Author Jose Angel [facility] March 08, 2023 3:44pm Note Date/Time March 08, 2023 3:01pm [facility] Medical Records Department [address] [place] [id number] H&P Exam - Hospitalist 03/08/23 1458 MR#: [id number] Acct: [id number] Name: CELESTINE ECHAVARRIA Rep #:[id number] : 1950 72 From: Jose Angel Gold DO PCP: Dr. Massimo Epperson MD Status:ADM I NO Location: [facility] [place] FY752-3 HPI - General General Date of Admission: 03/08/23 Date of Service: 03/08/23 Chief Complaint: shortness of breath. HPI Narrative CELESTINE ECHAVARRIA, is a 72 M who presents with shortness of breath. Symptoms began today. Associated with coughing. Patient just got back from a 12-day cruise around the [place]. Flew out to [place], took a cruise and then took a flight back from [place]. Patient got back this past Saturday. Was doing well up until today. Patient was not looking well and short of breath. Presented [facility] emergency room had chest x-ray is concerning for pneumonia and received ceftriaxone and azithromycin. [facility] Medical History (Updated 03/08/23 @ 15:[address] Jose Angel Gold DO) Acute and chronic respiratory failure with hypoxia Allergic rhinitis Arthritis Atherosclerotic heart disease of [place] coronary artery without angina pectoris BiPAP (biphasic positive airway pressure) dependence BMI 39.0-39.9,adult Cholelithiasis with chronic cholecystitis COVID-19 (11/30/21) Diabetes Encounter for screening colonoscopy Essential (primary) hypertension Fatty liver History of edema Hoarseness Hx of transfusion of whole blood Hyperlipidemia Hypoxia Leg edema Nicotine abuse Obstructive sleep apnea On home oxygen therapy Preop cardiovascular exam Smoking greater than 40 pack years Tobacco dependence in remission Home Medications atenolol 50 mg tablet 25 mg PO DAILY heart 01/18/16 [History Last Taken 01/24/22] atorvastatin 40 mg tablet 10 mg PO DAILY cholesterol 09/25/21 [History Last Taken 11/30/21] metformin 500 mg tablet 1,000 mg PO BID dm 11/29/21 [History Last Taken 11/30/21] levocetirizine 5 mg tablet (Xyzal) 5 mg PO DAILY 12/28/21 [History Last Taken Unknown] triamterene 75 mg-hydrochlorothiazide 50 mg tablet (Maxzide) 0.5 tab PO DAILY 12/28/21 [History Last Taken Unknown] lisinopril 2.5 mg tablet 2.5 mg PO DAILY 05/25/22 [History Last Taken Unknown] acetaminophen 650 mg tablet,extended release (Tylenol Arthritis Pain) 650 mg PO Q8H 10/04/22 [History Last Taken Unknown] Allergy/AdvReac Type Severity Reaction Status Date / Time adhesive tape AdvReac Mild red/itchy Verified 03/08/23 08:04 Family History Unknown No problems noted. Surgical History H/O resection of rib History of appendectomy History of arthroplasty of right knee History of cataract extraction History of left heart catheterization (01/23/16) History of partial splenectomy History of splenectomy History of tonsillectomy History of tracheostomy Hx of colonoscopy S/P cholecystectomy S/P emergency tracheotomy for assistance in breathing Social History Smoking Status: Former smoker quit date: 07/08/16 pack-years: 50 second hand exposure: No alcohol intake: never substance use type: does not use caffeine: Yes Type: coffee Number of servings: 8 what type of physical activity do you participate in: none ROS ROS Narrative Chronic rhinitis. No sore throat. All review of systems were negative except as mentioned above in the history of present illness and the other review of systems. Vital Signs Vital Signs Vital Signs: 03/08/23 07:59 03/08/23 08:04 03/08/23 08:08 Temperature 37.0 C 37.0 C Temperature Source Axillary Axillary Pulse Rate 96 94 Respiratory Rate 20 H 20 H Respiratory Effort Labored Respiratory Depth Normal Respiratory Pattern Normal Blood Pressure 141/117 H 141/117 H Blood Pressure Mean 125 125 Pulse Ox 92 94 Oxygen Delivery Method Room Air Room Air Room Air Oxygen Flow Rate (L/min) 03/08/23 08:34 03/08/23 11:00 03/08/23 12:16 Temperature 36.6 C 36.2 C L Temperature Source Oral Temporal Pulse Rate 90 87 90 Respiratory Rate 18 18 18 Respiratory Effort Respiratory Depth Respiratory Pattern Blood Pressure 178/107 H 152/71 H Blood Pressure Mean 130 98 Pulse Ox 94 Oxygen Delivery Method Room Air Nasal Cannula Oxygen Flow Rate (L/min) 2 03/08/23 12:18 03/08/23 13:37 Temperature Temperature Source Pulse Rate 92 77 Respiratory Rate 16 Respiratory Effort Respiratory Depth Respiratory Pattern Blood Pressure 164/97 H Blood Pressure Mean 119 Pulse Ox 94 Oxygen Delivery Method Nasal Cannula Oxygen Flow Rate (L/min) 2 Weight Weight: 179 kg Body Mass Index (BMI) 55.0 Physical Exam Const alert and no apparent distress HEENT normocephalic and head/scalp atraumatic Neck no lymphadenopathy Resp Resp Narrative: RLL crackles. Diminished BS bilaterally. Cardio regular rate, regular rhythm, S1 normal heart sound and S2 normal heart sound GI normal to inspection, nondistended, normoactive bowel sounds and soft to palpation Neuro oriented x3 and moves all extremities Sensorium / Orientation: awake and alert Psych affect normal Results Lab / Micro Data Attestation: I reviewed the patient's lab results. Lab results narrative: Elevated greater than 1. CTA of the chest reviewed and showed right lower lobe infiltrate. Also bronchiectasis. 03/08/23 08:41 03/08/23 08:41 Labs: Laboratory Results - last 24 hr 03/08/23 08:41: WBC 15.3 H, RBC 4.47 L, Hgb 14.0, Hct 43.7, MCV 97.8 H, MCH 31.3, MCHC 32.0, RDW Std Deviation 47.2 H, RDW Coeff of Tate 13.2, Plt Count 401,MPV 9.1, Immature Gran % (Auto) 0.500, Neut % (Auto) 74.0 H, Lymph % (Auto) 18.5L, Mcpherson % (Auto) 6.1, Eos % (Auto) 0.5, Baso % (Auto) 0.4, Absolute Neuts (auto)11.4 H, Absolute Lymphs (auto) 2.84, Nucleated RBC % 0, D-Dimer Quant (PE/DVT) 1.13 H*, Sodium 137, Potassium 4.2, Chloride 100, Carbon Dioxide 31.0, Anion Gap6, BUN 25 H, Creatinine 0.73, Estim Creat Clear Calc 72.16, Est GFR (MDRD) Af Amer 136, Est GFR (MDRD) Non-Af 113, BUN/Creatinine Ratio 34.3 H, Glucose 168 H,Lactic Acid 1.7, Calcium 8.9, Total Bilirubin 0.60, Direct Bilirubin 0.17, AST 25, ALT 37, Alkaline Phosphatase 91, Troponin I High Sens 15, Total Protein 7.3,Albumin 3.4, Globulin 3.9 Micro: Microbiology 03/08/23 08:41 Nasal Secretion SARS-CoV-2 & FLU Antigen (Rapid) - Final Radiology Impression Chest X-Ray 03/08/23 08:55 IMPRESSION: Focal right lower lobe infiltrate with small left pleural effusion and underlying atelectasis and/or left basilar infiltrate as well. Follow-up recommended. Electronically Signed: Crispin Morgan MD at 9:37 EDT , Assessment & Plan Assessment/Plan (1) Pneumonia: QUALIFIERS: Pneumonia type: due to Pneumococcus Laterality: right Lung location: lower lobe of lung Qualified Code(s): J13 - Pneumonia due to Streptococcus pneumoniae PLAN: Continue with ceftriaxone azithromycin Pulmonary toilet Check sputum culture. Check urinary antigens for Streptococcus and Legionella (2) Bronchiectasis: QUALIFIERS: Bronchiectasis type: uncomplicated Qualified Code(s):J47.9 - Bronchiectasis, uncomplicated PLAN: May be chronic. Patient established with pulmonology. Recommend follow-up as outpatient. (3) Hypoxia: PLAN: Patient has reported history of acute on chronic respiratory failure. Patient has been told to utilize oxygen with exertion dating back to pulmonary visit back in December 2021. Likely pneumonia just exacerbated his chronic respiratory failure. Prior to discharge, will check an ambulatory pulse ox. Likely complicated by underlying sleep apnea, obesity Patient is diminished we will start him on prednisone. CTA of the chest showed right lower lobe infiltrate. No evidence of pulmonary embolism given the patient's recent travels. PLAN: Plan Chronic condition * [place]: May use home CPAP. * Hypertension: Continue with atenolol and lisinopril, triamterene/hydrochlorothiazide * Diabetes mellitus type 2: Hold metformin in light of the contrast he received. VTE prophylaxis with low medical weight heparin Disposition: Patient was not in any respiratory distress when he arrived though he was symptomatic. Top of patient's chronic hypoxic respiratory failure patient appears to be more or less at his baseline. Patient is under observation status and if remains fairly stable, would anticipate the patient be potentially ready for discharge on the second. Charges/Coding Visit Charges Inpatient E&M: 33367 Init Hosp L3 03/08/23 1544 <Electronically signed by Jose Angel Gold DO> Cosigner Signature (if applicable): CC: Dr. Jose Angel Gold DO; Dr. Massimo Epperson MD~ Signed [facility] Work Phone: 1(160) 768-564409-01-2023 Discharge summary Author Jabier Babin [facility] March 08, 2023 3:34pm Note Date/Time March 08, 2023 8:43am [facility] Medical Records Department [address] [place] [address] Emergency Department Summary 03/08/23 MR#: [id number] Acct: [id number] Name: CELESTINE ECHAVARRIA Rep #:[id number] : 1950 72 From: Jabier Ruelas PCP: Dr. Massimo Epperson MD Status:ADM I NO Location: [facility] [id number] HPI History of Present Illness Chief Complaint: Shortness of Breath Informant: patient and spouse/S.O. Narrative Narrative: 72-year-old male with a history of coronary artery disease hypertension hyperlipidemia and [place] on CPAP. Patient states that he was in [place] on a cruise. He returned home on Saturday. Saturday evening began did not feel well. Last night noted shortness of breath and cough. Today he became noticeably dyspneic coming down the stairs. EMS was called he was found to be acutely hypoxic in the 80s. He received 3 DuoNebs and Solu-Medrol in route to the hospital. He is a former smoker but does not carry a diagnosis of COPD/emphysema. He does not wear supplemental oxygen at home. He denies fever. No myalgias. He denies vomiting or diarrhea. [facility] Medical History Acute and chronic respiratory failure with hypoxia Allergic rhinitis Arthritis Atherosclerotic heart disease of [place] coronary artery without angina pectoris BiPAP (biphasic positive airway pressure) dependence BMI 39.0-39.9,adult Cholelithiasis with chronic cholecystitis COVID-19 (11/30/21) Diabetes Encounter for screening colonoscopy Essential (primary) hypertension Fatty liver History of edema Hoarseness Hx of transfusion of whole blood Hyperlipidemia Hypoxia Leg edema Nicotine abuse Obstructive sleep apnea On home oxygen therapy Preop cardiovascular exam Smoking greater than 40 pack years Tobacco dependence in remission Home Medications atenolol 50 mg tablet 25 mg PO DAILY heart 01/18/16 [History Last Taken 01/24/22] atorvastatin 40 mg tablet 10 mg PO DAILY cholesterol 09/25/21 [History Last Taken 11/30/21] metformin 500 mg tablet 500 mg PO BID dm 11/29/21 [History Last Taken 11/30/21] levocetirizine 5 mg tablet (Xyzal) 5 mg PO DAILY 12/28/21 [History Last Taken Unknown] triamterene 75 mg-hydrochlorothiazide 50 mg tablet (Maxzide) 0.5 tab PO DAILY 12/28/21 [History Last Taken Unknown] lisinopril 2.5 mg tablet 2.5 mg PO DAILY 05/25/22 [History Last Taken Unknown] acetaminophen 650 mg tablet,extended release (Tylenol Arthritis Pain) 650 mg PO Q8H 10/04/22 [History Last Taken Unknown] Allergy/AdvReac Type Severity Reaction Status Date / Time adhesive tape AdvReac Mild red/itchy Verified 03/08/23 08:04 Family History Unknown No problems noted. Surgical History H/O resection of rib History of appendectomy History of arthroplasty of right knee History of cataract extraction History of left heart catheterization (01/23/16) History of partial splenectomy History of splenectomy History of tonsillectomy History of tracheostomy Hx of colonoscopy S/P cholecystectomy S/P emergency tracheotomy for assistance in breathing Social History Smoking Status: Former smoker quit date: 07/08/16 pack-years: 50 second hand exposure: No alcohol intake: never substance use type: does not use caffeine: Yes Type: coffee Number of servings: 8 what type of physical activity do you participate in: none ROS ROS ED Constitutional Constitutional ED: Denies chills, fever(s) or weight loss Eyes Eyes: Denies change in vision or diplopia ENT ENT ED: Denies ear pain, rhinorrhea or sore throat Cardiovascular Cardiovascular: Denies chest pain, orthopnea, palpitations or racing heartbeat Respiratory/Chest Respiratory/Chest: Reports cough, dyspnea and dyspnea on exertion; Denies orthopnea Gastrointestinal Gastrointestinal: Denies abdominal pain, diarrhea, nausea or vomiting Genitourinary Genitourinary ED: Denies dysuria, hematuria or urinary frequency Musculoskeletal Musculoskeletal: Denies arthralgias or myalgias Integumentary Denies abscess or rash Neurologic Neurologic: Denies headache(s) or weakness Psychiatric Psychiatric: Denies anxiety, depression, suicidal ideation or suicidal thoughts Endocrine Endocrinology: Denies polydipsia, polyphagia or polyuria Allergic/Immunologic Allergic/Immunologic ED: Denies mouth swelling, tongue swelling or urticaria EXAM Physical Exam Const Vital Signs: 03/08/23 07:59 03/08/23 08:04 03/08/23 08:08 Temperature 98.6 F 98.6 F Temperature Source Axillary Axillary Pulse Rate 96 94 Respiratory Rate 20 H 20 H Respiratory Effort Labored Respiratory Depth Normal Respiratory Pattern Normal Blood Pressure 141/117 H 141/117 H Blood Pressure Mean 125 125 Pulse Ox 92 94 Oxygen Delivery Method Room Air Room Air Room Air 03/08/23 08:34 03/08/23 11:00 Temperature 98 F Temperature Source Oral Pulse Rate 90 87 Respiratory Rate 18 18 Respiratory Effort Respiratory Depth Respiratory Pattern Blood Pressure 178/107 H Blood Pressure Mean 130 Pulse Ox Oxygen Delivery Method Room Air Positive well nourished, well developed and obese General Appearance ED: well developed Nutritional Appearance: obese HEENT Reports normocephalic, head/scalp atraumatic and moist mucous membranes Eyes PERRL and EOMs intact bilaterally Neck no lymphadenopathy, supple and no JVD Resp Resp Narrative: Patient is tachypneic. He has rhonchi bilaterally R>L. I do not appreciate expiratory or inspiratory wheezes. Cardio regular rate, regular rhythm and no murmurs GI normal to inspection, nondistended, normoactive bowel sounds and non-tender Palpation: soft Back/Spine no CVA tenderness and normal ROM Extremity normal to inspection General Extremety ED: Yes edema General Extremity: edema bilateral lower extremity Neuro oriented x3 and CN's II-XII intact bilaterally Sensorium / Orientation: alert Motor Exam: strength 5/5 throughout Psych mental status grossly normal Mood & Affect: Negative for depressed or tearful Skin no rashes or lesions noted and no wounds MDM MDM MDM Narrative Medical decision making narrative: I interpretation of the chest x-ray is right lower lobe infiltrate. Radiology concurs. White count 15.3. Lactic normal at 1.7 COVID and influenza were negative. Blood cultures were obtained. Patient had previously received 3 DuoNebs by EMS as well as Solu-Medrol. I also administered 1 DuoNeb as well as Rocephin and azithromycin. At rest he continues to be 89 to 90% with a good waveform. He still is slightly tachypneic at rest. Patient was ambulated and decreases to 87%. He does not have home oxygen or home nebulizer. I think it would be prudent given his oxygen status to admit to the hospital History & Record Review Discussion w/independent historian: EMS personnel and Significant other Lab Data Attestation: I reviewed the patient's lab results. Labs: Laboratory Results - last 24 hr 03/08/23 08:41 WBC 15.3 H RBC 4.47 L Hgb 14.0 Hct 43.7 MCV 97.8 H MCH 31.3 MCHC 32.0 RDW Std Deviation 47.2 H RDW Coeff of Tate 13.2 Plt Count 401 MPV 9.1 Immature Gran % (Auto) 0.500 Neut % (Auto) 74.0 H Lymph % (Auto) 18.5 L Mcpherson % (Auto) 6.1 Eos % (Auto) 0.5 Baso % (Auto) 0.4 Absolute Neuts (auto) 11.4 H Absolute Lymphs (auto) 2.84 Nucleated RBC % 0 Sodium 137 Potassium 4.2 Chloride 100 Carbon Dioxide 31.0 Anion Gap 6 BUN 25 H Creatinine 0.73 Estim Creat Clear Calc 72.16 Est GFR (MDRD) Af Amer 136 Est GFR (MDRD) Non-Af 113 BUN/Creatinine Ratio 34.3 H Glucose 168 H Lactic Acid 1.7 Calcium 8.9 Total Bilirubin 0.60 Direct Bilirubin 0.17 AST 25 ALT 37 Alkaline Phosphatase 91 Troponin I High Sens 15 Total Protein 7.3 Albumin 3.4 Globulin 3.9 Radiography Diagnostic Testing: Clinical Impression(s) from Imaging Studies Chest X-Ray 03/08/23 08:55 IMPRESSION: Focal right lower lobe infiltrate with small left pleural effusion and underlying atelectasis and/or left basilar infiltrate as well. Follow-up recommended. Electronically Signed: Crispin Morgan MD at 9:37 EDT , EKG Initial EKG: Attestation: I personally reviewed and interpreted this EKG as follows: Comments: Sinus rhythm with a ventricular rate of 94 bpm. No acute injurypattern noted. Differential Diagnosis Chest pain/SOB: pulmonary embolism, ACS, pneumothorax, pneumonia, aortic dissection, CHF and COPD Management Discussion w/another healthcare provider: Hospitalist Discharge Plan Dx/Rx/DC Orders Clinical Impression: Acute respiratory failure with hypoxia, Pneumonia Disposition Disposition: Acute Care Hospital [facility] What to do if you have Problems For any increased pain, shortness of breath, bleeding, nausea or vomiting, chestpain, or any unexpected problems, contact your Primary Care Provider. Call [facility] ([phone]) or report to the closest Emergency Room. Call 911 if necessary. 03/08/23 1534 <Electronically signed by Jabier Babin DO> Cosigner Signature (if applicable): CC: Dr. Massimo Epperson MD ~ Signed [facility] Work Phone: 1(851) 347-810605-26-2022 Evaluation note* Diagnosis Onset Date Resolution Status Chest pain resolved Wheezing resolved COVID-November 30, 2021 acute Hypoxemia acute Acute and chronic respiratory failure with hypoxia chronic Acute and chronic respiratory failure with hypoxia chronic Obesity chronic Atherosclerotic heart diseas e of [place] coronary artery without angina pectoris acute Encounter for screening colonoscopy acute [facility] Work Phone: 1(910) 688-395005-24-2022 Miscellaneous Notes* Telephone Encounter - Ashleigh Caceres - 11/28/2021 10:44 AM EDT Insurance Verification Insurance Company: Medicare Best Benefit-Level From Date: 10/06/2016 Plan Date: 10/06/2021 Eligibility Date: 11/28/2021 Eligibility To Date: 11/28/2021 Status Date: 11/28/2021 PATHWAY: GEM Caceres November 28, 2021 10:44 AM documented in this encounterUniversity [facility]als [facility]05-16-2022 Miscellaneous Notes* Telephone Encounter - Ashleigh Caceres - 11/20/2021 10:55 AM EDT left message on his behalf about schedule new patient consult for gastric sleeve. He was seeing someone in [place] but its just too far. I returned the call no answer. Message left to let them know we would need records and for him to complete seminar. Ashleigh Caceres [employer] [facility] P: [phone] Ext [id number] documented in this encounterUniversity Hospitals [facility]05-13-2022 Evaluation note* Encounter Date Diagnosis Assessment Notes Treatment Notes Treatment Clinical Notes November, Morbid (severe) obesity due to excess calories (ICD-10 - E66.01) We spent 45 minutes reviewing the three surgical options available in the treatment of morbid obesity in our practice. We reviewed the laparoscopic approach to the Frank-en-Y gastric bypass, the vertical sleeve gastrectomy, and the adjustable gastric band. We reviewed the surgical technique, the risks, and my complication rates. We also reviewed the expected weight loss, the rules necessary for deuce-term success, the nutritional supplementation recommended for each operation, and the importance of incorporating excercise into the lifestyle to maintain the weight. We reviewed both the national history with each operation, my experience with each operation, the lack of long-term weight loss data with the vertical sleeve gastrectomy and the potential for exacerbating reflux with the vertical sleeve gastrectomy. In addition, we discussed the risk of adhesions, internal hernias, iron and calcium deficiency, dumping syndrome and potential for gastrojejunal ulcer with the RYGB. Celestine and his are more comfortable with vertical sleeve gastrectomy. November, Type 2 diabetes mellitus without complications (ICD-10 - E11.9) Defer management to Dr. Epperson. November, Essential (primary) hypertension (ICD-10 - I10) Defer management to Dr. Epperson. November, Hyperlipidemia, unspecified (ICD-10 - E78.5) Defer management to Dr. Epperson. November, Primary generalized (osteo)arthritis (ICD-10 - M15.0) We discussed which supplements to avoid prior to surgery to reduce risk of bleeding. November, Obstructive sleep apnea (ICD-10 - G47.33) Will need to treat perioperatively for safety. November, Symptomatic cholelithiasis (ICD-10 - K80.20) Celestine is getting HIDA next week. I explained that if he needs cholecystectomy prior to surgery, it may be reasonable for me to perform to understand whay type of adhesions will be encountered at time of VSG and to reduce risk of conversion to open cholecystectomy as that would complicate laparoscopic VSG as it may eliminate the right upper quadrant as safe area to initiate operation. November, Coronary artery disease involving [place] coronary artery of [place] heart without angina pectoris (ICD-10 - I25.10) Will need cardiac clearance based on history. 13 Nov, 2021 Venous stasis dermatitis of both lower extremities (ICD-10 - I87.2) Will discharge on lovenox to reduce risk VTE. [facility]. Other 05-11-2022 Miscellaneous Notes* Telephone Encounter - Jeniffer Sun LPN - 11/15/2021 11:43 AM EDT Requested outside medical records from Dr. Milton has been received and scanned into [employer] under GI Outside Medical Records. documented in this encounterUniversity Hospitals [facility]04-01-2022 Miscellaneous Notes* Telephone Encounter - Luz Maria Morelos - 10/06/2021 10:04 AM EDT Patient cancelled his colonoscopy for November. Stated he got a second opinion and declined to reschedule. Luz Maria Morelos PSS * Telephone Encounter - Jeniffer Sun LPN - 10/06/2021 8:41 AM EDT Medical clearance has been received from Dr. Elliott's office. See scanned documents. * Telephone Encounter - Jeniffer Sun LPN - 09/18/2021 2:31 PM EDT Medical clearance received from Dr. Schmitt pulmonary clearing patient for colonoscopy. See scanned documents. Still waiting on clearance from cardiology Dr. Elliott. documented in this encounterUniversity Hospitals [facility]03-01-2022 NoteHNO ID: [id number] Author: Ginny Bush APRN.[place] Service: ? Author Type: Nurse Practitioner Type: [...] for internal providers or letter via the [employer] for external providers. Celestine Echavarria [...] feels like he is pushing on a Fence. Patient denies unintentional weight loss. 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 (more content not included)...[facility] Diagnosis Onset Date Resolution Status URI (upper respiratory infection) resolved Obstructive sleep apnea identity access management architect elizabeth Chest pain acute Preop cardiovascular exam [place] Essential (primary) hypertension chronic Hyperlipidemia chronic [facility] Work Phone: Evaluation note* Diagnosis Onset Date Resolution Status Obstructive sleep apnea identity access management architect elizabeth Chest pain acute Preop cardiovascular exam [place] Essential (primary) hypertension chronic Hyperlipidemia chronic [facility] Work Phone: Evaluation note* Diagnosis Onset Date Resolution Status Obstructive sleep apnea identity access management architect elizabeth Chest pain acute Preop cardiovascular exam [place] Essential (primary) hypertension chronic Hyperlipidemia chronic Leg edema acute Wheezing acute BMI 39.0-39.9,adult chronic Cholelithiasis with chronic cholecystitis chronic Obstructive sleep apnea identity access management architect elizabeth COVID-19 acute Hypoxemia acute Acute and chronic respiratory failure with hypoxia [facility] Work Phone: Evaluation noteNo [facility] Other Evaluation note* Diagnosis Onset Date Resolution Status Cholelithiasis with chronic cholecystitis chronic Obstructive sleep apnea identity access management architect elizabeth Atherosclerotic heart diseas e of [place] coronary artery without angina pectoris acute Irregular heart beat acute [facility] Work Phone: Evaluation note* Diagnosis Onset Date Resolution Status Atherosclerotic heart diseas e of [place] coronary artery without angina pectoris acute Irregular heart beat acute [facility] Work Phone: Evaluation note* Diagnosis Onset Date Resolution Status Atherosclerotic heart diseas e of [place] coronary artery without angina pectoris acute Essential (primary) hypertension chronic Hyperlipidemia chronic [facility] Work Phone: Evaluation note* Diagnosis Onset Date Resolution Status Acute respiratory failure with hypoxia acute Pneumonia acute [facility] Work Phone: Evaluation note* Diagnosis Onset Date Resolution Status Acute respiratory failure with hypoxia acute Bronchiectasis acute Hypoxia acute Pneumonia acute [facility] Work Phone: Evaluation note* Diagnosis Onset Date Resolution Status Acute respiratory failure with hypoxia chronic Obstructive sleep apnea identity access management architect elizabeth Pneumonia acute Acute respiratory failure with hypoxia chronic Irregular heart beat chronic Obstructive sleep apnea identity access management architect elizabeth Atherosclerotic heart diseas e of [place] coronary artery without angina pectoris chronic Essential (primary) hypertension chronic Hyperlipidemia chronic Irregular heart beat chronic Lightheadedness chronic Hypoxia acute Obstructive sleep apnea identity access management architect elizabeth [facility] Work Phone: History general Narrative - Reported* Type Description Date Medical History HTN Medical History DM Medical History HIGH CHOLESTEROL Medical History SLEEP APNEA Surgical History SPLEENECTOMY 1968 Surgical History 3 RIBS REMOVED 1968 Surgical History TRACHEOTOMY 1968 Surgical History RT & LEFT KNEE REPLACEMENT 2016 Surgical History CATARACT SURGERY 2018 [facility]. Other Reason for referral (narrative)No reason for referral information availableWBarberton [facility] Work Phone: Summary Purpose Family History No Family History Records FoundNo Family History Records FoundNo Family History Records FoundNo Family History Records Found Advance Directives No Advanced Directives Records Found Advance Directive Response Recorded Date/ Time Living Will Yes July 09 11:40am Power of Conditioner Tumbler Operator Yes July 09 11:40am Advance Directive Response Recorded Date/ Time Living Will Yes November 30, 2021 8 :27am Power of Conditioner Tumbler Operator Yes November 30, 2021 8:27am Advance Directive Response Recorded Date/ Time Name of Medical Power of Conditioner Tumbler Operator December 28, 2021 3:19pm Name of Medical Power of Conditioner Tumbler Operator [place] November 30, 2021 8:27am Living Will Yes November 30, 2021 8 :27am Power of Conditioner Tumbler Operator Yes November 30, 2021 8:27am Advance Directive Response Recorded Date/ Time Living Will Yes November 30, 2021 7 :27am Power of Conditioner Tumbler Operator Yes November 30, 2021 7:27am Advance Directive Response Recorded Date/ Time Name of Medical Power of Conditioner Tumbler Operator March 08, 2023 8:05am Living Will Yes March 08 8:05am Power of Conditioner Tumbler Operator Yes March 08, 2023 8:05am Advance Directive Response Recorded Date/ Time Name of Medical Power of Conditioner Tumbler Operator [place] Echavarria - March 08, 2023 2:54pm Living Will Yes Debbie 1st, 2 023 2:54pm Power of Conditioner Tumbler Operator Yes March 08, 2023 2:54pm Advance Directive Response Recorded Date/ Time Living Will Yes March 08 023 1:54pm Power of Conditioner Tumbler Operator Yes March 08, 2023 1:54pm Advance Directive Response Recorded Date/ Time Advance Directives on File Yes September 28, 2024 7:38am Living Will Yes September 28, 2024 7:38am Do you have a Healthcare Pow er of Conditioner Tumbler Operator? Yes September 28, 2024 7:38am Name of Medical Power of Conditioner Tumbler Operator [place] Echavarria - September 28, 2024 7:38am Advance Directives Yes September 28, 025 7:38am Living Will Yes July 14 2:08pm Do you have a Healthcare Pow er of Conditioner Tumbler Operator? Yes July 14, 2024 2:08pm Name of Medical Power of Conditioner Tumbler Operator July 14, 2024 2:08pm Advance Directive Response Recorded Date/ Time Living Will Yes March 08 2:54pm Do you have a Healthcare Pow er of Conditioner Tumbler Operator? Yes March 08, 2023 2:54pm Advance Directives on File Yes September 28, 2024 7:38am Living Will Yes September 28, 2024 7:38am Do you have a Healthcare Pow er of Conditioner Tumbler Operator? Yes September 28, 2024 7:38am Name of Medical Power of Conditioner Tumbler Operator [place] Echavarria - September 28, 2024 7:38am Advance Directives Yes September 28 025 7:38am Chief Complaint and Reason for Visit Chief Complaint CHILLS DIZZINESS, URI DIZZINESS, URI DIZZINESS, URI DIZZINESS, URI SOB Shortness of breath 6 M FU SX CLEARANCE FOR DR SARABIA chest pain chest pain Reason for Visit URI (upper respirato ry infection) Obstructive sleep apnea Chest pain Preop cardiovascular exam Essential (primary) hypertension Hyperlipidemia Chief Complaint CHILLS DIZZINESS, URI DIZZINESS, URI DIZZINESS, URI DIZZINESS, URI SOB Shortness of breath 6 M FU SX CLEARANCE FOR DR SARABIA chest pain chest pain R10.9 Reason for Visit URI (upper respirato ry infection) Obstructive sleep apnea Chest pain Preop cardiovascular exam Essential (primary) hypertension Hyperlipidemia Chief Complaint SOB Shortness of breath 6 M FU SX CLEARANCE FOR DR SARABIA chest pain chest pain R10.9 FATTY LIVER Reason for Visit Obstructive sleep ap segundo Chest pain Preop cardiovascular exam Essential (primary) hypertension Hyperlipidemia Chief Complaint SOB Shortness of breath 6 M FU SX CLEARANCE FOR DR SARABIA chest pain chest pain R10.9 FATTY LIVER K80.20 Calculus of gallbladder without cholecystit Reason for Visit Obstructive sleep ap segundo Chest pain Preop cardiovascular exam Essential (primary) hypertension Hyperlipidemia Chief Complaint SOB Shortness of breath 6 M FU SX CLEARANCE FOR DR SARABIA chest pain chest pain R10.9 FATTY LIVER K80.20 Calculus of gallbladder without cholecystit CHRONIC CHOLECYSTITIS HYPOXEMIA, COVID-19 HYPOXEMIA, COVID-19 HYPOXEMIA, COVID-19 Reason for Visit Obstructive sleep ap segundo Chest pain Preop cardiovascular exam Essential (primary) hypertension Hyperlipidemia Leg edema Wheezing BMI 39.0-39.9,adult Cholelithiasis with chronic cholecystitis Obstructive sleep apnea COVID-19 Hypoxemia Acute and chronic respiratory failure with hypoxia Chief Complaint SX CLEARANCE FOR DR SARABIA chest pain chest pain R10.9 FATTY LIVER K80.20 Calculus of gallbladder without cholecystit CHRONIC CHOLECYSTITIS HYPOXEMIA, COVID-19 HYPOXEMIA, COVID-19 HYPOXEMIA, COVID-19 PULMONARY CLEARANCE 3-6 mo f/u Reason for Visit Chest pain Wheezing COVID-19 Hypoxemia Acute and chronic respiratory failure with hypoxia Acute and chronic respiratory failure with hypoxia Obesity Atherosclerotic heart disease of [place] coronary artery without angina pectoris Encounter for screening colonoscopy Chief Complaint 10 day f/u Gall Blad florencio 01/24 RC 3 M FU 5 MO F/U Reason for Visit Cholelithiasis with chronic cholecystitis Obstructive sleep apnea Atherosclerotic heart disease of [place] coronary artery without angina pectoris Irregular heart beat Chief Complaint 5 MO F/U CHILLS WITHOUT FEVER Reason for Visit Atherosclerotic hear t disease of [place] coronary artery without angina pectoris Irregular heart beat Chief Complaint 5 MO F/U CHILLS WITHOUT FEVER pain r shoulder Reason for Visit Atherosclerotic hear t disease of [place] coronary artery without angina pectoris Irregular heart beat Chief Complaint CHILLS WITHOUT FEVER pain r shoulder 1 Y FU NEED ORDER Reason for Visit Atherosclerotic hear t disease of [place] coronary artery without angina pectoris Essential (primary) hypertension Hyperlipidemia Chief Complaint PNEUMONIA Reason for Visit Acute respiratory fa ilure with hypoxia Pneumonia Chief Complaint PNEUMONIA Pneumonia Pneumonia Reason for Visit Acute respiratory fa ilure with hypoxia Bronchiectasis Hypoxia Pneumonia Chief Complaint 1 Y FU 2 wk fu SEE CLINICAL NOTE / NEEDS EKG 3 M FU [place] PN/RX HERE Reason for Visit Acute respiratory fa ilure with hypoxia Obstructive sleep apnea Pneumonia Acute respiratory failure with hypoxia Irregular heart beat Obstructive sleep apnea Atherosclerotic heart disease of [place] coronary artery without angina pectoris Essential (primary) hypertension Hyperlipidemia Irregular heart beat Lightheadedness Hypoxia Obstructive sleep apnea Chief Complaint Admit Date chest pain July 14, 2024 12 :57pm [facility] 07/14 Peripheral Edema July 16, 2024 8:10am Other forms of dyspnea July 28 1:16pm Other forms of dyspnea July 29 8:02am Other forms of dyspnea August 04 9:57am PULM HTN, SOB September 08, 2024 4:10 pm PULM HTN, SOB September 28, 2024 7:1 6am Reason for Visit Admit Date MARCANO (dyspnea on exertion) July 16 8:10am Atherosclerotic heart diseas e of [place] coronary artery without angina pectoris July 16, 2024 8:10am Essential (primary) hypertension July 16, 2024 8:10am Hyperlipidemia July 16, 2024 8: 10am MARCANO (dyspnea on exertion) September 28 7:16am Pulmonary hypertension September 28, 2024 7:16am Atherosclerotic heart diseas e of [place] coronary artery without angina pectoris September 28, 2024 7:16am Essential (primary) hypertension September 062024 7:16am Hyperlipidemia September 28, 2024 7:1 6am Obstructive sleep apnea September 28, 2024 7:16am Chief Complaint Admit Date PULM HTN, SOB September 08, 2024 4:10 pm PULM HTN, SOB September 28, 2024 7:1 6am 6 M FU October 26, 2024 12: 43pm Reason for Visit Admit Date MARCANO (dyspnea on exertion) September 28 7:16am Pulmonary hypertension September 28, 2024 7:16am Atherosclerotic heart diseas e of [place] coronary artery without angina pectoris September 28, 2024 7:16am Essential (primary) hypertension September 062024 7:16am Hyperlipidemia September 28, 2024 7:1 6am Obstructive sleep apnea September 28, 2024 7:16am Obesity October 26, 2024 12: 43pm Obstructive sleep apnea [place] 21st, 2025 12:43pm Smoking greater than 40 pack years October 26, 2024 12:43pm Chief Complaint Admit Date PULM HTN, SOB September 28, 2024 7:1 6am 6 M FU October 26, 2024 12: 43pm 1 Y FU January 11, 2025 8:10a m Additional Source Comments (unrecognized sect ion and content) No Status Records FoundNo Status Records FoundNo Status Records FoundNo Status Records Found INFORMATION SOURCE (unrecogn ized section and content) DATE CREATED AUTHOR 01/01/2018 [facility] DATE CREATED AUTHOR AUTHOR'S ORGANIZ ATION 11/29/2021 [facility] DATE CREATED AUTHOR AUTHOR'S ORGANIZ ATION 01/25/2022 [facility] DATE CREATED AUTHOR AUTHOR'S ORGANIZ ATION 02/25/2025 [facility] Source Comments (unrecognize d section and content) In the event this informatio n is protected by the Federal Confidentiality of Alcohol and Drug Abuse Patient Records regulations: The Federal rules restrict any use of the information to criminally investigate or prosecute any alcohol or drug abuse patient.[facility] the event this information is protected by the Federal Confidentiality of Alcohol and Drug Abuse Patient Records regulations: The Federal rules restrict any use of the information to criminally investigate or prosecute any alcohol or drug abuse patient.[facility] Center[facility] the event this information is protected by the Federal Confidentiality of Alcohol and Drug Abuse Patient Records regulations: The Federal rules restrict any use of the information to criminally investigate or prosecute any alcohol or drug abuse patient.[facility] Center[facility] the event this information is protected by the Federal Confidentiality of Alcohol and Drug Abuse Patient Records regulations: The Federal rules restrict any use of the information to criminally investigate or prosecute any alcohol or drug abuse patient.[facility] Center[facility] the event this information is protected by the Federal Confidentiality of Alcohol and Drug Abuse Patient Records regulations: The Federal rules restrict any use of the information to criminally investigate or prosecute any alcohol or drug abuse patient.[facility] Reason for Visit (unrecogniz ed section and content) Reason Comments Appointment Cancelled Reason Comments New Patient Reason Comments Benefits Investigation Reason Comments Outpatient Colonoscopy Care Teams (unrecognized sec tion and content) Team Status: Active Member Role Status Dates Dr. Massimo Epperson MD Primary Care Provider Active Team Status: Active Member Role Status Dates Dr. Massimo Epperson MD Primary Care Provider Active Start: September 08, 2024 Dr. Marvin Elliott MD Other Provider Active Start : September 08, 2024 Le Meyer PA, PA Attending Provider Active Start: September 08, 2024 Team Status: Inactive Member Role Status Dates Dr. Massimo Epperson MD Primary Care Provider Active Start: September 28, 2024 End: September 28, 2024 Dr. Marvin Elliott MD Attending Provider Active S tart: September 28, 2024 End: September 28, 2024 Dr. Marvin Elliott MD Referring Provider Active S tart: September 28, 2024 End: September 28, 2024 Team Status: Inactive Member Role Status Dates Dr. Massimo Epperson MD Primary Care Provider Active Start: October 26, 2024 End: October 26, 2024 Dr. Massimo Epperson MD Referring Provider Active Start: October 26, 2024 End: October 26, 2024 Marissa Schroeder MANAGER UTILIZATION MANAGEMENT, MANAGER UTILIZATION MANAGEMENT-C Attending Provider Active Start: October 26, 2024 End: October 26, 2024 Team Status: Inactive Member Role Status Dates Dr. Massimo Epperson MD Primary Care Provider Active Start: December 10, 2024 End: December 10, 2024 Dr. Massimo Epperson MD Attending Provider Active Start: December 10, 2024 End: December 10, 2024 Dr. Massimo Epperson MD Referring Provider Active Start: December 10, 2024 End: December 10, 2024 Employer Relations Representative Relationship Specialty Start Date End Date Milton Milton MD [address] [place] [id number] PCP - General Family Practice 11/11/15 Employer Relations Representative Relationship Specialty Start Date End Date Milton Milton MD [address] [place] [id number] PCP - General Family Practice 11/11/15 Employer Relations Representative Relationship Specialty Start Date End Date Milton Milton MD [address] [place] [id number] PCP - General Family Practice 11/11/15 Team Status: Active Member Role Status Dates Dr. Massimo Epperson MD Family Provider Active Dr. Massimo Epperson MD Primary Care Provider Active Team Status: Inactive Member Role Status Dates Dr. Massimo Epperson MD Primary Care Provider, Referring Provider Active Jordon Valdez MANAGER UTILIZATION MANAGEMENT, MANAGER UTILIZATION MANAGEMENT-C Attending Provider Active Team Status: Inactive Member Role Status Dates Dr. Massimo Epperson MD Primary Care Provi florencio, Attending Provider, Referring Provider Active Team Status: Inactive Member Role Status Dates Dr. Massimo Epperson MD Primary Care Provider, Attending Provider Active Team Status: Inactive Member Role Status Dates Dr. Massimo Epperson MD Primary Care Provider, Referring Provider Active Dr. Marvin Elliott MD Attending Provider Active Team Status: Inactive Member Role Status Dates Dr. Massimo Epperson MD Primary Care Provider Active Dr. Marvin Elliott MD Attending Provider, Referring Pro vider Active Team Status: Active Member Role Status Dates Dr. Massimo Epperson MD Primary Care Provider Active Dr. Jabier Babin DO Emergency Provider Active Dr. Jose Angel Gold DO Admit Provider, Attending Provid er Active Team Status: Active Member Role Status Dates Dr. Massimo Epperson MD Primary Care Provider Active Dr. Jabier Babin DO Emergency Provider Active Dr. Jose Angel Gold DO Admit Provider, At tending Provider, Other Provider Active Team Status: Inactive Member Role Status Dates Dr. Massimo Epperson MD Primary Care Provider Active Dr. Jabier Babin DO Emergency Provider Active Dr. Jose Angel Gold DO Admit Provider, Attending Provid er Active Team Status: Inactive Member Role Status Dates Dr. Massimo Epperson MD Primary Care Provider, Referring Provider Active Marissa Schroeder MANAGER UTILIZATION MANAGEMENT, MANAGER UTILIZATION MANAGEMENT-C Attending Provider Active Team Status: Inactive Member Role Status Dates Dr. Massimo Epperson MD Primary Care Provider, Referring Provider Active Dr. Juan Manuel Schmitt DO Attending Provider Active Team Status: Active Member Role Status Dates Dr. Massimo Epperson MD Primary Care Provider Active Dr. Juan Manuel Schmitt DO Referring Provider, Other Provide r Active Dr. Lavell Andre MD Attending Provider Active Team Status: Inactive Member Role Status Dates Dr. Massimo Epperson MD Primary Care Provider Active Dr. Maddie Camacho MD Attending Provider, Referring Pr ovider Active Team Status: Active Member Role Status Dates Dr. Massimo Epperson MD Primary Care Provider Active Dr. Maddie Camacho MD Attending Provider, Referring Pr ovider Active Team Status: Inactive Member Role Status Dates Dr. Massimo Epperson MD Primary Care Provider Active Dr. Juan Manuel Schmitt DO Attending Provider, Referring Pro vider Active Team Status: Inactive Member Role Status Dates Dr. Massimo Epperson MD Primary Care Provider Active Start: June 12, 2024 End: June 12, 2024 Dr. Massimo Epperson MD Attending Provider Active Start: June 12, 2024 End: June 12, 2024 Dr. Massimo Epperson MD Referring Provider Active Start: June 12, 2024 End: June 12, 2024 Team Status: Inactive Member Role Status Dates Dr. Massimo Epperson MD Primary Care Provider Active Start: July 14, 2024 End: July 14, 2024 Dr. Conner Lazaro DO Attending Provider Activ e Start: July 14, 2024 End: July 14, 2024 Dr. Conner Lazaro DO Emergency Provider Activ e Start: July 14, 2024 End: July 14, 2024 Team Status: Inactive Member Role Status Dates Dr. Massimo Epperson MD Primary Care Provider Active Start: July 16, 2024 End: July 16, 2024 Dr. Massimo Epperson MD Referring Provider Active Start: July 16, 2024 End: July 16, 2024 Le Meyer PA, PA Attending Provider Active Start: July 16, 2024 End: July 16, 2024 Team Status: Inactive Member Role Status Dates Dr. Massimo Epperson MD Primary Care Provider Active Start: July 28, 2024 End: July 28, 2024 Le Meyer PA, PA Attending Provider Active Start: July 28, 2024 End: July 28, 2024 Le Meyer PA, PA Referring Provider Active Start: July 28, 2024 End: July 28, 2024 Team Status: Inactive Member Role Status Dates Dr. Massimo Epperson MD Primary Care Provider Active Start: July 29, 2024 End: July 29, 2024 Le Meyer PA, PA Attending Provider Active Start: July 29, 2024 End: July 29, 2024 Le Meyer PA, PA Referring Provider Active Start: July 29, 2024 End: July 29, 2024 Team Status: Active Member Role Status Dates Dr. Massimo Epperson MD Primary Care Provider Active Start: August 04, 2024 Le Meyer PA, PA Referring Provider Active Start: August 04, 2024 Le Meyer PA, PA Other Provider Active Start: August 04, 2024 Dr. Juan Manuel Schmitt DO Attending Provider Active S tart: August 04, 2024 Team Status: Active Member Role/Relationship Status Dates Dr. Massimo Epperson MD Primary Care Provider Active Team Status: Inactive Member Role/Relationship Status Dates Dr. Massimo Epperson MD Primary Care Provider Active Start: September 28, 2024 End: September 28, 2024 Dr. Marvin Elliott MD Attending Provider Active S tart: September 28, 2024 End: September 28, 2024 Dr. Marvin Elliott MD Referring Provider Active S tart: September 28, 2024 End: September 28, 2024 Team Status: Inactive Member Role/Relationship Status Dates Dr. Massimo Epperson MD Primary Care Provider Active Start: October 26, 2024 End: October 26, 2024 Dr. Massimo Epperson MD Referring Provider Active Start: October 26, 2024 End: October 26, 2024 Marissa Schroeder MANAGER UTILIZATION MANAGEMENT, MANAGER UTILIZATION MANAGEMENT-C Attending Provider Active Start: October 26, 2024 End: October 26, 2024 Team Status: Inactive Member Role/Relationship Status Dates Dr. Massimo Epperson MD Primary Care Provider Active Start: December 10, 2024 End: December 10, 2024 Dr. Massimo Epperson MD Attending Provider Active Start: December 10, 2024 End: December 10, 2024 Dr. Massimo Epperson MD Referring Provider Active Start: December 10, 2024 End: December 10, 2024 Team Status: Inactive Member Role/Relationship Status Dates Dr. Massimo Epperson MD Primary Care Provider Active Start: January 11, 2025 End: January 11, 2025 Dr. Massimo Epperson MD Referring Provider Active Start: January 11, 2025 End: January 11, 2025 Dr. Bertram Dove MD Attending Provider Active Start: January 11, 2025 End: January 11, 2025 Goals (unrecognized section and content) Goals may be documented in a n alternate sectionGoals may be documented in an alternate sectionGoals may be documented in an alternate sectionGoals may be documented in an alternate sectionGoals may be documented in an alternate sectionGoals may be documented in an alternate sectionNo InformationNo InformationGoals may be documented in an alternate sectionGoals may be documented in an alternate sectionGoals may be documented in an alternate sectionGoals may be documented in an alternate sectionGoals may be documented in an alternate sectionGoals may be documented in an alternate sectionGoals may be documented in an alternate sectionGoals may be documented in an alternate sectionGoals may be documented in an alternate section FOR RECORDS PERTAINING TO PATIENTS WHO ARE [...] BE BASED ON THE PRIMARY CLINICAL RECORDS. [facility]. provides no warranty or guarantee of the accuracy or completeness of information in this document.
== END 2025-03-09 23:59 | disposition home or self-care (01) ==
LOC: CT 06:52
PROVIDERS: PCP Family Medicine Geriatric Medicine; Referring Provider Nurse Practitioner Acute Care; Visit Provider Nurse Practitioner Acute Care
DX: Z12.2 Encounter for screening for malignant neoplasm of respiratory organs (principal); Z87.891 Personal history of nicotine dependence
CPT/HCPCS: 71271

== ENCOUNTER → 2025-04-06 | Outpatient (CLI) | payer MEDICARE, SELFPAY | END | disposition home or self-care (01) | LOC: SL 13:49 | PROVIDERS: PCP Family Medicine Geriatric Medicine; Visit Provider Nurse Practitioner Acute Care | DX: G47.33 Obstructive sleep apnea (adult) (pediatric) (principal) | CPT/HCPCS: 98960; G0463 ==

== ENCOUNTER → 2025-04-20 | Outpatient (CLI) | payer MEDICARE, SELFPAY | END | disposition home or self-care (01) | LOC: SL 08:34 | PROVIDERS: PCP Family Medicine Geriatric Medicine; Referring Provider Nurse Practitioner Acute Care; Visit Provider Nurse Practitioner Acute Care | DX: Z00.00 Encounter for general adult medical examination without abnormal findings (principal) ==

== ENCOUNTER → 2025-05-07 | Outpatient (CLI) | payer MEDICARE, SELFPAY ==
--- NOTE | 2025-05-07 18:57 | CT_ITS ---
PROCEDURE: CT/Sinus/Facial Bone
== END | disposition home or self-care (01) ==
LOC: CT 18:53
PROVIDERS: PCP Family Medicine Geriatric Medicine; Referring Provider Otolaryngology; Visit Provider Otolaryngology
DX: G50.1 Atypical facial pain (principal)
CPT/HCPCS: 70486

== ENCOUNTER → 2025-06-14 | Outpatient (CLI) | payer MEDICARE, SELFPAY ==
[2025-06-14 09:38] LABS: Hematocrit 43.3 % (40-54); Hemoglobin 13.6 g/dL (13.0-16.5); Immature Granulocytes Count 0.040 X10^3/uL (0.0-0.0); Mean Corp Hgb Conc 31.4 g/dL (32-36); Mean Corpuscular Volume 99.5 fL (80-94); Mean Platelet Vol. 9.4 fl (6.2-12.0); NRBC Flagged by Analyzer 0 % (0-5); Platelet Count 369 K/mm3 (150-450); RBC Distribution Width CV 13.6 % (11.6-14.6); RBC Distribution Width SD 50.1 fl (35.1-43.9); Red Blood Count 4.35 M/mm3 (4.6-6.2); White Blood Count 11.7 K/mm3 (4.4-11.0)
[2025-06-14 10:10] LABS: AST(SGOT) 27 U/L (<=37); Alanine Aminotransfer ALT/SGPT 28 U/L (<=46); Albumin, Serum 4.5 g/dL (3.4-4.8); Alkaline Phosphatase 105 U/L (40-129); Anion Gap 9 (5-15); BUN 23 mg/dL (4-19); BUN/Creat Ratio 25.1 RATIO (10-20); Calcium,Total 9.5 mg/dL (7.6-11.0); Carbon Dioxide 32.4 mmol/L (21.0-32.0); Chloride 99 mmol/L (98-108); Cholesterol 104 mg/dL (<=200); Globulin 3.0 g/dL (2.2-4.2); Glucose 171 mg/dL (70-99); Low Density Lipoprotein Calc. 50 mg/dL; Potassium 4.7 mmol/L (3.3-5.1); Triglycerides 127 mg/dL; Very Low Density Lipoprotein 25 mg/dL (5-40); cholesterol:hdl ratio screen 3.33
[2025-06-14 11:05] LABS: Creatinine, Urine (random) 136.00 mg/dL (39.00-259.00); Microalbumin,Random Urine 82.6 mg/L (<20 mg/L)
[2025-06-17 12:08] LABS: Testosterone, % Free 1.48 % (1.50-4.20); Testosterone, Free 12.36 ng/dL (5.00-21.00)
== END | disposition home or self-care (01) ==
LOC: POLAB3 09:25
PROVIDERS: PCP Family Medicine Geriatric Medicine; Visit Provider Family Medicine Geriatric Medicine
DX: I12.9 Hypertensive chronic kidney disease with stage 1 through stage 4 chronic kidney disease, or unspecified chronic kidney disease (principal); J44.9 Chronic obstructive pulmonary disease, unspecified; E11.22 Type 2 diabetes mellitus with diabetic chronic kidney disease; N18.9 Chronic kidney disease, unspecified; E78.5 Hyperlipidemia, unspecified; K74.00 Hepatic fibrosis, unspecified
CPT/HCPCS: 36415; 80053; 80061; 82043; 82570; 83036; 84402; 84403; 84443; 85025